=== PATIENT | female | born 1930 | race Caucasian/White ===

== ENCOUNTER → 2016-11-03 | Outpatient (REF) | payer MEDICARE ==
[~2016-11-03] MED LIST: /DULO30CA; /ESOM40CA OR; /WARF25TA OR; ACET65TA; ACET65TA OR; ALLE60TA69 PO; AMIT25TA2; ASPI1TAB PO; ASPIRIN PO; ASTEPRO; ATEN50TA2 OR; ATENPOW PO; Astepro; BACL10TA2; BISA10SU2; BISA5TA; CALC12502; CALCIUM CARBONATE; CALCIUM CARBONATE PO; CALTTAB11 PO; CHOLECALCIFEROL; CHOLECALCIFEROL PO; COLA100C2; COLA100C2 OR; CYMBALTA PO; DOCUSATE PO; DUCOLAX PR; DULCOLAX; DULCOLAX PO; DULO20CA OR; ECOT325T5; ESTRACE VAG CREAM; ESTRACE VAG CREAM PV; FERR325T; FERR325T OR; FERR325T PO; FISH1000 OR; FISHCAP PO; FLUC10TA OR; FLUC10TA PO; FLUT11IN INH; GLUCOSAMINE PLUS MSM; GLUCOSAMINE PLUS MSM PO; HYDR25TA6 OR; HYDR25TA6 PO; ICAPCAP PO; LASI40TA PO; LISI-538 PO; LOVAZA PO; MAGN400C2 PO; MIRALAX PO; MIRALEX PO; MULTIVIT PO; MYCOSTATIN SS; NEUR300C; NEXIUM PO; OXYC10TA56; OXYC10TA97 OR; OXYC10TA97 PO; PEPC20TA2; PERC5TAB8; PERC5TAB8 OR; PERC5TAB8 PO; PERC7.5T8 OR; PERC7.5T8 PO; POTA10CA2; POTA10CA2 OR; PREMARIVAG VAGINALLY; REFR0.1D OP; SALI0.653; SENO8.6T5; TENO25TA; TENO50TA OR; TENO50TA PO; THERGRAN; TRAM50TA2 PO; VITA500T; VITATAB11 PO; ZINC220T2; [UNRECOGNIZED DRUG - OTHER]; [UNRECOGNIZED DRUG - OTHER] PO; [UNRECOGNIZED DRUG - OTHER] VAGINALLY; [UNRECOGNIZED DRUG - REMARK]; [UNRECOGNIZED DRUG - REMARK]; astepro; metamucil; miralax; mylanta; oscal 500 PO
== END | disposition home or self-care (01) ==
LOC: M LAB REF 11-01 13:07
PROVIDERS: ATTEND Physician Assistant Medical
DX: R19.7 Diarrhea, unspecified (principal)

== ENCOUNTER → 2016-11-23 | Outpatient (CLI) | payer MEDICARE ==
--- NOTE | 2016-11-24 07:59 | REP ---
SUPINE ABDOMEN: 11/23/2016. Comparison: 10/11/2005. Clinical history: Diarrhea, sitz marker study. Laminectomy and fusion from L3-L5 with pedicle screws and arch bars noted. Pelvic surgical clips and anastomotic sutures in the midline pelvis. The gas pattern is nonspecific. Degenerative changes in the hips and spine. There are no sitz markers evident on this study. Signed by Hunter Hennessy MD 11/24/2016 06:52 P
== END | disposition home or self-care (01) ==
LOC: M RAD 11-18 08:54
PROVIDERS: ATTEND Physician Assistant Medical
DX: R19.8 Other specified symptoms and signs involving the digestive system and abdomen (principal); R19.7 Diarrhea, unspecified

== ENCOUNTER → 2016-12-19 | Outpatient (CLI) | payer MEDICARE ==
[~2016-12-19] VITALS: Ht 157.5 cm; Wt 90.7 kg
[~2016-12-19] MED LIST changes: +DITR5TAB PO; +LIDOCAINE 2% INJ 100 MG/5 ML SDV (FOR ANES.) As Ordered ONE; +NS 1,000 ML IV SCH; +PROBCAP4 PO; +PROPOFOL 200 MG/20 ML VIAL As Ordered ONE; -REFR0.1D OP; +REFR0.1D OU; +SIMETHICONE 40MG/0.6ML DROPS 30ML As Ordered ONE
--- NOTE | 2016-12-19 08:44 | ROOR ---
Patient Name: Wendy Gonzalez Procedure Date: 12/19/2016 8:22 AM Date of : 1930 Age: 86 Room: OP02 Gender: Female Note Status: Finalized Procedure: Colonoscopy Indications: High risk colon cancer surveillance: Personal history of colon cancer (x2--'93 and '03), History of adenomatous polyps Providers: Nimesh MCKEON MD Referring MD: Brent Zhang NP Requesting Provider: Medicines: Monitored Anesthesia Care Complications: No immediate complications. Procedure: Pre-Anesthesia Assessment: - The heart rate, respiratory rate, oxygen saturations, blood pressure, adequacy of pulmonary ventilation, and response to care were monitored throughout the procedure. The Colonoscope was introduced through the anus and advanced to the cecum, identified by appendiceal orifice and ileocecal valve. The colonoscopy was performed without difficulty. The patient tolerated the procedure well. The quality of the bowel preparation was good. Findings: (Exam: Complete, Prep: Good or Excellent.) Two sessile polyps were found in the sigmoid colon and at 50 cm proximal to the anus. The polyps were diminutive in size. These polyps were removed with a cold snare. Resection and retrieval were complete. There was evidence of a prior end-to-end colo-rectal anastomosis in the recto-sigmoid colon. This was patent and was characterized by healthy appearing mucosa. The exam was otherwise without abnormality on direct and retroflexion views. Impression: - Two diminutive polyps in the sigmoid colon and at 50 cm proximal to the anus, removed with a cold snare. Resected and retrieved. - Patent end-to-end colo-rectal anastomosis, characterized by healthy appearing mucosa. - The examination was otherwise normal on direct and retroflexion views. Recommendation: - Repeat colonoscopy in 2 years for surveillance based on personal history of colon cancer. Nimesh Mckeon MD Nimesh MCKEON MD 12/19/2016 8:43:59 AM This report has been signed electronically. Number of Addenda: 0 Note Initiated On: 12/19/2016 8:22 AM Estimated Blood Loss: Estimated blood loss: none.
[2016-12-19 08:55] VITALS: BP 157/72
== END ==
LOC: M OPP 07:25
PROVIDERS: ATTEND Internal Medicine Gastroenterology
DX: Z12.11 Encounter for screening for malignant neoplasm of colon (principal); Z85.038 Personal history of other malignant neoplasm of large intestine; D12.5 Benign neoplasm of sigmoid colon; Z98.0 Intestinal bypass and anastomosis status; I10 Essential (primary) hypertension; R19.7 Diarrhea, unspecified; M10.9 Gout, unspecified; N39.9 Disorder of urinary system, unspecified; R19.4 Change in bowel habit; Z88.5 Allergy status to narcotic agent; Z88.2 Allergy status to sulfonamides; Z88.8 Allergy status to other drugs, medicaments and biological substances; Z88.6 Allergy status to analgesic agent; Z91.89 Other specified personal risk factors, not elsewhere classified

== ENCOUNTER → 2017-06-30 | Outpatient (CLI) | payer MEDICARE ==
[~2017-06-30] MED LIST changes: -LIDOCAINE 2% INJ 100 MG/5 ML SDV (FOR ANES.) As Ordered ONE; -NS 1,000 ML IV SCH; -PROPOFOL 200 MG/20 ML VIAL As Ordered ONE; +SALI0.6523; -SALI0.653; -SIMETHICONE 40MG/0.6ML DROPS 30ML As Ordered ONE
--- NOTE | 2017-06-30 15:17 | REP ---
PA and lateral chest: Comparison is 04/04/2015. There are no focal infiltrates. No pleural effusions. Lung gutiérrez otherwise clear and unchanged. Cardiac size is upper normal. The gregorio, mediastinum, and bony thorax are unremarkable. On the lateral view there is grade 1 compression deformity of the L1 vertebral body, unchanged. Surgical fusion of the lumbar spine, unchanged. Impression: No acute cardiopulmonary findings. No interval change. Signed by Tomas Martinez MD 06/30/2017 03:09 P
[2017-06-30 17:12] LABS: ALBUMIN 3.9 GM/DL (3.2-5.2); ALBUMIN/GLOBULIN RATIO 1.05 (1.00-1.93); BILIRUBIN,TOTAL 0.4 MG/DL (0.2-1.0); CALCIUM LEVEL 9.9 MG/DL (8.8-10.2); CREATININE FOR GFR 1.03 MG/DL (0.55-1.02); GLOMERULAR FILTRATION RATE 54.2 (>32); MAGNESIUM LEVEL 2.1 MG/DL (1.8-2.4); POTASSIUM SERUM 4.6 MEQ/L (3.5-5.1); TOTAL PROTEIN 7.6 GM/DL (6.4-8.2)
== END ==
LOC: M WUC 14:03
PROVIDERS: ATTEND Nurse Practitioner Family
DX: R06.02 Shortness of breath (principal); I10 Essential (primary) hypertension

== ENCOUNTER → 2017-07-30 | Outpatient (CLI) | payer MEDICARE ==
--- NOTE | 2017-07-30 18:02 | PFTRPT ---
Tech: Amira Long ECONOMIC ADVISER Age: 87 Sex: Female Race: Height: 62.00 Inches Weight: 201.00 Lbs BSA: 1.92 Diagnosis: R06.02 PULMONARY FUNCTION REPORT ORDERING PROVIDER: Brent Zhang RN, TIMBER CUTTER DATE OF SERVICE: 07/30/17 SPIROMETRY: Pre and post bronchodilator study of excellent technical quality. The forced vital capacity is reduced. The FEV1 is in proportion. The obstructive index is, therefore, normal. FLOW VOLUME LOOP: The expiratory limb of the flow volume loop does suggest airflow limitation, however. Favorable bronchodilator response is identified. LUNG VOLUMES: The total lung capacity is normal. The residual volume suggests air trapping. DIFFUSION CAPACITY: The diffusion capacity, although reduced, is appropriate for alveolar volume. HEMOGLOBIN: No hemoglobin is available for correction. AIRWAY MECHANICS: Airways resistance is elevated with a concomitant decrease in airway conductance. IMPRESSION: Obstructive ventilatory impairment with bronchodilator response, underling air trapping and a mild diffusion capacity impairment. Please correlate clinically. MTDD
== END ==
LOC: M CARPUL 16:45
PROVIDERS: ATTEND Nurse Practitioner Family
DX: R06.02 Shortness of breath (principal)

== ENCOUNTER → 2017-08-25 | Outpatient (CLI) | payer MEDICARE ==
--- NOTE | 2017-08-25 15:48 | REPMRS ---
Patient History The patient states she has not had a clinical breast exam in over a year. Patient is postmenopausal and has history of colorectal cancer at age 65. Family history of breast cancer in maternal aunt and prostate cancer in brother. Digital Woman Screen Mammo: August 25, 2017 - Exam #: [id number] Bilateral CC and MLO view(s) were taken. Technologist: Marija Huffman, Technologist Prior study comparison: June 14, 2016, digital woman screen mammo performed at [facility]. May 03, 2015, digital woman screen mammo performed at [facility]. FINDINGS: There are scattered fibroglandular densities. There has been no change in the appearance of the mammogram from the prior studies. There is a mild amount of residual fibroglandular tissue which is fairly symmetric. There is no interval development of dominant mass, architectural distortion, or clustered microcalcification suggestive of malignancy. ASSESSMENT: BI-RADS/ACR category 1 mammogram. Negative. Recommendation Routine screening mammogram in 1 year (for women over age 40). This mammogram was interpreted with the aid of an FDA-approved computer-aided dectection system. Electronically Signed By: Tomas Mejia MD 08/25/17 [id number]
== END ==
LOC: M WHC 14:57
PROVIDERS: ATTEND Nurse Practitioner Family
DX: Z12.31 Encounter for screening mammogram for malignant neoplasm of breast (principal)

== ENCOUNTER → 2017-10-30 | Outpatient (REF) | payer MEDICARE ==
[2017-10-30 13:40] LABS: APPEARANCE, URINE HAZY (CLEAR); BACTERIA, URINE AUTO NEGATIVE (NEGATIVE); BILIRUBIN, URINE AUTO NEGATIVE (NEGATIVE); BLOOD, URINE BLOOD 2+ (NEGATIVE); COLOR, URINE YELLOW (YELLOW); GLUCOSE, URINE (UA) AUTO NEGATIVE (NEGATIVE); KETONE, URINE AUTO NEGATIVE (NEGATIVE); LEUKOCYTE ESTERASE, URINE AUTO 1+ (NEGATIVE); MUCUS, URINE SMALL (NEGATIVE); NITRITE, URINE AUTO NEGATIVE (NEGATIVE); PROTEIN, URINE AUTO NEGATIVE (NEGATIVE); RBC, URINE AUTO 14 /HPF (0-3); SPECIFIC GRAVITY URINE AUTO 1.008 (1.002-1.035); SQUAMOUS EPITHELIAL CELL UR AU 0 /HPF (0-6); UROBILINOGEN, URINE AUTO 0.2 mg/dL (0.0-2.0); WBC, URINE AUTO 25 /HPF (0-3)
== END ==
LOC: M LAB REF 12:57
DX: N39.0 Urinary tract infection, site not specified (principal)
CPT/HCPCS: 81001

== ENCOUNTER → 2018-05-13 | Outpatient (CLI) | payer MEDICARE ==
[2018-05-13 19:36] LABS: ANION GAP 8 MEQ/L (8-16); BLOOD UREA NITROGEN 31 MG/DL (7-18); CALCIUM LEVEL 9.1 MG/DL (8.8-10.2); CARBON DIOXIDE LEVEL 32 MEQ/L (21-32); CHLORIDE LEVEL 103 MEQ/L (98-107); CREATININE FOR GFR 1.14 MG/DL (0.55-1.30); GLOMERULAR FILTRATION RATE 48.1 (>32); GLUCOSE, FASTING 111 MG/DL (70-100); MAGNESIUM LEVEL 2.2 MG/DL (1.8-2.4); POTASSIUM SERUM 4.7 MEQ/L (3.5-5.1); SODIUM LEVEL 143 MEQ/L (136-145)
== END ==
LOC: M WUC 16:39
DX: I10 Essential (primary) hypertension (principal)
CPT/HCPCS: 83735

== ENCOUNTER 2018-09-11 10:31 | Inpatient (IN) | payer MEDICARE ==
[2018-09-11] MEDS: ALBUTEROL SULFATE 2.5 MG/0.5 ML INH NEB SOLN INH (11:41)
[2018-09-11] MEDS: IPRATROPIUM 0.5MG/ALBUTEROL 2.5MG INH SOL UD 3ML (DUONEB)(J7620) NEB (11:41)
[2018-09-11] MEDS: methylPREDNISolone INJ 125 MG/2 ML VIAL (J2930) IV (11:44)
[2018-09-11 12:04] LABS: VENOUS BASE EXCESS 4.1 (-2.0-2.0); VENOUS HCO3 31.8 MEQ/L (23.0-27.0); VENOUS O2 SATURATION 91.3 % (60.0-80.0); VENOUS PARTIAL PRESSURE CO2 62.8 mmHg (38.0-50.0); VENOUS PARTIAL PRESSURE O2 62.4 mmHg (30.0-50.0); VENOUS PH 7.323 UNITS (7.330-7.430); VENOUS TOTAL CO2 33.8 MEQ/L (24.0-28.0)
[2018-09-11 12:08] LABS: BASO % 0.4 % (0.0-1.0); EOS # 0.1 10^3/uL (0.0-0.50); HEMATOCRIT 39.1 % (36.0-47.0); HEMOGLOBIN 12.1 g/dl (12.0-15.5); IMMATURE GRANULOCYTE % 0.8 % (0-3.0); LYMPH # 0.9 10^3/uL (1.5-4.5); LYMPH % 18.4 % (24.0-44.0); MEAN CORPUSCULAR HEMOGLOBIN 32.4 pg (27.0-33.0); MEAN CORPUSCULAR HGB CONC 30.9 g/dl (32.0-36.5); MEAN CORPUSCULAR VOLUME 104.5 fl (80.0-96.0); MONO # 0.3 10^3/uL (0.0-0.8); MONO % 5.7 % (0.0-5.0); NEUTROPHILS # 3.7 10^3/uL (1.8-7.7); NEUTROPHILS % 72.7 % (36.0-66.0); RED BLOOD COUNT 3.74 10^6/uL (4.00-5.40); RED CELL DISTRIBUTION WIDTH 14.6 % (11.5-14.5); WHITE BLOOD COUNT 5.1 10^3/uL (4.0-10.0)
[2018-09-11 12:20] LABS: INR 0.88; PROTHROMBIN TIME 12.1 SECONDS (12.1-14.4)
[2018-09-11 12:22] LABS: POS COUNT POS FLAG
[2018-09-11 12:51] LABS: ALBUMIN 3.2 GM/DL (3.2-5.2); ALBUMIN/GLOBULIN RATIO 0.89 (1.00-1.93); ALKALINE PHOSPHATASE 62 U/L (45-117); ALT/SGPT 39 U/L (12-78); ANION GAP 6 MEQ/L (8-16); AST/SGOT 28 U/L (7-37); BILIRUBIN,DIRECT < 0.1 MG/DL (0.0-0.2); BILIRUBIN,TOTAL 0.2 MG/DL (0.2-1.0); BLOOD UREA NITROGEN 35 MG/DL (7-18); CALCIUM LEVEL 8.9 MG/DL (8.8-10.2); CARBON DIOXIDE LEVEL 32 MEQ/L (21-32); CHLORIDE LEVEL 103 MEQ/L (98-107); CPK CREATINE PHOSPHOKINASE 119 U/L (26-192); CREATININE FOR GFR 1.22 MG/DL (0.55-1.30); GLOMERULAR FILTRATION RATE 44.5 (>32); GLUCOSE, FASTING 120 MG/DL (70-100); MB/CK RELATIVE INDEX 2.27 (< OR =4); NT-PRO BNP 5380 PG/ML (<450); POTASSIUM SERUM 4.6 MEQ/L (3.5-5.1); SODIUM LEVEL 141 MEQ/L (136-145); THYROID STIMULATING HORMONE 0.994 uIU/ML (0.358-3.740); THYROXINE (T4) 7.6 UG/DL (4.5-12.0); TOTAL PROTEIN 6.8 GM/DL (6.4-8.2); TROPONIN I 0.02 NG/ML (< 0.10)
[2018-09-11] MEDS ORDERED: ISOVUE-370 76% 100ML VIAL (Q9967) As Ordered (13:20)
[2018-09-11 13:33] LABS: ABG BASE EXCESS 3.7 (-2.0-2.0); ABG HCO3 30.9 MEQ/L (22.0-26.0); ABG O2 SATURATION 91.9 % (95.0-99.0); ABG PARTIAL PRESSURE CO2 59.1 mmHg (35.0-45.0); ABG PARTIAL PRESSURE O2 62.5 mmHg (75.0-100.0); ABG STANDARD HCO3 27.6 MEQ/L (22.0-26.0); ABG TOTAL CO2 32.7 MEQ/L (23.0-31.0); ABG pH (ARTERIAL) 7.336 UNITS (7.350-7.450)
[2018-09-11] MEDS ORDERED: FUROSEMIDE 40 MG/4 ML VIAL (J1940) IV (14:30)
[2018-09-11] MEDS: FUROSEMIDE 100 MG/10 ML VIAL (J1940) IV (14:54)
[2018-09-11] MEDS ORDERED: DOCUSATE SODIUM 100 MG CAP PO (16:45)
[2018-09-11] MEDS ORDERED: diphenhydrAMINE 25 MG CAP PO (16:45)
[2018-09-11] MEDS: metFORMIN (GLUCOPHAGE) 500 MG TAB PO (18:49)
[2018-09-11] MEDS: LEVALBUTEROL HFA 45MCG/ACT 15 GM INHALER INH (20:00)
[2018-09-11 20:21] LABS: TROPONIN I 0.03 NG/ML (< 0.10)
[2018-09-11] MEDS: MULTIVITAMINS/MINERALS THERAP 1 TAB PO (21:14)
[2018-09-11] MEDS: predniSONE 2.5 MG TAB PO (21:15)
[2018-09-11] MEDS: ALLOPURINOL 100 MG TAB PO (21:15)
[2018-09-11] MEDS: ASPIRIN 81 MG ENTERIC TAB PO (21:16)
[2018-09-11] MEDS: LISINOPRIL 20 MG TAB PO (21:16)
[2018-09-11] MEDS: ATENOLOL 50 MG TAB PO (21:17)
[2018-09-11] MEDS: GABAPENTIN 100 MG CAP PO (21:17)
[2018-09-11] MEDS: SYMBICORT 80/4.5MCG INHALER 6GM INH (22:02)
[2018-09-12 00:29] LABS: BEDSIDE GLUCOSE 157 MG/DL (83-110)
[2018-09-12 05:35] LABS: HEMATOCRIT 35.6 % (36.0-47.0); HEMOGLOBIN 11.2 g/dl (12.0-15.5); MEAN CORPUSCULAR HEMOGLOBIN 32.7 pg (27.0-33.0); MEAN CORPUSCULAR HGB CONC 31.5 g/dl (32.0-36.5); MEAN CORPUSCULAR VOLUME 103.8 fl (80.0-96.0); PLATELET COUNT, AUTOMATED 171 10^3/uL (150-450); RED BLOOD COUNT 3.43 10^6/uL (4.00-5.40); RED CELL DISTRIBUTION WIDTH 14.3 % (11.5-14.5); WHITE BLOOD COUNT 6.3 10^3/uL (4.0-10.0)
[2018-09-12 05:58] LABS: ANION GAP 6 MEQ/L (8-16); BLOOD UREA NITROGEN 34 MG/DL (7-18); CALCIUM LEVEL 8.7 MG/DL (8.8-10.2); CARBON DIOXIDE LEVEL 34 MEQ/L (21-32); CHLORIDE LEVEL 101 MEQ/L (98-107); CREATININE FOR GFR 1.11 MG/DL (0.55-1.30); GLOMERULAR FILTRATION RATE 49.6 (>32); GLUCOSE, FASTING 153 MG/DL (70-100); POTASSIUM SERUM 4.3 MEQ/L (3.5-5.1); SODIUM LEVEL 141 MEQ/L (136-145)
[2018-09-12 07:29] LABS: TROPONIN I < 0.02 NG/ML (< 0.10)
[2018-09-12] MEDS: LEVALBUTEROL HFA 45MCG/ACT 15 GM INHALER INH ×4 (07:33→20:00)
[2018-09-12] MEDS: SYMBICORT 80/4.5MCG INHALER 6GM INH ×2 (07:34→20:04)
[2018-09-12] MEDS ORDERED: DEXTROSE 50% 50 ML SYRINGE IV (07:45)
[2018-09-12] MEDS ORDERED: GLUCAGON FOR INJ 1 MG VIAL (J1610) SC (07:45)
[2018-09-12] MEDS ORDERED: GLUCOSE 4 GM CHEW TABLET PO (07:45)
[2018-09-12] MEDS: GABAPENTIN 100 MG CAP PO ×2 (07:49→20:54)
[2018-09-12] MEDS: HYDROXYCHLOROQUINE 200 MG TAB PO (07:49)
[2018-09-12] MEDS: ENOXAPARIN 40 MG/0.4 ML SYRINGE (J1650) SC (07:49)
[2018-09-12] MEDS: predniSONE 5 MG TAB PO (07:49)
[2018-09-12] MEDS: FUROSEMIDE 40 MG/4 ML VIAL (J1940) IV ×2 (07:49→17:16)
[2018-09-12] MEDS: OCUVITE 1 TAB PO (07:50)
[2018-09-12] MEDS: HumaLOG INSULIN (NovoLOG) PER UNIT SC ×4 (07:54→20:56)
[2018-09-12] MEDS ORDERED: FUROSEMIDE 40 MG/4 ML VIAL (J1940) IV (09:00)
[2018-09-12 11:59] LABS: BEDSIDE GLUCOSE 129 MG/DL (83-110)
[2018-09-12 16:57] LABS: BEDSIDE GLUCOSE 122 MG/DL (83-110)
[2018-09-12] MEDS: predniSONE 2.5 MG TAB PO (17:15)
[2018-09-12 20:52] LABS: BEDSIDE GLUCOSE 198 MG/DL (83-110)
[2018-09-12] MEDS: ASPIRIN 81 MG ENTERIC TAB PO (20:54)
[2018-09-12] MEDS: LISINOPRIL 20 MG TAB PO (20:55)
[2018-09-12] MEDS: ALLOPURINOL 100 MG TAB PO (20:56)
[2018-09-12] MEDS: MULTIVITAMINS/MINERALS THERAP 1 TAB PO (20:56)
[2018-09-12] MEDS: ATENOLOL 50 MG TAB PO (20:56)
[2018-09-12] MEDS: CALCIUM CARBONATE 500 MG CHEW U/D PO (23:01)
[2018-09-13] MEDS ORDERED: SLF 3 ML SYR IV (03:00)
[2018-09-13] MEDS: SLF 3 ML SYR IV ×3 (05:19→20:49)
[2018-09-13 05:30] LABS: HEMATOCRIT 35.9 % (36.0-47.0); HEMOGLOBIN 11.3 g/dl (12.0-15.5); MEAN CORPUSCULAR HEMOGLOBIN 32.5 pg (27.0-33.0); MEAN CORPUSCULAR HGB CONC 31.5 g/dl (32.0-36.5); MEAN CORPUSCULAR VOLUME 103.2 fl (80.0-96.0); PLATELET COUNT, AUTOMATED 183 10^3/uL (150-450); RED BLOOD COUNT 3.48 10^6/uL (4.00-5.40); RED CELL DISTRIBUTION WIDTH 14.5 % (11.5-14.5); WHITE BLOOD COUNT 6.6 10^3/uL (4.0-10.0)
[2018-09-13 05:50] LABS: ANION GAP 6 MEQ/L (8-16); BLOOD UREA NITROGEN 44 MG/DL (7-18); CARBON DIOXIDE LEVEL 35 MEQ/L (21-32); CHLORIDE LEVEL 100 MEQ/L (98-107); CREATININE FOR GFR 1.27 MG/DL (0.55-1.30); GLOMERULAR FILTRATION RATE 42.5 (>32); GLUCOSE, FASTING 118 MG/DL (70-100); SODIUM LEVEL 141 MEQ/L (136-145)
[2018-09-13] MEDS: HumaLOG INSULIN (NovoLOG) PER UNIT SC ×4 (07:39→20:42)
[2018-09-13] MEDS: LEVALBUTEROL HFA 45MCG/ACT 15 GM INHALER INH ×4 (08:00→20:00)
[2018-09-13] MEDS: ENOXAPARIN 40 MG/0.4 ML SYRINGE (J1650) SC (08:07)
[2018-09-13] MEDS: predniSONE 5 MG TAB PO (08:07)
[2018-09-13] MEDS: OCUVITE 1 TAB PO (08:07)
[2018-09-13] MEDS: traMADol 50 MG TAB PO ×2 (08:08→23:54)
[2018-09-13] MEDS: HYDROXYCHLOROQUINE 200 MG TAB PO (08:08)
[2018-09-13] MEDS: GABAPENTIN 100 MG CAP PO ×2 (08:08→20:40)
[2018-09-13] MEDS: FUROSEMIDE 40 MG/4 ML VIAL (J1940) IV ×2 (08:09→17:07)
[2018-09-13] MEDS: SYMBICORT 80/4.5MCG INHALER 6GM INH ×2 (08:20→21:16)
[2018-09-13 12:11] LABS: BEDSIDE GLUCOSE 208 MG/DL (83-110)
[2018-09-13 16:52] LABS: BEDSIDE GLUCOSE 142 MG/DL (83-110)
[2018-09-13] MEDS: predniSONE 2.5 MG TAB PO (17:08)
[2018-09-13 20:25] LABS: BEDSIDE GLUCOSE 155 MG/DL (83-110)
[2018-09-13] MEDS: ATENOLOL 50 MG TAB PO (20:40)
[2018-09-13] MEDS: LISINOPRIL 20 MG TAB PO (20:40)
[2018-09-13] MEDS: ASPIRIN 81 MG ENTERIC TAB PO (20:41)
[2018-09-13] MEDS: MULTIVITAMINS/MINERALS THERAP 1 TAB PO (20:41)
[2018-09-13] MEDS: ALLOPURINOL 100 MG TAB PO (20:49)
[2018-09-14] MEDS: SLF 3 ML SYR IV ×3 (05:02→22:00)
[2018-09-14 05:25] LABS: HEMATOCRIT 35.8 % (36.0-47.0); HEMOGLOBIN 11.2 g/dl (12.0-15.5); MEAN CORPUSCULAR HEMOGLOBIN 32.2 pg (27.0-33.0); MEAN CORPUSCULAR HGB CONC 31.3 g/dl (32.0-36.5); MEAN CORPUSCULAR VOLUME 102.9 fl (80.0-96.0); PLATELET COUNT, AUTOMATED 176 10^3/uL (150-450); RED BLOOD COUNT 3.48 10^6/uL (4.00-5.40); RED CELL DISTRIBUTION WIDTH 14.4 % (11.5-14.5); WHITE BLOOD COUNT 5.6 10^3/uL (4.0-10.0)
[2018-09-14 05:36] LABS: ANION GAP 5 MEQ/L (8-16); BLOOD UREA NITROGEN 50 MG/DL (7-18); CARBON DIOXIDE LEVEL 35 MEQ/L (21-32); CHLORIDE LEVEL 98 MEQ/L (98-107); CREATININE FOR GFR 1.26 MG/DL (0.55-1.30); GLOMERULAR FILTRATION RATE 42.9 (>32); GLUCOSE, FASTING 115 MG/DL (70-100); POTASSIUM SERUM 4.2 MEQ/L (3.5-5.1); SODIUM LEVEL 138 MEQ/L (136-145)
[2018-09-14] MEDS: SYMBICORT 80/4.5MCG INHALER 6GM INH ×2 (08:50→20:34)
[2018-09-14] MEDS: LEVALBUTEROL HFA 45MCG/ACT 15 GM INHALER INH ×3 (08:51→20:00)
[2018-09-14] MEDS: HumaLOG INSULIN (NovoLOG) PER UNIT SC ×4 (09:01→20:39)
[2018-09-14] MEDS: OCUVITE 1 TAB PO (09:02)
[2018-09-14] MEDS: GABAPENTIN 100 MG CAP PO ×2 (09:03→20:42)
[2018-09-14] MEDS: HYDROXYCHLOROQUINE 200 MG TAB PO (09:03)
[2018-09-14] MEDS: FLUBLOK(EGG FREE)(QUAD)INFLUENZA VACC 0.5ML SYRINGE (90682)18YRS&OLDER IM (09:03)
[2018-09-14] MEDS: predniSONE 5 MG TAB PO (09:04)
[2018-09-14] MEDS: ENOXAPARIN 40 MG/0.4 ML SYRINGE (J1650) SC (09:04)
[2018-09-14] MEDS: FUROSEMIDE 40 MG/4 ML VIAL (J1940) IV ×2 (09:21→18:53)
[2018-09-14 12:13] LABS: BEDSIDE GLUCOSE 128 MG/DL (83-110)
[2018-09-14] MEDS: traMADol 50 MG TAB PO (12:26)
[2018-09-14 16:52] LABS: BEDSIDE GLUCOSE 171 MG/DL (83-110)
[2018-09-14] MEDS: predniSONE 2.5 MG TAB PO (18:52)
[2018-09-14] MEDS: MULTIVITAMINS/MINERALS THERAP 1 TAB PO (20:42)
[2018-09-14] MEDS: ASPIRIN 81 MG ENTERIC TAB PO (20:42)
[2018-09-14] MEDS: LISINOPRIL 20 MG TAB PO (20:42)
[2018-09-14] MEDS: ALLOPURINOL 100 MG TAB PO (20:42)
[2018-09-14] MEDS: ATENOLOL 50 MG TAB PO (20:42)
[2018-09-14 20:50] LABS: BEDSIDE GLUCOSE 78 MG/DL (83-110)
[2018-09-15] MEDS: SLF 3 ML SYR IV ×3 (05:58→22:00)
[2018-09-15 06:02] LABS: HEMATOCRIT 35.6 % (36.0-47.0); MEAN CORPUSCULAR HEMOGLOBIN 31.6 pg (27.0-33.0); MEAN CORPUSCULAR HGB CONC 30.9 g/dl (32.0-36.5); MEAN CORPUSCULAR VOLUME 102.3 fl (80.0-96.0); PLATELET COUNT, AUTOMATED 182 10^3/uL (150-450); RED BLOOD COUNT 3.48 10^6/uL (4.00-5.40); RED CELL DISTRIBUTION WIDTH 14.4 % (11.5-14.5); WHITE BLOOD COUNT 5.9 10^3/uL (4.0-10.0)
[2018-09-15 06:19] LABS: ANION GAP 4 MEQ/L (8-16); BLOOD UREA NITROGEN 52 MG/DL (7-18); CALCIUM LEVEL 8.5 MG/DL (8.8-10.2); CARBON DIOXIDE LEVEL 34 MEQ/L (21-32); CHLORIDE LEVEL 98 MEQ/L (98-107); CREATININE FOR GFR 1.49 MG/DL (0.55-1.30); GLOMERULAR FILTRATION RATE 35.3 (>32); GLUCOSE, FASTING 112 MG/DL (70-100); POTASSIUM SERUM 4.5 MEQ/L (3.5-5.1); SODIUM LEVEL 136 MEQ/L (136-145)
[2018-09-15] MEDS: LEVALBUTEROL HFA 45MCG/ACT 15 GM INHALER INH ×4 (08:00→20:00)
[2018-09-15] MEDS: SYMBICORT 80/4.5MCG INHALER 6GM INH ×2 (09:12→22:41)
[2018-09-15] MEDS: ENOXAPARIN 40 MG/0.4 ML SYRINGE (J1650) SC (09:33)
[2018-09-15] MEDS: predniSONE 5 MG TAB PO (09:34)
[2018-09-15] MEDS: GABAPENTIN 100 MG CAP PO ×2 (09:34→21:12)
[2018-09-15] MEDS: FUROSEMIDE 40 MG/4 ML VIAL (J1940) IV ×2 (09:34→18:09)
[2018-09-15] MEDS: HumaLOG INSULIN (NovoLOG) PER UNIT SC ×4 (09:34→21:00)
[2018-09-15] MEDS: OCUVITE 1 TAB PO (09:34)
[2018-09-15] MEDS: HYDROXYCHLOROQUINE 200 MG TAB PO (09:34)
[2018-09-15 12:08] LABS: BEDSIDE GLUCOSE 119 MG/DL (83-110)
[2018-09-15 18:09] LABS: BEDSIDE GLUCOSE 127 MG/DL (83-110)
[2018-09-15] MEDS: predniSONE 2.5 MG TAB PO (18:09)
[2018-09-15] MEDS: LISINOPRIL 20 MG TAB PO (21:12)
[2018-09-15] MEDS: ASPIRIN 81 MG ENTERIC TAB PO (21:12)
[2018-09-15] MEDS: ALLOPURINOL 100 MG TAB PO (21:12)
[2018-09-15] MEDS: ATENOLOL 50 MG TAB PO (21:12)
[2018-09-15] MEDS: MULTIVITAMINS/MINERALS THERAP 1 TAB PO (21:12)
[2018-09-15 21:20] LABS: BEDSIDE GLUCOSE 132 MG/DL (83-110)
[2018-09-16 05:44] LABS: HEMATOCRIT 37.3 % (36.0-47.0); HEMOGLOBIN 11.9 g/dl (12.0-15.5); MEAN CORPUSCULAR HEMOGLOBIN 32.8 pg (27.0-33.0); MEAN CORPUSCULAR HGB CONC 31.9 g/dl (32.0-36.5); MEAN CORPUSCULAR VOLUME 102.8 fl (80.0-96.0); PLATELET COUNT, AUTOMATED 178 10^3/uL (150-450); RED BLOOD COUNT 3.63 10^6/uL (4.00-5.40); RED CELL DISTRIBUTION WIDTH 14.3 % (11.5-14.5); WHITE BLOOD COUNT 6.4 10^3/uL (4.0-10.0)
[2018-09-16] MEDS: SLF 3 ML SYR IV ×3 (05:55→21:11)
[2018-09-16 05:59] LABS: ANION GAP 8 MEQ/L (8-16); BLOOD UREA NITROGEN 53 MG/DL (7-18); CALCIUM LEVEL 8.5 MG/DL (8.8-10.2); CARBON DIOXIDE LEVEL 29 MEQ/L (21-32); CHLORIDE LEVEL 99 MEQ/L (98-107); CHOLESTEROL LEVEL 183 MG/DL (<200); CREATININE FOR GFR 1.47 MG/DL (0.55-1.30); GLOMERULAR FILTRATION RATE 35.9 (>32); GLUCOSE, FASTING 110 MG/DL (70-100); HDL CHOLESTEROL 60 MG/DL (>40); LDL CHOLESTEROL 93 MG/DL (<100); NON-HDL-C 123 MG/DL; POTASSIUM SERUM 4.8 MEQ/L (3.5-5.1); SODIUM LEVEL 136 MEQ/L (136-145); TRIGLYCERIDES LEVEL 149 MG/DL (<150)
[2018-09-16] MEDS: SYMBICORT 80/4.5MCG INHALER 6GM INH ×2 (08:00→20:53)
[2018-09-16] MEDS: LEVALBUTEROL HFA 45MCG/ACT 15 GM INHALER INH ×4 (08:00→20:00)
[2018-09-16] MEDS: HumaLOG INSULIN (NovoLOG) PER UNIT SC ×4 (08:24→20:44)
[2018-09-16] MEDS: GABAPENTIN 100 MG CAP PO ×2 (08:25→20:44)
[2018-09-16] MEDS: predniSONE 5 MG TAB PO (08:25)
[2018-09-16] MEDS: OCUVITE 1 TAB PO (08:25)
[2018-09-16] MEDS: ENOXAPARIN 40 MG/0.4 ML SYRINGE (J1650) SC (08:25)
[2018-09-16] MEDS: HYDROXYCHLOROQUINE 200 MG TAB PO (10:12)
[2018-09-16 11:52] LABS: BEDSIDE GLUCOSE 132 MG/DL (83-110)
[2018-09-16 17:07] LABS: BEDSIDE GLUCOSE 140 MG/DL (83-110)
[2018-09-16] MEDS: predniSONE 2.5 MG TAB PO (17:22)
[2018-09-16 20:20] LABS: BEDSIDE GLUCOSE 154 MG/DL (83-110)
[2018-09-16] MEDS: ALLOPURINOL 100 MG TAB PO (20:42)
[2018-09-16] MEDS: [UNRECOGNIZED DRUG - OTHER] OU (20:42)
[2018-09-16] MEDS: ATENOLOL 50 MG TAB PO (20:43)
[2018-09-16] MEDS: ASPIRIN 81 MG ENTERIC TAB PO (20:43)
[2018-09-16] MEDS: LISINOPRIL 20 MG TAB PO (20:43)
[2018-09-16] MEDS: MULTIVITAMINS/MINERALS THERAP 1 TAB PO (20:44)
[2018-09-17] MEDS: SLF 3 ML SYR IV (05:25)
[2018-09-17 06:39] LABS: HEMATOCRIT 36.3 % (36.0-47.0); HEMOGLOBIN 11.5 g/dl (12.0-15.5); MEAN CORPUSCULAR HEMOGLOBIN 32.2 pg (27.0-33.0); MEAN CORPUSCULAR HGB CONC 31.7 g/dl (32.0-36.5); MEAN CORPUSCULAR VOLUME 101.7 fl (80.0-96.0); PLATELET COUNT, AUTOMATED 179 10^3/uL (150-450); RED BLOOD COUNT 3.57 10^6/uL (4.00-5.40); RED CELL DISTRIBUTION WIDTH 14.3 % (11.5-14.5); WHITE BLOOD COUNT 5.4 10^3/uL (4.0-10.0)
[2018-09-17 06:55] LABS: ANION GAP 6 MEQ/L (8-16); BLOOD UREA NITROGEN 51 MG/DL (7-18); CALCIUM LEVEL 8.9 MG/DL (8.8-10.2); CARBON DIOXIDE LEVEL 32 MEQ/L (21-32); CHLORIDE LEVEL 101 MEQ/L (98-107); CREATININE FOR GFR 1.14 MG/DL (0.55-1.30); GLOMERULAR FILTRATION RATE 48.1 (>32); GLUCOSE, FASTING 120 MG/DL (70-100); POTASSIUM SERUM 4.6 MEQ/L (3.5-5.1); SODIUM LEVEL 139 MEQ/L (136-145)
[2018-09-17] MEDS: OCUVITE 1 TAB PO (08:08)
[2018-09-17] MEDS: GABAPENTIN 100 MG CAP PO (08:08)
[2018-09-17] MEDS: ENOXAPARIN 40 MG/0.4 ML SYRINGE (J1650) SC (08:08)
[2018-09-17] MEDS: HYDROXYCHLOROQUINE 200 MG TAB PO (08:08)
[2018-09-17] MEDS: predniSONE 5 MG TAB PO (08:08)
[2018-09-17] MEDS: HumaLOG INSULIN (NovoLOG) PER UNIT SC ×2 (08:08→11:44)
[2018-09-17] MEDS: [UNRECOGNIZED DRUG - OTHER] OU (08:09)
[2018-09-17] MEDS: SYMBICORT 80/4.5MCG INHALER 6GM INH (09:03)
[2018-09-17 11:39] LABS: BEDSIDE GLUCOSE 126 MG/DL (83-110)
[2018-09-17 12:12] LABS: MAGNESIUM LEVEL 2.9 MG/DL (1.8-2.4)
[2018-09-17] MEDS: LEVALBUTEROL HFA 45MCG/ACT 15 GM INHALER INH (12:15)
[2018-09-17] MEDS ORDERED: ATENOLOL 25 MG TAB PO (21:00)
== END 2018-09-17 13:55 | disposition home health service (06) | DRG 291 ==
LOC: M ED 10:31 → M ED INP 15:45 → M PCU 20:31
DX: I13.0 Hypertensive heart and chronic kidney disease with heart failure and stage 1 through stage 4 chronic kidney disease, or unspecified chronic kidney disease (principal); I50.33 Acute on chronic diastolic (congestive) heart failure; E11.22 Type 2 diabetes mellitus with diabetic chronic kidney disease; E78.5 Hyperlipidemia, unspecified; K21.9 Gastro-esophageal reflux disease without esophagitis; L93.0 Discoid lupus erythematosus; G89.29 Other chronic pain; M10.9 Gout, unspecified; N18.9 Chronic kidney disease, unspecified; E11.40 Type 2 diabetes mellitus with diabetic neuropathy, unspecified; J44.9 Chronic obstructive pulmonary disease, unspecified; Z88.2 Allergy status to sulfonamides; Z88.6 Allergy status to analgesic agent; Z88.4 Allergy status to anesthetic agent; Z87.891 Personal history of nicotine dependence; Z79.82 Long term (current) use of aspirin; Z79.84 Long term (current) use of oral hypoglycemic drugs; Z79.52 Long term (current) use of systemic steroids; Z79.891 Long term (current) use of opiate analgesic; Z79.899 Other long term (current) drug therapy; Z91.11 Patient's noncompliance with dietary regimen

== ENCOUNTER → 2018-11-18 | Outpatient (REF) | payer MEDICARE ==
[~2018-11-18] MED LIST changes: +ACET500T15 PO; +ALLE12TA31 PO; +ALLO100T PO; +ATEN25TA PO; +ATEN50TA2 PO; +B COTAB3 PO; +BENA25CA4 PO; +CALTTAB6 PO; +COLA100C5 PO; +ESOM1CAP5 PO; +FLUC150T PO; +FURO40TA2 PO; +GABA-1171 PO; +HYDR200T3 PO; +ICAPTAB PO; -LASI40TA PO; +LASI40TA9 PO; +LEVAINH INH; +MAGN400T2 PO; +METF500T13 PO; +MIRA3350 PO; +PRED25TA PO; +PRED5TA PO; +PROBCAP14 PO; +REFR0.5D8 OU; -SALI0.6523; +SALI0.6528; +SYMB80INH INH; +VITMTA PO; +[UNRECOGNIZED DRUG - CODE] PO
[2018-11-18 12:10] LABS: CALCIUM LEVEL 9.1 MG/DL (8.8-10.2); CREATININE FOR GFR 1.07 MG/DL (0.55-1.30); GLOMERULAR FILTRATION RATE 51.8 (>32); POTASSIUM SERUM 5.1 MEQ/L (3.5-5.1)
[2018-11-18 12:43] LABS: HEMOGLOBIN A1c 6.5 %
== END ==
LOC: M LAB REF 11:00
PROVIDERS: ATTEND Nurse Practitioner Family
DX: E11.9 Type 2 diabetes mellitus without complications (principal); I11.0 Hypertensive heart disease with heart failure

== ENCOUNTER 2018-12-22 09:40 | Inpatient (IN) | payer MEDICARE ==
[~2018-12-22] VITALS: Ht 157.5 cm; Wt 90.0 kg
[~2018-12-22 09:40] MED LIST changes: -/DULO30CA; -/ESOM40CA OR; -/WARF25TA OR; -ASPI1TAB PO; +ASPI81TA26 PO; +COUM1TAB18 OR; +CYMB1CAP4 OR; +CYMB1CAP5; -DULO20CA OR; +NEXI1CAP3 OR
[2018-12-22 10:41] LABS: VENOUS BASE EXCESS 5.9 (-2.0-2.0); VENOUS HCO3 33.4 MEQ/L (23.0-27.0); VENOUS O2 SATURATION 90.3 % (60.0-80.0); VENOUS PARTIAL PRESSURE CO2 63.4 mmHg (38.0-50.0); VENOUS PARTIAL PRESSURE O2 62.2 mmHg (30.0-50.0); VENOUS PH 7.339 UNITS (7.330-7.430); VENOUS STANDARD HCO3 29.7 MEQ/L; VENOUS TOTAL CO2 35.3 MEQ/L (24.0-28.0)
[2018-12-22 10:42] LABS: BASO % 0.3 % (0.0-1.0); EOS # 0.1 10^3/uL (0.0-0.50); EOS % 1.8 % (0.0-3.0); HEMATOCRIT 33.6 % (36.0-47.0); HEMOGLOBIN 10.6 g/dl (12.0-15.5); LYMPH # 1.2 10^3/uL (1.5-4.5); LYMPH % 16.3 % (24.0-44.0); MEAN CORPUSCULAR HEMOGLOBIN 33.4 pg (27.0-33.0); MEAN CORPUSCULAR HGB CONC 31.5 g/dl (32.0-36.5); MONO # 0.6 10^3/uL (0.0-0.8); MONO % 8.8 % (0.0-5.0); NEUTROPHILS # 5.3 10^3/uL (1.8-7.7); NEUTROPHILS % 72.3 % (36.0-66.0); PLATELET COUNT, AUTOMATED 167 10^3/uL (150-450); RED BLOOD COUNT 3.17 10^6/uL (4.00-5.40); WHITE BLOOD COUNT 7.3 10^3/uL (4.0-10.0)
[2018-12-22] MEDS ORDERED: REFRSOL OU (10:50)
[2018-12-22] MEDS ORDERED: ATEN25TA PO (10:51)
[2018-12-22 10:55] LABS: INR 0.95; PROTHROMBIN TIME 12.8 SECONDS (12.1-14.4)
--- NOTE | 2018-12-22 11:07 | REP ---
Portable chest, single AP view, 10:47 a.m.: Comparison is 09/11/2018. There is diffuse bilateral interstitial coarsening and indistinctness, unchanged. This could represent chronic interstitial lung disease or chronic interstitial infiltrates. There is no focal infiltrate. There is no pleural effusion. Cardiac size is enlarged, unchanged. Azeb, mediastinum, skeletal structures are unremarkable. Impression: Chronic diffuse interstitial coarsening as discussed. Chronic cardiomegaly. Electronically Signed by Tomas Martinez MD 12/22/2018 10:58 A
--- NOTE | 2018-12-22 11:10 | REP ---
AP pelvis: There is no pelvic fracture. The sacroiliac articulations and hip articulations are unremarkable. There are surgical clips in the pelvis. There is surgical fusion of the lower lumbar spine. Impression: No pelvic fracture. Left hip two views: Comparison is 09/12/2008. Mineralization is normal. There is no joint space narrowing. There is no femoral head deformity. There is a small femoral head osteophyte compatible with mild osteoarthritis. No fracture or dislocation. Impression: Mild osteoarthritis. No fracture or dislocation. Electronically Signed by Tomas Martinez MD 12/22/2018 11:01 A
[2018-12-22 11:25] LABS: ALBUMIN 3.1 GM/DL (3.2-5.2); ALT/SGPT 31 U/L (12-78); BILIRUBIN,DIRECT < 0.1 MG/DL (0.0-0.2); BILIRUBIN,TOTAL 0.3 MG/DL (0.2-1.0); BLOOD UREA NITROGEN 31 MG/DL (7-18); CALCIUM LEVEL 8.5 MG/DL (8.8-10.2); CARBON DIOXIDE LEVEL 32 MEQ/L (21-32); CHLORIDE LEVEL 102 MEQ/L (98-107); CPK CREATINE PHOSPHOKINASE 73 U/L (26-192); CREATININE FOR GFR 1.13 MG/DL (0.55-1.30); GLOMERULAR FILTRATION RATE 48.6 (>32); GLUCOSE, FASTING 126 MG/DL (70-100); MB/CK RELATIVE INDEX 2.74 (< OR =4); NT-PRO BNP 4875 PG/ML (<450); POTASSIUM SERUM 4.7 MEQ/L (3.5-5.1); SODIUM LEVEL 141 MEQ/L (136-145); TOTAL PROTEIN 6.1 GM/DL (6.4-8.2); TROPONIN I 0.02 NG/ML (< 0.10)
--- NOTE | 2018-12-22 11:32 | REP ---
RIGHT LOWER EXTREMITY DOPPLER VENOUS ULTRASOUND: 12/22/2018. Comparison: None Technique: The deep venous system of the right lower extremity is evaluated with kay scale imaging, compression ultrasound, color imaging and duplex Doppler interrogation. Examination from the groin through the popliteal fossa into the proximal calf. Findings: There is full compressibility from the common femoral vein in the inguinal region through the popliteal vein. Color imaging confirms patency throughout the course of the deep venous system. There is respiratory variation and augmented flow at all levels. Impression: 1. No Doppler venous ultrasound evidence of DVT in the right lower extremity. Electronically Signed by Hunter Hennessy MD 12/22/2018 08:37 P
[2018-12-22 11:48] LABS: INFLUENZA A AMPLIFICATION NEGATIVE (NEGATIVE); INFLUENZA B AMPLIFICATION NEGATIVE (NEGATIVE)
[2018-12-22] MEDS ORDERED: FUROSEMIDE 100 MG/10 ML VIAL (J1940) IV ONE (12:15)
--- NOTE | 2018-12-22 14:48 | ECGEPIP ---
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
[2018-12-22] MEDS ORDERED: MIRALAX *UNIT DOSE* 17GM PACKET PO PRN (15:30)
--- NOTE | 2018-12-22 15:51 | HPE ---
DATE OF ADMISSION: 12/22/2018 An 88-year-old female with past medical history of hypertension, diabetes, hyperlipidemia, morbid obesity, recently diagnosed lupus, on hydroxychloroquine and prednisone, history of chronic diastolic heart failure presents to the emergency room with increasing shortness of breath at rest as well as bilateral lower extremity leg swelling over the last 3 days. Patient says that she has been maintaining a low-sodium diet and has been taking all her medications as prescribed; however, on presentation in the emergency room (ER) she was found to have fluctuating blood pressures, systolic blood pressure as high as 170. She was found to be in heart failure and was given 80 of intravenous (IV) Lasix by the ER attending, and patient has already diuresed four times and feels much better at this time. She denies any chest pain, palpitations, abdominal pain, nausea, vomiting. She is also complaining of mild right hip pain, which has been making it more difficult for her to mobilize with her Rollator walker. She will be admitted for further management. PAST MEDICAL HISTORY: 1. Hypertension. 2. Diabetes. 3. Hyperlipidemia. 4. Chronic diastolic heart failure. 5. History of morbid obesity. 6. History of lupus. 7. Gastroesophageal reflux disease (GERD). DRUG ALLERGIES: IBUPROFEN, SULFA DRUGS, LIDODERM PATCH. FAMILY HISTORY: Noncontributory. SOCIAL HISTORY: Patient was a heavy smoker; quit approximately 15 years ago. Denies alcohol or illicit drugs. HOME MEDICATIONS: - Tylenol as needed - Sierra as needed - allopurinol 200 mg orally daily - aspirin 81 mg orally at bedtime - atenolol 25 mg orally at bedtime - B complex vitamin one tablet orally daily - budesonide formoterol two puffs inhaled twice daily - Caltrate 600 one tablet orally daily - diphenhydramine 25 mg orally at bedtime - Colace 100 mg orally twice daily - omeprazole 40 mg orally twice daily - cortisol 150 mg by mouth daily as needed - Lasix 40 mg orally daily - gabapentin 100 mg orally twice daily - hydroxychloroquine 200 mg orally daily - I-Caps one tablet orally daily - levalbuterol as needed - magnesium oxide 800 mg orally every two daily - metformin 500 mg orally twice daily - multivitamin one tablet orally at bedtime - prednisone 2.5 mg orally at bedtime and 5 mg orally in the morning - probiotic one capsule orally daily - tramadol 50 mg orally three times a day as needed REVIEW OF SYSTEMS: Negative for [id number] systems except what has been mentioned in the history of present illness (HPI). VITAL SIGNS: Blood pressure 129/60, heart rate 93 and regular, respirations 18, temperature is 98.6, oxygen saturation 93% on 2 liters nasal cannula. HEAD: Atraumatic, normocephalic LUNGS: Crackles. HEART: S1, S2 audible. No murmurs appreciated. ABDOMEN: Soft. Positive bowel sounds. There is +1 pedal edema. SKIN: Intact. NEUROLOGIC: Patient awake, alert, oriented times three. LABORATORY DATA: WBC 7.3, hemoglobin 10.6, hematocrit 33.6, platelets are 167,000. VBG: A pH of 7.339. Chemistry: Sodium 141, potassium 4.7, chloride 102. CO2 of 32, BUN 31, creatinine 1.3, lactic acid 1.6, glucose 126. BTNP is 4875. Troponin first set is 0.02. IMPRESSION: Acute diastolic heart failure. PLAN: Patient is admitted to progressive care unit (PCU). Will get a second troponin to rule out acute coronary syndrome. There is no need to get another echo. There is an echo recently done on an earlier admission. Patient is already doing well with 80 of Lasix. Will continue her Lasix at 40 mg IV daily and continue all her preadmission medications. Will also order physical therapy for evaluation of her right hip pain, which through x-ray revealed osteoarthritis.
[2018-12-22 17:30] VITALS: BP 110/54
[2018-12-22 20:00] VITALS: BP 153/70
[2018-12-22] MEDS: DOCUSATE SODIUM 100 MG CAP PO SCH (21:00)
[2018-12-22] MEDS: SYMBICORT 80/4.5MCG INHALER 6GM INH SCH (21:18)
[2018-12-22] MEDS: LISINOPRIL 20 MG TAB PO SCH (21:50)
[2018-12-22] MEDS: diphenhydrAMINE 25 MG CAP PO SCH (21:50)
[2018-12-22] MEDS: MULTIVITAMINS/MINERALS THERAP 1 TAB PO SCH (21:50)
[2018-12-22] MEDS: GABAPENTIN 100 MG CAP PO SCH (21:50)
[2018-12-22] MEDS: ACETAMINOPHEN 500 MG TAB PO PRN (21:50)
[2018-12-22] MEDS: ASPIRIN 81 MG ENTERIC TAB PO SCH (21:51)
[2018-12-22] MEDS: ATENOLOL 25 MG TAB PO SCH (21:51)
[2018-12-22] MEDS: predniSONE 2.5 MG TAB PO SCH (21:51)
[2018-12-22 23:59] VITALS: BP 118/93
[2018-12-23] MEDS: traMADol 50 MG TAB PO PRN (01:25)
[2018-12-23 04:45] VITALS: BP 128/65
[2018-12-23 06:04] LABS: CALCIUM LEVEL 8.4 MG/DL (8.8-10.2); CREATININE FOR GFR 1.17 MG/DL (0.55-1.30); GLOMERULAR FILTRATION RATE 46.7 (>32); POTASSIUM SERUM 4.4 MEQ/L (3.5-5.1)
[2018-12-23 08:00] VITALS: BP 141/65
[2018-12-23] MEDS: DOCUSATE SODIUM 100 MG CAP PO SCH ×2 (08:38→21:26)
[2018-12-23] MEDS: HYDROXYCHLOROQUINE 200 MG TAB PO SCH (08:38)
[2018-12-23] MEDS: predniSONE 5 MG TAB PO SCH (08:38)
[2018-12-23] MEDS: ALLOPURINOL 100 MG TAB PO SCH (08:38)
[2018-12-23] MEDS: metFORMIN (GLUCOPHAGE) 500 MG TAB PO SCH ×2 (08:38→18:10)
[2018-12-23] MEDS: FUROSEMIDE 40 MG/4 ML VIAL (J1940) IV SCH (08:39)
[2018-12-23] MEDS: GABAPENTIN 100 MG CAP PO SCH ×2 (08:39→21:26)
[2018-12-23] MEDS ORDERED: MULTIVITAMINS/MINERALS THERAP 1 TAB PO SCH (09:00)
[2018-12-23] MEDS: SYMBICORT 80/4.5MCG INHALER 6GM INH SCH ×2 (10:33→20:21)
[2018-12-23 12:00] VITALS: BP 161/74
[2018-12-23] MEDS: ACETAMINOPHEN 500 MG TAB PO PRN (15:20)
[2018-12-23 16:00] VITALS: BP 140/74
[2018-12-23] MEDS ORDERED: GLUCOSE 4 GM CHEW TABLET PO PRN (19:45)
[2018-12-23] MEDS ORDERED: GLUCAGON FOR INJ 1 MG VIAL (J1610) SC PRN (19:45)
[2018-12-23] MEDS ORDERED: DEXTROSE 50% 50 ML SYRINGE IV PRN (19:45)
[2018-12-23 20:00] VITALS: BP 138/76
[2018-12-23] MEDS: HumaLOG INSULIN (NovoLOG) PER UNIT SC SCH (21:00)
[2018-12-23] MEDS: LISINOPRIL 20 MG TAB PO SCH (21:25)
[2018-12-23] MEDS: ASPIRIN 81 MG ENTERIC TAB PO SCH (21:25)
[2018-12-23] MEDS: diphenhydrAMINE 25 MG CAP PO SCH (21:25)
[2018-12-23] MEDS: predniSONE 2.5 MG TAB PO SCH (21:26)
[2018-12-23] MEDS: PANTOPRAZOLE 40MG TAB (PROTONIX) PO SCH (21:26)
[2018-12-23] MEDS: MULTIVITAMINS/MINERALS THERAP 1 TAB PO SCH (21:26)
[2018-12-23] MEDS: ATENOLOL 25 MG TAB PO SCH (21:27)
--- NOTE | 2018-12-23 23:17 | IPN ---
DATE: 12/23/2018 SUBJECTIVE: Patient is seen and examined in the room today. Patient stated her breathing has been improving since admission. Patient also noted swelling is also improving. Denies any fever or chills. OBJECTIVE: VITAL SIGNS: Temperature 96.8, pulse 87, respirations 20, blood pressure 141/65, pulse oximetry 90% on 2 liters oxygen. GENERAL: No acute distress. Alert, awake, oriented. HEENT: Normocephalic, atraumatic. Extraocular movements grossly intact. CARDIOVASCULAR: Positive S1, S2, regular rate. LUNGS: Positive crackles. Mainly in the lung bases. No wheezes appreciated. ABDOMEN: Soft, nontender, bowel sounds present. EXTREMITIES: Peripheral edema noted. LABORATORY DATA: Sodium 140, potassium 4.4, chloride 101, carbon dioxide 36, BUN 31, creatinine 1.17. GFR is 46.7. Fasting glucose 120. Calcium is 8.4. ASSESSMENT AND PLAN: 1. Acute respiratory distress. Suspect secondary to congestive heart failure exacerbation. Patient has congestive heart failure. Patient received IV Lasix since admission. Patient demonstrates clinical improvement. Continue watching input and output and daily weights. 2. Diabetes. Insulin. 3. Recently diagnosed lupus. On Hydroxychloroquine. 4. Deep venous thrombosis (DVT) prophylaxis. On TEDs and compressions.
[2018-12-23 23:59] VITALS: BP 120/74
[2018-12-24 04:00] VITALS: BP 122/56
[2018-12-24 05:40] LABS: HEMATOCRIT 32.7 % (36.0-47.0); HEMOGLOBIN 10.5 g/dl (12.0-15.5); MEAN CORPUSCULAR HEMOGLOBIN 33.1 pg (27.0-33.0); MEAN CORPUSCULAR HGB CONC 32.1 g/dl (32.0-36.5); MEAN CORPUSCULAR VOLUME 103.2 fl (80.0-96.0); PLATELET COUNT, AUTOMATED 160 10^3/uL (150-450); RED BLOOD COUNT 3.17 10^6/uL (4.00-5.40); WHITE BLOOD COUNT 5.8 10^3/uL (4.0-10.0)
[2018-12-24 06:09] LABS: CALCIUM LEVEL 8.9 MG/DL (8.8-10.2); CREATININE FOR GFR 1.16 MG/DL (0.55-1.30); GLOMERULAR FILTRATION RATE 47.2 (>32); MAGNESIUM LEVEL 2.5 MG/DL (1.8-2.4)
[2018-12-24] MEDS ORDERED: HumaLOG INSULIN (NovoLOG) PER UNIT SC ONE (07:00)
[2018-12-24] MEDS: SYMBICORT 80/4.5MCG INHALER 6GM INH SCH ×2 (07:23→20:18)
[2018-12-24] MEDS: HumaLOG INSULIN (NovoLOG) PER UNIT SC SCH ×4 (07:37→20:01)
[2018-12-24 08:00] VITALS: BP 122/65
[2018-12-24] MEDS: GABAPENTIN 100 MG CAP PO SCH ×2 (09:49→20:36)
[2018-12-24] MEDS: MAGNESIUM OXIDE 400 MG TAB (MAG-OX) PO SCH (09:49)
[2018-12-24] MEDS: ALLOPURINOL 100 MG TAB PO SCH (09:49)
[2018-12-24] MEDS: predniSONE 5 MG TAB PO SCH (09:50)
[2018-12-24] MEDS: DOCUSATE SODIUM 100 MG CAP PO SCH ×2 (09:50→20:36)
[2018-12-24] MEDS: HYDROXYCHLOROQUINE 200 MG TAB PO SCH (09:50)
[2018-12-24] MEDS: FUROSEMIDE 40 MG/4 ML VIAL (J1940) IV SCH ×2 (09:50→17:45)
[2018-12-24] MEDS: LEVALBUTEROL 1.25 MG/0.5 ML CONCENTRATE NEB INH PRN (11:23)
[2018-12-24 12:00] VITALS: BP 140/75
[2018-12-24 16:00] VITALS: BP 138/67
--- NOTE | 2018-12-24 19:14 | IPNPDOC ---
Text Note Date of Service The patient was seen on 12/24/18. NOTE SUBJECTIVE: Patient is seen and examined in the room today. Patient stated she still requires oxygen support but her breathing has been improving. Patient also noted swelling is also improving. Denies any fever or chills. OBJECTIVE: VITAL SIGNS: Listed below. GENERAL: No acute distress. Alert, awake, oriented. HEENT: Normocephalic, atraumatic. Extraocular movements grossly intact. CARDIOVASCULAR: Positive S1, S2, regular rate. LUNGS: Positive crackles. Mainly in the lung bases. No wheezes appreciated. ABDOMEN: Soft, nontender, bowel sounds present. EXTREMITIES: Peripheral edema noted. Surgical scar noted around left knee. LABORATORY DATA: Listed below. ASSESSMENT AND PLAN: #. Acute respiratory distress. - Suspect secondary to congestive heart failure exacerbation. On IV Lasix. Patient demonstrates clinical improvement. # Distolic CHF exacerbation - Adjusting diuretic as tolerated. Continue watching input and output and daily weights. # COPD - Nub treatment PRN. No exacerbation. #. Diabetes. On Insulin. On consistent carbohydrate diet. # HTN - On lisinopril, atenolol and diuretic. #. Lupus. - On Hydroxychloroquine. On chronic steroid. # Gout - On allopurinol #. Deep venous thrombosis (DVT) prophylaxis. On TEDs and compressions. VS,Fishbone, I+O VS, Fishbone, I+O Laboratory Tests 12/24/18 05:17 Red Blood Count 3.17 L, Mean Corpuscular Volume 103.2 H, Mean Corpuscular Hemoglobin 33.1 H, Mean Corpuscular Hemoglobin Concent 32.1, Red Cell Distribution Width 14.4, Calcium Level 8.9 Vital Signs Date Time Temp Pulse Resp B/P (MAP) Pulse Ox O2 Delivery O2 Flow Rate FiO2 12/24/18 16:00 98.0 84 20 138/67 (90) 92 2.0 12/22/18 21:22 Nasal Cannula I&O- Last 24 Hours up to 6 AM 12/24/18 06:00 Intake Total 1220 ml Output Total 1275 ml Balance -55 ml LEX LY DO Dec 24, 2018 19:14
[2018-12-24 20:00] VITALS: BP 148/74
[2018-12-24] MEDS: PANTOPRAZOLE 40MG TAB (PROTONIX) PO SCH (20:35)
[2018-12-24] MEDS: LISINOPRIL 20 MG TAB PO SCH (20:36)
[2018-12-24] MEDS: ATENOLOL 25 MG TAB PO SCH (20:36)
[2018-12-24] MEDS: MULTIVITAMINS/MINERALS THERAP 1 TAB PO SCH (20:36)
[2018-12-24] MEDS: ASPIRIN 81 MG ENTERIC TAB PO SCH (20:36)
[2018-12-24] MEDS: diphenhydrAMINE 25 MG CAP PO SCH (20:36)
[2018-12-24] MEDS: predniSONE 2.5 MG TAB PO SCH (20:36)
[2018-12-24 23:00] VITALS: BP 134/62
[2018-12-25 04:00] VITALS: BP 120/6
[2018-12-25 05:30] LABS: HEMOGLOBIN 10.3 g/dl (12.0-15.5); MEAN CORPUSCULAR HEMOGLOBIN 32.5 pg (27.0-33.0); MEAN CORPUSCULAR HGB CONC 31.2 g/dl (32.0-36.5); MEAN CORPUSCULAR VOLUME 104.1 fl (80.0-96.0); PLATELET COUNT, AUTOMATED 178 10^3/uL (150-450); RED BLOOD COUNT 3.17 10^6/uL (4.00-5.40); WHITE BLOOD COUNT 6.2 10^3/uL (4.0-10.0)
[2018-12-25 05:47] LABS: CALCIUM LEVEL 8.9 MG/DL (8.8-10.2); CREATININE FOR GFR 1.29 MG/DL (0.55-1.30); GLOMERULAR FILTRATION RATE 41.7 (>32); MAGNESIUM LEVEL 2.5 MG/DL (1.8-2.4); POTASSIUM SERUM 4.2 MEQ/L (3.5-5.1)
[2018-12-25 08:00] VITALS: BP 142/73
[2018-12-25] MEDS: SYMBICORT 80/4.5MCG INHALER 6GM INH SCH ×2 (08:02→20:39)
[2018-12-25] MEDS: ALLOPURINOL 100 MG TAB PO SCH (08:16)
[2018-12-25] MEDS: GABAPENTIN 100 MG CAP PO SCH ×2 (08:16→21:10)
[2018-12-25] MEDS: DOCUSATE SODIUM 100 MG CAP PO SCH ×2 (08:16→21:11)
[2018-12-25] MEDS: predniSONE 5 MG TAB PO SCH (08:16)
[2018-12-25] MEDS: HYDROXYCHLOROQUINE 200 MG TAB PO SCH (08:16)
[2018-12-25] MEDS: HumaLOG INSULIN (NovoLOG) PER UNIT SC SCH ×4 (08:17→21:00)
[2018-12-25] MEDS: FUROSEMIDE 40 MG/4 ML VIAL (J1940) IV SCH (08:19)
[2018-12-25 12:00] VITALS: BP 166/76
[2018-12-25 16:00] VITALS: BP 155/73
--- NOTE | 2018-12-25 16:40 | IPNPDOC ---
Text Note Date of Service The patient was seen on 12/25/18. NOTE SUBJECTIVE: Patient is seen and examined in the room today. Patient stated she had wheeze this brim stitcher. Breathing improved after breathing treatment. She had similar morning wheeze at home. She notices lower extremity swelling continues to improve. Denies any fever or chills. OBJECTIVE: VITAL SIGNS: Listed below. GENERAL: No acute distress. Alert, awake, oriented. HEENT: Normocephalic, atraumatic. Extraocular movements grossly intact. CARDIOVASCULAR: Positive S1, S2, regular rate. LUNGS: Positive crackles. Mainly in the lung bases. Very mild expiratory wheeze at lung base. ABDOMEN: Soft, nontender, bowel sounds present. EXTREMITIES: Peripheral edema noted. Surgical scar noted around left knee. LABORATORY DATA: Listed below. ASSESSMENT AND PLAN: #. Acute respiratory distress. - Suspect secondary to congestive heart failure exacerbation. Continue to titrate diuretic accordingly. # Distolic CHF exacerbation - Adjusting diuretic as tolerated. Continue watching input and output and daily weights. # COPD - Nub treatment PRN. No exacerbation. #. Diabetes. On Insulin. On consistent carbohydrate diet. # HTN - On lisinopril, atenolol and diuretic. #. Lupus. - On Hydroxychloroquine. On chronic steroid. # Gout - On allopurinol #. Deep venous thrombosis (DVT) prophylaxis. On TEDs and compressions. VS,Fishbone, I+O VS, Fishbone, I+O Laboratory Tests 12/25/18 04:46 Red Blood Count 3.17 L, Mean Corpuscular Volume 104.1 H, Mean Corpuscular Hemoglobin 32.5, Mean Corpuscular Hemoglobin Concent 31.2 L, Red Cell Distribution Width 14.2, Calcium Level 8.9 Vital Signs Date Time Temp Pulse Resp B/P (MAP) Pulse Ox O2 Delivery O2 Flow Rate FiO2 12/25/18 12:00 97.6 95 20 166/76 (106) 89 2.0 12/25/18 04:03 Nasal Cannula I&O- Last 24 Hours up to 6 AM0 12/25/18 06:00 Intake Total 840 ml Output Total 1600 ml Balance -760 ml LEX LY DO Dec 25, 2018 16:40
[2018-12-25 20:00] VITALS: BP 135/66
[2018-12-25] MEDS: LEVALBUTEROL 1.25 MG/0.5 ML CONCENTRATE NEB INH PRN (20:39)
[2018-12-25] MEDS: predniSONE 2.5 MG TAB PO SCH (21:11)
[2018-12-25] MEDS: PANTOPRAZOLE 40MG TAB (PROTONIX) PO SCH (21:11)
[2018-12-25] MEDS: MULTIVITAMINS/MINERALS THERAP 1 TAB PO SCH (21:11)
[2018-12-25] MEDS: ASPIRIN 81 MG ENTERIC TAB PO SCH (21:11)
[2018-12-25] MEDS: diphenhydrAMINE 25 MG CAP PO SCH (21:11)
[2018-12-25] MEDS: LISINOPRIL 20 MG TAB PO SCH (21:12)
[2018-12-25] MEDS: ATENOLOL 25 MG TAB PO SCH (21:12)
[2018-12-26] VITALS: BP 134/63
[2018-12-26 04:00] VITALS: BP 138/67
[2018-12-26 05:45] LABS: HEMATOCRIT 34.3 % (36.0-47.0); HEMOGLOBIN 10.7 g/dl (12.0-15.5); MEAN CORPUSCULAR HGB CONC 31.2 g/dl (32.0-36.5); MEAN CORPUSCULAR VOLUME 105.9 fl (80.0-96.0); PLATELET COUNT, AUTOMATED 165 10^3/uL (150-450); RED BLOOD COUNT 3.24 10^6/uL (4.00-5.40); WHITE BLOOD COUNT 5.8 10^3/uL (4.0-10.0)
[2018-12-26 06:10] LABS: CALCIUM LEVEL 8.8 MG/DL (8.8-10.2); CREATININE FOR GFR 1.24 MG/DL (0.55-1.30); GLOMERULAR FILTRATION RATE 43.7 (>32); MAGNESIUM LEVEL 2.8 MG/DL (1.8-2.4); POTASSIUM SERUM 4.5 MEQ/L (3.5-5.1)
[2018-12-26 07:53] VITALS: BP 124/59
[2018-12-26] MEDS: SYMBICORT 80/4.5MCG INHALER 6GM INH SCH ×2 (08:47→20:43)
[2018-12-26] MEDS: LEVALBUTEROL 1.25 MG/0.5 ML CONCENTRATE NEB INH PRN ×2 (08:47→20:43)
[2018-12-26] MEDS: HumaLOG INSULIN (NovoLOG) PER UNIT SC SCH ×4 (08:57→21:00)
[2018-12-26] MEDS: predniSONE 5 MG TAB PO SCH (08:59)
[2018-12-26] MEDS: ALLOPURINOL 100 MG TAB PO SCH (08:59)
[2018-12-26] MEDS: MAGNESIUM OXIDE 400 MG TAB (MAG-OX) PO SCH (08:59)
[2018-12-26] MEDS: GABAPENTIN 100 MG CAP PO SCH ×2 (08:59→20:49)
[2018-12-26] MEDS: HYDROXYCHLOROQUINE 200 MG TAB PO SCH (09:00)
[2018-12-26] MEDS: DOCUSATE SODIUM 100 MG CAP PO SCH ×2 (09:00→20:49)
[2018-12-26] MEDS ORDERED: FUROSEMIDE 40 MG/4 ML VIAL (J1940) IV SCH (09:00)
[2018-12-26 12:00] VITALS: BP 124/58
[2018-12-26 15:47] VITALS: BP 125/59
--- NOTE | 2018-12-26 18:47 | IPNPDOC ---
Text Note Date of Service The patient was seen on 12/26/18. NOTE SUBJECTIVE: Patient is seen and examined in the room today. Patient stated her breathing is improving. Lower extremity swellings have been improving. No fever or chill. OBJECTIVE: VITAL SIGNS: Listed below. GENERAL: No acute distress. Alert, awake, oriented. HEENT: Normocephalic, atraumatic. Extraocular movements grossly intact. CARDIOVASCULAR: Positive S1, S2, regular rate. LUNGS: No significant crackles. No wheeze. ABDOMEN: Soft, nontender, bowel sounds present. EXTREMITIES: Peripheral edema noted. Surgical scar noted around left knee. LABORATORY DATA: Listed below. ASSESSMENT AND PLAN: #. Acute respiratory distress. - Secondary to congestive heart failure exacerbation. Continue to titrate diuretic accordingly. - Titrate oxygen as tolerated. At baseline, patient does not require oxygen. # Diastolic CHF exacerbation - Adjusting diuretic as tolerated. Continue watching input and output and daily weights. # COPD - Nub treatment PRN. No exacerbation. #. Diabetes. On Insulin. On consistent carbohydrate diet. # HTN - On lisinopril, atenolol and diuretic. #. Lupus. - On Hydroxychloroquine. On chronic steroid. # Gout - On allopurinol #. Deep venous thrombosis (DVT) prophylaxis. On TEDs and compressions. VS,Fishbone, I+O VS, Fishbone, I+O Laboratory Tests 12/26/18 05:18 Red Blood Count 3.24 L, Mean Corpuscular Volume 105.9 H, Mean Corpuscular Hemoglobin 33.0, Mean Corpuscular Hemoglobin Concent 31.2 L, Red Cell Distribution Width 14.2, Calcium Level 8.8 Vital Signs Date Time Temp Pulse Resp B/P (MAP) Pulse Ox O2 Delivery O2 Flow Rate FiO2 12/26/18 17:37 92 1.0 12/26/18 15:47 97.8 96 18 125/59 (81) 12/25/18 04:03 Nasal Cannula I&O- Last 24 Hours up to 6 AM 12/26/18 06:00 Intake Total 680 ml Output Total 1000 ml Balance -320 ml LEX LY DO Dec 26, 2018 18:47
[2018-12-26] MEDS: diphenhydrAMINE 25 MG CAP PO SCH (20:49)
[2018-12-26] MEDS: MULTIVITAMINS/MINERALS THERAP 1 TAB PO SCH (20:49)
[2018-12-26] MEDS: predniSONE 2.5 MG TAB PO SCH (20:49)
[2018-12-26] MEDS: ASPIRIN 81 MG ENTERIC TAB PO SCH (20:50)
[2018-12-26] MEDS: LISINOPRIL 20 MG TAB PO SCH (20:51)
[2018-12-26] MEDS: ATENOLOL 25 MG TAB PO SCH (20:52)
[2018-12-27] VITALS: BP 140/64
[2018-12-27 04:00] VITALS: BP 144/66
[2018-12-27] MEDS: traMADol 50 MG TAB PO PRN (04:20)
[2018-12-27] MEDS: LEVALBUTEROL 1.25 MG/0.5 ML CONCENTRATE NEB INH PRN ×2 (04:22→07:55)
[2018-12-27 05:31] LABS: HEMATOCRIT 33.1 % (36.0-47.0); HEMOGLOBIN 10.4 g/dl (12.0-15.5); MEAN CORPUSCULAR HEMOGLOBIN 33.1 pg (27.0-33.0); MEAN CORPUSCULAR HGB CONC 31.4 g/dl (32.0-36.5); MEAN CORPUSCULAR VOLUME 105.4 fl (80.0-96.0); PLATELET COUNT, AUTOMATED 154 10^3/uL (150-450); RED BLOOD COUNT 3.14 10^6/uL (4.00-5.40); WHITE BLOOD COUNT 5.6 10^3/uL (4.0-10.0)
[2018-12-27 06:00] LABS: CALCIUM LEVEL 8.9 MG/DL (8.8-10.2); CREATININE FOR GFR 1.24 MG/DL (0.55-1.30); GLOMERULAR FILTRATION RATE 43.7 (>32); MAGNESIUM LEVEL 2.7 MG/DL (1.8-2.4); POTASSIUM SERUM 4.4 MEQ/L (3.5-5.1)
[2018-12-27] MEDS: HumaLOG INSULIN (NovoLOG) PER UNIT SC SCH ×4 (07:30→21:00)
[2018-12-27 07:41] VITALS: BP 100/49
[2018-12-27] MEDS: ALLOPURINOL 100 MG TAB PO SCH ×2 (07:51→08:03)
[2018-12-27] MEDS: SYMBICORT 80/4.5MCG INHALER 6GM INH SCH ×2 (07:55→20:08)
[2018-12-27] MEDS: DOCUSATE SODIUM 100 MG CAP PO SCH ×2 (08:03→21:22)
[2018-12-27] MEDS: GABAPENTIN 100 MG CAP PO SCH ×2 (08:04→21:22)
[2018-12-27] MEDS: HYDROXYCHLOROQUINE 200 MG TAB PO SCH (08:04)
[2018-12-27] MEDS: predniSONE 5 MG TAB PO SCH (08:04)
[2018-12-27] MEDS ORDERED: FUROSEMIDE 20 MG TAB PO SCH (09:00)
[2018-12-27] MEDS ORDERED: PANTOPRAZOLE 40MG TAB (PROTONIX) PO SCH ×2 (09:00→21:00)
[2018-12-27 11:55] VITALS: BP 143/67
--- NOTE | 2018-12-27 15:33 | IPNPDOC ---
Text Note Date of Service The patient was seen on 12/27/18. NOTE SUBJECTIVE: Patient is seen and examined in the room today. Lower extremity swellings have been improving. No fever or chill. OBJECTIVE: VITAL SIGNS: Listed below. GENERAL: No acute distress. Alert, awake, oriented. HEENT: Normocephalic, atraumatic. Extraocular movements grossly intact. CARDIOVASCULAR: Positive S1, S2, regular rate. LUNGS: No significant crackles. No wheeze. ABDOMEN: Soft, nontender, bowel sounds present. EXTREMITIES: Peripheral edema noted. Surgical scar noted around left knee. LABORATORY DATA: Listed below. ASSESSMENT AND PLAN: #. Acute respiratory distress. - Secondary to congestive heart failure exacerbation. Continue to titrate diuretic accordingly. - Titrate oxygen as tolerated. At baseline, patient does not require oxygen. # Diastolic CHF exacerbation - Adjusting diuretic as tolerated. Continue watching input and output and daily weights. # COPD - Neb treatment PRN. No exacerbation. #. Diabetes. On Insulin. On consistent carbohydrate diet. # HTN - On lisinopril, atenolol and diuretic. #. Lupus. - On Hydroxychloroquine. On chronic steroid. # Gout - On allopurinol #. Deep venous thrombosis (DVT) prophylaxis. On TEDs and compressions. VS,Fishbone, I+O VS, Fishbone, I+O Laboratory Tests 12/27/18 05:16 Red Blood Count 3.14 L, Mean Corpuscular Volume 105.4 H, Mean Corpuscular Hemoglobin 33.1 H, Mean Corpuscular Hemoglobin Concent 31.4 L, Red Cell Distribution Width 14.4, Calcium Level 8.9 Vital Signs Date Time Temp Pulse Resp B/P (MAP) Pulse Ox O2 Delivery O2 Flow Rate FiO2 12/27/18 12:00 1.0 12/27/18 11:55 97.2 80 18 143/67 (92) 94 12/25/18 04:03 Nasal Cannula I&O- Last 24 Hours up to 6 AM 12/27/18 06:00 Intake Total 1380 ml Output Total 1250 ml Balance 130 ml LEX LY DO Dec 27, 2018 15:33
[2018-12-27] MEDS: TORSEMIDE 10 MG TABLET PO SCH (16:55)
[2018-12-27 20:00] VITALS: BP 137/72
[2018-12-27] MEDS: diphenhydrAMINE 25 MG CAP PO SCH (21:22)
[2018-12-27] MEDS: predniSONE 2.5 MG TAB PO SCH (21:22)
[2018-12-27] MEDS: MULTIVITAMINS/MINERALS THERAP 1 TAB PO SCH (21:22)
[2018-12-27] MEDS: ASPIRIN 81 MG ENTERIC TAB PO SCH (21:22)
[2018-12-27 21:27] VITALS: BP 141/63
[2018-12-27] MEDS: LISINOPRIL 20 MG TAB PO SCH (21:27)
[2018-12-27] MEDS: ATENOLOL 25 MG TAB PO SCH (21:27)
[2018-12-28 04:00] VITALS: BP 131/60
[2018-12-28 05:41] LABS: HEMATOCRIT 33.2 % (36.0-47.0); HEMOGLOBIN 10.5 g/dl (12.0-15.5); MEAN CORPUSCULAR HEMOGLOBIN 32.7 pg (27.0-33.0); MEAN CORPUSCULAR HGB CONC 31.6 g/dl (32.0-36.5); MEAN CORPUSCULAR VOLUME 103.4 fl (80.0-96.0); PLATELET COUNT, AUTOMATED 160 10^3/uL (150-450); RED BLOOD COUNT 3.21 10^6/uL (4.00-5.40); WHITE BLOOD COUNT 5.6 10^3/uL (4.0-10.0)
[2018-12-28 06:05] LABS: CALCIUM LEVEL 8.7 MG/DL (8.8-10.2); CREATININE FOR GFR 1.18 MG/DL (0.55-1.30); GLOMERULAR FILTRATION RATE 46.2 (>32); MAGNESIUM LEVEL 2.5 MG/DL (1.8-2.4); POTASSIUM SERUM 4.2 MEQ/L (3.5-5.1)
[2018-12-28] MEDS: LEVALBUTEROL 1.25 MG/0.5 ML CONCENTRATE NEB INH PRN (07:28)
[2018-12-28] MEDS: SYMBICORT 80/4.5MCG INHALER 6GM INH SCH (07:29)
[2018-12-28 08:00] VITALS: BP 117/61
[2018-12-28] MEDS: HumaLOG INSULIN (NovoLOG) PER UNIT SC SCH ×2 (09:09→12:00)
[2018-12-28] MEDS: GABAPENTIN 100 MG CAP PO SCH (09:10)
[2018-12-28] MEDS: HYDROXYCHLOROQUINE 200 MG TAB PO SCH (09:10)
[2018-12-28] MEDS: predniSONE 5 MG TAB PO SCH (09:10)
[2018-12-28] MEDS: ALLOPURINOL 100 MG TAB PO SCH (09:10)
[2018-12-28] MEDS: TORSEMIDE 10 MG TABLET PO SCH (09:11)
[2018-12-28] MEDS: DOCUSATE SODIUM 100 MG CAP PO SCH (09:11)
[2018-12-28] MEDS: MAGNESIUM OXIDE 400 MG TAB (MAG-OX) PO SCH (09:45)
[2018-12-28] MEDS ORDERED: TORS10TA3 PO (10:46)
[2018-12-28 12:00] VITALS: BP 136/71
--- NOTE | 2018-12-29 17:32 | DSES ---
DATE OF ADMISSION: 12/24/2018 DATE OF DISCHARGE: 12/28/2018 CONSULTANTS: None PRIMARY CARE PROVIDER: Brent Zhang NP DISCHARGE DIAGNOSES: 1. Acute respiratory distress secondary to congestive heart failure exacerbation. 2. Hypertensive heart disease. 3. Chronic kidney disease. 4. Diastolic congestive heart failure exacerbation. 5. Chronic obstructive pulmonary disease (COPD). 6. Diabetes. 7. Hypertension. 8. Lupus. 9. Gout. HOSPITALIZATION COURSE: Patient is an 88-year-old female who presented to [facility] on 12/22/2018 with complaints of increased lower extremity swelling and acute increased shortness of breath. Patient is admitted under hospitalist service for acute diastolic congestive heart failure exacerbation. Patient was started on IV diuretic. Patient responded well with IV diuretic and dose and frequency was adjusted according to patient's clinical picture. Patient's oxygen was also titrated as tolerated. Patient continued to work with physical therapy. Patient's oxygen requirements have also been monitored closely. Later, patient was able to wean off the oxygen. Patient passed the physical therapy session and patient is determined stable for discharge on 12/29/2018, with recommendation to followup with primary care provider, Brent Zhang, in 1 week. Patient should also followup with registration manager in 2 weeks. Patient should follow 1.8 liters fluid restriction. Patient is instructed to check weight on a daily basis and patient should contact medical provider if there is significant weight changes. OBJECTIVE: VITAL SIGNS: Temperature 98.3, pulse 89, respiratory rate 20, blood pressure 136/71, pulse oximetry 91% in room air. LABORATORY DATA: On date of discharge: WBC 5.6, hemoglobin 10.5, hematocrit 33.2, platelet count 160, sodium 139, potassium 4.2, chloride 100, carbon dioxide 37, BUN 49, creatinine 1.18, GFR 46.2, fasting glucose 122, calcium 8.7, magnesium 2.5. IMAGING STUDIES: Right lower extremity Doppler shows no ultrasound evidence of deep venous thrombosis (DVT) of the right lower extremity. Right hip x-ray demonstrates mild osteoarthritis. No fracture or dislocation. Chest x-ray showed chronic diffuse interstitial coarsening. Chronic cardiomegaly. DISCHARGE MEDICATIONS: - torsemide 30 mg by mouth twice a day - Tylenol 1000 mg by mouth four times a day as needed - Sierra one tablet by mouth twice a day as needed for congestion - allopurinol 200 mg by mouth daily - aspirin 81 mg by mouth nightly - atenolol 25 mg by mouth nightly - vitamin B complex one tablet by mouth daily - Symbicort two puff inhalation twice a day - Caltrate-vitamin D 600-800 mg one tablet by mouth daily - Benadryl 25 mg by mouth nightly - Colace 100 mg by mouth twice a day - esomeprazole 40 mg by mouth twice a day - fluconazole 150 mg by mouth daily as needed for yeast infection - gabapentin 100 mg by mouth twice a day - hydroxychloroquine 200 mg by mouth daily - Xopenex two puff inhalation four times a day as needed for shortness of breath - lisinopril 20 mg by mouth nightly - magnesium oxide 800 mg by mouth every 2 days - metformin 500 mg by mouth twice a day with meals - multivitamin one tablet by mouth nightly - MiraLAX 70 grams by mouth daily as needed for constipation - prednisone 2.5 mg by mouth every evening - prednisone 5 mg by mouth every morning - probiotic one tablet by mouth daily - tramadol 50 mg by mouth three times a day as needed for pain DISCHARGE INSTRUCTIONS: Discontinue lines. Discharge home. Ambulate with a walker. Consistent carbohydrate diet as tolerated. Patient is recommended to followup with primary care provider in 1 week. Patient should followup with registration manager, Dr. Kerr, in 2 weeks. Patient should measure daily weights. Patient should follow 1.8 liters fluid restriction. Patient does have home oxygen available mainly for nighttime use as needed. Patient also has pulse oximeter at home, recommend monitoring if patient has increased complaints of shortness of breath. DISCHARGE CONDITION: Fair. DISCHARGE TIME: Greater than 30 minutes. [facility]
== END 2018-12-28 15:50 | disposition home health service (06) | DRG 291 ==
LOC: EDBD 09:40 → M ED 09:40 → M ED INP 15:20 → M PCU 17:31 → OBSVTOIN 12-24 10:46
PROVIDERS: ADMIT Internal Medicine; ATTEND Internal Medicine
DX: I13.0 Hypertensive heart and chronic kidney disease with heart failure and stage 1 through stage 4 chronic kidney disease, or unspecified chronic kidney disease (principal); I50.33 Acute on chronic diastolic (congestive) heart failure; E11.9 Type 2 diabetes mellitus without complications; E78.5 Hyperlipidemia, unspecified; E66.01 Morbid (severe) obesity due to excess calories; K21.9 Gastro-esophageal reflux disease without esophagitis; M10.9 Gout, unspecified; L93.0 Discoid lupus erythematosus; N18.9 Chronic kidney disease, unspecified; J44.9 Chronic obstructive pulmonary disease, unspecified; R06.03 Acute respiratory distress; Z88.2 Allergy status to sulfonamides; Z88.6 Allergy status to analgesic agent; Z88.5 Allergy status to narcotic agent; Z87.891 Personal history of nicotine dependence; Z79.82 Long term (current) use of aspirin; Z79.52 Long term (current) use of systemic steroids; Z79.84 Long term (current) use of oral hypoglycemic drugs

== ENCOUNTER → 2019-01-07 | Outpatient (REF) | payer MEDICARE ==
[~2019-01-07] MED LIST changes: +/DULO30CA; +/ESOM40CA OR; +/WARF25TA OR; +ASPI1TAB PO; -ASPI81TA26 PO; -COUM1TAB18 OR; -CYMB1CAP4 OR; -CYMB1CAP5; +DULO20CA OR; -NEXI1CAP3 OR; +REFRSOL OU; +TORS10TA3 PO
[2019-01-07 12:47] LABS: CREATININE FOR GFR 1.32 MG/DL (0.55-1.30); GLOMERULAR FILTRATION RATE 40.6 (>32); POTASSIUM SERUM 4.5 MEQ/L (3.5-5.1)
[2019-01-07 13:08] LABS: HEMOGLOBIN A1c 6.7 %
== END ==
LOC: M SHH 11:03
PROVIDERS: ATTEND Nurse Practitioner Family
DX: I11.0 Hypertensive heart disease with heart failure (principal); E11.9 Type 2 diabetes mellitus without complications

== ENCOUNTER 2019-01-25 17:12 | Emergency (ER) | payer MEDICARE ==
[~2019-01-25] VITALS: Ht 157.5 cm; Wt 84.5 kg
[~2019-01-25 17:12] MED LIST changes: -/DULO30CA; -/ESOM40CA OR; -/WARF25TA OR; -ASPI1TAB PO; +ASPI81TA26 PO; +COUM1TAB18 OR; +CYMB1CAP4 OR; +CYMB1CAP5; -DULO20CA OR; +NEXI1CAP3 OR
[2019-01-25] MEDS ORDERED: NS 1,000 ML IV SCH (18:15)
[2019-01-25] MEDS ORDERED: CVS1CAP2 PO (18:34)
[2019-01-25] MEDS ORDERED: PX S0.65 (18:34)
[2019-01-25] MEDS ORDERED: TORS10TA3 PO (18:34)
[2019-01-25] MEDS ORDERED: PROT20TA11 PO (18:34)
--- NOTE | 2019-01-25 19:15 | REP ---
REASON: Chest pain. COMPARISON: Multiple. The latest 12/22/2008. The technique utilized in obtaining the radiograph has magnified the cardiac silhouette and accentuated the interstitial markings. Once again, there is a diffuse increase in the interstitial markings accentuated by technique. No definite acute patchy parenchymal opacities or pleural effusions have developed. There is cardiomegaly accentuated by technique. There is no change in the osseous structures. IMPRESSION:Chronic changes as described above. Correlate clinically to rule out the possibility of acute disease superimposed on chronic change. Electronically Signed by Zain An DO 01/25/2019 07:47 P
[2019-01-25 19:21] LABS: BASO % 0.5 % (0.0-1.0); EOS # 0.5 10^3/uL (0.0-0.50); EOS % 7.4 % (0.0-3.0); HEMATOCRIT 35.9 % (36.0-47.0); HEMOGLOBIN 11.4 g/dl (12.0-15.5); LYMPH # 1.2 10^3/uL (1.5-4.5); LYMPH % 15.9 % (24.0-44.0); MEAN CORPUSCULAR HEMOGLOBIN 32.5 pg (27.0-33.0); MEAN CORPUSCULAR HGB CONC 31.8 g/dl (32.0-36.5); MEAN CORPUSCULAR VOLUME 102.3 fl (80.0-96.0); MONO # 0.7 10^3/uL (0.0-0.8); MONO % 9.9 % (0.0-5.0); NEUTROPHILS # 4.8 10^3/uL (1.8-7.7); NEUTROPHILS % 65.6 % (36.0-66.0); PLATELET COUNT, AUTOMATED 220 10^3/uL (150-450); RED BLOOD COUNT 3.51 10^6/uL (4.00-5.40); WHITE BLOOD COUNT 7.3 10^3/uL (4.0-10.0)
[2019-01-25 19:25] LABS: VENOUS BASE EXCESS 2.2 (-2.0-2.0); VENOUS HCO3 29.8 MEQ/L (23.0-27.0); VENOUS O2 SATURATION 82.8 % (60.0-80.0); VENOUS PARTIAL PRESSURE CO2 61.1 mmHg (38.0-50.0); VENOUS PARTIAL PRESSURE O2 52.9 mmHg (30.0-50.0); VENOUS PH 7.306 UNITS (7.330-7.430); VENOUS STANDARD HCO3 26.1 MEQ/L; VENOUS TOTAL CO2 31.7 MEQ/L (24.0-28.0)
[2019-01-25 19:35] LABS: INR 0.89; PROTHROMBIN TIME 12.1 SECONDS (12.1-14.4)
[2019-01-25 19:45] VITALS: BP 131/63
[2019-01-25 19:58] LABS: ALBUMIN 3.2 GM/DL (3.2-5.2); ALT/SGPT 23 U/L (12-78); BILIRUBIN,DIRECT < 0.1 MG/DL (0.0-0.2); BILIRUBIN,TOTAL 0.3 MG/DL (0.2-1.0); BLOOD UREA NITROGEN 57 MG/DL (7-18); CALCIUM LEVEL 9.2 MG/DL (8.8-10.2); CARBON DIOXIDE LEVEL 33 MEQ/L (21-32); CHLORIDE LEVEL 99 MEQ/L (98-107); CPK CREATINE PHOSPHOKINASE 49 U/L (26-192); CREATININE FOR GFR 1.56 MG/DL (0.55-1.30); FREE T4 1.25 NG/DL (0.76-1.46); GLOMERULAR FILTRATION RATE 33.5 (>32); GLUCOSE, FASTING 106 MG/DL (70-100); MB/CK RELATIVE INDEX 3.88 (< OR =4); POTASSIUM SERUM 4.3 MEQ/L (3.5-5.1); SODIUM LEVEL 138 MEQ/L (136-145); THYROID STIMULATING HORMONE 0.849 uIU/ML (0.358-3.740); TOTAL PROTEIN 6.4 GM/DL (6.4-8.2); TROPONIN I 0.02 NG/ML (< 0.10)
--- NOTE | 2019-01-26 21:24 | ECGEPIP ---
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
== END 2019-01-25 20:31 | disposition home or self-care (01) ==
LOC: M ED 17:12
DX: R00.0 Tachycardia, unspecified (principal); I10 Essential (primary) hypertension; E11.9 Type 2 diabetes mellitus without complications; I25.10 Atherosclerotic heart disease of native coronary artery without angina pectoris; E07.9 Disorder of thyroid, unspecified; K21.9 Gastro-esophageal reflux disease without esophagitis; K44.9 Diaphragmatic hernia without obstruction or gangrene; Z79.899 Other long term (current) drug therapy; Z79.84 Long term (current) use of oral hypoglycemic drugs; Z79.82 Long term (current) use of aspirin; Z88.1 Allergy status to other antibiotic agents; Z88.2 Allergy status to sulfonamides; Z88.6 Allergy status to analgesic agent; Z88.8 Allergy status to other drugs, medicaments and biological substances; Z91.048 Other nonmedicinal substance allergy status

== ENCOUNTER 2019-12-11 12:32 | Emergency (ER) | payer MEDICARE ==
[~2019-12-11] VITALS: Ht 157.5 cm; Wt 84.5 kg
[~2019-12-11 12:32] MED LIST changes: +CVS1CAP2 PO; +FAMO1TAB11 PO; +PANT40TA3 PO; +PROT20TA11 PO; +PX S0.65
[2019-12-11] MEDS ORDERED: NORCO, ANEXSIA 5/325MG TABLET (HYDROcodone/ACETAMINOPHEN) PO ONE (13:30)
[2019-12-11 14:00] LABS: BASO % 0.4 % (0.0-1.0); EOS # 0.3 10^3/uL (0.0-0.5); EOS % 2.7 % (0.0-3.0); HEMATOCRIT 38.6 % (36.0-47.0); HEMOGLOBIN 12.5 g/dl (12.0-15.5); LYMPH # 1.1 10^3/uL (1.5-5.0); LYMPH % 10.5 % (24.0-44.0); MEAN CORPUSCULAR HEMOGLOBIN 32.9 pg (27.0-33.0); MEAN CORPUSCULAR HGB CONC 32.4 g/dl (32.0-36.5); MEAN CORPUSCULAR VOLUME 101.6 fl (80.0-96.0); MONO # 0.7 10^3/uL (0.0-0.8); MONO % 7.1 % (0.0-5.0); NEUTROPHILS # 7.9 10^3/uL (1.5-8.5); NEUTROPHILS % 78.8 % (36.0-66.0); PLATELET COUNT, AUTOMATED 177 10^3/uL (150-450)
[2019-12-11 14:48] LABS: ALBUMIN 3.6 GM/DL (3.2-5.2); ALT/SGPT 36 U/L (12-78); BILIRUBIN,DIRECT < 0.1 MG/DL (0.0-0.2); BILIRUBIN,TOTAL 0.5 MG/DL (0.2-1.0); BLOOD UREA NITROGEN 50 MG/DL (7-18); CALCIUM LEVEL 9.3 MG/DL (8.8-10.2); CARBON DIOXIDE LEVEL 31 MEQ/L (21-32); CHLORIDE LEVEL 101 MEQ/L (98-107); CK-MB VALUE MASS 1.8 NG/ML (<3.6); CPK CREATINE PHOSPHOKINASE 197 U/L (26-192); CREATININE FOR GFR 1.82 MG/DL (0.55-1.30); GLUCOSE, FASTING 154 MG/DL (70-100); MAGNESIUM LEVEL 2.8 MG/DL (1.8-2.4); MB/CK RELATIVE INDEX 0.91 (< OR =4); NT-PRO BNP 3806 PG/ML (<450); POTASSIUM SERUM 5.3 MEQ/L (3.5-5.1); SODIUM LEVEL 138 MEQ/L (136-145); TOTAL PROTEIN 7.1 GM/DL (6.4-8.2); TROPONIN I 0.02 NG/ML (< 0.10)
--- NOTE | 2019-12-11 14:51 | REP ---
ABDOMINAL SERIES: Supine and erect views of the abdomen demonstrate no free air and no evidence for bowel obstruction. No dilated small bowel loops are seen. There is mild fecal material in the colon. Metallic clips are seen in the pelvis. There is evidence of prior laminectomy and fusion at L3 through L5 with posterior rods and screws. There are diffuse degenerative changes of the spine. An accompanying view of the chest demonstrates cardiomegaly with chronic accentuation of interstitial markings, but no acute infiltrate. Mediastinal silhouette is unchanged. IMPRESSION: No free air or obstruction. No acute infiltrate in the lungs. Electronically Signed by Tomas Mejia MD 12/11/2019 06:54 P
[2019-12-11] MEDS ORDERED: METHYLNALTREXONE BROMIDE 12 MG/0.6 ML VIAL (RELISTOR) SC ONE (15:30)
[2019-12-11] MEDS ORDERED: cefTRIAXone SOD 1 GM in D5W MINI-BAG PLUS 50 ML IV ONE (15:30)
[2019-12-11] MEDS ORDERED: KEFL500C17 PO (16:15)
[2019-12-11] MEDS ORDERED: COLA100C5 PO (16:15)
[2019-12-11 16:46] VITALS: BP 134/72
--- NOTE | 2019-12-11 17:55 | ECGEPIP ---
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
== END 2019-12-11 16:54 | disposition home or self-care (01) ==
LOC: M ED 12:32
DX: N39.0 Urinary tract infection, site not specified (principal); K59.03 Drug induced constipation; S22.9XXA Fracture of bony thorax, part unspecified, initial encounter for closed fracture; X58.XXXA Exposure to other specified factors, initial encounter; Y92.89 Other specified places as the place of occurrence of the external cause; E11.9 Type 2 diabetes mellitus without complications; I50.9 Heart failure, unspecified; I11.0 Hypertensive heart disease with heart failure; J44.9 Chronic obstructive pulmonary disease, unspecified; F33.9 Major depressive disorder, recurrent, unspecified; M32.9 Systemic lupus erythematosus, unspecified; K21.9 Gastro-esophageal reflux disease without esophagitis; Z98.1 Arthrodesis status; Z79.899 Other long term (current) drug therapy; Z79.82 Long term (current) use of aspirin; Z79.2 Long term (current) use of antibiotics; Z88.1 Allergy status to other antibiotic agents; Z88.2 Allergy status to sulfonamides; Z88.8 Allergy status to other drugs, medicaments and biological substances; Z91.048 Other nonmedicinal substance allergy status; F17.210 Nicotine dependence, cigarettes, uncomplicated
CPT/HCPCS: 74021; 80048; 80076; 81001; 82550; 82553; 83735; 83880; 84484; 85025; 87086; 93005; 96365; 99285; J0696

== ENCOUNTER 2020-03-16 11:57 | Inpatient (IN) | payer MEDICARE ==
[~2020-03-16] VITALS: Ht 157.5 cm; Wt 83.6 kg
[~2020-03-16 11:57] MED LIST changes: +KEFL500C17 PO
[2020-03-16] MEDS ORDERED: FAMO20TA4 PO (12:31)
[2020-03-16] MEDS ORDERED: AMOX875T2 PO (12:31)
[2020-03-16] MEDS ORDERED: REME15TA PO (12:31)
[2020-03-16] MEDS ORDERED: FURO40TA2 PO ×2 (12:31→12:37)
[2020-03-16] MEDS ORDERED: TORS10TA3 PO (12:31)
[2020-03-16] MEDS ORDERED: PRED1TABL PO (12:37)
[2020-03-16] MEDS ORDERED: LEVAINH INH (12:39)
[2020-03-16 12:57] LABS: BASO % 0.4 % (0.0-1.0); EOS # 0.3 10^3/uL (0.0-0.5); EOS % 2.5 % (0.0-3.0); HEMATOCRIT 33.4 % (36.0-47.0); HEMOGLOBIN 10.3 g/dl (12.0-15.5); LYMPH % 9.8 % (24.0-44.0); MEAN CORPUSCULAR HEMOGLOBIN 32.8 pg (27.0-33.0); MEAN CORPUSCULAR HGB CONC 30.8 g/dl (32.0-36.5); MEAN CORPUSCULAR VOLUME 106.4 fl (80.0-96.0); MONO # 0.8 10^3/uL (0.0-0.8); MONO % 8.1 % (0.0-5.0); NEUTROPHILS % 78.4 % (36.0-66.0); PLATELET COUNT, AUTOMATED 200 10^3/uL (150-450); RED BLOOD COUNT 3.14 10^6/uL (4.00-5.40); WHITE BLOOD COUNT 10.3 10^3/uL (4.0-10.0)
[2020-03-16] MEDS ORDERED: FUROSEMIDE 100MG/10ML VIAL (J1940) IV ONE (13:00)
--- NOTE | 2020-03-16 13:00 | REP ---
CHEST, PORTABLE: AP portable view of the chest is performed. COMPARISON: 12/11/2019 There is cardiomegaly. There is vascular congestion diffusely with diffuse interstitial edema. Alveolar infiltrate cannot be excluded in the left base. There are degenerative changes of the spine. Electronically Signed by Tomas Mejia MD 03/16/2020 07:45 P
[2020-03-16 13:10] LABS: INR 1.13; PROTHROMBIN TIME 14.2 SECONDS (11.8-14.0)
[2020-03-16 13:32] LABS: ALBUMIN 2.8 GM/DL (3.2-5.2); ALT/SGPT 25 U/L (12-78); BILIRUBIN,DIRECT < 0.1 MG/DL (0.0-0.2); BILIRUBIN,TOTAL 0.3 MG/DL (0.2-1.0); CK-MB VALUE MASS < 1.0 NG/ML (<3.6); CPK CREATINE PHOSPHOKINASE 65 U/L (26-192); MB/CK RELATIVE INDEX 1.54 (< OR =4); NT-PRO BNP 9007 PG/ML (<450); TOTAL PROTEIN 6.4 GM/DL (6.4-8.2); TROPONIN I 0.04 NG/ML (< 0.10)
[2020-03-16 13:59] LABS: VENOUS BASE EXCESS 6.4 (-2.0-2.0); VENOUS HCO3 33.8 MEQ/L (23.0-27.0); VENOUS PARTIAL PRESSURE CO2 63.7 mmHg (38.0-50.0); VENOUS PARTIAL PRESSURE O2 150.4 mmHg (30.0-50.0); VENOUS PH 7.343 UNITS (7.330-7.430); VENOUS STANDARD HCO3 30.3 MEQ/L; VENOUS TOTAL CO2 35.8 MEQ/L (24.0-28.0)
[2020-03-16] MEDS ORDERED: LEVALBUTEROL HFA 45MCG/ACT 15 GM INHALER INH PRN (14:30)
[2020-03-16] MEDS ORDERED: MIRALAX *UNIT DOSE* 17GM PACKET PO PRN (14:30)
[2020-03-16] MEDS ORDERED: FAMOTIDINE 20 MG TAB PO PRN (14:30)
--- NOTE | 2020-03-16 14:34 | HPEPDOC ---
General Date of Admission 03/16/2020 Date of Service: Mar 16, 2020 Chief Complaint The patient is a 89-year-old female admitted with a reason for visit of Swelling/Redness Leg. Source: Patient Timing/Duration: Week(s) (1) Severity: Moderate Associated Symptoms: Cough History of Present Illness Patient is a 89 yo female with hx of chronic diastolic heart failure, COPD, and lupus on chronic hydroxychloroquine presented to [facility] d/t inability to stand/walk with 1 wk of worsening dyspnea, orthopnea, b/l LE swelling, and cough. She reported no change in diet, reported that she has been on 2L fluid restriction with limited Na diet. She usually sleeps with 3 pillows but now needs to sleep in chair. Reported her sputum has turned greenX1 day compared to the usual white sputum. Usual weight is 187lb. Pt reported there's an addition of new med a wk ago which she is unable to recall the name of the med, but she does not think it is ass. with her symptoms. Denies any chest pain, palpi, extremity pain, fever, chills, sick contact, covid19 exposure, or new pets Home Medications Scheduled Allopurinol (Allopurinol) 100 Mg Tab, 200 MG PO DAILY, (Reported) Amoxicillin/Potassium Clav (Amox-Clav 875-125 mg Tablet) 1 Each Tablet, 1 TAB PO BID, (Reported) FILLED 03/09/20 FOR 7 DAYS - TOOK LAST DOSE OF COURSE 03/16/20 Aspirin (Aspirin EC) 81 Mg Tab, 81 MG PO QHS, (Reported) Atenolol (Atenolol) 25 Mg Tab, 25 MG PO QHS, (Reported) Budesonide/Formoterol (Symbicort 80-4.5 Mcg Inhaler) 60 Puff/Inhaler Aers, 2 PUFF INH BID, (Reported) Carboxymethyl/Glycerin/Poly80 (Refresh Optive Advanced Drops) 1 Kassy Kassy, 1 DROP OU BID, (Reported) Docusate Sodium (Colace) 100 Mg Cap, 200 MG PO BID, (Reported) Furosemide (Furosemide) 40 Mg Tablet, 40 MG PO DAILY, (Reported) Hydroxychloroquine Sulfate (Hydroxychloroquine Sulfate) 200 Mg Tab, 200 MG PO DAILY, (Reported) Lactobacillus Combo No.10 (Probiotic) 1 Each Capsule, 1 CAP PO DAILY, (Reported) Lisinopril (Lisinopril) 20 Mg Tab, 20 MG PO QHS, (Reported) Magnesium Oxide (Magnesium Oxide) 400 Mg Tab, 800 MG PO Q2D, (Reported) QHS Mirtazapine (Remeron) 15 Mg Tablet, 15 MG PO QHS, (Reported) Multivitamins (Thera M Plus Tablet) 1 Tab Tab, 1 TAB PO QHS, (Reported) Prednisone (Prednisone) 1 Mg Tablet, 2 MG PO DAILY, (Reported) Vit A/Vit C/Vit E/Zinc/Copper (Icaps Areds Formula Dr Tablet) 1 Tab Tab, 1 TAB PO DAILY, (Reported) Scheduled PRN Famotidine (Famotidine) 20 Mg Tablet, 20 MG PO QPM PRN for HEARTBURN, (Reported) Fexofenadine/Pseudoephedrine (Sierra-D 12 Hour Tablet) 1 Tab Tab, 1 TAB PO BID PRN for CONGESTION, (Reported) Levalbuterol Hydrochloride (Xopenex Hfa) 45 Mcg/Act Aer, 2 PUFF INH QID PRN for SHORTNESS OF BREATH, (Reported) Polyethylene Glycol 3350 (Miralax) 1 Pow Pow, 17 GM PO DAILY PRN for CONSTIPATION, (Reported) Allergies Coded Allergies: NSAIDS (Non-Steroidal Anti-Inflamma (Verified Allergy, Intermediate, CHEST PAIN, 03/16/20) TAKES ASPIRIN AT HOME Tczhthw-Osd-Aed Reductase Inhibitor (Verified Allergy, Intermediate, SWOLLEN JOINTS, 03/16/20) etodolac (Verified Allergy, Intermediate, HIVES, 03/16/20) Sulfa (Sulfonamide Antibiotics) (Verified Allergy, Mild, RASH, 03/16/20) lidocaine (Verified Allergy, Mild, RASH, 03/16/20) nickel (Verified Allergy, Mild, RASH, 03/16/20) ibuprofen (Verified Adverse Reaction, Intermediate, CHEST PAIN, 03/16/20) TAKES ASPIRIN AT HOME lactose (Verified Adverse Reaction, Unknown, lactose intolerant, 03/16/20) Past Medical History Medical History 1. Diastolic congestive heart failure with a LVEF 50-55% 2. Hypertension 3. Diabetes mellitus 4. Lupus on chronic low dose steroids 5. Chronic obstructive pulmonary disease 6. Chronic pain / arthritis 7. Gout 8. Mild pulmonary hypertension Surgical History 1. C/S 2. Abdominoplasty 3. Left knee replacement 4. ? partial colectomy for colon CAX2 reported by pt Family History Significant Family History: Other (father has parkinson's dz) Social History * Smoker: current smoker Alcohol: Denies Drugs: denies Recent Travel/Sick Contacts: Reports: Recent sick contacts Pets in the home: Dog(s) (2) A-FIB/CHADSVASC A-FIB History Current/History of A-Fib/PAF?: No Review of Systems Constitutional: Reports: Weakness; Denies: Chills, Fever Pulmonary: Reports: Dyspnea, Cough; Denies: Pleuritic Chest Pain Cardiovascular: Reports: Orthopnea, Edema; Denies: Chest Pain, Palpitations Gastrointestinal: Reports: Constipation; Denies: Nausea, Vomiting Genitourinary: Denies: Retention Musculoskeletal: Denies: Leg Pain Physical Examination General Exam: Positive: Alert, Mild Distress Eye Exam: Positive: Conjunctiva & lids normal; Negative: Sclera icteric ENT Exam: Positive: Atraumatic, Mucous membr. moist/pink Neck Exam: Positive: JVD (mild) Chest Exam: Positive: Normal air movement, Other (mild crackles when aus pos) Heart Exam: Positive: Tachycardic, Regular Rhythm, Normal S1, Normal S2 Abdomen Exam: Positive: Normal bowel sounds, Soft; Negative: Tenderness Extremity Exam: Positive: Edema (+3 edema b/l with stasis dermatitis skin changes), Tenderness (upon pal in b/l LE) Neuro Exam: Positive: Normal Speech, Normal Tone, Sensation Intact Psych Exam: Positive: Mental status NL, Memory Intact, Oriented x 3 Vital Signs Vital Signs Date Time Temp Pulse Resp B/P (MAP) Pulse Ox O2 Delivery O2 Flow Rate FiO2 03/16/20 14:12 103 22 112/55 (74) 94 Nasal Cannula 2.0 03/16/20 12:25 99.0 Laboratory Data Labs 24H Laboratory Tests 2 03/16/20 12:33: POC Troponin I (Misc) 0.09H 03/16/20 12:35: Immature Granulocyte % (Auto) 0.8, Neutrophils (%) (Auto) 78.4H, Lymphocytes (%) (Auto) 9.8L, Monocytes (%) (Auto) 8.1H, Eosinophils (%) (Auto) 2.5, Basophils (%) (Auto) 0.4, Neutrophils # (Auto) 8.0, Lymphocytes # (Auto) 1.0L, Monocytes # (Auto) 0.8, Eosinophils # (Auto) 0.3, Basophils # (Auto) 0.0, Nucleated Red Blood Cells % (auto) 0.0, Prothrombin Time 14.2H, Prothromb Time International Ratio 1.13, Blood Gas Bicarbonate Standard 30.3, Venous Blood pH 7.343, Venous Blood Partial Pressure CO2 63.7H, Venous Blood Partial Pressure O2 150.4H, Venous Blood Total Carbon Dioxide 35.8H, Venous Blood HCO3 33.8H, Venous Blood Oxygen Saturation 99.0H, Venous Blood Base Excess 6.4H, Lactic Acid Level 0.8, Total Bilirubin 0.3, Direct Bilirubin < 0.1, Aspartate Amino Transf (AST/SGOT) 20, Alanine Aminotransferase (ALT/SGPT) 25, Alkaline Phosphatase 61, Total Creatine Kinase 65, Creatine Kinase MB < 1.0, Creatine Kinase MB Relative Index 1.54, Troponin I 0.04, ZL-Fwz-M-Type Natriuretic Peptide 9007H, Total Protein 6.4, Albumin 2.8L, Albumin/Globulin Ratio 0.8L, Thyroid Stimulating Hormone (T SH) 1.320 03/16/20 12:45: POC Glucose (Misc Panel) 129H, POC Sodium (Misc Panel) 138, POC Potassium (Misc Panel) 5.0, POC Chloride (Misc Panel) 98, POC Total CO2 (Misc Panel) 34.0H, POC Blood Urea Nitrogen (Misc Panel 44H, POC Ionized Calcium (Misc Panel) 4.7, POC Creatinine (Misc Panel) 1.2, POC Hematocrit (Misc Panel) 35.0L CBC/BMP Laboratory Tests 03/16/20 12:35 Microbiology Microbiology 03/16/20 Blood Culture, Received Pending 03/16/20 Blood Culture, Received Pending Assessment/Plan 1. Acute diastolic heart failure exacerbation. PMH of diastolic heart failure. 2018 echo reported to be most recent echo showed grade 2 diastolic heart failure.Elevated BNP with b/l leg edema. S/p 1 dose 80IV lasix. Start 20mg lasix TID. I&O, weigh daily. Tele monitor. Hold home PO lasix 2. Chronic hypercarbic resp failure 2/2 COPD. PMH of COPD Elevated CO2 on VBG at 63.7 which appeared to be chronic compared to past blood gas. Cont home resp tx. Pt on 1.5L oxygen NC at night at home. Appears to be overoxygenated at this time. Oxy order to maintain ox sat 88-92% 3. Lupus. PMH of lupus on chronic hydroxychloroquine and PO prednisone outpt. Cont home med 4. Hyponatremia, likely 2/2 fluid overload. Start lasix 20mg Q8H. Cont to trend BMP. Hold home med lisinopril 5. DM. Not on med at home. Glucose appear to be stable. Cont monitor glucose with BMP 6. Macrocytic anemia likely 2/2 B12 or folate deficiency. B12 and folate level ordered. Plan / VTE VTE Prophylaxis Ordered?: Yes GME ATTESTATION GME ATTESTATION My faculty preceptor for this patient encounter was physically present during the encounter and was fully available. All aspects of the patient interview, examination, medical decision making process, and medical care plan development were reviewed and approved by the faculty preceptor. The faculty preceptor is aware and concurs with the plan as stated in the body of this note and will attest to such by his/her cosignature. AJ AGUIRRE DO Mar 16, 2020 14:34
--- NOTE | 2020-03-16 15:10 | ECGEPIP ---
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
[2020-03-16 15:55] VITALS: BP 140/76
[2020-03-16 15:55] LABS: ABG BASE EXCESS 8.4 (-2.0-2.0); ABG HCO3 35.1 MEQ/L (22.0-26.0); ABG O2 SATURATION 90.8 % (95.0-99.0); ABG PARTIAL PRESSURE O2 56.8 mmHg (75.0-100.0); ABG STANDARD HCO3 32.1 MEQ/L (22.0-26.0); ABG TOTAL CO2 36.9 MEQ/L (23.0-31.0); ABG pH (ARTERIAL) 7.392 UNITS (7.350-7.450)
[2020-03-16 16:19] LABS: VITAMIN B12 LEVEL 768 PG/ML (247-911)
[2020-03-16 16:48] LABS: HEMATOCRIT 33.4 % (36.0-47.0)
[2020-03-16] MEDS ORDERED: FUROSEMIDE 20MG/2ML VIAL (J1940) IV SCH (17:00)
[2020-03-16 18:00] VITALS: BP 142/74
[2020-03-16 19:29] LABS: TROPONIN I 0.04 NG/ML (< 0.10)
[2020-03-16] MEDS: SYMBICORT 80/4.5MCG INHALER 6GM INH SCH (20:04)
[2020-03-16] MEDS: DOCUSATE SODIUM 100 MG CAP PO SCH (20:53)
[2020-03-16] MEDS: ASPIRIN 81 MG ENTERIC TAB PO SCH (20:54)
[2020-03-16] MEDS: MIRTAZAPINE 15 MG TAB PO SCH (20:54)
[2020-03-16] MEDS: SENNA 8.6 MG TAB (SENOKOT) PO SCH (20:54)
[2020-03-16] MEDS: atenoloL 25 MG TAB PO SCH (20:55)
[2020-03-16] MEDS: MAGNESIUM OXIDE 400 MG TAB (MAG-OX) PO SCH (20:55)
[2020-03-16] MEDS: FUROSEMIDE 20MG/2ML VIAL (J1940) IV SCH (20:56)
[2020-03-16] MEDS: ENOXAPARIN 30MG/0.3ML SYRINGE (J1650 PER 10MG) SC SCH (20:56)
[2020-03-16 21:00] VITALS: O2SAT 94
[2020-03-16] MEDS ORDERED: atenoloL 25 MG TAB PO SCH (21:00)
[2020-03-16 21:35] LABS: CREATININE FOR GFR 1.27 MG/DL (0.55-1.30); GLOMERULAR FILTRATION RATE 42.4 (>32); POTASSIUM SERUM 4.5 MEQ/L (3.5-5.1)
[2020-03-16 22:00] VITALS: BP 128/67
[2020-03-16] MEDS: ACETAMINOPHEN TAB 650MG DOSE (2X325MG) PO PRN (23:53)
[2020-03-17] MEDS: POLYVINYL ALCOHOL OPHTH SOLN 15 ML(LIQUITEARS) OU SCH ×3 (00:17→20:52)
[2020-03-17] MEDS ORDERED: diphenhydrAMINE 25MG CAP PO ONE (01:45)
[2020-03-17 02:00] VITALS: BP 144/72
[2020-03-17] MEDS: FUROSEMIDE 20MG/2ML VIAL (J1940) IV SCH (05:03)
[2020-03-17 05:43] LABS: HEMATOCRIT 34.1 % (36.0-47.0); HEMOGLOBIN 10.7 g/dl (12.0-15.5); MEAN CORPUSCULAR HEMOGLOBIN 32.5 pg (27.0-33.0); MEAN CORPUSCULAR HGB CONC 31.4 g/dl (32.0-36.5); MEAN CORPUSCULAR VOLUME 103.6 fl (80.0-96.0); PLATELET COUNT, AUTOMATED 204 10^3/uL (150-450); RED BLOOD COUNT 3.29 10^6/uL (4.00-5.40); WHITE BLOOD COUNT 7.6 10^3/uL (4.0-10.0)
[2020-03-17 06:00] VITALS: BP 106/71
[2020-03-17 06:05] LABS: CALCIUM LEVEL 8.9 MG/DL (8.8-10.2); CREATININE FOR GFR 1.19 MG/DL (0.55-1.30); GLOMERULAR FILTRATION RATE 45.7 (>32); POTASSIUM SERUM 4.2 MEQ/L (3.5-5.1)
[2020-03-17] MEDS: SYMBICORT 80/4.5MCG INHALER 6GM INH SCH ×2 (07:25→21:38)
[2020-03-17 08:00] VITALS: O2SAT 93
[2020-03-17] MEDS: DOCUSATE SODIUM 100 MG CAP PO SCH ×2 (08:11→20:50)
[2020-03-17] MEDS: HYDROXYCHLOROQUINE 200 MG TAB PO SCH (08:11)
[2020-03-17] MEDS: predniSONE 1 MG TAB PO SCH (08:12)
[2020-03-17] MEDS: LACTOBACILLUS ACIDOPHILUS CAP (BACID) PO SCH (08:12)
[2020-03-17] MEDS: allopurinoL 100 MG TAB PO SCH (08:12)
--- NOTE | 2020-03-17 11:58 | IPNPDOC ---
Text Note Date of Service The patient was seen on 03/17/20. NOTE Subjective: Patient seen and examined at bedside. She still complains of orthopnea - which has been ongoing for several weeks. Denies chest pain, or any other medical complaints. No acute overnight events reported. Objective: General: NAD, sitting comfortably in chair HEENT: NC/AT, EOMI Lungs: b/l basilar crackles Abd: obese,, soft, NT, +BS Ext: 2+ peripheral edema A/P: 89 yo female with hx of chronic diastolic heart failure, COPD, and lupus on chronic hydroxychloroquine presented to [facility] d/t inability to stand/walk with 1 wk of worsening dyspnea, orthopnea, b/l LE swelling, and cough. She reported no change in diet, reported that she has been on 2L fluid restriction with limited Na diet. She usually sleeps with 3 pillows but now needs to sleep in chair. Reported her sputum has turned greenX1 day compared to the usual white sputum. Usual weight is 187lb. Pt reported there's an addition of new med a wk ago which she is unable to recall the name of the med. Denied any chest pain, palpi, extremity pain, fever, chills, sick contact, covid19 exposure, or new pets #acute/chronic HFpEF - echo pending - I/O's, dailyh weights - telemetry monitoring - IV lasix - follows with Dr. Kerr #chronic hypoxic respiratory failure/COPD - baseline 1.5 L O2 at night #Lupus - hydroxychloroquine and PO prednisone as per home meds #DM - Not on med at home. Glucose here WNL #Macrocytic anemia - B12 WNL, folate elevated #DVT prophylaxis - lovenox VS,Fishbone, I+O VS, Fishbone, I+O Laboratory Tests 03/16/20 12:35 03/16/20 18:39 03/17/20 05:05 Vital Signs Date Time Temp Pulse Resp B/P (MAP) Pulse Ox O2 Delivery O2 Flow Rate FiO2 03/17/20 08:00 2.0 03/17/20 08:00 93 Nasal Cannula 03/17/20 06:00 96.2 77 18 106/71 (83) I&O- Last 24 Hours up to 6 AM 03/17/20 06:00 Intake Total 200 ml Output Total 850 ml Balance -650 ml NAEL GOODWIN MD Mar 17, 2020 11:58
[2020-03-17 14:00] VITALS: BP 116/62
[2020-03-17] MEDS: FUROSEMIDE 40MG/4ML VIAL (J1940) IV SCH ×2 (14:52→22:57)
[2020-03-17] MEDS: ENOXAPARIN 30MG/0.3ML SYRINGE (J1650 PER 10MG) SC SCH (20:50)
[2020-03-17] MEDS: MIRTAZAPINE 15 MG TAB PO SCH (20:50)
[2020-03-17] MEDS: ASPIRIN 81 MG ENTERIC TAB PO SCH (20:50)
[2020-03-17] MEDS: SENNA 8.6 MG TAB (SENOKOT) PO SCH (20:51)
[2020-03-17] MEDS: atenoloL 25 MG TAB PO SCH (20:52)
[2020-03-17 22:00] VITALS: BP 129/61
[2020-03-18] VITALS (8 sets, daily range): BP systolic 103–142; BP diastolic 51–64; O2SAT 88–90
[2020-03-18] MEDS: FUROSEMIDE 40MG/4ML VIAL (J1940) IV SCH ×3 (06:37→22:43)
[2020-03-18 06:40] LABS: HEMATOCRIT 35.7 % (36.0-47.0); HEMOGLOBIN 11.2 g/dl (12.0-15.5); MEAN CORPUSCULAR HEMOGLOBIN 32.6 pg (27.0-33.0); MEAN CORPUSCULAR HGB CONC 31.4 g/dl (32.0-36.5); MEAN CORPUSCULAR VOLUME 103.8 fl (80.0-96.0); PLATELET COUNT, AUTOMATED 212 10^3/uL (150-450); RED BLOOD COUNT 3.44 10^6/uL (4.00-5.40); WHITE BLOOD COUNT 7.5 10^3/uL (4.0-10.0)
[2020-03-18 07:01] LABS: CALCIUM LEVEL 8.9 MG/DL (8.8-10.2); CREATININE FOR GFR 1.19 MG/DL (0.55-1.30); GLOMERULAR FILTRATION RATE 45.7 (>32)
[2020-03-18] MEDS: allopurinoL 100 MG TAB PO SCH (08:07)
[2020-03-18] MEDS: POLYVINYL ALCOHOL OPHTH SOLN 15 ML(LIQUITEARS) OU SCH ×2 (08:08→20:21)
[2020-03-18] MEDS: predniSONE 1 MG TAB PO SCH (08:08)
[2020-03-18] MEDS: DOCUSATE SODIUM 100 MG CAP PO SCH ×2 (08:08→20:21)
[2020-03-18] MEDS: HYDROXYCHLOROQUINE 200 MG TAB PO SCH (08:08)
[2020-03-18] MEDS: LACTOBACILLUS ACIDOPHILUS CAP (BACID) PO SCH (08:08)
[2020-03-18] MEDS: SYMBICORT 80/4.5MCG INHALER 6GM INH SCH ×2 (08:45→20:07)
--- NOTE | 2020-03-18 18:03 | IPNPDOC ---
Text Note Date of Service The patient was seen on 03/18/20. NOTE TIME OF SERVICE: 820am Subjective: The patient denies having any acute shortness of breath or leg swelling Objective: GEN: NAD CVS: RRR/NMRG LUNGS: CTAB on RA NEURO: CN II to 12 grossly intact. Speech not dysarthric PSYCH: A&O / able to understand and follow commands Vitals and labs: see below Assessment: Ms. Gonzalez is an 89-year-old with a history of chronic diastolic heart failure, COPD, CKD2, HTN, DM, Gout and SLE was admitted for management of acute on chronic diastolic CHF. Plan: 1. Acute on chronic diastolic CHF. Improving -f/u Is and Os, daily weights and echo / continue with Lasix 2. COPD with chronic oxygen-dependent respiratory failure - continue suppl emental oxygen 1.5 L at night /Symbicort and levalbuterol 3. Chronic HTN atenolol 4. DM - f/u FSBS & A1c 5. Gout - allopurinol 6. SLE - hydroxychloroquine and prednisone 7. Macrocytic anemia - trend Hg 8. CKD 2 9. Obesity with BMI of 33.6 complicates care DVT prophylaxis with Lovenox VS,Fishbone, I+O VS, Fishbone, I+O Laboratory Tests 03/18/20 06:16 Vital Signs Date Time Temp Pulse Resp B/P (MAP) Pulse Ox O2 Delivery O2 Flow Rate FiO2 03/18/20 14:00 98.2 79 18 142/64 (90) 95 Nasal Cannula 2.0 I&O- Last 24 Hours up to 6 AM 03/18/20 06:00 Intake Total 990 ml Output Total 3000 ml Balance -2009 ml ELIZABETH PEPPER MD Mar 18, 2020 18:03
[2020-03-18 19:25] LABS: HEMOGLOBIN A1c 6.5 %
[2020-03-18] MEDS: ENOXAPARIN 30MG/0.3ML SYRINGE (J1650 PER 10MG) SC SCH (20:20)
[2020-03-18] MEDS: MAGNESIUM OXIDE 400 MG TAB (MAG-OX) PO SCH (20:20)
[2020-03-18] MEDS: MIRTAZAPINE 15 MG TAB PO SCH (20:20)
[2020-03-18] MEDS: SENNA 8.6 MG TAB (SENOKOT) PO SCH (20:21)
[2020-03-18] MEDS: ASPIRIN 81 MG ENTERIC TAB PO SCH (20:21)
[2020-03-18] MEDS: atenoloL 25 MG TAB PO SCH (20:23)
[2020-03-19] VITALS (7 sets, daily range): BP systolic 111–123; BP diastolic 46–58; O2SAT 90
[2020-03-19] MEDS: FUROSEMIDE 40MG/4ML VIAL (J1940) IV SCH (05:52)
[2020-03-19 06:43] LABS: BASO % 0.6 % (0.0-1.0); EOS # 0.3 10^3/uL (0.0-0.5); EOS % 3.8 % (0.0-3.0); HEMATOCRIT 34.9 % (36.0-47.0); HEMOGLOBIN 10.9 g/dl (12.0-15.5); LYMPH # 1.3 10^3/uL (1.5-5.0); LYMPH % 19.8 % (24.0-44.0); MEAN CORPUSCULAR HEMOGLOBIN 32.6 pg (27.0-33.0); MEAN CORPUSCULAR HGB CONC 31.2 g/dl (32.0-36.5); MEAN CORPUSCULAR VOLUME 104.5 fl (80.0-96.0); MONO # 0.6 10^3/uL (0.0-0.8); MONO % 9.5 % (0.0-5.0); NEUTROPHILS # 4.3 10^3/uL (1.5-8.5); NEUTROPHILS % 65.5 % (36.0-66.0); PLATELET COUNT, AUTOMATED 207 10^3/uL (150-450); RED BLOOD COUNT 3.34 10^6/uL (4.00-5.40); WHITE BLOOD COUNT 6.6 10^3/uL (4.0-10.0)
--- NOTE | 2020-03-19 06:53 | ECHO ---
DATE OF PROCEDURE: 03/17/2020 DATE OF : 1930 AGE: 89 REFERRING PROVIDER: Dr. Ashanti Monsivais PRIMARY GLASS FURNACE TENDER: Dr. Kerr REASON FOR THE STUDY: Congestive heart failure. 2-D MEASUREMENTS: IVS: 1.3 cm LV: 5.0 cm LVPW: 1.3 cm LA: 3.9 cm Aorta: 3.9 cm IVC: 1.7 cm DOPPLER MEASUREMENTS: Peak velocity across the aortic valve: 1.2 m/sec Peak velocity across the LVOT: 0.6 m/sec Mitral E: 0.8, Mitral A: 0.6 with a ratio of 1.4 Maximum tricuspid valve velocity: 2.9 m/sec 2-D COMMENTS: 1. Normal left ventricular size with mildly increased left ventricular wall thickness. Left ventricular systolic function appeared to be mildly depressed, estimated at 45-50%. 2. Normal left atrium. The right atrium and the right ventricle appeared to be mildly enlarged. The right ventricular free wall seems to be hypokinetic. 3. The atrial septum appeared to be normal without evidence of defect or shunt. 4. Mildly dilated aortic root at 3.9 cm. 5. Trace pericardial effusion noted around the heart, no evidence of cardiac tamponade. 6. Mildly calcified aortic valve with normal leaflet excursion. Mildly calcified mitral annulus with normal-appearing mitral valve leaflet motion. Normal tricuspid valve and pulmonic valve. The proximal pulmonary artery branches were not well visualized. 7. The inferior vena cava was normal in size, central venous pressure is most likely normal. DOPPLER: It detects mild regurgitation, mild to moderate tricuspid (dictation breaking up/inaudible) regurgitation. Systolic pressure varies between 40-50 mmHg. Assessment of the left ventricular diastolic function appeared to be normal. IMPRESSION: 1. Probably mildly depressed global left ventricular systolic function with global hypokinesis but preserved left ventricular wall thickness. Assessment of the left ventricular diastolic function appeared to be normal. 2. Mild to moderate mitral regurgitation. Subjectively, the left atrium appeared to be mildly enlarged. 3. Mild tricuspid regurgitation with moderate pulmonary hypertension. The right atrium and the right ventricle appeared to be mildly enlarged with probably features of right ventricular systolic dysfunction. 4. (dictation breaking up) with mild aortic regurgitation but no aortic stenosis. 5. Trace pulmonic regurgitation. 6. Trace pericardial effusion, no evidence of cardiac tamponade.
[2020-03-19 07:12] LABS: CALCIUM LEVEL 8.4 MG/DL (8.8-10.2); CREATININE FOR GFR 1.74 MG/DL (0.55-1.30); GLOMERULAR FILTRATION RATE 29.5 (>32)
[2020-03-19] MEDS: allopurinoL 100 MG TAB PO SCH (08:06)
[2020-03-19] MEDS: HYDROXYCHLOROQUINE 200 MG TAB PO SCH (08:06)
[2020-03-19] MEDS: predniSONE 1 MG TAB PO SCH (08:06)
[2020-03-19] MEDS: DOCUSATE SODIUM 100 MG CAP PO SCH ×2 (08:06→20:46)
[2020-03-19] MEDS: LACTOBACILLUS ACIDOPHILUS CAP (BACID) PO SCH (08:07)
[2020-03-19] MEDS: POLYVINYL ALCOHOL OPHTH SOLN 15 ML(LIQUITEARS) OU SCH ×2 (08:07→20:51)
[2020-03-19] MEDS: SYMBICORT 80/4.5MCG INHALER 6GM INH SCH ×2 (08:39→20:20)
--- NOTE | 2020-03-19 16:17 | IPNPDOC ---
Text Note Date of Service The patient was seen on 03/19/20. NOTE TIME OF SERVICE: 1:35 PM Subjective: The patient reports that her shortness of breath has almost improved back to her baseline; she is currently wearing O2 during the day. She also reported feeling weak. Objective: GEN: NAD HEENT: NC in place CVS: RRR/NMRG LUNGS: CTAB on RA NEURO: CN II to 12 grossly intact. Speech not dysarthric PSYCH: A&O / able to understand and follow commands Vitals and labs: see below Assessment: Ms. Gonzalez is an 89-year-old with a history of chronic diastolic heart failure, COPD, CKD2, HTN, DM, Gout and SLE was admitted for management of acute on chronic systolic/diastolic CHF. Plan: 1. Acute on chronic systolic/diastolic CHF. Resolving. Echo showed EF of 45% - f/u Is and Os, daily weights / DC IV Lasix because of increase in Cr / start low dose coreg / will hold off starting ACEI pending improvement in Cr 2. COPD with chronic oxygen-dependent respiratory failure - wean down O2 from 2L to her baseline of 1.5 L at night /Symbicort and levalbuterol 3. ALANIS on CKD 2. Increse in Cr may be due to overdiuresis - lasix has been discontinued, encouraged patient to increase her fluid intake / will f/u on BMP in the morning 4. NIDDM (A1C 6.55) - f/u FSBS 5. Gout - allopurinol 6. SLE - hydroxychloroquine and prednisone 7. Macrocytic anemia. Hg trending down - f/u Hg 8. Chronic HTN - d/c atenolol and start coreg 9. Deconditioning - PT consult for home PT / PFS consult for home health aide and home RN to monitor her weight and BP 10. Obesity with BMI of 33.6 complicates care DVT prophylaxis with Lovenox DISPO: possibly home tomorrow if her ALANIS has improved and we are able to wean her off of O2 VS,Fishbone, I+O VS, Fishbone, I+O Laboratory Tests 03/19/20 06:21 Vital Signs Date Time Temp Pulse Resp B/P (MAP) Pulse Ox O2 Delivery O2 Flow Rate FiO2 03/19/20 14:00 100.4 92 18 111/49 (69) 90 Nasal Cannula 2.0 I&O- Last 24 Hours up to 6 AM 03/19/20 06:00 Intake Total 1010 ml Output Total 200 ml Balance 810 ml ELIZABETH PEPPER MD Mar 19, 2020 16:17
[2020-03-19] MEDS: ENOXAPARIN 30MG/0.3ML SYRINGE (J1650 PER 10MG) SC SCH (20:50)
[2020-03-19] MEDS: MIRTAZAPINE 15 MG TAB PO SCH (20:50)
[2020-03-19] MEDS: ASPIRIN 81 MG ENTERIC TAB PO SCH (20:50)
[2020-03-19] MEDS: SENNA 8.6 MG TAB (SENOKOT) PO SCH (20:52)
[2020-03-19] MEDS: CARVedilol 3.125 MG TAB PO SCH (22:30)
[2020-03-20] VITALS (7 sets, daily range): BP systolic 101–117; BP diastolic 44–60; O2SAT 93
[2020-03-20 06:04] LABS: BASO # 0.1 10^3/uL (0.0-0.2); BASO % 0.8 % (0.0-1.0); EOS # 0.3 10^3/uL (0.0-0.5); EOS % 4.3 % (0.0-3.0); HEMATOCRIT 35.7 % (36.0-47.0); HEMOGLOBIN 11.2 g/dl (12.0-15.5); LYMPH # 1.1 10^3/uL (1.5-5.0); LYMPH % 17.4 % (24.0-44.0); MEAN CORPUSCULAR HEMOGLOBIN 32.7 pg (27.0-33.0); MEAN CORPUSCULAR HGB CONC 31.4 g/dl (32.0-36.5); MEAN CORPUSCULAR VOLUME 104.4 fl (80.0-96.0); MONO # 0.6 10^3/uL (0.0-0.8); MONO % 9.7 % (0.0-5.0); NEUTROPHILS # 4.3 10^3/uL (1.5-8.5); NEUTROPHILS % 67.2 % (36.0-66.0); PLATELET COUNT, AUTOMATED 204 10^3/uL (150-450); RED BLOOD COUNT 3.42 10^6/uL (4.00-5.40); WHITE BLOOD COUNT 6.3 10^3/uL (4.0-10.0)
[2020-03-20 06:31] LABS: CALCIUM LEVEL 8.6 MG/DL (8.8-10.2); CREATININE FOR GFR 1.51 MG/DL (0.55-1.30); GLOMERULAR FILTRATION RATE 34.7 (>32); POTASSIUM SERUM 4.2 MEQ/L (3.5-5.1)
[2020-03-20] MEDS: ACETAMINOPHEN TAB 650MG DOSE (2X325MG) PO PRN (06:33)
[2020-03-20] MEDS: SYMBICORT 80/4.5MCG INHALER 6GM INH SCH ×2 (07:59→19:43)
[2020-03-20] MEDS: LACTOBACILLUS ACIDOPHILUS CAP (BACID) PO SCH (08:39)
[2020-03-20] MEDS: DOCUSATE SODIUM 100 MG CAP PO SCH ×2 (08:39→20:30)
[2020-03-20] MEDS: allopurinoL 100 MG TAB PO SCH (08:40)
[2020-03-20] MEDS: POLYVINYL ALCOHOL OPHTH SOLN 15 ML(LIQUITEARS) OU SCH ×2 (08:41→20:39)
[2020-03-20] MEDS: CARVedilol 3.125 MG TAB PO SCH ×2 (08:42→20:31)
[2020-03-20] MEDS: predniSONE 1 MG TAB PO SCH (08:44)
[2020-03-20] MEDS: HYDROXYCHLOROQUINE 200 MG TAB PO SCH (08:44)
[2020-03-20] MEDS ORDERED: CARV3.12 PO (15:55)
--- NOTE | 2020-03-20 15:57 | IPNPDOC ---
Text Note Date of Service The patient was seen on 03/20/20. NOTE TIME OF SERVICE: 6:55 AM Subjective: The patient reports that her shortness of breath has completely resolved but she continues to feel weak. Per discussion with the night, RN, the patient's O2 sats dropped 84% on room air while walking. Objective: GEN: NAD HEENT: NC in place CVS: RRR/NMRG LUNGS: CTAB on RA NEURO: CN II to 12 grossly intact. Speech not dysarthric PSYCH: A&O / able to understand and follow commands Vitals and labs: see below Assessment: Ms. Gonzalez is an 89-year-old with a history of chronic diastolic heart failure, COPD, CKD2, Chronic HTN, DM, Gout and SLE was admitted for management of acute on chronic systolic/diastolic CHF; her course was complicated by transient ALANIS, and debility/deconditioning. Plan: 1. Chronic systolic/diastolic CHF. She is now clinically compensated.The Echo showed EF of 45%. Lasix was discontinued yesterday bc of ALANIS. The cause of the systolic dysfunction is not clear at this time as her Trops, TSH - f/u Is and Os, daily weights / c/w low dose coreg / will hold off resuming ACEI pending improvement in Cr / she can be referred to a Him Clerk to determine if she needs PCI to r/o CAD & for a sleep study on an out patient basis complete the work up for new systolic dysfunction 2. ALANIS on CKD 2. ALANIS is resolving- encouraged patient to increase her fluid intake / will f/u on BMP in the morning / will not order IVF to avoid causing fluid overload 3. COPD with chronic oxygen-dependent respiratory failure - attempt to wean down O2 from 2L to her baseline of 1.5 L at night /Symbicort and levalbuterol 4. NIDDM (A1C 6.5%) - f/u FSBS 5. Gout - allopurinol 6. SLE - hydroxychloroquine and prednisone 7. Macrocytic anemia. Stable - f/u Hg 8. Chronic HTN - coreg (discontinued home med atenolol) 9. Deconditioning - PT consult for home PT / PFS consult for home health aide and home RN to monitor her weight and BP 10. Obesity with BMI of 33.6 complicates care 11. Debility/Deconditioning- PT DVT prophylaxis with Lovenox DISPO: transfer to SNF temporarily for rehab possibly on Fri or Fri VS,Fishbone, I+O VS, Fishbone, I+O Laboratory Tests 03/20/20 05:12 Vital Signs Date Time Temp Pulse Resp B/P (MAP) Pulse Ox O2 Delivery O2 Flow Rate FiO2 03/20/20 14:00 99.0 99 18 111/53 (72) 94 Nasal Cannula 2.0 I&O- Last 24 Hours up to 6 AM 03/20/20 06:00 Intake Total 1200 ml Output Total 600 ml Balance 600 ml ELIZABETH PEPPER MD Mar 20, 2020 15:57
[2020-03-20] MEDS: ASPIRIN 81 MG ENTERIC TAB PO SCH (20:30)
[2020-03-20] MEDS: ENOXAPARIN 30MG/0.3ML SYRINGE (J1650 PER 10MG) SC SCH (20:30)
[2020-03-20] MEDS: SENNA 8.6 MG TAB (SENOKOT) PO SCH (20:31)
[2020-03-20] MEDS: MIRTAZAPINE 15 MG TAB PO SCH (20:31)
[2020-03-20] MEDS: MAGNESIUM OXIDE 400 MG TAB (MAG-OX) PO SCH (20:31)
[2020-03-21 02:00] VITALS: BP 127/55
[2020-03-21 06:00] VITALS: BP 123/53
[2020-03-21 06:23] LABS: HEMATOCRIT 33.8 % (36.0-47.0); HEMOGLOBIN 10.4 g/dl (12.0-15.5); MEAN CORPUSCULAR HEMOGLOBIN 32.4 pg (27.0-33.0); MEAN CORPUSCULAR HGB CONC 30.8 g/dl (32.0-36.5); MEAN CORPUSCULAR VOLUME 105.3 fl (80.0-96.0); PLATELET COUNT, AUTOMATED 182 10^3/uL (150-450); RED BLOOD COUNT 3.21 10^6/uL (4.00-5.40); WHITE BLOOD COUNT 5.7 10^3/uL (4.0-10.0)
[2020-03-21 06:47] LABS: CALCIUM LEVEL 8.6 MG/DL (8.8-10.2); CREATININE FOR GFR 1.27 MG/DL (0.55-1.30); GLOMERULAR FILTRATION RATE 42.4 (>32); POTASSIUM SERUM 4.5 MEQ/L (3.5-5.1)
[2020-03-21] MEDS: SYMBICORT 80/4.5MCG INHALER 6GM INH SCH (07:23)
[2020-03-21] MEDS: predniSONE 1 MG TAB PO SCH (08:33)
[2020-03-21] MEDS: allopurinoL 100 MG TAB PO SCH (08:33)
[2020-03-21] MEDS: LACTOBACILLUS ACIDOPHILUS CAP (BACID) PO SCH (08:33)
[2020-03-21] MEDS: HYDROXYCHLOROQUINE 200 MG TAB PO SCH (08:33)
[2020-03-21] MEDS: DOCUSATE SODIUM 100 MG CAP PO SCH (08:33)
[2020-03-21] MEDS: CARVedilol 3.125 MG TAB PO SCH (08:38)
[2020-03-21] MEDS: POLYVINYL ALCOHOL OPHTH SOLN 15 ML(LIQUITEARS) OU SCH (08:39)
[2020-03-21 09:00] VITALS: O2SAT 96
[2020-03-21] MEDS ORDERED: FUROSEMIDE 20 MG TAB PO SCH (09:00)
[2020-03-21 10:00] VITALS: BP 133/60
[2020-03-21] MEDS ORDERED: LISI2.5T2 PO (10:51)
[2020-03-21] MEDS ORDERED: FURO20TA2 PO (10:51)
[2020-03-21] MEDS ORDERED: LISINOPRIL *2.5 MG* TAB PO SCH (11:00)
[2020-03-21 11:03] VITALS: BP 112/62
[2020-03-21] MEDS ORDERED: PRAVASTATIN 10 MG TAB PO SCH (21:00)
== END 2020-03-21 14:42 | disposition home health service (06) | DRG 291 ==
LOC: EDBD 11:57 → M ED 11:57 → M ED INP 14:57 → ENRESERV 15:10 → M MSPAV 15:50
PROVIDERS: ADMIT Internal Medicine Nephrology; ATTEND Internal Medicine
DX: I13.0 Hypertensive heart and chronic kidney disease with heart failure and stage 1 through stage 4 chronic kidney disease, or unspecified chronic kidney disease (principal); I50.33 Acute on chronic diastolic (congestive) heart failure; J96.12 Chronic respiratory failure with hypercapnia; E87.1 Hypo-osmolality and hyponatremia; N17.9 Acute kidney failure, unspecified; J44.9 Chronic obstructive pulmonary disease, unspecified; M32.9 Systemic lupus erythematosus, unspecified; E11.22 Type 2 diabetes mellitus with diabetic chronic kidney disease; M10.9 Gout, unspecified; Z66 Do not resuscitate; I27.20 Pulmonary hypertension, unspecified; E73.9 Lactose intolerance, unspecified; D52.9 Folate deficiency anemia, unspecified; G89.29 Other chronic pain; E66.9 Obesity, unspecified; R53.81 Other malaise; F17.200 Nicotine dependence, unspecified, uncomplicated; M19.90 Unspecified osteoarthritis, unspecified site; N18.2 Chronic kidney disease, stage 2 (mild); Z79.82 Long term (current) use of aspirin; Z79.52 Long term (current) use of systemic steroids; Z79.899 Other long term (current) drug therapy; Z88.2 Allergy status to sulfonamides; Z88.6 Allergy status to analgesic agent; Z88.8 Allergy status to other drugs, medicaments and biological substances; Z91.048 Other nonmedicinal substance allergy status; Z96.642 Presence of left artificial hip joint; Z90.49 Acquired absence of other specified parts of digestive tract; Z85.038 Personal history of other malignant neoplasm of large intestine; Z99.81 Dependence on supplemental oxygen; Z68.33 Body mass index [BMI] 33.0-33.9, adult

== ENCOUNTER 2020-03-28 10:38 | Inpatient (IN) | payer MEDICARE ==
[~2020-03-28] VITALS: Ht 157.5 cm; Wt 82.5 kg
[~2020-03-28 10:38] MED LIST changes: +AMOX875T2 PO; +CARV3.12 PO; +FAMO20TA4 PO; +FURO20TA2 PO; +LISI2.5T2 PO; +PRED1TABL PO; +REME15TA PO
[2020-03-28] MEDS ORDERED: LEVALBUTEROL HFA 45MCG/ACT 15 GM INHALER INH ONE (11:15)
[2020-03-28] MEDS ORDERED: IPRATROPIUM HFA INHALER 12.9 GRAMS (ATROVENT HFA) INH ONE (11:15)
[2020-03-28 11:23] LABS: VENOUS BASE EXCESS 8.5 (-2.0-2.0); VENOUS HCO3 35.8 MEQ/L (23.0-27.0); VENOUS O2 SATURATION 89.2 % (60.0-80.0); VENOUS PARTIAL PRESSURE CO2 63.1 mmHg (38.0-50.0); VENOUS PARTIAL PRESSURE O2 51.7 mmHg (30.0-50.0); VENOUS PH 7.372 UNITS (7.330-7.430); VENOUS STANDARD HCO3 32.1 MEQ/L; VENOUS TOTAL CO2 37.8 MEQ/L (24.0-28.0)
[2020-03-28 11:35] LABS: BASO # 0.1 10^3/uL (0.0-0.2); BASO % 0.6 % (0.0-1.0); EOS # 0.4 10^3/uL (0.0-0.5); EOS % 4.9 % (0.0-3.0); HEMATOCRIT 36.7 % (36.0-47.0); HEMOGLOBIN 11.4 g/dl (12.0-15.5); LYMPH # 0.7 10^3/uL (1.5-5.0); MEAN CORPUSCULAR HEMOGLOBIN 32.6 pg (27.0-33.0); MEAN CORPUSCULAR HGB CONC 31.1 g/dl (32.0-36.5); MEAN CORPUSCULAR VOLUME 104.9 fl (80.0-96.0); MONO # 0.8 10^3/uL (0.0-0.8); MONO % 8.8 % (0.0-5.0); NEUTROPHILS # 6.9 10^3/uL (1.5-8.5); PLATELET COUNT, AUTOMATED 203 10^3/uL (150-450); WHITE BLOOD COUNT 8.9 10^3/uL (4.0-10.0)
[2020-03-28 12:03] LABS: INFLUENZA A AMPLIFICATION NEGATIVE (NEGATIVE); INFLUENZA B AMPLIFICATION NEGATIVE (NEGATIVE)
--- NOTE | 2020-03-28 12:08 | REP ---
PORTABLE CHEST X-RAY: Single view. HISTORY: Dyspnea and cough. COMPARISON CHEST X-RAY: March 16, 2020. FINDINGS: Moderate cardiac enlargement is observed. There is blunting of the left lateral pleural angle and some pleuroparenchymal changes are noted on the left unchanged from the prior study. I cannot exclude left pleural fluid. There is pulmonary vascular congestion and cephalization. No pulmonary edema is appreciated. IMPRESSION: Vascular congestion and cephalization. Cardiomegaly. Question blunting left lateral pleural angle. CHF pattern. Electronically Signed by Roberto Howard MD 03/28/2020 12:31 P
[2020-03-28] MEDS ORDERED: FUROSEMIDE 40MG/4ML VIAL (J1940) IV ONE ×2 (12:15→20:00)
[2020-03-28] MEDS ORDERED: ASPIRIN 81 MG CHEW TABLET PO ONE (12:15)
[2020-03-28 12:30] LABS: INR 1.06; PROTHROMBIN TIME 13.5 SECONDS (11.8-14.0)
[2020-03-28 12:49] LABS: BILIRUBIN,DIRECT 0.1 MG/DL (0.0-0.2); BILIRUBIN,TOTAL 0.4 MG/DL (0.2-1.0); THYROID STIMULATING HORMONE 1.31 uIU/ML (0.358-3.740); TOTAL PROTEIN 6.6 GM/DL (6.4-8.2)
[2020-03-28] MEDS ORDERED: LISI2.5T2 PO (13:10)
[2020-03-28] MEDS ORDERED: FURO20TA2 PO (13:10)
[2020-03-28] MEDS ORDERED: CARV3.12 PO (13:10)
[2020-03-28] MEDS ORDERED: GLUCAGON INJ 1MG VIAL SC PRN (15:00)
[2020-03-28] MEDS ORDERED: DEXTROSE 50% 50 ML SYRINGE IV PRN (15:00)
[2020-03-28] MEDS ORDERED: GLUCOSE 4GM CHEW TABLET PO PRN (15:00)
[2020-03-28] MEDS ORDERED: FAMOTIDINE 20 MG TAB PO PRN (15:15)
[2020-03-28] MEDS ORDERED: MIRALAX *UNIT DOSE* 17GM PACKET PO PRN (15:15)
[2020-03-28 15:18] LABS: ABG BASE EXCESS 8.2 (-2.0-2.0); ABG HCO3 35.5 MEQ/L (22.0-26.0); ABG O2 SATURATION 93.3 % (95.0-99.0); ABG PARTIAL PRESSURE O2 64.9 mmHg (75.0-100.0); ABG STANDARD HCO3 31.9 MEQ/L (22.0-26.0); ABG TOTAL CO2 37.5 MEQ/L (23.0-31.0); ABG pH (ARTERIAL) 7.359 UNITS (7.350-7.450)
[2020-03-28 15:19] LABS: ABG PARTIAL PRESSURE CO2 64.5 mmHg (35.0-45.0)
--- NOTE | 2020-03-28 15:56 | HPEPDOC ---
General Date of Admission Mar 28, 2020 at 14:48 Date of Service: Mar 28, 2020 Chief Complaint The patient is a 89-year-old female Who presented to the hospital with shortness of breath History of Present Illness Patient is an 89-year-old female with a PMHx of Diastolic CHF, HTN, Borderline DM2, COPD, Lupus (on Hydroxychloroquine and Prednisone), Chornic pain / Arthritis, Gout and Mild pulmonary HTN, who presented to the hospital with complaint of short of breath. She was recently admitted to the hospital on 03/16 and discharged on 03/24. During that admission, patient had presented with shortness of breath and was found to be in congestive heart failure. She had received IV diuretics and subsequently developed acute kidney injury on discharge, her diuretic dose was adjusted. Patient reports that shes been experiencing shortness of breath for last couple of days. Currently, she reports that she does extensive cough without any expectoration. Denies any chest pain or palpitations. Denies any fevers or chills. Patient does report worsening lower extremity edema. Patient has experiencing nausea this morning with a small amount of vomiting. Denies any abdominal pain. Consultation, diarrhea, or urinary discomfort. Patient reports her appetite is normal without any significant changes in her weight. Home Medications Scheduled Allopurinol (Allopurinol) 100 Mg Tab, 200 MG PO DAILY, (Reported) Aspirin (Aspirin EC) 81 Mg Tab, 81 MG PO QHS, (Reported) Budesonide/Formoterol (Symbicort 80-4.5 Mcg Inhaler) 60 Puff/Inhaler Aers, 2 PUFF INH BID, (Reported) Carboxymethyl/Glycerin/Poly80 (Refresh Optive Advanced Drops) 1 Kassy Kassy, 1 DROP OU BID, (Reported) Carvedilol (Carvedilol) 3.125 Mg Tablet, 3.125 MG PO BID, (Reported) Docusate Sodium (Colace) 100 Mg Cap, 200 MG PO BID, (Reported) Furosemide (Furosemide) 20 Mg Tablet, 20 MG PO Q2D, (Reported) Hydroxychloroquine Sulfate (Hydroxychloroquine Sulfate) 200 Mg Tab, 200 MG PO DAILY, (Reported) Lactobacillus Combo No.10 (Probiotic) 1 Each Capsule, 1 CAP PO DAILY, (Reported) Lisinopril (Lisinopril) 2.5 Mg Tablet, 2.5 MG PO DAILY, (Reported) Magnesium Oxide (Magnesium Oxide) 400 Mg Tab, 800 MG PO Q2D, (Reported) QHS Mirtazapine (Remeron) 15 Mg Tablet, 15 MG PO QHS, (Reported) Multivitamins (Thera M Plus Tablet) 1 Tab Tab, 1 TAB PO QHS, (Reported) Prednisone (Prednisone) 1 Mg Tablet, 2 MG PO DAILY, (Reported) Vit A/Vit C/Vit E/Zinc/Copper (Icaps Areds Formula Dr Tablet) 1 Tab Tab, 1 TAB PO DAILY, (Reported) Scheduled PRN Famotidine (Famotidine) 20 Mg Tablet, 20 MG PO QPM PRN for HEARTBURN, (Reported) Fexofenadine/Pseudoephedrine (Sierra-D 12 Hour Tablet) 1 Tab Tab, 1 TAB PO BID PRN for CONGESTION, (Reported) Levalbuterol Hydrochloride (Xopenex Hfa) 45 Mcg/Act Aer, 2 PUFF INH QID PRN for SHORTNESS OF BREATH, (Reported) Polyethylene Glycol 3350 (Miralax) 1 Pow Pow, 17 GM PO DAILY PRN for CONSTIPATION, (Reported) Allergies Coded Allergies: NSAIDS (Non-Steroidal Anti-Inflamma (Verified Allergy, Intermediate, CHEST PAIN, 03/16/20) TAKES ASPIRIN AT HOME Dpesjrz-Hze-Fin Reductase Inhibitor (Verified Allergy, Intermediate, SWOLLEN JOINTS, 03/16/20) etodolac (Verified Allergy, Intermediate, HIVES, 03/16/20) Sulfa (Sulfonamide Antibiotics) (Verified Allergy, Mild, RASH, 03/16/20) lidocaine (Verified Allergy, Mild, RASH, 03/16/20) nickel (Verified Allergy, Mild, RASH, 03/16/20) ibuprofen (Verified Adverse Reaction, Intermediate, CHEST PAIN, 03/16/20) TAKES ASPIRIN AT HOME lactose (Verified Adverse Reaction, Unknown, lactose intolerant, 03/16/20) Past Medical History Medical History Diastolic CHF, HTN, Borderline DM2, COPD, Lupus (on Hydroxychloroquine and Prednisone), Chornic pain / Arthritis, Gout and Mild pulmonary HTN Surgical History Abdominoplasty Total left knee arthroplasty Partial colectomy for colon cancer 2 Family History - Father with a history of Parkinsons disease Social History - Denies the use of alcohol or illicit drugs; patient reports that she used to smoke Review of Systems Other systems 10 point review of systems complete, all negative otherwise stated in HPI Vital Signs - Vitals: BP 124/59, HR 93, RR 20, Sat 91%NC3L, Temp 98.6F - General: Lying in bed, No acute distress, Speaking in full sentences, AAOx3 - HEENT: NC, AT, PERRLA - CVS: RRR, +S1S2, - Lungs: Fair air entry bilaterally, mild crackles at bilateral lung bases. No rhonchi or wheezing - Abdomen: Soft, Non-distended, Non-tender - Extremities: 1+ pitting edema bilaterally, No calf tenderness - Neuro: No focal motor or sensory deficit - Skin: No visible rashes Laboratory Data Labs 24H Laboratory Tests 2 03/28/20 11:05: Influenza Type A (RT-PCR) NEGATIVE, Influenza Type B (RT-PCR) NEGATIVE 03/28/20 11:14: Immature Granulocyte % (Auto) 0.7, Neutrophils (%) (Auto) 77.0H, Lymphocytes (%) (Auto) 8.0L, Monocytes (%) (Auto) 8.8H, Eosinophils (%) (Auto) 4.9H, Basophils (%) (Auto) 0.6, Neutrophils # (Auto) 6.9, Lymphocytes # (Auto) 0.7L, Monocytes # (Auto) 0.8, Eosinophils # (Auto) 0.4, Basophils # (Auto) 0.1, Nucleated Red Blood Cells % (auto) 0.0, Blood Gas Bicarbonate Standard 32.1, Venous Blood pH 7.372, Venous Blood Partial Pressure CO2 63.1H, Venous Blood Partial Pressure O2 51.7H, Venous Blood Total Carbon Dioxide 37.8H, Venous Blood HCO3 35.8H, Venous Blood Oxygen Saturation 89.2H, Venous Blood Base Excess 8.5H, Total Bilirubin 0.4, Direct Bilirubin 0.1, Aspartate Amino Transf (AST/SGOT) 19, Alanine Aminotransferase (ALT/SGPT) 25, Alkaline Phosphatase 60, CV-Xew-S-Type Natriuretic Peptide 8112H, Total Protein 6.6, Albumin 3.0L, Albumin/Globulin Ratio 0.8L, Thyroid Stimulating Hormone (TSH) 1.310 03/28/20 11:15: Lactic Acid Level 1.0 03/28/20 11:19: POC Troponin I (Misc) 0.09H 03/28/20 11:48: Prothrombin Time 13.5, Prothromb Time International Ratio 1.06 03/28/20 11:59: Urine Color YELLOW, Urine Appearance CLEAR, Urine pH 5.0, Urine Specific [place] 1.012, Urine Protein NEGATIVE, Urine Glucose (UA) NEGATIVE, Urine Ketones NEGATIVE, Urine Blood NEGATIVE, Urine Nitrite NEGATIVE, Urine Bilirubin NEGATIVE, Urine Urobilinogen 0.2, Urine Leukocyte Esterase NEGATIVE, Urine WBC (Auto) 0, Urine RBC (Auto) 1, Urine Hyaline Casts (Auto) 0, Urine Bacteria (Auto) NEGATIVE, Urine Squamous Epithelial Cells 0, Urine Sperm (Auto) 03/28/20 12:05: POC Glucose (Misc Panel) 147H, POC Sodium (Misc Panel) 140, POC Potassium (Misc Panel) 4.9, POC Chloride (Misc Panel) 99, POC Total CO2 (Misc Panel) 35.0H, POC Blood Urea Nitrogen (Misc Panel 38H, POC Ionized Calcium (Misc Panel) 4.8, POC Creatinine (Misc Panel) 1.0, POC Hematocrit (Misc Panel) 37.0L 03/28/20 15:04: Blood Gas Bicarbonate Standard 31.9H, Arterial Blood pH 7.359, Arterial Blood Partial Pressure CO2 64.5*H, Arterial Blood Partial Pressure O2 64.9L, Arterial Blood Total CO2 37.5H, Arterial Blood HCO3 35.5H, Arterial Blood Base Excess 8.2H, Arterial Blood Oxygen Saturation 93.3L 03/28/20 15:39: CBC/BMP Laboratory Tests 03/28/20 11:14 Microbiology Microbiology 03/28/20 Blood Culture, Received Pending Plan / VTE VTE Prophylaxis Ordered?: Yes Plan Plan Shortness of breath - likely 2/2 Acute decompensated diastolic CHF - Patient presented to the emergency room with complaints of short of breath, progressive over the last couple days - Physical with evidence of fluid overload - BNP noted to be significantly elevated - CXR 03/28: Vascular congestion and cephalization. Cardiomegaly. Question blunting left lateral pleural angle. CHF pattern. - Patient has received a dose of furosemide 40 mg IV in the ER - Will continue with furosemide 40 IV twice a day with holding parameters - c/w Telemetry monitoring and troponin trend - Check daily weights, strict ins and outs fluid restriction CKD3 - Creatinine baseline of 1.1-1.2 - Will continue with diuretics at this time Normocytic anemia - Hemoglobin appears to be at baseline HTN - Blood pressure remains well-controlled - c/w Lisinopril and Carvedilol with holding parameters Borderline DM2 - Will start ISS - Will start consistent carbohydrate diet COPD - Currently does not appear to have any signs of exacerbation - Review of prior ABGs have revealed similar findings - c/w inhaled therapy as ordered Lupus - c/w Hydroxychloroquine and Prednisone based on outpatient dosing Chronic pain / Arthritis / Gout - c/w Tylenol PRN Insomnia - Will hold mirtazapine DVT prophylaxis - Will start Heparin NIMISHA GARCIA MD Mar 28, 2020 15:56
[2020-03-28] MEDS ORDERED: LEVALBUTEROL 1.25 MG/0.5 ML CONCENTRATE NEB INH PRN (16:00)
[2020-03-28] MEDS: LEVALBUTEROL 1.25 MG/0.5 ML CONCENTRATE NEB INH SCH ×2 (16:00→17:44)
[2020-03-28 16:27] LABS: CK-MB VALUE MASS < 1.0 NG/ML (<3.6); CPK CREATINE PHOSPHOKINASE 34 U/L (26-192); MB/CK RELATIVE INDEX 2.94 (< OR =4); TROPONIN I 0.06 NG/ML (< 0.10)
[2020-03-28 16:41] VITALS: BP 135/63
[2020-03-28] MEDS: SYMBICORT 80/4.5MCG INHALER 6GM INH SCH (17:44)
[2020-03-28 18:13] LABS: ABG HCO3 39.7 MEQ/L (22.0-26.0); ABG O2 SATURATION 95.5 % (95.0-99.0); ABG PARTIAL PRESSURE O2 74.9 mmHg (75.0-100.0); ABG STANDARD HCO3 35.7 MEQ/L (22.0-26.0); ABG TOTAL CO2 41.8 MEQ/L (23.0-31.0); ABG pH (ARTERIAL) 7.374 UNITS (7.350-7.450)
[2020-03-28 18:17] LABS: ABG PARTIAL PRESSURE CO2 69.6 mmHg (35.0-45.0)
[2020-03-28] MEDS: HumaLOG INSULIN (NovoLOG) PER UNIT SC SCH ×2 (19:58→20:09)
[2020-03-28 20:00] VITALS: BP 133/62
[2020-03-28] MEDS: HEPARIN SOD (PORCINE) 5000UNITS/ML VIAL (J1644 PER 1000UNITS) SC SCH (20:44)
[2020-03-28] MEDS: DOCUSATE SODIUM 100 MG CAP PO SCH (20:44)
[2020-03-28] MEDS: CARVedilol 3.125 MG TAB PO SCH (20:44)
[2020-03-28] MEDS: MULTIVITAMINS/MINERALS THERAP 1 TAB PO SCH (20:45)
[2020-03-28] MEDS: ASPIRIN 81 MG ENTERIC TAB PO SCH (20:45)
[2020-03-28] MEDS ORDERED: MIRTAZAPINE 15 MG TAB PO SCH (21:00)
--- NOTE | 2020-03-28 21:43 | ECGEPIP ---
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
[2020-03-28 21:44] LABS: CK-MB VALUE MASS < 1.0 NG/ML (<3.6); CPK CREATINE PHOSPHOKINASE 29 U/L (26-192); MB/CK RELATIVE INDEX 3.45 (< OR =4); TROPONIN I 0.06 NG/ML (< 0.10)
[2020-03-29] VITALS: BP 119/58
[2020-03-29 03:19] LABS: BASO % 0.4 % (0.0-1.0); EOS # 0.4 10^3/uL (0.0-0.5); EOS % 5.8 % (0.0-3.0); HEMATOCRIT 33.5 % (36.0-47.0); HEMOGLOBIN 10.2 g/dl (12.0-15.5); LYMPH # 0.8 10^3/uL (1.5-5.0); LYMPH % 11.4 % (24.0-44.0); MEAN CORPUSCULAR HEMOGLOBIN 32.3 pg (27.0-33.0); MEAN CORPUSCULAR HGB CONC 30.4 g/dl (32.0-36.5); MONO # 0.7 10^3/uL (0.0-0.8); MONO % 9.5 % (0.0-5.0); NEUTROPHILS # 5.4 10^3/uL (1.5-8.5); NEUTROPHILS % 72.5 % (36.0-66.0); PLATELET COUNT, AUTOMATED 166 10^3/uL (150-450); RED BLOOD COUNT 3.16 10^6/uL (4.00-5.40); WHITE BLOOD COUNT 7.4 10^3/uL (4.0-10.0)
[2020-03-29 03:39] LABS: CK-MB VALUE MASS < 1.0 NG/ML (<3.6); CPK CREATINE PHOSPHOKINASE 28 U/L (26-192); MB/CK RELATIVE INDEX 3.57 (< OR =4); TROPONIN I 0.05 NG/ML (< 0.10)
[2020-03-29 03:55] LABS: CREATININE FOR GFR 1.07 MG/DL (0.55-1.30); GLOMERULAR FILTRATION RATE 51.5 (>32); MAGNESIUM LEVEL 2.1 MG/DL (1.8-2.4); POTASSIUM SERUM 4.3 MEQ/L (3.5-5.1)
[2020-03-29] MEDS: HEPARIN SOD (PORCINE) 5000UNITS/ML VIAL (J1644 PER 1000UNITS) SC SCH ×3 (05:29→21:07)
[2020-03-29] MEDS: SYMBICORT 80/4.5MCG INHALER 6GM INH SCH ×2 (05:52→18:40)
[2020-03-29] MEDS: LEVALBUTEROL 1.25 MG/0.5 ML CONCENTRATE NEB INH SCH ×4 (05:52→20:00)
[2020-03-29 06:26] VITALS: BP 138/64
[2020-03-29 07:59] VITALS: BP 110/70
[2020-03-29] MEDS: CARVedilol 3.125 MG TAB PO SCH ×2 (09:03→21:07)
[2020-03-29] MEDS: DOCUSATE SODIUM 100 MG CAP PO SCH ×2 (09:03→21:07)
[2020-03-29] MEDS: HYDROXYCHLOROQUINE 200 MG TAB PO SCH (09:03)
[2020-03-29] MEDS: LISINOPRIL *2.5 MG* TAB PO SCH (09:03)
[2020-03-29] MEDS: LACTOBACILLUS ACIDOPHILUS CAP (BACID) PO SCH (09:03)
[2020-03-29] MEDS: predniSONE 1 MG TAB PO SCH (09:04)
[2020-03-29] MEDS: FUROSEMIDE 40MG/4ML VIAL (J1940) IV SCH ×2 (09:04→17:35)
[2020-03-29] MEDS: HumaLOG INSULIN (NovoLOG) PER UNIT SC SCH ×4 (09:05→21:00)
[2020-03-29 12:20] VITALS: BP 149/65
--- NOTE | 2020-03-29 13:20 | IPNPDOC ---
Text Note Date of Service The patient was seen on 03/29/20. NOTE Subjective: Patient stated that her breathing improved, she had good urine ou tput. Patient denied fever, chills, nausea, vomiting, diarrhea Objective: VITAL SIGNS: Please see below. GENERAL: awake, alert, NAD HEENT: NCAT, anicteric sclera, MARIAA NECK: supple, no JVD CARDIOVASCULAR EXAMINATION: NS1S2, regular rate/rhythm RESPIRATORY EXAMINATION: CTA b/l, no wheezes/rales/rhonchi ABDOMINAL EXAMINATION: positive bowel sounds x 4, NT EXTREMITIES: +1 pitting edema SKIN: warm, no rashes. NEUROLOGICAL EXAMINATION: AAO x 3, no motor/sensory deficits PSYCHIATRIC EXAMINATION: calm, normal affect Patient is an 89-year-old female with a PMHx of Diastolic CHF, HTN, Herberth rderline DM2, COPD, Lupus (on Hydroxychloroquine and Prednisone), Chornic pain / Arthritis, Gout and Mild pulmonary HTN, who presented to the hospital with complaint of short of breath. Patient was found to have acute on chronic diastolic CHF exacerbation. Shortness of breath Most likely secondary to acute diastolic CHF Significantly improved today Acute diastolic CHF Most likely due to noncompliance to medications Patient developed good urine output I's and O's Continue IV Lasix CKD Creatinine level at baseline Continue to monitor Diabetes type 2 Insulin sliding scale Diabetes diet Hypertension Blood pressures under control Continue home cardioprotective medication COPD Continue home inhalers Not in acute exacerbation Lupus c/w Hydroxychloroquine and Prednisone Chronic pain / Arthritis / Gout c/w Tylenol PRN Insomnia Will hold mirtazapine VS,Fishbone, I+O VS, Fishbone, I+O Laboratory Tests 03/29/20 03:03 Vital Signs Date Time Temp Pulse Resp B/P (MAP) Pulse Ox O2 Delivery O2 Flow Rate FiO2 03/29/20 12:20 98.7 90 20 149/65 (93) 92 Nasal Cannula 3.0 I&O- Last 24 Hours up to 6 AM 03/29/20 06:00 Intake Total 360 ml Output Total 2925 ml Balance -2565 ml ARNOL RICKETTS DO Mar 29, 2020 13:20
[2020-03-29 16:00] VITALS: BP 114/55
[2020-03-29 20:00] VITALS: BP 115/58
[2020-03-29] MEDS: NYSTATIN 100,000 UNITS/GM TOPICAL PWD 15 GM TOP SCH (21:06)
[2020-03-29] MEDS: ASPIRIN 81 MG ENTERIC TAB PO SCH (21:06)
[2020-03-29] MEDS: MULTIVITAMINS/MINERALS THERAP 1 TAB PO SCH (21:07)
[2020-03-29] MEDS: ACETAMINOPHEN TAB 650MG DOSE (2X325MG) PO PRN (22:14)
[2020-03-30] VITALS: BP 108/53
[2020-03-30 04:00] VITALS: BP 128/53
[2020-03-30] MEDS: HEPARIN SOD (PORCINE) 5000UNITS/ML VIAL (J1644 PER 1000UNITS) SC SCH ×3 (05:19→21:23)
[2020-03-30 05:50] LABS: BASO % 0.7 % (0.0-1.0); EOS # 0.4 10^3/uL (0.0-0.5); EOS % 5.7 % (0.0-3.0); HEMATOCRIT 31.8 % (36.0-47.0); LYMPH # 1.2 10^3/uL (1.5-5.0); LYMPH % 19.9 % (24.0-44.0); MEAN CORPUSCULAR HEMOGLOBIN 33.1 pg (27.0-33.0); MEAN CORPUSCULAR HGB CONC 31.4 g/dl (32.0-36.5); MEAN CORPUSCULAR VOLUME 105.3 fl (80.0-96.0); MONO # 0.5 10^3/uL (0.0-0.8); MONO % 8.7 % (0.0-5.0); NEUTROPHILS # 3.9 10^3/uL (1.5-8.5); NEUTROPHILS % 64.3 % (36.0-66.0); PLATELET COUNT, AUTOMATED 173 10^3/uL (150-450); RED BLOOD COUNT 3.02 10^6/uL (4.00-5.40); WHITE BLOOD COUNT 6.1 10^3/uL (4.0-10.0)
[2020-03-30 06:10] LABS: CALCIUM LEVEL 8.6 MG/DL (8.8-10.2); CREATININE FOR GFR 1.36 MG/DL (0.55-1.30); GLOMERULAR FILTRATION RATE 39.1 (>32); MAGNESIUM LEVEL 2.2 MG/DL (1.8-2.4); POTASSIUM SERUM 3.9 MEQ/L (3.5-5.1)
[2020-03-30] MEDS: SYMBICORT 80/4.5MCG INHALER 6GM INH SCH ×2 (07:09→20:25)
[2020-03-30] MEDS: LEVALBUTEROL 1.25 MG/0.5 ML CONCENTRATE NEB INH SCH ×4 (07:09→20:00)
[2020-03-30] MEDS: predniSONE 1 MG TAB PO SCH (08:02)
[2020-03-30] MEDS: HumaLOG INSULIN (NovoLOG) PER UNIT SC SCH ×4 (08:02→21:00)
[2020-03-30] MEDS: FUROSEMIDE 40MG/4ML VIAL (J1940) IV SCH ×2 (08:02→17:10)
[2020-03-30] MEDS: HYDROXYCHLOROQUINE 200 MG TAB PO SCH (08:03)
[2020-03-30] MEDS: CARVedilol 3.125 MG TAB PO SCH ×2 (08:03→21:24)
[2020-03-30] MEDS: LACTOBACILLUS ACIDOPHILUS CAP (BACID) PO SCH (08:03)
[2020-03-30] MEDS: DOCUSATE SODIUM 100 MG CAP PO SCH ×2 (08:03→21:21)
[2020-03-30] MEDS: LISINOPRIL *2.5 MG* TAB PO SCH (08:03)
[2020-03-30] MEDS: NYSTATIN 100,000 UNITS/GM TOPICAL PWD 15 GM TOP SCH ×2 (08:04→21:23)
[2020-03-30 08:30] VITALS: BP 129/60
[2020-03-30 12:00] VITALS: BP 124/68
--- NOTE | 2020-03-30 15:59 | IPNPDOC ---
Text Note Date of Service The patient was seen on 03/30/20. NOTE Subjective: Patient stated that her breathing continues to improve, she had good urine output. Patient denied fever, chills, nausea, vomiting, diarrhea Objective: VITAL SIGNS: Please see below. GENERAL: awake, alert, NAD HEENT: NCAT, anicteric sclera, MARIAA NECK: supple, no JVD CARDIOVASCULAR EXAMINATION: NS1S2, regular rate/rhythm RESPIRATORY EXAMINATION: CTA b/l, no wheezes/rales/rhonchi ABDOMINAL EXAMINATION: positive bowel sounds x 4, NT EXTREMITIES: +1 pitting edema SKIN: warm, no rashes. NEUROLOGICAL EXAMINATION: AAO x 3, no motor/sensory deficits PSYCHIATRIC EXAMINATION: calm, normal affect Patient is an 89-year-old female with a PMHx of Diastolic CHF, HTN, Borderline DM2, COPD, Lupus (on Hydroxychloroquine and Prednisone), Chornic pain / Arthritis, Gout and Mild pulmonary HTN, who presented to the hospital with complaint of short of breath. Patient was found to have acute on chronic diastolic CHF exacerbation. Shortness of breath Most likely secondary to acute diastolic CHF Significantly improved today Acute diastolic CHF Most likely due to noncompliance to medications Patient developed good urine output I's and O's Continue IV Lasix CKD Creatinine level at baseline Continue to monitor Diabetes type 2 Insulin sliding scale Diabetes diet Hypertension Blood pressures under control Continue home cardioprotective medication COPD Continue home inhalers Not in acute exacerbation Lupus c/w Hydroxychloroquine and Prednisone Chronic pain / Arthritis / Gout c/w Tylenol PRN Insomnia Will hold mirtazapine VS,Fishbone, I+O VS, Fishbone, I+O Laboratory Tests 03/30/20 05:38 Vital Signs Date Time Temp Pulse Resp B/P (MAP) Pulse Ox O2 Delivery O2 Flow Rate FiO2 03/30/20 12:00 97.8 85 20 124/68 (86) 93 Nasal Cannula 2.0 I&O- Last 24 Hours up to 6 AM 03/30/20 06:00 Intake Total 1580 ml Output Total 2250 ml Balance -670 ml ARNOL RICKETTS DO Mar 30, 2020 15:58
[2020-03-30 20:00] VITALS: BP 177/81
[2020-03-30] MEDS: ASPIRIN 81 MG ENTERIC TAB PO SCH (21:20)
[2020-03-30] MEDS: MULTIVITAMINS/MINERALS THERAP 1 TAB PO SCH (21:22)
[2020-03-30] MEDS: ACETAMINOPHEN TAB 650MG DOSE (2X325MG) PO PRN (21:32)
[2020-03-30] MEDS ORDERED: SLF 3 ML SYR IV PRN (21:45)
[2020-03-30] MEDS: SLF 3 ML SYR IV SCH (22:14)
[2020-03-31] VITALS: BP 138/63
[2020-03-31 04:00] VITALS: BP 129/59
[2020-03-31] MEDS: SLF 3 ML SYR IV SCH ×3 (05:35→20:39)
[2020-03-31] MEDS: HEPARIN SOD (PORCINE) 5000UNITS/ML VIAL (J1644 PER 1000UNITS) SC SCH ×3 (05:35→20:39)
[2020-03-31 06:43] LABS: BASO % 0.8 % (0.0-1.0); EOS # 0.4 10^3/uL (0.0-0.5); EOS % 7.3 % (0.0-3.0); HEMATOCRIT 35.4 % (36.0-47.0); LYMPH % 19.8 % (24.0-44.0); MEAN CORPUSCULAR HEMOGLOBIN 32.6 pg (27.0-33.0); MEAN CORPUSCULAR HGB CONC 31.1 g/dl (32.0-36.5); MONO # 0.5 10^3/uL (0.0-0.8); NEUTROPHILS % 61.5 % (36.0-66.0); PLATELET COUNT, AUTOMATED 169 10^3/uL (150-450); RED BLOOD COUNT 3.37 10^6/uL (4.00-5.40); WHITE BLOOD COUNT 4.8 10^3/uL (4.0-10.0)
[2020-03-31 07:10] LABS: CALCIUM LEVEL 8.4 MG/DL (8.8-10.2); CREATININE FOR GFR 1.35 MG/DL (0.55-1.30); GLOMERULAR FILTRATION RATE 39.4 (>32); MAGNESIUM LEVEL 2.2 MG/DL (1.8-2.4)
[2020-03-31] MEDS: LEVALBUTEROL 1.25 MG/0.5 ML CONCENTRATE NEB INH SCH ×4 (08:00→20:00)
[2020-03-31 08:03] VITALS: BP 172/75
[2020-03-31] MEDS: SYMBICORT 80/4.5MCG INHALER 6GM INH SCH ×2 (08:12→20:07)
[2020-03-31] MEDS: FUROSEMIDE 40MG/4ML VIAL (J1940) IV SCH (09:06)
[2020-03-31] MEDS: LACTOBACILLUS ACIDOPHILUS CAP (BACID) PO SCH (09:06)
[2020-03-31] MEDS: DOCUSATE SODIUM 100 MG CAP PO SCH ×2 (09:06→20:29)
[2020-03-31] MEDS: HYDROXYCHLOROQUINE 200 MG TAB PO SCH (09:06)
[2020-03-31] MEDS: LISINOPRIL *2.5 MG* TAB PO SCH (09:07)
[2020-03-31] MEDS: CARVedilol 3.125 MG TAB PO SCH ×2 (09:07→20:40)
[2020-03-31] MEDS: predniSONE 1 MG TAB PO SCH (09:07)
[2020-03-31] MEDS: HumaLOG INSULIN (NovoLOG) PER UNIT SC SCH ×4 (09:08→20:27)
[2020-03-31] MEDS: NYSTATIN 100,000 UNITS/GM TOPICAL PWD 15 GM TOP SCH ×2 (09:09→20:41)
[2020-03-31] MEDS ORDERED: TORS20TA2 PO (09:58)
--- NOTE | 2020-03-31 10:11 | DS.PDOC ---
Discharge Summary General Date of Admission Mar 28, 2020 at 14:48 Date of Discharge 03/31/20 Discharge Summary PROCEDURES PERFORMED DURING STAY: [None]. ADMITTING DIAGNOSES: Shortness of breath Acute diastolic CHF CKD Hypertension COPD Insomnia Chronic pain / Arthritis / Gout Lupus DISCHARGE DIAGNOSES: Shortness of breath Acute diastolic CHF CKD Hypertension COPD Insomnia Chronic pain / Arthritis / Gout Lupus COMPLICATIONS/CHIEF COMPLAINT: Acute Chf. HISTORY OF PRESENT ILLNESS: Patient is an 89-year-old female with a PMHx of Diastolic CHF, HTN, Borderline DM2, COPD, Lupus (on Hydroxychloroquine and Prednisone), Chornic pain / Arthritis, Gout and Mild pulmonary HTN, who presented to the hospital with complaint of short of breath. Patient was found to have acute on chronic diastolic CHF exacerbation. HOSPITAL COURSE: The following issue addressed Shortness of breath Most likely secondary to acute diastolic CHF Significantly improved after diuresis Acute diastolic CHF Most likely due to noncompliance to medications Patient developed good urine output I's and O's Patient received treatment with IV Lasix CKD Creatinine level at baseline Continue to monitor Diabetes type 2 Insulin sliding scale Diabetes diet Hypertension Blood pressures under control Continue home cardioprotective medication COPD Continue home inhalers Not in acute exacerbation Lupus c/w Hydroxychloroquine and Prednisone Chronic pain / Arthritis / Gout c/w Tylenol PRN Insomnia Will hold mirtazapine DISCHARGE MEDICATIONS: Please see below. ALLERGIES: Please see below. PHYSICAL EXAMINATION ON DISCHARGE: VITAL SIGNS: Please see below. GENERAL: awake, alert, NAD HEENT: NCAT, anicteric sclera, MARIAA NECK: supple, no JVD CARDIOVASCULAR EXAMINATION: NS1S2, regular rate/rhythm RESPIRATORY EXAMINATION: CTA b/l, no wheezes/rales/rhonchi ABDOMINAL EXAMINATION: positive bowel sounds x 4, NT EXTREMITIES: +1 pitting edema SKIN: warm, no rashes. NEUROLOGICAL EXAMINATION: AAO x 3, no motor/sensory deficits PSYCHIATRIC EXAMINATION: calm, normal affect LABORATORY DATA: Please see below. IMAGING: HISTORY: Dyspnea and cough. COMPARISON CHEST X-RAY: March 16, 2020. FINDINGS: Moderate cardiac enlargement is observed. There is blunting of the left lateral pleural angle and some pleuroparenchymal changes are noted on the left unchanged from the prior study. I cannot exclude left pleural fluid. There is pulmonary vascular congestion and cephalization. No pulmonary edema is appreciated. IMPRESSION: Vascular congestion and cephalization. Cardiomegaly. Question blunting left lateral pleural angle. CHF pattern. PROGNOSIS: Fair ACTIVITY: [As tolerated]. DIET: Cardiac DISCHARGE PLAN: Home ITEMS TO FOLLOWUP ON ON OUTPATIENT: Follow-up with field mechanic and PCP DISCHARGE CONDITION: [Stable]. TIME SPENT ON DISCHARGE: Greater than 20 minutes. Vital Signs/I&Os Vital Signs Date Time Temp Pulse Resp B/P (MAP) Pulse Ox O2 Delivery O2 Flow Rate FiO2 03/31/20 09:07 172/75 03/31/20 09:07 95 03/31/20 08:03 98.2 20 93 Nasal Cannula 2.0 I&O- Last 24 Hours up to 6 AM 03/31/20 06:00 Intake Total 900 ml Output Total 775 ml Balance 125 ml Laboratory Data Labs 24H Laboratory Tests 2 03/30/20 11:32: Bedside Glucose (Misc Panel) 121H 03/30/20 16:33: Bedside Glucose (Misc Panel) 138H 03/30/20 20:04: Bedside Glucose (Misc Panel) 133H 03/31/20 06:32: Immature Granulocyte % (Auto) 0.6, Neutrophils (%) (Auto) 61.5, Lymphocytes (%) (Auto) 19.8L, Monocytes (%) (Auto) 10.0H, Eosinophils (%) (Auto) 7.3H, Basophils (%) (Auto) 0.8, Neutrophils # (Auto) 3.0, Lymphocytes # (Auto) 1.0L, Monocytes # (Auto) 0.5, Eosinophils # (Auto) 0.4, Basophils # (Auto) 0.0, Nucleated Red Blood Cells % (auto) 0.0, Anion Gap 5L, Glomerular Filtration Rate 39.4, Calcium Level 8.4L, Magnesium Level 2.2 CBC/BMP Laboratory Tests 03/31/20 06:32 FSBS Laboratory Tests Test 03/30/20 11:32 03/30/20 16:33 03/30/20 20:04 Range/Units Bedside Glucose (Misc Panel) 121 138 133 83-110 MG/DL Microbiology Microbiology 03/28/20 Blood Culture - Preliminary, Resulted No Growth after 48 hours. All Specime... Discharge Medications Scheduled Allopurinol (Allopurinol) 100 Mg Tab, 200 MG PO DAILY, (Reported) Aspirin (Aspirin EC) 81 Mg Tab, 81 MG PO QHS, (Reported) Budesonide/Formoterol (Symbicort 80-4.5 Mcg Inhaler) 60 Puff/Inhaler Aers, 2 PUFF INH BID, (Reported) Carboxymethyl/Glycerin/Poly80 (Refresh Optive Advanced Drops) 1 Kassy Kassy, 1 DROP OU BID, (Reported) Carvedilol (Carvedilol) 3.125 Mg Tablet, 3.125 MG PO BID, (Reported) Docusate Sodium (Colace) 100 Mg Cap, 200 MG PO BID, (Reported) Hydroxychloroquine Sulfate (Hydroxychloroquine Sulfate) 200 Mg Tab, 200 MG PO DAILY, (Reported) Lactobacillus Combo No.10 (Probiotic) 1 Each Capsule, 1 CAP PO DAILY, (Reported) Lisinopril (Lisinopril) 2.5 Mg Tablet, 2.5 MG PO DAILY, (Reported) Magnesium Oxide (Magnesium Oxide) 400 Mg Tab, 800 MG PO Q2D, (Reported) QHS Mirtazapine (Remeron) 15 Mg Tablet, 15 MG PO QHS, (Reported) Multivitamins (Thera M Plus Tablet) 1 Tab Tab, 1 TAB PO QHS, (Reported) Prednisone (Prednisone) 1 Mg Tablet, 2 MG PO DAILY, (Reported) Torsemide (Torsemide) 20 Mg Tablet, 20 MG PO DAILY Vit A/Vit C/Vit E/Zinc/Copper (Icaps Areds Formula Dr Tablet) 1 Tab Tab, 1 TAB PO DAILY, (Reported) Scheduled PRN Famotidine (Famotidine) 20 Mg Tablet, 20 MG PO QPM PRN for HEARTBURN, (Reported) Fexofenadine/Pseudoephedrine (Sierra-D 12 Hour Tablet) 1 Tab Tab, 1 TAB PO BID PRN for CONGESTION, (Reported) Levalbuterol Hydrochloride (Xopenex Hfa) 45 Mcg/Act Aer, 2 PUFF INH QID PRN for SHORTNESS OF BREATH, (Reported) Polyethylene Glycol 3350 (Miralax) 1 Pow Pow, 17 GM PO DAILY PRN for CONSTIPATION, (Reported) Allergies Coded Allergies: NSAIDS (Non-Steroidal Anti-Inflamma (Verified Allergy, Intermediate, CHEST PAIN, 03/16/20) TAKES ASPIRIN AT HOME Waejtxq-Gji-Ork Reductase Inhibitor (Verified Allergy, Intermediate, SWOLLEN JOINTS, 03/16/20) etodolac (Verified Allergy, Intermediate, HIVES, 03/16/20) Sulfa (Sulfonamide Antibiotics) (Verified Allergy, Mild, RASH, 03/16/20) lidocaine (Verified Allergy, Mild, RASH, 03/16/20) nickel (Verified Allergy, Mild, RASH, 03/16/20) ibuprofen (Verified Adverse Reaction, Intermediate, CHEST PAIN, 03/16/20) TAKES ASPIRIN AT HOME lactose (Verified Adverse Reaction, Unknown, lactose intolerant, 03/16/20) ARNOL RICKETTS DO Mar 31, 2020 10:11
--- NOTE | 2020-03-31 10:54 | IPNPDOC ---
Text Note Date of Service The patient was seen on 03/31/20. NOTE Subjective: Patient stated that her breathing continues to improve, she had good urine output. Patient was unstable during physical therapy, physical therapist recommended to discharge patient to [facility] Patient denied fever, chills, nausea, vomiting, diarrhea Objective: VITAL SIGNS: Please see below. GENERAL: awake, alert, NAD HEENT: NCAT, anicteric sclera, MARIAA NECK: supple, no JVD CARDIOVASCULAR EXAMINATION: NS1S2, regular rate/rhythm RESPIRATORY EXAMINATION: CTA b/l, no wheezes/rales/rhonchi ABDOMINAL EXAMINATION: positive bowel sounds x 4, NT EXTREMITIES: +1 pitting edema SKIN: warm, no rashes. NEUROLOGICAL EXAMINATION: AAO x 3, no motor/sensory deficits PSYCHIATRIC EXAMINATION: calm, normal affect Patient is an 89-year-old female with a PMHx of Diastolic CHF, HTN, Borderline DM2, COPD, Lupus (on Hydroxychloroquine and Prednisone), Chornic pain / Arthritis, Gout and Mild pulmonary HTN, who presented to the hospital with complaint of short of breath. Patient was found to have acute on chronic diastolic CHF exacerbation. Shortness of breath Most likely secondary to acute diastolic CHF Significantly improved today Acute diastolic CHF Most likely due to noncompliance to medications Patient developed good urine output I's and O's Continue IV Lasix Acute on chronic CKD I will decrease dose of Lasix due to elevation of creatinine Continue to monitor Diabetes type 2 Insulin sliding scale Diabetes diet Hypertension Blood pressures under control Continue home cardioprotective medication COPD Continue home inhalers Not in acute exacerbation Lupus c/w Hydroxychloroquine and Prednisone Chronic pain / Arthritis / Gout c/w Tylenol PRN Insomnia Will hold mirtazapine VS,Fishbone, I+O VS, Fishbone, I+O Laboratory Tests 03/31/20 06:32 Vital Signs Date Time Temp Pulse Resp B/P (MAP) Pulse Ox O2 Delivery O2 Flow Rate FiO2 03/31/20 09:07 172/75 03/31/20 09:07 95 03/31/20 08:03 98.2 20 93 Nasal Cannula 2.0 I&O- Last 24 Hours up to 6 AM 03/31/20 06:00 Intake Total 900 ml Output Total 775 ml Balance 125 ml ARNOL RICKETTS DO Mar 31, 2020 10:54
[2020-03-31 16:00] VITALS: BP 147/68
[2020-03-31 20:00] VITALS: BP 128/61
[2020-03-31] MEDS: MULTIVITAMINS/MINERALS THERAP 1 TAB PO SCH (20:39)
[2020-03-31] MEDS: ASPIRIN 81 MG ENTERIC TAB PO SCH (20:39)
[2020-03-31] MEDS: ACETAMINOPHEN TAB 650MG DOSE (2X325MG) PO PRN (20:45)
[2020-04-01 04:00] VITALS: BP 130/60
[2020-04-01 05:08] LABS: BASO % 0.8 % (0.0-1.0); EOS # 0.4 10^3/uL (0.0-0.5); EOS % 7.6 % (0.0-3.0); HEMATOCRIT 35.2 % (36.0-47.0); HEMOGLOBIN 10.7 g/dl (12.0-15.5); LYMPH % 20.9 % (24.0-44.0); MEAN CORPUSCULAR HEMOGLOBIN 31.9 pg (27.0-33.0); MEAN CORPUSCULAR HGB CONC 30.4 g/dl (32.0-36.5); MEAN CORPUSCULAR VOLUME 105.1 fl (80.0-96.0); MONO # 0.6 10^3/uL (0.0-0.8); MONO % 11.5 % (0.0-5.0); NEUTROPHILS # 2.9 10^3/uL (1.5-8.5); NEUTROPHILS % 58.6 % (36.0-66.0); PLATELET COUNT, AUTOMATED 178 10^3/uL (150-450); RED BLOOD COUNT 3.35 10^6/uL (4.00-5.40); WHITE BLOOD COUNT 4.9 10^3/uL (4.0-10.0)
[2020-04-01 05:24] LABS: CALCIUM LEVEL 8.9 MG/DL (8.8-10.2); CREATININE FOR GFR 1.34 MG/DL (0.55-1.30); GLOMERULAR FILTRATION RATE 39.7 (>32); MAGNESIUM LEVEL 2.5 MG/DL (1.8-2.4); POTASSIUM SERUM 3.8 MEQ/L (3.5-5.1)
[2020-04-01] MEDS: SLF 3 ML SYR IV SCH ×3 (05:25→21:40)
[2020-04-01] MEDS: HEPARIN SOD (PORCINE) 5000UNITS/ML VIAL (J1644 PER 1000UNITS) SC SCH ×3 (05:25→21:40)
[2020-04-01 08:00] VITALS: BP 146/72
[2020-04-01] MEDS: LEVALBUTEROL 1.25 MG/0.5 ML CONCENTRATE NEB INH SCH ×4 (08:00→19:51)
[2020-04-01] MEDS: SYMBICORT 80/4.5MCG INHALER 6GM INH SCH ×2 (08:00→19:51)
[2020-04-01] MEDS: LISINOPRIL *2.5 MG* TAB PO SCH (08:46)
[2020-04-01] MEDS: DOCUSATE SODIUM 100 MG CAP PO SCH ×2 (08:46→21:39)
[2020-04-01] MEDS: HumaLOG INSULIN (NovoLOG) PER UNIT SC SCH ×4 (08:47→21:00)
[2020-04-01] MEDS: CARVedilol 3.125 MG TAB PO SCH ×2 (08:47→21:39)
[2020-04-01] MEDS: LACTOBACILLUS ACIDOPHILUS CAP (BACID) PO SCH (08:47)
[2020-04-01] MEDS: predniSONE 1 MG TAB PO SCH (08:47)
[2020-04-01] MEDS: HYDROXYCHLOROQUINE 200 MG TAB PO SCH (08:47)
[2020-04-01] MEDS: NYSTATIN 100,000 UNITS/GM TOPICAL PWD 15 GM TOP SCH ×2 (08:48→21:40)
[2020-04-01] MEDS ORDERED: FUROSEMIDE 40MG/4ML VIAL (J1940) IV SCH (09:00)
[2020-04-01 12:24] LABS: PHOSPHORUS LEVEL 4.3 MG/DL (2.5-4.9)
--- NOTE | 2020-04-01 12:29 | IPNPDOC ---
Text Note Date of Service The patient was seen on 04/01/20. NOTE Subjective: Patient stated that her breathing continues to improve, she had good urine output. Patient denied fever, chills, nausea, vomiting, diarrhea Objective: VITAL SIGNS: Please see below. GENERAL: awake, alert, NAD HEENT: NCAT, anicteric sclera, MARIAA NECK: supple, no JVD CARDIOVASCULAR EXAMINATION: NS1S2, regular rate/rhythm RESPIRATORY EXAMINATION: CTA b/l, no wheezes/rales/rhonchi ABDOMINAL EXAMINATION: positive bowel sounds x 4, NT EXTREMITIES: +1 pitting edema SKIN: warm, no rashes. NEUROLOGICAL EXAMINATION: AAO x 3, no motor/sensory deficits PSYCHIATRIC EXAMINATION: calm, normal affect Patient is an 89-year-old female with a PMHx of Diastolic CHF, HTN, Borderline DM2, COPD, Lupus (on Hydroxychloroquine and Prednisone), Chronic pain / Arthritis, Gout and Mild pulmonary HTN, who presented to the hospital with complaint of short of breath. Patient was found to have acute on chronic diastolic CHF exacerbation. Shortness of breath Most likely secondary to acute diastolic CHF Continues to improve Acute diastolic CHF Resolved Most likely due to noncompliance to medications Patient developed good urine output I's and O's Continue IV Lasix Acute on chronic CKD Improved Continue to monitor Diabetes type 2 Insulin sliding scale Diabetes diet Hypertension Blood pressures under control Continue home cardioprotective medication COPD Continue home inhalers Not in acute exacerbation Lupus c/w Hydroxychloroquine and Prednisone Chronic pain / Arthritis / Gout c/w Tylenol PRN Insomnia Will hold mirtazapine VS,Fishbone, I+O VS, Fishbone, I+O Laboratory Tests 04/01/20 04:33 Vital Signs Date Time Temp Pulse Resp B/P (MAP) Pulse Ox O2 Delivery O2 Flow Rate FiO2 04/01/20 08:47 99 146/72 04/01/20 08:00 97.2 19 94 Nasal Cannula 2.0 I&O- Last 24 Hours up to 6 AM 04/01/20 06:00 Intake Total 720 ml Output Total 1195 ml Balance -475 ml ARNOL RICKETTS DO Apr 01, 2020 12:29
[2020-04-01 14:52] VITALS: BP 136/67
[2020-04-01] MEDS: MULTIVITAMINS/MINERALS THERAP 1 TAB PO SCH (21:39)
[2020-04-01] MEDS: ASPIRIN 81 MG ENTERIC TAB PO SCH (21:39)
[2020-04-01 22:00] VITALS: BP 138/65
[2020-04-01] MEDS: ACETAMINOPHEN TAB 650MG DOSE (2X325MG) PO PRN (22:10)
[2020-04-02] MEDS: HEPARIN SOD (PORCINE) 5000UNITS/ML VIAL (J1644 PER 1000UNITS) SC SCH ×3 (05:31→22:00)
[2020-04-02] MEDS: SLF 3 ML SYR IV SCH ×3 (05:31→22:00)
[2020-04-02 06:00] VITALS: BP 130/67
[2020-04-02 06:42] LABS: BASO % 0.6 % (0.0-1.0); EOS # 0.3 10^3/uL (0.0-0.5); EOS % 7.2 % (0.0-3.0); HEMATOCRIT 34.6 % (36.0-47.0); HEMOGLOBIN 10.5 g/dl (12.0-15.5); LYMPH # 1.1 10^3/uL (1.5-5.0); LYMPH % 22.6 % (24.0-44.0); MEAN CORPUSCULAR HGB CONC 30.3 g/dl (32.0-36.5); MEAN CORPUSCULAR VOLUME 105.5 fl (80.0-96.0); MONO # 0.5 10^3/uL (0.0-0.8); MONO % 10.3 % (0.0-5.0); NEUTROPHILS # 2.8 10^3/uL (1.5-8.5); NEUTROPHILS % 58.7 % (36.0-66.0); PLATELET COUNT, AUTOMATED 176 10^3/uL (150-450); RED BLOOD COUNT 3.28 10^6/uL (4.00-5.40); WHITE BLOOD COUNT 4.7 10^3/uL (4.0-10.0)
[2020-04-02 07:04] LABS: CALCIUM LEVEL 8.7 MG/DL (8.8-10.2); CREATININE FOR GFR 1.35 MG/DL (0.55-1.30); GLOMERULAR FILTRATION RATE 39.4 (>32); MAGNESIUM LEVEL 2.5 MG/DL (1.8-2.4); POTASSIUM SERUM 4.1 MEQ/L (3.5-5.1)
[2020-04-02] MEDS: SYMBICORT 80/4.5MCG INHALER 6GM INH SCH ×2 (07:29→17:47)
[2020-04-02] MEDS: HumaLOG INSULIN (NovoLOG) PER UNIT SC SCH ×4 (07:30→21:00)
[2020-04-02] MEDS: LEVALBUTEROL 1.25 MG/0.5 ML CONCENTRATE NEB INH SCH ×4 (08:00→17:48)
[2020-04-02] MEDS ORDERED: PILL CUTTER 1 EACH XX PRN (08:30)
[2020-04-02] MEDS: LACTOBACILLUS ACIDOPHILUS CAP (BACID) PO SCH (09:57)
[2020-04-02] MEDS: DOCUSATE SODIUM 100 MG CAP PO SCH ×2 (09:57→20:40)
[2020-04-02] MEDS: HYDROXYCHLOROQUINE 200 MG TAB PO SCH (09:57)
[2020-04-02] MEDS: predniSONE 1 MG TAB PO SCH (09:57)
[2020-04-02] MEDS: FEXOFENADINE 60 MG TAB PO SCH (09:57)
[2020-04-02] MEDS: FUROSEMIDE 20MG/2ML VIAL (J1940) IV SCH (09:58)
[2020-04-02] MEDS: CARVedilol 3.125 MG TAB PO SCH ×2 (10:00→20:41)
[2020-04-02] MEDS: LISINOPRIL *2.5 MG* TAB PO SCH (10:00)
[2020-04-02] MEDS: NYSTATIN 100,000 UNITS/GM TOPICAL PWD 15 GM TOP SCH ×2 (10:01→20:40)
[2020-04-02 14:00] VITALS: BP 156/73
--- NOTE | 2020-04-02 16:36 | IPNPDOC ---
Text Note Date of Service The patient was seen on 04/02/20. NOTE Subjective: Patient stated that she has a seasonal allergy and she developed allergic rhinitis Patient denied fever, chills, nausea, vomiting, diarrhea Objective: VITAL SIGNS: Please see below. GENERAL: awake, alert, NAD HEENT: NCAT, anicteric sclera, MARIAA NECK: supple, no JVD CARDIOVASCULAR EXAMINATION: NS1S2, regular rate/rhythm RESPIRATORY EXAMINATION: CTA b/l, no wheezes/rales/rhonchi ABDOMINAL EXAMINATION: positive bowel sounds x 4, NT EXTREMITIES: +1 pitting edema SKIN: warm, no rashes. NEUROLOGICAL EXAMINATION: AAO x 3, no motor/sensory deficits PSYCHIATRIC EXAMINATION: calm, normal affect Patient is an 89-year-old female with a PMHx of Diastolic CHF, HTN, Borderline DM2, COPD, Lupus (on Hydroxychloroquine and Prednisone), Chronic pain / Arthritis, Gout and Mild pulmonary HTN, who presented to the hospital with complaint of short of breath. Patient was found to have acute on chronic diastolic CHF exacerbation. Shortness of breath Most likely secondary to acute diastolic CHF Continues to improve Acute diastolic CHF Resolved Most likely due to noncompliance to medications Patient developed good urine output I's and O's Continue IV Lasix Acute on chronic CKD Improved Continue to monitor Diabetes type 2 Insulin sliding scale Diabetes diet Hypertension Blood pressures under control Continue home cardioprotective medication COPD Continue home inhalers Not in acute exacerbation Lupus c/w Hydroxychloroquine and Prednisone Chronic pain / Arthritis / Gout c/w Tylenol PRN Allergic rhinitis Due to seasonal allergy Sierra Insomnia Resolved VS,Fishbone, I+O VS, Fishbone, I+O Laboratory Tests 04/02/20 05:49 Vital Signs Date Time Temp Pulse Resp B/P (MAP) Pulse Ox O2 Delivery O2 Flow Rate FiO2 04/02/20 14:00 98.7 96 17 156/73 (100) 93 Nasal Cannula 2.0 I&O- Last 24 Hours up to 6 AM 04/02/20 06:00 Intake Total 450 ml Output Total 175 ml Balance 275 ml ARNOL RICKETTS DO Apr 02, 2020 16:36
[2020-04-02] MEDS: ACETAMINOPHEN TAB 650MG DOSE (2X325MG) PO PRN ×2 (16:40→20:41)
[2020-04-02] MEDS: MULTIVITAMINS/MINERALS THERAP 1 TAB PO SCH (20:40)
[2020-04-02] MEDS: ASPIRIN 81 MG ENTERIC TAB PO SCH (20:42)
[2020-04-02 22:00] VITALS: BP 127/57
[2020-04-03] MEDS: HEPARIN SOD (PORCINE) 5000UNITS/ML VIAL (J1644 PER 1000UNITS) SC SCH ×3 (05:49→21:47)
[2020-04-03] MEDS: SLF 3 ML SYR IV SCH ×4 (05:50→21:50)
[2020-04-03 06:00] VITALS: BP 137/61
[2020-04-03 06:30] LABS: BASO % 0.8 % (0.0-1.0); EOS # 0.3 10^3/uL (0.0-0.5); HEMOGLOBIN 10.3 g/dl (12.0-15.5); LYMPH # 1.3 10^3/uL (1.5-5.0); LYMPH % 25.2 % (24.0-44.0); MEAN CORPUSCULAR HEMOGLOBIN 32.1 pg (27.0-33.0); MEAN CORPUSCULAR HGB CONC 30.3 g/dl (32.0-36.5); MEAN CORPUSCULAR VOLUME 105.9 fl (80.0-96.0); MONO # 0.6 10^3/uL (0.0-0.8); MONO % 12.7 % (0.0-5.0); NEUTROPHILS # 2.7 10^3/uL (1.5-8.5); NEUTROPHILS % 54.5 % (36.0-66.0); PLATELET COUNT, AUTOMATED 157 10^3/uL (150-450); RED BLOOD COUNT 3.21 10^6/uL (4.00-5.40)
[2020-04-03] MEDS: SYMBICORT 80/4.5MCG INHALER 6GM INH SCH ×2 (07:16→20:21)
[2020-04-03] MEDS: LEVALBUTEROL 1.25 MG/0.5 ML CONCENTRATE NEB INH SCH ×4 (07:16→20:00)
[2020-04-03 07:24] LABS: CALCIUM LEVEL 8.7 MG/DL (8.8-10.2); CREATININE FOR GFR 1.11 MG/DL (0.55-1.30); GLOMERULAR FILTRATION RATE 49.4 (>32); MAGNESIUM LEVEL 2.6 MG/DL (1.8-2.4); POTASSIUM SERUM 4.6 MEQ/L (3.5-5.1)
[2020-04-03] MEDS: HumaLOG INSULIN (NovoLOG) PER UNIT SC SCH ×4 (07:30→21:00)
[2020-04-03] MEDS: NYSTATIN 100,000 UNITS/GM TOPICAL PWD 15 GM TOP SCH ×2 (09:23→21:46)
[2020-04-03] MEDS: FUROSEMIDE 20MG/2ML VIAL (J1940) IV SCH (09:23)
[2020-04-03] MEDS: FEXOFENADINE 60 MG TAB PO SCH (09:23)
[2020-04-03] MEDS: predniSONE 1 MG TAB PO SCH (09:23)
[2020-04-03] MEDS: HYDROXYCHLOROQUINE 200 MG TAB PO SCH (09:24)
[2020-04-03] MEDS: DOCUSATE SODIUM 100 MG CAP PO SCH ×2 (09:24→21:45)
[2020-04-03] MEDS: LISINOPRIL *2.5 MG* TAB PO SCH (09:25)
[2020-04-03] MEDS: LACTOBACILLUS ACIDOPHILUS CAP (BACID) PO SCH (09:25)
[2020-04-03] MEDS: CARVedilol 3.125 MG TAB PO SCH ×2 (09:25→21:45)
[2020-04-03 14:00] VITALS: BP 155/69
--- NOTE | 2020-04-03 15:14 | DS.PDOC ---
Discharge Summary General Date of Admission Mar 28, 2020 at 14:48 Date of Discharge 04/03/20 Discharge Summary PROCEDURES PERFORMED DURING STAY: [None]. ADMITTING DIAGNOSES: Shortness of breath Acute diastolic CHF Diabetes type 2 Hypertension Acute on chronic CKD DISCHARGE DIAGNOSES: Shortness of breath Acute diastolic CHF Diabetes type 2 Hypertension Acute on chronic CKD COMPLICATIONS/CHIEF COMPLAINT: Acute Chf. HISTORY OF PRESENT ILLNESS: Patient is an 89-year-old female with a PMHx of Diastolic CHF, HTN, Borderline DM2, COPD, Lupus (on Hydroxychloroquine and Prednisone), Chronic pain / Arthritis, Gout and Mild pulmonary HTN, who presented to the hospital with complaint of short of breath. Patient was found to have acute on chronic diastolic CHF exacerbation. HOSPITAL COURSE: During hospital stay following issues addressed Patient is an 89-year-old female with a PMHx of Diastolic CHF, HTN, Borderline DM2, COPD, Lupus (on Hydroxychloroquine and Prednisone), Chronic pain / Arthritis, Gout and Mild pulmonary HTN, who presented to the hospital with complaint of short of breath. Patient was found to have acute on chronic diastolic CHF exacerbation. Shortness of breath Most likely secondary to acute diastolic CHF Continues to improve Acute diastolic CHF Resolved Most likely due to noncompliance to medications Patient developed good urine output I's and O's pt received IV Lasix Acute on chronic CKD Improved Diabetes type 2 Insulin sliding scale Diabetes diet Hypertension Blood pressures under control Continue home cardioprotective medication COPD Continue home inhalers Not in acute exacerbation Lupus c/w Hydroxychloroquine and Prednisone Chronic pain / Arthritis / Gout c/w Tylenol PRN Allergic rhinitis Due to seasonal allergy Sierra Insomnia Resolved DISCHARGE MEDICATIONS: Please see below. ALLERGIES: Please see below. PHYSICAL EXAMINATION ON DISCHARGE: VITAL SIGNS: Please see below. GENERAL: awake, alert, NAD HEENT: NCAT, anicteric sclera, MARIAA NECK: supple, no JVD CARDIOVASCULAR EXAMINATION: NS1S2, regular rate/rhythm RESPIRATORY EXAMINATION: CTA b/l, no wheezes/rales/rhonchi ABDOMINAL EXAMINATION: positive bowel sounds x 4, NT EXTREMITIES: +1 pitting edema SKIN: warm, no rashes. NEUROLOGICAL EXAMINATION: AAO x 3, no motor/sensory deficits PSYCHIATRIC EXAMINATION: calm, normal affect LABORATORY DATA: Please see below. IMAGING: FINDINGS: Moderate cardiac enlargement is observed. There is blunting of the left lateral pleural angle and some pleuroparenchymal changes are noted on the left unchanged from the prior study. I cannot exclude left pleural fluid. There is pulmonary vascular congestion and cephalization. No pulmonary edema is appreciated. IMPRESSION: Vascular congestion and cephalization. Cardiomegaly. Question blunting left lateral pleural angle. CHF pattern. PROGNOSIS: fair ACTIVITY: [As tolerated]. DIET: cardiac DISPOSITION: SNF ITEMS TO FOLLOWUP ON ON OUTPATIENT: PCP and carpet installer DISCHARGE CONDITION: [Stable]. TIME SPENT ON DISCHARGE: Greater than 20 minutes. Vital Signs/I&Os Vital Signs Date Time Temp Pulse Resp B/P (MAP) Pulse Ox O2 Delivery O2 Flow Rate FiO2 04/03/20 14:00 98.4 88 20 155/69 (97) 93 Nasal Cannula 2.0 I&O- Last 24 Hours up to 6 AM 04/03/20 06:00 Intake Total 930 ml Output Total 1050 ml Balance -120 ml Laboratory Data Labs 24H Laboratory Tests 2 04/02/20 16:40: Bedside Glucose (Misc Panel) 103 04/02/20 21:02: Bedside Glucose (Misc Panel) 148H 04/03/20 06:15: Immature Granulocyte % (Auto) 0.8, Neutrophils (%) (Auto) 54.5, Lymphocytes (%) (Auto) 25.2, Monocytes (%) (Auto) 12.7H, Eosinophils (%) (Auto) 6.0H, Basophils (%) (Auto) 0.8, Neutrophils # (Auto) 2.7, Lymphocytes # (Auto) 1.3L, Monocytes # (Auto) 0.6, Eosinophils # (Auto) 0.3, Basophils # (Auto) 0.0, Nucleated Red Blood Cells % (auto) 0.0, Anion Gap 3L, Glomerular Filtration Rate 49.4, Calcium Level 8.7L, Magnesium Level 2.6H 04/03/20 11:30: Bedside Glucose (Misc Panel) 85 CBC/BMP Laboratory Tests 04/03/20 06:15 FSBS Laboratory Tests Test 04/02/20 16:40 04/02/20 21:02 04/03/20 11:30 Range/Units Bedside Glucose (Misc Panel) 103 148 85 83-110 MG/DL Microbiology Microbiology 04/03/20 Respiratory Virus Panel (PCR) (BALJINDER) - Final, Complete 03/28/20 Blood Culture - Final, Complete NO GROWTH AFTER 5 DAYS Discharge Medications Scheduled Allopurinol (Allopurinol) 100 Mg Tab, 200 MG PO DAILY, (Reported) Aspirin (Aspirin EC) 81 Mg Tab, 81 MG PO QHS, (Reported) Budesonide/Formoterol (Symbicort 80-4.5 Mcg Inhaler) 60 Puff/Inhaler Aers, 2 PUFF INH BID, (Reported) Carboxymethyl/Glycerin/Poly80 (Refresh Optive Advanced Drops) 1 Kassy Kassy, 1 DROP OU BID, (Reported) Carvedilol (Carvedilol) 3.125 Mg Tablet, 3.125 MG PO BID, (Reported) Docusate Sodium (Colace) 100 Mg Cap, 200 MG PO BID, (Reported) Hydroxychloroquine Sulfate (Hydroxychloroquine Sulfate) 200 Mg Tab, 200 MG PO DAILY, (Reported) Lactobacillus Combo No.10 (Probiotic) 1 Each Capsule, 1 CAP PO DAILY, (Reported) Lisinopril (Lisinopril) 2.5 Mg Tablet, 2.5 MG PO DAILY, (Reported) Magnesium Oxide (Magnesium Oxide) 400 Mg Tab, 800 MG PO Q2D, (Reported) QHS Mirtazapine (Remeron) 15 Mg Tablet, 15 MG PO QHS, (Reported) Multivitamins (Thera M Plus Tablet) 1 Tab Tab, 1 TAB PO QHS, (Reported) Prednisone (Prednisone) 1 Mg Tablet, 2 MG PO DAILY, (Reported) Torsemide (Torsemide) 20 Mg Tablet, 20 MG PO DAILY Vit A/Vit C/Vit E/Zinc/Copper (Icaps Areds Formula Dr Tablet) 1 Tab Tab, 1 TAB PO DAILY, (Reported) Scheduled PRN Famotidine (Famotidine) 20 Mg Tablet, 20 MG PO QPM PRN for HEARTBURN, (Reported) Fexofenadine/Pseudoephedrine (Sierra-D 12 Hour Tablet) 1 Tab Tab, 1 TAB PO BID PRN for CONGESTION, (Reported) Levalbuterol Hydrochloride (Xopenex Hfa) 45 Mcg/Act Aer, 2 PUFF INH QID PRN for SHORTNESS OF BREATH, (Reported) Polyethylene Glycol 3350 (Miralax) 1 Pow Pow, 17 GM PO DAILY PRN for CONSTIPA TION, (Reported) Allergies Coded Allergies: NSAIDS (Non-Steroidal Anti-Inflamma (Verified Allergy, Intermediate, CHEST PAIN, 03/16/20) TAKES ASPIRIN AT HOME Kvglyca-Znm-Qrw Reductase Inhibitor (Verified Allergy, Intermediate, SWOLLEN JOINTS, 03/16/20) etodolac (Verified Allergy, Intermediate, HIVES, 03/16/20) Sulfa (Sulfonamide Antibiotics) (Verified Allergy, Mild, RASH, 03/16/20) lidocaine (Verified Allergy, Mild, RASH, 03/16/20) nickel (Verified Allergy, Mild, RASH, 03/16/20) ibuprofen (Verified Adverse Reaction, Intermediate, CHEST PAIN, 03/16/20) TAKES ASPIRIN AT HOME lactose (Verified Adverse Reaction, Unknown, lactose intolerant, 03/16/20) ARNOL RICKETTS DO Apr 03, 2020 15:14
[2020-04-03] MEDS: MULTIVITAMINS/MINERALS THERAP 1 TAB PO SCH (21:45)
[2020-04-03] MEDS: ASPIRIN 81 MG ENTERIC TAB PO SCH (21:45)
[2020-04-03] MEDS: ACETAMINOPHEN TAB 650MG DOSE (2X325MG) PO PRN (21:48)
[2020-04-03 22:00] VITALS: BP 147/69
[2020-04-04] MEDS: SLF 3 ML SYR IV SCH (05:41)
[2020-04-04] MEDS: HEPARIN SOD (PORCINE) 5000UNITS/ML VIAL (J1644 PER 1000UNITS) SC SCH (05:59)
[2020-04-04 06:00] VITALS: BP 148/73
[2020-04-04 06:12] LABS: BASO # 0.1 10^3/uL (0.0-0.2); EOS # 0.3 10^3/uL (0.0-0.5); EOS % 6.4 % (0.0-3.0); LYMPH # 1.2 10^3/uL (1.5-5.0); LYMPH % 23.3 % (24.0-44.0); MEAN CORPUSCULAR HEMOGLOBIN 32.4 pg (27.0-33.0); MEAN CORPUSCULAR HGB CONC 30.3 g/dl (32.0-36.5); MEAN CORPUSCULAR VOLUME 106.8 fl (80.0-96.0); MONO # 0.6 10^3/uL (0.0-0.8); MONO % 11.7 % (0.0-5.0); NEUTROPHILS # 2.8 10^3/uL (1.5-8.5); NEUTROPHILS % 56.8 % (36.0-66.0); PLATELET COUNT, AUTOMATED 161 10^3/uL (150-450); RED BLOOD COUNT 3.09 10^6/uL (4.00-5.40)
[2020-04-04 06:28] LABS: CALCIUM LEVEL 8.6 MG/DL (8.8-10.2); CREATININE FOR GFR 1.08 MG/DL (0.55-1.30); MAGNESIUM LEVEL 2.7 MG/DL (1.8-2.4); POTASSIUM SERUM 4.6 MEQ/L (3.5-5.1)
[2020-04-04] MEDS: SYMBICORT 80/4.5MCG INHALER 6GM INH SCH (07:44)
[2020-04-04] MEDS: LEVALBUTEROL 1.25 MG/0.5 ML CONCENTRATE NEB INH SCH ×2 (07:44→12:00)
[2020-04-04] MEDS: FEXOFENADINE 60 MG TAB PO SCH (08:48)
[2020-04-04] MEDS: LACTOBACILLUS ACIDOPHILUS CAP (BACID) PO SCH (08:48)
[2020-04-04] MEDS: DOCUSATE SODIUM 100 MG CAP PO SCH (08:48)
[2020-04-04] MEDS: LISINOPRIL *2.5 MG* TAB PO SCH (08:49)
[2020-04-04 08:50] VITALS: BP 145/75
[2020-04-04] MEDS: HYDROXYCHLOROQUINE 200 MG TAB PO SCH (08:50)
[2020-04-04] MEDS: NYSTATIN 100,000 UNITS/GM TOPICAL PWD 15 GM TOP SCH (08:50)
[2020-04-04] MEDS: CARVedilol 3.125 MG TAB PO SCH (08:50)
[2020-04-04] MEDS: HumaLOG INSULIN (NovoLOG) PER UNIT SC SCH ×2 (08:51→12:00)
[2020-04-04] MEDS ORDERED: TORSEMIDE 20 MG TAB PO SCH (09:00)
--- NOTE | 2020-04-04 18:47 | DSES ---
DATE: 04/04/2020 ADDENDUM TO DISCHARGE SUMMARY: Discharge was postponed yesterday, waiting for the COVID-19 testing. No other issues overnight. COVID-19 is negative. PHYSICAL EXAM ON DISCHARGE: Temperature 97.9, pulse 79, respiratory rate 20, blood pressure 148/73, 95% on two liters nasal cannula. General: Awake, alert. Lungs are clear to auscultation. No wheezing, rales or rhonchi. Heart: S1, S2, sinus rhythm. Abdomen is soft, nontender, nondistended. Extremities: No cyanosis, clubbing or pitting edema. Please refer to previous discharge summary dated 04/03/2020. [facility]
== END 2020-04-04 13:30 | DRG 291 ==
LOC: M ED 10:38 → M ED INP 14:48 → ENRESERV 15:08 → M PCU 16:00 → M MSPAV 04-01 14:55
PROVIDERS: ADMIT Internal Medicine; ATTEND General Practice
DX: I13.0 Hypertensive heart and chronic kidney disease with heart failure and stage 1 through stage 4 chronic kidney disease, or unspecified chronic kidney disease (principal); I50.33 Acute on chronic diastolic (congestive) heart failure; E11.22 Type 2 diabetes mellitus with diabetic chronic kidney disease; J44.9 Chronic obstructive pulmonary disease, unspecified; L93.0 Discoid lupus erythematosus; G89.29 Other chronic pain; M19.90 Unspecified osteoarthritis, unspecified site; M10.9 Gout, unspecified; E73.9 Lactose intolerance, unspecified; D64.9 Anemia, unspecified; Z66 Do not resuscitate; G47.00 Insomnia, unspecified; I27.20 Pulmonary hypertension, unspecified; J30.2 Other seasonal allergic rhinitis; Z79.82 Long term (current) use of aspirin; Z79.899 Other long term (current) drug therapy; Z88.2 Allergy status to sulfonamides; Z88.6 Allergy status to analgesic agent; Z88.4 Allergy status to anesthetic agent; Z88.8 Allergy status to other drugs, medicaments and biological substances; Z91.048 Other nonmedicinal substance allergy status; Z79.52 Long term (current) use of systemic steroids; Z96.652 Presence of left artificial knee joint; Z90.49 Acquired absence of other specified parts of digestive tract; Z85.038 Personal history of other malignant neoplasm of large intestine; Z87.891 Personal history of nicotine dependence; Z91.14 Patient's other noncompliance with medication regimen; Z11.59 Encounter for screening for other viral diseases

== ENCOUNTER → 2020-04-07 | Outpatient (REF) ==
[~2020-04-07] MED LIST changes: +ACET-683 PO; +CARV6.25 PO; +DIPH25CA32 PO; +ELIQ2.5T PO; -LISI-538 PO; +LISI20TA33 PO; +LOPE2TAB12 PO; +METO1TAB33 PO; +METO5TA PO; +MIRT-62 PO; +PANT40TA29 PO; -PANT40TA3 PO; -REME15TA PO; +TORS20TA2 PO
[2020-04-07 08:28] LABS: HEMATOCRIT 35.3 % (36.0-47.0); MEAN CORPUSCULAR HEMOGLOBIN 32.6 pg (27.0-33.0); MEAN CORPUSCULAR HGB CONC 31.2 g/dl (32.0-36.5); MEAN CORPUSCULAR VOLUME 104.7 fl (80.0-96.0); PLATELET COUNT, AUTOMATED 160 10^3/uL (150-450); RED BLOOD COUNT 3.37 10^6/uL (4.00-5.40); WHITE BLOOD COUNT 5.5 10^3/uL (4.0-10.0)
[2020-04-07 09:02] LABS: CALCIUM LEVEL 9.2 MG/DL (8.8-10.2); CREATININE FOR GFR 1.14 MG/DL (0.55-1.30); GLOMERULAR FILTRATION RATE 47.9 (>32); POTASSIUM SERUM 4.6 MEQ/L (3.5-5.1)
== END ==
PROVIDERS: ATTEND Internal Medicine
DX: I50.9 Heart failure, unspecified (principal)

== ENCOUNTER → 2020-04-10 | Outpatient (REF) ==
[~2020-04-10] MED LIST changes: -ACET-683 PO; -CARV6.25 PO; -DIPH25CA32 PO; -ELIQ2.5T PO; +LISI-538 PO; -LISI20TA33 PO; -LOPE2TAB12 PO; -METO1TAB33 PO; -METO5TA PO; -MIRT-62 PO; -PANT40TA29 PO; +PANT40TA3 PO; +REME15TA PO
[2020-04-10 11:28] LABS: CALCIUM LEVEL 9.4 MG/DL (8.8-10.2); CREATININE FOR GFR 1.37 MG/DL (0.55-1.30); GLOMERULAR FILTRATION RATE 38.7 (>32); POTASSIUM SERUM 4.5 MEQ/L (3.5-5.1)
--- NOTE | 2020-04-10 16:35 | REPPI ---
Single view chest x-ray: AP view. History: CHF. Comparison chest x-ray March 28 and March 16, 2020. Findings: The lungs are symmetrically aerated and free of infiltrate. There is some pleuroparenchymal reaction at the left lateral lung base. This is improved. Pulmonary vasculature is cephalized but improved from the comparison study of March 28, 2020. No pulmonary edema or new pleural effusion seen. Impression: Improved CHF pattern. No infiltrate seen. Electronically Signed by Roberto Howard MD 04/10/2020 04:26 P
== END ==
PROVIDERS: ATTEND Internal Medicine
DX: I50.9 Heart failure, unspecified (principal)

== ENCOUNTER → 2020-04-13 | Outpatient (REF) ==
[2020-04-13 09:58] LABS: HEMATOCRIT 36.3 % (36.0-47.0); HEMOGLOBIN 11.2 g/dl (12.0-15.5); MEAN CORPUSCULAR HEMOGLOBIN 32.7 pg (27.0-33.0); MEAN CORPUSCULAR HGB CONC 30.9 g/dl (32.0-36.5); MEAN CORPUSCULAR VOLUME 105.8 fl (80.0-96.0); PLATELET COUNT, AUTOMATED 172 10^3/uL (150-450); RED BLOOD COUNT 3.43 10^6/uL (4.00-5.40); WHITE BLOOD COUNT 5.8 10^3/uL (4.0-10.0)
[2020-04-13 10:26] LABS: CALCIUM LEVEL 9.4 MG/DL (8.8-10.2); CREATININE FOR GFR 1.53 MG/DL (0.55-1.30); GLOMERULAR FILTRATION RATE 34.1 (>32); POTASSIUM SERUM 4.2 MEQ/L (3.5-5.1)
== END ==
PROVIDERS: ATTEND Internal Medicine
DX: I50.9 Heart failure, unspecified (principal)

== ENCOUNTER → 2020-04-18 | Outpatient (REF) ==
[2020-04-18 15:45] LABS: CALCIUM LEVEL 9.2 MG/DL (8.8-10.2); CREATININE FOR GFR 1.3 MG/DL (0.55-1.30); GLOMERULAR FILTRATION RATE 41.2 (>32); POTASSIUM SERUM 4.1 MEQ/L (3.5-5.1)
== END ==
PROVIDERS: ATTEND Internal Medicine
DX: I50.9 Heart failure, unspecified (principal)

== ENCOUNTER → 2020-04-21 | Outpatient (CLI) | payer MEDICARE ==
[~2020-04-21] MED LIST changes: +ACET-683 PO; +CARV6.25 PO; +DIPH25CA32 PO; +ELIQ2.5T PO; +LOPE2TAB12 PO; +METO1TAB33 PO; +METO5TA PO; +PANT40TA29 PO; -PANT40TA3 PO
== END ==
LOC: M RAD 13:46
PROVIDERS: ATTEND Internal Medicine
DX: Z53.9 Procedure and treatment not carried out, unspecified reason (principal); Z98.1 Arthrodesis status

== ENCOUNTER → 2020-04-21 | Outpatient (REF) | payer MEDICARE, OTHER ==
--- NOTE | 2020-04-22 08:47 | REP ---
REASON: Low back pain. COMPARISON: 09/01/2008, which is the latest prior for comparison, and a limited AP and lateral view exam. Transpedicular screws seen L3 through L5 bilaterally, status quo. The L3-4, L4-5, and L5-S1 disc spaces have fused since the last exam. There is no significant change in appearance of the vertebral body height or alignment. There is persistent disc space narrowing, status quo. There is a grade 3 compression deformity involving T11, which cannot be compared to the prior exam, since it was not included on the radiograph. When compared to the next latest prior obtained a day earlier, also a limed exam obtained portably, this compression fracture appears to have developed since that exam. There is heavy marginal osteophytosis/partial syndesmophyte formation seen bilaterally at all levels. There is evidence of previous laminectomy at the aforementioned transpedicular screw levels. IMPRESSION: Findings as described above. Age undetermined compression fracture and other postoperative and chronic changes. Electronically Signed by Zain An DO 04/23/2020 08:28 A
== END ==
LOC: M RAD 12:44
PROVIDERS: ATTEND Internal Medicine
DX: M25.78 Osteophyte, vertebrae (principal); G95.29 Other cord compression; M54.5 Low back pain; Z98.1 Arthrodesis status

== ENCOUNTER → 2020-05-10 | Outpatient (REF) | payer MEDICARE | PROVIDERS: ATTEND Physician Assistant | DX: M25.511 Pain in right shoulder (principal); Z20.828 Contact with and (suspected) exposure to other viral communicable diseases ==

== ENCOUNTER → 2020-05-11 | Outpatient (CLI) | payer MEDICARE | LOC: M RAD 11:55 | PROVIDERS: ATTEND Internal Medicine | DX: M19.011 Primary osteoarthritis, right shoulder (principal) ==

== ENCOUNTER → 2020-07-18 | Outpatient (REF) | payer MEDICARE ==
[2020-07-18 11:22] LABS: HEMATOCRIT 36.2 % (36.0-47.0); HEMOGLOBIN 11.2 g/dl (12.0-15.5); MEAN CORPUSCULAR HEMOGLOBIN 33.2 pg (27.0-33.0); MEAN CORPUSCULAR HGB CONC 30.9 g/dl (32.0-36.5); MEAN CORPUSCULAR VOLUME 107.4 fl (80.0-96.0); PLATELET COUNT, AUTOMATED 164 10^3/uL (150-450); RED BLOOD COUNT 3.37 10^6/uL (4.00-5.40); WHITE BLOOD COUNT 7.5 10^3/uL (4.0-10.0)
[2020-07-18 12:02] LABS: ALBUMIN 3.4 GM/DL (3.2-5.2); BILIRUBIN,TOTAL 0.3 MG/DL (0.2-1.0); CALCIUM LEVEL 9.2 MG/DL (8.8-10.2); CREATININE FOR GFR 1.17 MG/DL (0.55-1.30); GLOMERULAR FILTRATION RATE 46.5 (>32); POTASSIUM SERUM 4.5 MEQ/L (3.5-5.1); TOTAL PROTEIN 6.4 GM/DL (6.4-8.2)
[2020-07-18 13:22] LABS: HEMOGLOBIN A1c 5.5 %
== END ==
PROVIDERS: ATTEND Family Medicine
DX: E11.9 Type 2 diabetes mellitus without complications (principal)

== ENCOUNTER 2020-08-13 08:22 | Inpatient (IN) | payer MEDICARE, MEDICAID ==
[~2020-08-13] VITALS: Ht 157.5 cm; Wt 80.9 kg
[~2020-08-13 08:22] MED LIST changes: -ACET-683 PO; -CARV6.25 PO; -DIPH25CA32 PO; -ELIQ2.5T PO; -LOPE2TAB12 PO; -METO1TAB33 PO; -METO5TA PO
[2020-08-13] MEDS: COMBIVENT RESPIMAT 100-20MCG INHALER 4GM INH SCH ×3 (08:42→09:28)
[2020-08-13] MEDS ORDERED: CARVedilol 6.25 MG TAB PO SCH (09:00)
[2020-08-13 09:07] LABS: BASO % 0.5 % (0.0-1.0); EOS # 0.3 10^3/uL (0.0-0.5); EOS % 3.3 % (0.0-3.0); HEMATOCRIT 33.1 % (36.0-47.0); HEMOGLOBIN 9.7 g/dl (12.0-15.5); LYMPH # 1.2 10^3/uL (1.5-5.0); LYMPH % 16.2 % (24.0-44.0); MEAN CORPUSCULAR HEMOGLOBIN 32.2 pg (27.0-33.0); MEAN CORPUSCULAR HGB CONC 29.3 g/dl (32.0-36.5); MONO # 0.7 10^3/uL (0.0-0.8); MONO % 9.5 % (0.0-5.0); NEUTROPHILS # 5.2 10^3/uL (1.5-8.5); PLATELET COUNT, AUTOMATED 181 10^3/uL (150-450); RED BLOOD COUNT 3.01 10^6/uL (4.00-5.40); WHITE BLOOD COUNT 7.5 10^3/uL (4.0-10.0)
--- NOTE | 2020-08-13 09:17 | REP ---
INDICATION: DYSPNEA/COUGH. COMPARISON: Comparison chest x-ray March 28, 2020.. TECHNIQUE: Sitting AP portable radiograph. FINDINGS: Monitoring electrodes overlie the chest along with oxygen delivery tubing. The heart is enlarged unchanged. Vascular congestion and interstitial edema pattern is observed slightly more prominent than on the prior study. There is chronic pleuroparenchymal opacity along the left heart border at the left base. Is unchanged from March 16, 2020. The aorta is calcific and somewhat tortuous. IMPRESSION: CHF pattern with cardiomegaly pulmonary vascular congestion and mild interstitial edema pattern. Pleuroparenchymal opacity along the left heart border is again seen, question fluid versus atelectasis. <Electronically signed by Rolando Howard > 08/13/20 [id number]
[2020-08-13 09:22] LABS: INR 0.91; PROTHROMBIN TIME 12.4 SECONDS (12.5-14.3)
[2020-08-13 09:43] LABS: ALBUMIN 3.1 GM/DL (3.2-5.2); ALT/SGPT 22 U/L (12-78); BILIRUBIN,DIRECT < 0.1 MG/DL (0.0-0.2); BILIRUBIN,TOTAL 0.3 MG/DL (0.2-1.0); BLOOD UREA NITROGEN 36 MG/DL (7-18); CALCIUM LEVEL 8.9 MG/DL (8.8-10.2); CARBON DIOXIDE LEVEL 33 MEQ/L (21-32); CHLORIDE LEVEL 108 MEQ/L (98-107); CK-MB VALUE MASS 1.8 NG/ML (<3.6); CPK CREATINE PHOSPHOKINASE 42 U/L (26-192); CREATININE FOR GFR 1.04 MG/DL (0.55-1.30); GLOMERULAR FILTRATION RATE 53.2 (>32); GLUCOSE, FASTING 121 MG/DL (70-100); MB/CK RELATIVE INDEX 4.29 (< OR =4); NT-PRO BNP 6221 PG/ML (<450); POTASSIUM SERUM 4.6 MEQ/L (3.5-5.1); SODIUM LEVEL 143 MEQ/L (136-145); TOTAL PROTEIN 6.5 GM/DL (6.4-8.2); TROPONIN I 0.02 NG/ML (< 0.10)
[2020-08-13] MEDS ORDERED: LOPE2TAB12 PO (09:49)
[2020-08-13] MEDS ORDERED: ACET-683 PO (09:49)
[2020-08-13] MEDS ORDERED: CARV6.25 PO (09:49)
[2020-08-13] MEDS ORDERED: DIPH25CA32 PO (09:49)
[2020-08-13] MEDS ORDERED: TORS20TA2 PO (09:49)
[2020-08-13] MEDS ORDERED: TRAM50TA2 PO (09:49)
[2020-08-13] MEDS ORDERED: FUROSEMIDE 40MG/4ML VIAL (J1940) IV ONE (10:15)
[2020-08-13] MEDS ORDERED: ACETAMINOPHEN TAB 650MG DOSE (2X325MG) PO PRN (10:45)
[2020-08-13] MEDS ORDERED: LOPERAMIDE 2 MG CAPLET PO PRN (10:45)
[2020-08-13] MEDS ORDERED: LEVALBUTEROL HFA 45MCG/ACT 15 GM INHALER INH PRN (10:45)
[2020-08-13] MEDS ORDERED: traMADol 50 MG TAB PO PRN (10:45)
[2020-08-13] MEDS ORDERED: MIRALAX *UNIT DOSE* 17GM PACKET PO PRN (10:45)
[2020-08-13] MEDS ORDERED: diphenhydrAMINE 25MG CAP PO PRN (10:45)
--- NOTE | 2020-08-13 11:08 | HPEPDOC ---
General Date of Admission 08/13/20 Date of Service: Aug 13, 2020 Chief Complaint The patient is a 89-year-old female admitted with a reason for visit of SOB. Source: Patient Exam Limitations: No limitations Severity: Moderate History of Present Illness Patient is an 89-year-old female with a PMHx of Diastolic CHF, HTN, Borderline DM2, COPD, Lupus (on Hydroxychloroquine and Prednisone), Chornic pain / Arthritis, Gout and Mild pulmonary HTN, who presented to the hospital with complaint of short of breath. Patient stated that she has been having shortness of breath for past few days associated with increased cough and yellowish sputum production. In ER patient was found to have negative respiratory panel, BNP 6221, chest x-ray showed CHF pattern with cardiomegaly pulmonary vascular congestion and mild interstitial edema pattern Home Medications Scheduled Allopurinol (Allopurinol) 100 Mg Tab, 200 MG PO DAILY, (Reported) Aspirin (Aspirin EC) 81 Mg Tab, 81 MG PO QHS, (Reported) Budesonide/Formoterol (Symbicort 80-4.5 Mcg Inhaler) 60 Puff/Inhaler Aers, 2 PUFF INH BID, (Reported) Carboxymethyl/Glycerin/Poly80 (Refresh Optive Advanced Drops) 1 Kassy Kassy, 1 DROP OU BID, (Reported) Carvedilol (Carvedilol) 6.25 Mg Tablet, 6.25 MG PO BID, (Reported) Docusate Sodium (Colace) 100 Mg Cap, 200 MG PO BID, (Reported) Hydroxychloroquine Sulfate (Hydroxychloroquine Sulfate) 200 Mg Tab, 200 MG PO DAILY, (Reported) Lactobacillus Combo No.10 (Probiotic) 1 Each Capsule, 1 CAP PO DAILY, (Reported) Lisinopril (Lisinopril) 2.5 Mg Tablet, 2.5 MG PO DAILY, (Reported) Mirtazapine (Remeron) 15 Mg Tablet, 15 MG PO QHS, (Reported) Prednisone (Prednisone) 1 Mg Tablet, 2 MG PO DAILY, (Reported) Torsemide (Torsemide) 20 Mg Tablet, 20 MG PO DAILY, (Reported) Vit A/Vit C/Vit E/Zinc/Copper (Icaps Areds Formula Dr Tablet) 1 Tab Tab, 1 TAB PO DAILY, (Reported) Scheduled PRN Acetaminophen (Acetaminophen) 500 Mg Tablet, 1,000 MG PO TID PRN for PAIN, (Reported) 0800, 1600, 2200 Diphenhydramine HCl (Diphenhydramine HCl) 25 Mg Capsule, 25 MG PO QHS PRN for SLEEP, (Reported) Famotidine (Famotidine) 20 Mg Tablet, 20 MG PO DAILY PRN for HEARTBURN, (Reported) Fexofenadine/Pseudoephedrine (Sierra-D 12 Hour Tablet) 1 Tab Tab, 1 TAB PO BID PRN for CONGESTION, (Reported) Levalbuterol Hydrochloride (Xopenex Hfa) 45 Mcg/Act Aer, 2 PUFF INH QID PRN for SHORTNESS OF BREATH, (Reported) Loperamide HCl (Imodium A-D) 2 Mg Tablet, 2 MG PO QID PRN for DIARRHEA, (Reported) Polyethylene Glycol 3350 (Miralax) 1 Pow Pow, 17 GM PO DAILY PRN for CONSTIPATION, (Reported) Tramadol HCl (Tramadol HCl) 50 Mg Tablet, 50 MG PO TID PRN for PAIN, (Reported) Allergies Coded Allergies: NSAIDS (Non-Steroidal Anti-Inflamma (Verified Allergy, Intermediate, CHEST PAIN, 03/16/20) TAKES ASPIRIN AT HOME Dihjxmm-Dkn-Imi Reductase Inhibitor (Verified Allergy, Intermediate, SWOLLEN JOINTS, 03/16/20) etodolac (Verified Allergy, Intermediate, HIVES, 03/16/20) Sulfa (Sulfonamide Antibiotics) (Verified Allergy, Mild, RASH, 03/16/20) lidocaine (Verified Allergy, Mild, RASH, 03/16/20) nickel (Verified Allergy, Mild, RASH, 03/16/20) ibuprofen (Verified Adverse Reaction, Intermediate, CHEST PAIN, 03/16/20) TAKES ASPIRIN AT HOME lactose (Verified Adverse Reaction, Unknown, lactose intolerant, 03/16/20) Past Medical History Medical History Diastolic CHF, HTN, Borderline DM2, COPD, Lupus (on Hydroxychloroquine and Prednisone), Chornic pain / Arthritis, Gout and Mild pulmonary HTN Surgical History Abdominoplasty Total left knee arthroplasty Partial colectomy for colon cancer 2 Family History Father with a history of Parkinsons disease Social History * Smoker: Denies Alcohol: Denies Drugs: denies A-FIB/CHADSVASC A-FIB History Current/History of A-Fib/PAF?: No Current PO Anticoag Therapy: No Review of Systems Constitutional: Denies: Chills, Fever Eyes: Denies: Vision change ENT: Denies: Head Aches Skin: Denies: Rash, Lesions Pulmonary: Reports: Dyspnea, Cough Cardiovascular: Denies: Chest Pain, Palpitations Gastrointestinal: Denies: Nausea, Vomiting Genitourinary: Denies: Dysuria Hematologic: Denies: Bruising Endocrine: Denies: Polydipsia Musculoskeletal: Denies: Neck Pain Neurological: Denies: Weakness Psych: Reports: Mood Normal Physical Examination General Exam: Positive: Alert, Cooperative Eye Exam: Positive: PERRLA ENT Exam: Positive: Atraumatic Neck Exam: Positive: Supple; Negative: JVD Chest Exam: Positive: Rales, Diminished; Negative: Clear to auscultation Heart Exam: Positive: Tachycardic Telemetry: Positive: Sinus Abdomen Exam: Positive: Normal bowel sounds Extremity Exam: Negative: Clubbing Skin Exam: Positive: Nl turgor and temperature Neuro Exam: Positive: Normal Gait, Strength at 5/5 X4 ext, Cranial Nerves 3-12 NL Psych Exam: Positive: Mental status NL Vital Signs Vital Signs Date Time Temp Pulse Resp B/P (MAP) Pulse Ox O2 Delivery O2 Flow Rate FiO2 08/13/20 10:07 124 97 08/13/20 10:04 20 142/65 (90) Nasal Cannula 3.0 08/13/20 08:44 97.5 Laboratory Data Labs 24H Laboratory Tests 2 08/13/20 08:49: Immature Granulocyte % (Auto) 0.5, Neutrophils (%) (Auto) 70.0H, Lymphocytes (%) (Auto) 16.2L, Monocytes (%) (Auto) 9.5H, Eosinophils (%) (Auto) 3.3H, Basophils (%) (Auto) 0.5, Neutrophils # (Auto) 5.2, Lymphocytes # (Auto) 1.2L, Monocytes # (Auto) 0.7, Eosinophils # (Auto) 0.3, Basophils # (Auto) 0.0, Nucleated Red Blood Cells % (auto) 0.0, Prothrombin Time 12.4, Prothromb Time International Ratio 0.91, Anion Gap 2L, Glomerular Filtration Rate 53.2, Calcium Level 8.9, Total Bilirubin 0.3, Direct Bilirubin < 0.1, Aspartate Amino Transf (AST/SGOT) 13, Alanine Aminotransferase (ALT/SGPT) 22, Alkaline Phosphatase 88, Total Creatine Kinase 42, Creatine Kinase MB 1.8, Creatine Kinase MB Relative Index 4.29H, Troponin I 0.02, PE-Dap-C-Type Natriuretic Peptide 6221H, Total Protein 6.5, Albumin 3.1L, Albumin/Globulin Ratio 0.9L, Thyroid Stimulating Hormone (TSH) 1.230, Thyroxine (T4) 7.0 08/13/20 09:00: Lactic Acid Level 0.8 CBC/BMP Laboratory Tests 08/13/20 08:49 Microbiology Microbiology 08/13/20 Gram Stain, Received Pending 08/13/20 Sputum Culture, Received Pending 08/13/20 Blood Culture, Received Pending 08/13/20 Respiratory Virus Panel (PCR) (BALJINDER) - Final, Complete 08/13/20 Blood Culture, Received Pending Assessment/Plan Patient is an 89-year-old female with a PMHx of Diastolic CHF, HTN, Borderline DM2, COPD, Lupus (on Hydroxychloroquine and Prednisone), Chornic pain / Arthritis, Gout and Mild pulmonary HTN, who presented to the hospital with complaint of short of breath. Patient stated that she has been having shortness of breath for past few days associated with increased cough and yellowish sputum production. In ER patient was found to have negative respiratory panel, BNP 6221, chest x-ray showed CHF pattern with cardiomegaly pulmonary vascular conge stion and mild interstitial edema patter Problems (1) Acute CHF Status: Acute Problem Text: Diastolic CHF I's and O's Lasix IV Cardiac diet Echo (2) COPD (chronic obstructive pulmonary disease) Status: Acute Problem Text: Patient complains of increased cough and yellowish sputum production Levofloxacin by mouth Continue inhalers (3) Tachycardia Status: Acute Problem Text: Continue carvedilol twice a day Lopressor when necessary (4) Hypertension Status: Chronic Problem Text: Blood pressures under control Continue home cardioprotective medication (5) Lupus Status: Chronic Problem Text: Continue home meds (6) Macrocytic anemia Status: Chronic Problem Text: We'll check B12 and folate level (7) Atrial fibrillation Status: Acute Problem Text: New onset of atrial fibrillation Oral targeted anticoagulation Heart rate under control Plan / VTE VTE Prophylaxis Ordered?: Yes ARNOL RICKETTS DO Aug 13, 2020 11:08
[2020-08-13] MEDS ORDERED: METOPROLOL 5 MG/5 ML VIAL IV PRN (11:15)
[2020-08-13 11:28] LABS: IRON (FE) 42 UG/DL (50-170); PERCENT SATURATION 18.3 % (13.2-45.0); TOTAL IRON BINDING CAPACITY 229 UG/DL (250-450)
[2020-08-13 11:40] VITALS: BP 148/84
[2020-08-13] MEDS: allopurinoL 100 MG TAB PO SCH (12:14)
[2020-08-13] MEDS: LISINOPRIL *2.5 MG* TAB PO SCH (12:14)
[2020-08-13] MEDS ORDERED: SLF 3 ML SYR IV PRN (12:15)
[2020-08-13] MEDS: LevoFLOXacin 500 MG TABLET PO SCH (12:15)
[2020-08-13] MEDS: DOCUSATE SODIUM 100 MG CAP PO SCH ×2 (12:15→19:59)
[2020-08-13] MEDS: predniSONE 1 MG TAB PO SCH (12:52)
[2020-08-13] MEDS: HYDROXYCHLOROQUINE 200 MG TAB PO SCH (12:53)
[2020-08-13] MEDS: METOPROLOL TART 50 MG TAB PO SCH ×2 (12:53→20:01)
[2020-08-13] MEDS: SLF 3 ML SYR IV SCH ×2 (12:53→21:31)
[2020-08-13] MEDS: SYMBICORT 80/4.5MCG INHALER 6GM INH SCH ×2 (13:43→20:09)
--- NOTE | 2020-08-13 13:53 | ECGEPIP ---
[facility] Test Date: 2020-08-13 Pat Name: KENDRICK MALIK Department: Room: [place] [address] Gender: Female Compressor Battery Pellets: : 1930 Requested By: ARNOL RICKETTS Order Number: [id number] Reading MD: Colin Cerda Measurements Intervals [place] Rate: 120 P: [place]: 0 QRS: -42 QRSD: 92 T: -1 QT: 294 QTc: 416 Interpretive Statements Baseline artifact Atrial fibrillation with somewhat rapid ventricular response Isolated PVCs Left axis deviation. Low voltages with slow precordial R wave progression and persistent S wave V5 and V V6 with QS pattern 3 and aVF; body habitus versus pulmonary disease. Could not rule out prior septal/inferior infarctions. No significant change from earlier the same day Electronically Signed on 08-13-2020 13:52:53 EST by Colin Cerda
[2020-08-13] MEDS: IPRATROPIUM 0.5MG/ALBUTEROL 2.5MG INH SOL UD 3ML (DUONEB) NEB SCH ×2 (14:00→20:00)
[2020-08-13] MEDS: FUROSEMIDE 40MG/4ML VIAL (J1940) IV SCH (15:53)
[2020-08-13 16:00] VITALS: BP 109/58
[2020-08-13 20:00] VITALS: BP 132/64
[2020-08-13] MEDS: APIXABAN 5 MG TAB (ELIQUIS) PO SCH (20:00)
[2020-08-13] MEDS: ASPIRIN 81 MG ENTERIC TAB PO SCH (20:00)
[2020-08-13] MEDS: MIRTAZAPINE 15 MG TAB PO SCH (21:16)
[2020-08-14] VITALS: BP 118/66
[2020-08-14] MEDS: FUROSEMIDE 40MG/4ML VIAL (J1940) IV SCH ×4 (00:19→23:33)
[2020-08-14] MEDS: IPRATROPIUM 0.5MG/ALBUTEROL 2.5MG INH SOL UD 3ML (DUONEB) NEB SCH ×4 (00:32→20:00)
[2020-08-14 04:00] VITALS: BP 136/71
[2020-08-14 04:55] LABS: HEMATOCRIT 31.1 % (36.0-47.0); HEMOGLOBIN 9.2 g/dl (12.0-15.5); MEAN CORPUSCULAR HEMOGLOBIN 32.5 pg (27.0-33.0); MEAN CORPUSCULAR HGB CONC 29.6 g/dl (32.0-36.5); MEAN CORPUSCULAR VOLUME 109.9 fl (80.0-96.0); PLATELET COUNT, AUTOMATED 155 10^3/uL (150-450); RED BLOOD COUNT 2.83 10^6/uL (4.00-5.40); WHITE BLOOD COUNT 6.3 10^3/uL (4.0-10.0)
[2020-08-14] MEDS: LevoFLOXacin 500 MG TABLET PO SCH (05:21)
[2020-08-14] MEDS: SLF 3 ML SYR IV SCH ×3 (05:21→21:14)
[2020-08-14 05:24] LABS: CALCIUM LEVEL 9.1 MG/DL (8.8-10.2); CREATININE FOR GFR 1.06 MG/DL (0.55-1.30); GLOMERULAR FILTRATION RATE 52.1 (>32); MAGNESIUM LEVEL 2.1 MG/DL (1.8-2.4); POTASSIUM SERUM 4.1 MEQ/L (3.5-5.1)
[2020-08-14] MEDS: SYMBICORT 80/4.5MCG INHALER 6GM INH SCH ×2 (07:17→20:03)
--- NOTE | 2020-08-14 07:40 | ECGEPIP ---
[facility] - ED Test Date: 2020-08-13 Pat Name: KENDRICK MALIK Department: Room: - Gender: Female Forklift Wheel Loader: : 1930 Requested By: DOV Dwyer Order Number: [id number] Reading MD: Alana León Measurements Intervals [place] Rate: 119 P: [place]: 0 QRS: -41 QRSD: 86 T: 13 QT: 307 QTc: 432 Interpretive Statements ATRIAL FIBRILLATION WITH RAPID VENTRICULAR RESPONSE MARKED LEFT AXIS DEVIATION LOW QRS VOLTAGE IN PRECORDIAL LEADS POSSIBLE ANTERIOR MYOCARDIAL INFARCTION, PROBABLY OLD PRIOR 03/28/20 AFIB Electronically Signed on 08-14-2020 7:39:57 EST by Alana León
[2020-08-14 08:00] VITALS: BP 153/79
[2020-08-14] MEDS: METOPROLOL TART 50 MG TAB PO SCH ×2 (08:15→21:14)
[2020-08-14] MEDS: allopurinoL 100 MG TAB PO SCH (08:15)
[2020-08-14] MEDS: APIXABAN 5 MG TAB (ELIQUIS) PO SCH ×2 (08:16→21:15)
[2020-08-14] MEDS: DOCUSATE SODIUM 100 MG CAP PO SCH ×2 (08:16→21:14)
[2020-08-14] MEDS: LISINOPRIL *2.5 MG* TAB PO SCH (08:16)
[2020-08-14] MEDS: predniSONE 1 MG TAB PO SCH (08:16)
[2020-08-14] MEDS: HYDROXYCHLOROQUINE 200 MG TAB PO SCH (08:16)
[2020-08-14] MEDS ORDERED: ENOXAPARIN 40MG/0.4ML SYRINGE (J1650 PER 10MG) SC SCH (09:00)
--- NOTE | 2020-08-14 10:01 | IPNPDOC ---
Text Note Date of Service The patient was seen on 08/14/20. NOTE Subjective: No any acute events overnight. Patient stated that her breathing improved, she developed good urine output Objective: GENERAL APPEARANCE: NAD HEENT: no scleral icterus, no JVD, EOMI CARDIOVASCULAR: Irregularly irregular LUNGS: Diminished lung sounds bilaterally ABDOMEN: soft & not tender w palpitation MUSCULOSKELETAL: +1 nonpitting edema INTEGUMENT: no generalized palor NEUROLOGICAL: cranial nerve function from 2-12 intact intact, follows commands, speech not dysarthric Assessment/Plan Patient is an 89-year-old female with a PMHx of Diastolic CHF, HTN, Borderline DM2, COPD, Lupus (on Hydroxychloroquine and Prednisone), Chornic pain / Arthritis, Gout and Mild pulmonary HTN, who presented to the hospital with complaint of short of breath. Patient stated that she has been having shortness of breath for past few days associated with increased cough and yellowish sputum production. In ER patient was found to have negative respiratory panel, BNP 6221, chest x-ray showed CHF pattern with cardiomegaly pulmonary vascular congestion and mild interstitial edema patter Problems (1) Acute CHF Diastolic CHF I's and O's Lasix IV Cardiac diet Await Echo (2) COPD (chronic obstructive pulmonary disease) Patient complains of increased cough and yellowish sputum production Levofloxacin by mouth Continue inhalers (3) Tachycardia Continue metoprolol twice a day Lopressor when necessary (4) Hypertension Blood pressures under control Continue home cardioprotective medication (5) Lupus Continue home meds (6) Macrocytic anemia We'll check B12 and folate level (7) Atrial fibrillation Oral targeted anticoagulation Heart rate under control VS,Nataliia, I+O VSNataliia, I+O Laboratory Tests 08/14/20 04:46 Vital Signs Date Time Temp Pulse Resp B/P (MAP) Pulse Ox O2 Delivery O2 Flow Rate FiO2 08/14/20 08:16 159/70 08/14/20 08:15 116 08/14/20 08:00 98.0 20 92 Nasal Cannula 3.0 I&O- Last 24 Hours up to 6 AM 08/14/20 06:00 Intake Total 750 ml Output Total 1300 ml Balance -550 ml ARNOL RICKETTS DO Aug 14, 2020 10:01
[2020-08-14 10:54] LABS: VITAMIN B12 LEVEL 466 PG/ML
[2020-08-14 10:55] LABS: FOLATE 16.1 NG/ML
[2020-08-14 12:00] VITALS: BP 123/55
[2020-08-14 16:00] VITALS: BP 120/66
[2020-08-14 20:00] VITALS: BP 130/82
[2020-08-14] MEDS: MIRTAZAPINE 15 MG TAB PO SCH (21:14)
[2020-08-14] MEDS: ASPIRIN 81 MG ENTERIC TAB PO SCH (21:14)
[2020-08-15] VITALS (7 sets, daily range): BP systolic 103–136; BP diastolic 58–78
[2020-08-15] MEDS: IPRATROPIUM 0.5MG/ALBUTEROL 2.5MG INH SOL UD 3ML (DUONEB) NEB SCH ×4 (02:00→19:58)
[2020-08-15] MEDS: SLF 3 ML SYR IV SCH ×3 (05:00→23:34)
[2020-08-15] MEDS: predniSONE 1 MG TAB PO SCH (08:44)
[2020-08-15] MEDS: LISINOPRIL *2.5 MG* TAB PO SCH (08:44)
[2020-08-15] MEDS: HYDROXYCHLOROQUINE 200 MG TAB PO SCH (08:45)
[2020-08-15] MEDS: APIXABAN 5 MG TAB (ELIQUIS) PO SCH ×2 (08:45→20:22)
[2020-08-15] MEDS: METOPROLOL TART 50 MG TAB PO SCH ×3 (08:45→20:24)
[2020-08-15] MEDS: DOCUSATE SODIUM 100 MG CAP PO SCH ×2 (08:45→20:22)
[2020-08-15] MEDS: allopurinoL 100 MG TAB PO SCH (08:45)
[2020-08-15] MEDS: FUROSEMIDE 40MG/4ML VIAL (J1940) IV SCH ×2 (08:46→14:21)
[2020-08-15] MEDS ORDERED: FLUBLOK(EGG FREE)(QUAD)INFLUENZA VACC 0.5ML SYRINGE 18YRS & OLDER IM ONE (09:00)
[2020-08-15] MEDS: SYMBICORT 80/4.5MCG INHALER 6GM INH SCH ×2 (09:19→19:58)
[2020-08-15 09:21] LABS: BASO % 0.5 % (0.0-1.0); EOS # 0.2 10^3/uL (0.0-0.5); EOS % 3.1 % (0.0-3.0); HEMATOCRIT 33.7 % (36.0-47.0); HEMOGLOBIN 10.1 g/dl (12.0-15.5); LYMPH # 1.3 10^3/uL (1.5-5.0); LYMPH % 19.2 % (24.0-44.0); MEAN CORPUSCULAR HEMOGLOBIN 32.8 pg (27.0-33.0); MEAN CORPUSCULAR VOLUME 109.4 fl (80.0-96.0); MONO # 0.7 10^3/uL (0.0-0.8); MONO % 11.2 % (0.0-5.0); NEUTROPHILS # 4.3 10^3/uL (1.5-8.5); NEUTROPHILS % 65.7 % (36.0-66.0); PLATELET COUNT, AUTOMATED 165 10^3/uL (150-450); RED BLOOD COUNT 3.08 10^6/uL (4.00-5.40); WHITE BLOOD COUNT 6.5 10^3/uL (4.0-10.0)
[2020-08-15 09:40] LABS: CALCIUM LEVEL 9.2 MG/DL (8.8-10.2); CREATININE FOR GFR 1.41 MG/DL (0.55-1.30); GLOMERULAR FILTRATION RATE 37.5 (>32); MAGNESIUM LEVEL 2.2 MG/DL (1.8-2.4); PHOSPHORUS LEVEL 4.7 MG/DL (2.5-4.9)
--- NOTE | 2020-08-15 10:49 | IPNPDOC ---
Text Note Date of Service The patient was seen on 08/15/20. NOTE Subjective: No any acute events overnight. Patient complains of generalized w eakness. Objective: GENERAL APPEARANCE: NAD HEENT: no scleral icterus, no JVD, EOMI CARDIOVASCULAR: Irregularly irregular LUNGS: Diminished lung sounds bilaterally ABDOMEN: soft & not tender w palpitation MUSCULOSKELETAL: +1 nonpitting edema INTEGUMENT: no generalized palor NEUROLOGICAL: cranial nerve function from 2-12 intact intact, follows commands, speech not dysarthric Assessment/Plan Patient is an 89-year-old female with a PMHx of Diastolic CHF, HTN, Borderline DM2, COPD, Lupus (on Hydroxychloroquine and Prednisone), Chornic pain / Arthritis, Gout and Mild pulmonary HTN, who presented to the hospital with complaint of short of breath. Patient stated that she has been having shortness of breath for past few days associated with increased cough and yellowish sputum production. In ER patient was found to have negative respiratory panel, BNP 6221, chest x-ray showed CHF pattern with cardiomegaly pulmonary vascular congestion and mild interstitial edema patter Problems (1) Acute CHF Diastolic CHF I's and O's Continue with Lasix IV Cardiac diet Echo report pending (2) COPD (chronic obstructive pulmonary disease) Patient complains of increased cough and yellowish sputum production Levofloxacin by mouth Continue inhalers (3) Tachycardia Patient heart rate ranged from 100-110. I increased her dose of metoprolol to 3 times a day Lopressor when necessary (4) Hypertension Blood pressures under control Continue home cardioprotective medication (5) Lupus Continue home meds (6) Macrocytic anemia B12 and folate level within normal limit There is concern for MDS, follow-up with PCP and counter maker in the outpatient settings (7) Atrial fibrillation Oral targeted anticoagulation VS,Fishbone, I+O VS, Fishbone, I+O Laboratory Tests 08/15/20 09:10 Vital Signs Date Time Temp Pulse Resp B/P (MAP) Pulse Ox O2 Delivery O2 Flow Rate FiO2 08/15/20 08:45 110 128/62 08/15/20 08:00 2.0 08/15/20 08:00 97.8 18 94 Nasal Cannula I&O- Last 24 Hours up to 6 AM 08/15/20 06:00 Intake Total 980 ml Output Total 1350 ml Balance -370 ml DROZHZHIN,ARNOL DO Aug 15, 2020 10:49
[2020-08-15] MEDS: FAMOTIDINE 20 MG TAB PO PRN (11:39)
[2020-08-15] MEDS: MIRTAZAPINE 15 MG TAB PO SCH (20:22)
[2020-08-15] MEDS: ASPIRIN 81 MG ENTERIC TAB PO SCH (20:22)
[2020-08-16] MEDS: FUROSEMIDE 40MG/4ML VIAL (J1940) IV SCH ×2 (00:40→11:22)
[2020-08-16] MEDS: IPRATROPIUM 0.5MG/ALBUTEROL 2.5MG INH SOL UD 3ML (DUONEB) NEB SCH ×6 (01:19→23:11)
[2020-08-16 04:12] VITALS: BP 122/67
[2020-08-16 05:29] LABS: HEMATOCRIT 30.2 % (36.0-47.0); HEMOGLOBIN 9.1 g/dl (12.0-15.5); MEAN CORPUSCULAR HEMOGLOBIN 32.9 pg (27.0-33.0); MEAN CORPUSCULAR HGB CONC 30.1 g/dl (32.0-36.5); PLATELET COUNT, AUTOMATED 164 10^3/uL (150-450); RED BLOOD COUNT 2.77 10^6/uL (4.00-5.40); WHITE BLOOD COUNT 6.2 10^3/uL (4.0-10.0)
[2020-08-16 05:52] LABS: CALCIUM LEVEL 9.2 MG/DL (8.8-10.2); CREATININE FOR GFR 1.55 MG/DL (0.55-1.30); GLOMERULAR FILTRATION RATE 33.6 (>32); MAGNESIUM LEVEL 2.2 MG/DL (1.8-2.4); POTASSIUM SERUM 3.8 MEQ/L (3.5-5.1)
[2020-08-16] MEDS ORDERED: LevoFLOXacin 750 MG TABLET PO SCH (06:00)
[2020-08-16] MEDS: SLF 3 ML SYR IV SCH ×3 (06:12→20:57)
--- NOTE | 2020-08-16 07:28 | ECHO ---
DATE OF PROCEDURE: 08/14/2020 Age: 89 Gender: Female Height: 157 cm Weight: 81 kg REFERRING PHYSICIAN: Dr. Wright INDICATION: Congestive heart failure. MEASUREMENTS: IVS 1.1 LV 5.6 LVPW 1.0 Aorta 3.5 LA 4.3 IVC 2.4 Left atrial volume index 39 FINDINGS: The study is of fair technical quality. The patient is in atrial fibrillation with variable ventricular rate, averaging over 100 beats per minute. Left ventricle is borderline dilated and globally hypokinetic. Estimated LV ejection fraction around 30 to 35%. The right ventricle also dilated and hypokinetic. There is severe biatrial enlargement. Aortic valve is mildly sclerotic, mobility of cusps is preserved. Mitral, tricuspid and pulmonic valve appears structurally intact. Inferior vena cava is dilated with collapse with inspiration indicative of mildly elevated central venous pressure. Aortic root is normal. Aortic arch and abdominal aorta were not well seen. Doppler interrogation of aortic valve showed no significant stenosis and mild insufficiency. There is approximately moderate mitral insufficiency and mild tricuspid insufficiency. Calculated pulmonary artery pressure is in low 40s corresponding to moderate pulmonary hypertension. Trace pulmonic insufficiency is seen. Evaluation of diastolic function is inconclusive due to underlying atrial fibrillation. CONCLUSIONS: 1. Study is of fair technical quality. The patient is in atrial fibrillation with mildly tachycardic rate. 2. Borderline dilated left ventricle with global LV systolic dysfunction and estimated left ventricular ejection fraction (LVEF) 30-35%. 3. Dilated right ventricle. 4. Severe biatrial enlargement. 5. Aortic sclerosis with no stenosis and mild insufficiency. 6. Moderate mitral insufficiency. 7. Elevated central venous pressure and at least pulmonary hypertension. 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
[2020-08-16] MEDS: SYMBICORT 80/4.5MCG INHALER 6GM INH SCH ×2 (07:33→19:26)
[2020-08-16 08:00] VITALS: BP 107/58
[2020-08-16] MEDS: LISINOPRIL *2.5 MG* TAB PO SCH (08:38)
[2020-08-16] MEDS: predniSONE 1 MG TAB PO SCH (08:38)
[2020-08-16] MEDS: APIXABAN 5 MG TAB (ELIQUIS) PO SCH ×2 (08:39→20:55)
[2020-08-16] MEDS: DOCUSATE SODIUM 100 MG CAP PO SCH ×2 (08:39→20:55)
[2020-08-16] MEDS: HYDROXYCHLOROQUINE 200 MG TAB PO SCH (08:39)
[2020-08-16] MEDS: allopurinoL 100 MG TAB PO SCH (08:39)
[2020-08-16] MEDS: METOPROLOL TART 50 MG TAB PO SCH ×2 (08:43→20:56)
[2020-08-16] MEDS: OXYMETAZOLINE 0.05% NASAL SPRAY (AFRIN) SCH ×2 (10:16→20:56)
--- NOTE | 2020-08-16 11:09 | IPNPDOC ---
Text Note Date of Service The patient was seen on 08/16/20. NOTE Subjective: No any acute events overnight. Patient continues to complains of generalized weakness. She c/o nasal congestion. Objective: GENERAL APPEARANCE: NAD HEENT: no scleral icterus, no JVD, EOMI CARDIOVASCULAR: Irregularly irregular LUNGS: Diminished lung sounds bilaterally ABDOMEN: soft & not tender w palpitation MUSCULOSKELETAL: +1 nonpitting edema INTEGUMENT: no generalized palor NEUROLOGICAL: cranial nerve function from 2-12 intact intact, follows commands, speech not dysarthric Echo 1. Study is of fair technical quality. The patient is in atrial fibrillation with mildly tachycardiac rate. 2. Borderline dilated left ventricle with global LV systolic dysfunction and estimated left ventricular ejection fraction (LVEF) 30 to 35%. 3. Dilated right ventricle. 4. Severe biatrial enlargement. 5. Aortic sclerosis with no stenosis and mild insufficiency. 6. Moderate mitral insufficiency. 7. Elevated central venous pressure and at least pulmonary hypertension. Assessment/Plan Patient is an 89-year-old female with a PMHx of Diastolic CHF, HTN, Borderline DM2, COPD, Lupus (on Hydroxychloroquine and Prednisone), Chornic pain / Arthritis, Gout and Mild pulmonary HTN, who presented to the hospital with complaint of short of breath. Patient stated that she has been having shortness of breath for past few days associated with increased cough and yellowish sputum production. In ER patient was found to have negative respiratory panel, BNP 6221, chest x-ray showed CHF pattern with cardiomegaly pulmonary vascular congestion and mild interstitial edema patter Problems (1) Acute systolic CHF Diastolic CHF I's and O's Continue with Lasix IV Cardiac diet Despite of intensive diuresis BNP continues to rise, most likely secondary to elevated central venous pressure and pulmonary hypertension Appreciate/agree with edge trimmer consult (2) COPD (chronic obstructive pulmonary disease) Patient complains of increased cough and yellowish sputum production Levofloxacin by mouth Continue inhalers (3) Tachycardia Patient heart rate ranged from 100-110. I increased her dose of metoprolol to 100 mg twice a day Lopressor when necessary (4) Hypertension Blood pressures under control Continue home cardioprotective medication (5) Lupus Continue home meds (6) Macrocytic anemia B12 and folate level within normal limit There is concern for MDS, follow-up with PCP and communications station manager in the outpatient settings (7) Atrial fibrillation Oral targeted anticoagulation VS,Fishbone, I+O VS, Fishbone, I+O Laboratory Tests 08/16/20 05:08 Vital Signs Date Time Temp Pulse Resp B/P (MAP) Pulse Ox O2 Delivery O2 Flow Rate FiO2 08/16/20 08:43 113 112/58 08/16/20 08:00 2.0 08/16/20 08:00 98.3 20 93 Nasal Cannula I&O- Last 24 Hours up to 6 AM 08/16/20 06:00 Intake Total 770 ml Output Total 800 ml Balance -30 ml ARNOL RICKETTS DO Aug 16, 2020 11:08
[2020-08-16 12:00] VITALS: BP 113/80
[2020-08-16 16:00] VITALS: BP 113/89
[2020-08-16 20:00] VITALS: BP 130/70
[2020-08-16] MEDS: MIRTAZAPINE 15 MG TAB PO SCH (20:55)
[2020-08-16] MEDS: ASPIRIN 81 MG ENTERIC TAB PO SCH (20:55)
[2020-08-17] VITALS: BP 140/74
[2020-08-17] MEDS: FUROSEMIDE 40MG/4ML VIAL (J1940) IV SCH (00:32)
[2020-08-17] MEDS: IPRATROPIUM 0.5MG/ALBUTEROL 2.5MG INH SOL UD 3ML (DUONEB) NEB SCH ×6 (02:11→23:43)
[2020-08-17 04:00] VITALS: BP 122/72
[2020-08-17] MEDS: SLF 3 ML SYR IV SCH ×2 (04:11→12:15)
[2020-08-17 06:01] LABS: HEMATOCRIT 29.4 % (36.0-47.0); HEMOGLOBIN 8.7 g/dl (12.0-15.5); MEAN CORPUSCULAR HEMOGLOBIN 31.9 pg (27.0-33.0); MEAN CORPUSCULAR HGB CONC 29.6 g/dl (32.0-36.5); MEAN CORPUSCULAR VOLUME 107.7 fl (80.0-96.0); PLATELET COUNT, AUTOMATED 163 10^3/uL (150-450); RED BLOOD COUNT 2.73 10^6/uL (4.00-5.40)
[2020-08-17 06:32] LABS: CALCIUM LEVEL 8.5 MG/DL (8.8-10.2); CREATININE FOR GFR 1.84 MG/DL (0.55-1.30); GLOMERULAR FILTRATION RATE 27.6 (>32); MAGNESIUM LEVEL 2.1 MG/DL (1.8-2.4); POTASSIUM SERUM 3.8 MEQ/L (3.5-5.1)
[2020-08-17] MEDS: SYMBICORT 80/4.5MCG INHALER 6GM INH SCH ×2 (07:30→20:27)
[2020-08-17 08:00] VITALS: BP 123/56
[2020-08-17] MEDS: predniSONE 1 MG TAB PO SCH (09:18)
[2020-08-17] MEDS: METOPROLOL TART 50 MG TAB PO SCH ×2 (09:18→20:45)
[2020-08-17] MEDS: LISINOPRIL *2.5 MG* TAB PO SCH (09:18)
[2020-08-17] MEDS: allopurinoL 100 MG TAB PO SCH (09:19)
[2020-08-17] MEDS: OXYMETAZOLINE 0.05% NASAL SPRAY (AFRIN) SCH ×2 (09:19→20:45)
[2020-08-17] MEDS: HYDROXYCHLOROQUINE 200 MG TAB PO SCH (09:19)
[2020-08-17] MEDS: APIXABAN 2.5 MG TAB (ELIQUIS) PO SCH ×2 (09:19→20:44)
[2020-08-17] MEDS: DOCUSATE SODIUM 100 MG CAP PO SCH ×2 (09:19→20:45)
[2020-08-17] MEDS: FAMOTIDINE 20 MG TAB PO PRN (09:28)
[2020-08-17 12:00] VITALS: BP 101/55
--- NOTE | 2020-08-17 12:46 | IPNPDOC ---
Text Note Date of Service The patient was seen on 08/17/20. NOTE Subjective: No any acute events overnight. Patient stated that she feels better today. Patient complains of insomnia Objective: GENERAL APPEARANCE: NAD HEENT: no scleral icterus, no JVD, EOMI CARDIOVASCULAR: Irregularly irregular LUNGS: Diminished lung sounds bilaterally ABDOMEN: soft & not tender w palpitation MUSCULOSKELETAL: +1 nonpitting edema INTEGUMENT: no generalized palor NEUROLOGICAL: cranial nerve function from 2-12 intact intact, follows commands, speech not dysarthric Assessment/Plan Patient is an 89-year-old female with a PMHx of Diastolic CHF, HTN, Borderline DM2, COPD, Lupus (on Hydroxychloroquine and Prednisone), Chornic pain / Arthritis, Gout and Mild pulmonary HTN, who presented to the hospital with complaint of short of breath. Patient stated that she has been having shortness of breath for past few days associated with increased cough and yellowish sputum production. In ER patient was found to have negative respiratory panel, BNP 6221, chest x-ray showed CHF pattern with cardiomegaly pulmonary vascular congestion and mild interstitial edema patter Problems (1) Acute CHF Diastolic CHF I's and O's I reduced dose of Lasix IV due to worsening kidney function Cardiac diet Echo report showed ejection fraction of 30-35% Lisinopril added to medical regimen (2) exacerbation of COPD (chronic obstructive pulmonary disease) Continue inhalers DC levofloxacin (3) Tachycardia Heart rate improved and under control Continue metoprolol 100 mg twice a day (4) Hypertension Blood pressures under control Continue home cardioprotective medication (5) Lupus Continue home meds (6) Macrocytic anemia B12 and folate level within normal limit There is concern for MDS, follow-up with PCP and janitor in the outpatient settings (7) Atrial fibrillation Oral targeted anticoagulation Heart rate under control Insomnia Rozerem Acute on chronic kidney diseases stage III Worsening kidney function due to diuresis with Lasix Dose of Lasix decreased Continue to monitor VS,Fishbone, I+O VS, Fishbone, I+O Laboratory Tests 08/17/20 05:40 Vital Signs Date Time Temp Pulse Resp B/P (MAP) Pulse Ox O2 Delivery O2 Flow Rate FiO2 08/17/20 09:18 100 123/56 08/17/20 08:00 2.0 08/17/20 08:00 97.1 18 90 Nasal Cannula I&O- Last 24 Hours up to 6 AM 08/17/20 06:00 Intake Total 1080 ml Output Total 750 ml Balance 330 ml ARNOL RICKETTS DO Aug 17, 2020 12:46
[2020-08-17 16:00] VITALS: BP 137/72
[2020-08-17 19:10] VITALS: BP 117/58
[2020-08-17] MEDS: RAMELTEON 8 MG TAB (ROZEREM) PO SCH (20:49)
[2020-08-17] MEDS: MIRTAZAPINE 15 MG TAB PO SCH (20:49)
[2020-08-18] VITALS (7 sets, daily range): BP systolic 101–157; BP diastolic 56–92
[2020-08-18] MEDS ORDERED: FUROSEMIDE 40MG/4ML VIAL (J1940) IV SCH
[2020-08-18] MEDS: SLF 3 ML SYR IV SCH ×4 (01:00→21:16)
--- NOTE | 2020-08-18 01:49 | ECGEPIP ---
[facility] Test Date: 2020-08-15 Pat Name: KENDRICK MALIK Department: Room: [place] [address] Gender: Female Sales Agent: MARISOL : 1930 Requested By: ARNOL RICKETTS Order Number: [id number] Reading MD: Nimesh Simmons Measurements Intervals [place] Rate: 103 P: NM: 0 QRS: -45 QRSD: 87 T: 18 QT: 342 QTc: 449 Interpretive Statements ATRIAL FIBRILLATION WITH RAPID VENTRICULAR RESPONSE LEFT AXIS DEVIATION Low QRS complex voltage in the limb leads Delayed anterior R wave progression Similar to tracing done 08-13-20 Electronically Signed on 08-18-2020 1:48:45 EST by Nimesh Simmons
[2020-08-18] MEDS: IPRATROPIUM 0.5MG/ALBUTEROL 2.5MG INH SOL UD 3ML (DUONEB) NEB SCH ×6 (04:00→23:07)
[2020-08-18 04:23] LABS: HEMATOCRIT 31.1 % (36.0-47.0); HEMOGLOBIN 9.4 g/dl (12.0-15.5); MEAN CORPUSCULAR HGB CONC 30.2 g/dl (32.0-36.5); MEAN CORPUSCULAR VOLUME 109.1 fl (80.0-96.0); PLATELET COUNT, AUTOMATED 170 10^3/uL (150-450); RED BLOOD COUNT 2.85 10^6/uL (4.00-5.40); WHITE BLOOD COUNT 6.6 10^3/uL (4.0-10.0)
[2020-08-18 04:45] LABS: CALCIUM LEVEL 8.7 MG/DL (8.8-10.2); CREATININE FOR GFR 1.88 MG/DL (0.55-1.30); GLOMERULAR FILTRATION RATE 26.9 (>32); MAGNESIUM LEVEL 2.2 MG/DL (1.8-2.4); POTASSIUM SERUM 4.1 MEQ/L (3.5-5.1)
[2020-08-18] MEDS: SYMBICORT 80/4.5MCG INHALER 6GM INH SCH ×2 (07:12→18:18)
[2020-08-18] MEDS: predniSONE 1 MG TAB PO SCH (09:13)
[2020-08-18] MEDS: HYDROXYCHLOROQUINE 200 MG TAB PO SCH (09:13)
[2020-08-18] MEDS: DOCUSATE SODIUM 100 MG CAP PO SCH ×2 (09:13→20:30)
[2020-08-18] MEDS: LISINOPRIL *2.5 MG* TAB PO SCH (09:13)
[2020-08-18] MEDS: FUROSEMIDE 40 MG TAB PO SCH (09:14)
[2020-08-18] MEDS: APIXABAN 2.5 MG TAB (ELIQUIS) PO SCH ×2 (09:14→20:30)
[2020-08-18] MEDS: METOPROLOL TART 50 MG TAB PO SCH ×2 (09:14→20:31)
[2020-08-18] MEDS: OXYMETAZOLINE 0.05% NASAL SPRAY (AFRIN) SCH ×2 (09:15→20:30)
[2020-08-18] MEDS: FAMOTIDINE 20 MG TAB PO PRN (09:17)
[2020-08-18] MEDS: RAMELTEON 8 MG TAB (ROZEREM) PO SCH (21:16)
[2020-08-18] MEDS: MIRTAZAPINE 15 MG TAB PO SCH (21:16)
[2020-08-19] VITALS: BP 123/69
[2020-08-19 04:00] VITALS: BP 109/62
[2020-08-19] MEDS: SLF 3 ML SYR IV SCH ×3 (05:17→21:21)
[2020-08-19 05:34] LABS: HEMATOCRIT 31.2 % (36.0-47.0); HEMOGLOBIN 9.1 g/dl (12.0-15.5); MEAN CORPUSCULAR HEMOGLOBIN 31.8 pg (27.0-33.0); MEAN CORPUSCULAR HGB CONC 29.2 g/dl (32.0-36.5); MEAN CORPUSCULAR VOLUME 109.1 fl (80.0-96.0); PLATELET COUNT, AUTOMATED 150 10^3/uL (150-450); RED BLOOD COUNT 2.86 10^6/uL (4.00-5.40); WHITE BLOOD COUNT 6.1 10^3/uL (4.0-10.0)
[2020-08-19 05:59] LABS: CALCIUM LEVEL 8.8 MG/DL (8.8-10.2); CREATININE FOR GFR 1.49 MG/DL (0.55-1.30); GLOMERULAR FILTRATION RATE 35.2 (>32); MAGNESIUM LEVEL 2.3 MG/DL (1.8-2.4); POTASSIUM SERUM 3.9 MEQ/L (3.5-5.1)
[2020-08-19] MEDS: IPRATROPIUM 0.5MG/ALBUTEROL 2.5MG INH SOL UD 3ML (DUONEB) NEB SCH ×5 (07:45→23:24)
[2020-08-19] MEDS: SYMBICORT 80/4.5MCG INHALER 6GM INH SCH ×2 (07:47→20:59)
[2020-08-19 08:00] VITALS: BP 132/72
[2020-08-19] MEDS: predniSONE 1 MG TAB PO SCH (09:02)
[2020-08-19] MEDS: DOCUSATE SODIUM 100 MG CAP PO SCH ×2 (09:02→21:21)
[2020-08-19] MEDS: FUROSEMIDE 40 MG TAB PO SCH (09:02)
[2020-08-19] MEDS: APIXABAN 2.5 MG TAB (ELIQUIS) PO SCH ×2 (09:03→21:21)
[2020-08-19] MEDS: METOPROLOL TART 50 MG TAB PO SCH (09:03)
[2020-08-19] MEDS: LISINOPRIL *2.5 MG* TAB PO SCH (09:03)
[2020-08-19] MEDS: HYDROXYCHLOROQUINE 200 MG TAB PO SCH (09:03)
[2020-08-19 12:00] VITALS: BP 142/67
--- NOTE | 2020-08-19 12:12 | IPNPDOC ---
Text Note Date of Service The patient was seen on 08/19/20. NOTE Subjective: No any acute events overnight. Patient denied fever, chills, nausea, diarrhea or dysuria Objective: GENERAL APPEARANCE: NAD HEENT: no scleral icterus, no JVD, EOMI CARDIOVASCULAR: Irregularly irregular LUNGS: Diminished lung sounds bilaterally ABDOMEN: soft & not tender w palpitation MUSCULOSKELETAL: +1 nonpitting edema INTEGUMENT: no generalized palor NEUROLOGICAL: cranial nerve function from 2-12 intact intact, follows commands, speech not dysarthric Assessment/Plan Patient is an 89-year-old female with a PMHx of Diastolic CHF, HTN, Borderline DM2, COPD, Lupus (on Hydroxychloroquine and Prednisone), Chornic pain / Arthritis, Gout and Mild pulmonary HTN, who presented to the hospital with complaint of short of breath. Patient stated that she has been having shortness of breath for past few days associated with increased cough and yellowish sputum production. In ER patient was found to have negative respiratory panel, BNP 6221, chest x-ray showed CHF pattern with cardiomegaly pulmonary vascular congestion and mild interstitial edema patter Problems (1) Acute CHF Diastolic CHF I's and O's Continue Lasix PO Cardiac diet Echo report showed ejection fraction of 30-35% Lisinopril added to medical regimen (2) exacerbation of COPD (chronic obstructive pulmonary disease) At baseline for now Continue inhalers DC levofloxacin (3) Tachycardia Heart rate improved and under control Continue metoprolol 100 mg twice a day (4) Hypertension Blood pressures under control Continue home cardioprotective medication (5) Lupus Continue home meds (6) Macrocytic anemia B12 and folate level within normal limit There is concern for MDS, follow-up with PCP and magician/illusionist in the outpatient settings (7) Atrial fibrillation Oral targeted anticoagulation Heart rate under control Insomnia Rozerem Acute on chronic kidney diseases stage III Improved Continue to monitor VS,Fishbone, I+O VS, Fishbone, I+O Laboratory Tests 08/19/20 05:21 Vital Signs Date Time Temp Pulse Resp B/P (MAP) Pulse Ox O2 Delivery O2 Flow Rate FiO2 08/19/20 09:03 101 132/72 08/19/20 08:00 97.4 18 91 Nasal Cannula 2.0 I&O- Last 24 Hours up to 6 AM 08/19/20 06:00 Intake Total 690 ml Output Total 550 ml Balance 140 ml DROZHZHIN,ARNOL DO Aug 19, 2020 12:12
[2020-08-19] MEDS ORDERED: METOPROLOL TART 25 MG TABLET PO ONE (13:00)
[2020-08-19 16:00] VITALS: BP 123/60
[2020-08-19 20:00] VITALS: BP 104/58
[2020-08-19] MEDS: METOPROLOL TARTRATE 100 MG TAB PO SCH (21:00)
[2020-08-19] MEDS: RAMELTEON 8 MG TAB (ROZEREM) PO SCH (21:20)
[2020-08-19] MEDS: MIRTAZAPINE 15 MG TAB PO SCH (21:21)
[2020-08-20] VITALS: BP 124/62
[2020-08-20 04:00] VITALS: BP 120/67
[2020-08-20] MEDS: IPRATROPIUM 0.5MG/ALBUTEROL 2.5MG INH SOL UD 3ML (DUONEB) NEB SCH ×5 (04:00→19:55)
[2020-08-20] MEDS: SLF 3 ML SYR IV SCH ×3 (05:29→21:19)
[2020-08-20 05:42] LABS: HEMATOCRIT 30.1 % (36.0-47.0); HEMOGLOBIN 9.1 g/dl (12.0-15.5); MEAN CORPUSCULAR HEMOGLOBIN 32.7 pg (27.0-33.0); MEAN CORPUSCULAR HGB CONC 30.2 g/dl (32.0-36.5); MEAN CORPUSCULAR VOLUME 108.3 fl (80.0-96.0); PLATELET COUNT, AUTOMATED 157 10^3/uL (150-450); RED BLOOD COUNT 2.78 10^6/uL (4.00-5.40); WHITE BLOOD COUNT 6.7 10^3/uL (4.0-10.0)
[2020-08-20 06:06] LABS: CALCIUM LEVEL 9.1 MG/DL (8.8-10.2); CREATININE FOR GFR 1.35 MG/DL (0.55-1.30); GLOMERULAR FILTRATION RATE 39.4 (>32); MAGNESIUM LEVEL 2.3 MG/DL (1.8-2.4); POTASSIUM SERUM 4.1 MEQ/L (3.5-5.1)
[2020-08-20 08:00] VITALS: BP 142/62
[2020-08-20] MEDS: SYMBICORT 80/4.5MCG INHALER 6GM INH SCH ×2 (08:13→19:55)
[2020-08-20] MEDS: predniSONE 1 MG TAB PO SCH (09:08)
[2020-08-20] MEDS: LISINOPRIL *2.5 MG* TAB PO SCH (09:08)
[2020-08-20] MEDS: APIXABAN 2.5 MG TAB (ELIQUIS) PO SCH ×2 (09:09→21:18)
[2020-08-20] MEDS: HYDROXYCHLOROQUINE 200 MG TAB PO SCH (09:09)
[2020-08-20] MEDS: FUROSEMIDE 40 MG TAB PO SCH (09:09)
[2020-08-20] MEDS: DOCUSATE SODIUM 100 MG CAP PO SCH ×2 (09:09→21:18)
[2020-08-20] MEDS: METOPROLOL TARTRATE 100 MG TAB PO SCH ×2 (09:10→21:18)
[2020-08-20 12:00] VITALS: BP 126/62
[2020-08-20] MEDS: METOPROLOL TART 25 MG TABLET PO SCH (12:52)
[2020-08-20 16:00] VITALS: BP 127/74
[2020-08-20 20:00] VITALS: BP 120/55
[2020-08-20] MEDS: MIRTAZAPINE 15 MG TAB PO SCH ×3 (21:00→21:24)
[2020-08-20] MEDS: RAMELTEON 8 MG TAB (ROZEREM) PO SCH (21:18)
[2020-08-21] VITALS: BP 113/58
[2020-08-21 04:00] VITALS: BP 124/64
[2020-08-21] MEDS: SLF 3 ML SYR IV SCH (05:11)
[2020-08-21 05:44] LABS: HEMATOCRIT 32.6 % (36.0-47.0); MEAN CORPUSCULAR HEMOGLOBIN 33.7 pg (27.0-33.0); MEAN CORPUSCULAR HGB CONC 30.7 g/dl (32.0-36.5); MEAN CORPUSCULAR VOLUME 109.8 fl (80.0-96.0); PLATELET COUNT, AUTOMATED 155 10^3/uL (150-450); RED BLOOD COUNT 2.97 10^6/uL (4.00-5.40)
[2020-08-21 06:00] LABS: CALCIUM LEVEL 8.9 MG/DL (8.8-10.2); CREATININE FOR GFR 1.28 MG/DL (0.55-1.30); GLOMERULAR FILTRATION RATE 41.9 (>32); MAGNESIUM LEVEL 2.5 MG/DL (1.8-2.4); POTASSIUM SERUM 4.5 MEQ/L (3.5-5.1)
[2020-08-21 07:36] VITALS: BP 114/55
[2020-08-21] MEDS: SYMBICORT 80/4.5MCG INHALER 6GM INH SCH (07:47)
[2020-08-21] MEDS: IPRATROPIUM 0.5MG/ALBUTEROL 2.5MG INH SOL UD 3ML (DUONEB) NEB SCH ×3 (07:47→11:27)
--- NOTE | 2020-08-21 07:55 | CR ---
DATE OF CONSULTATION: 08/16/2020 REFERRING PROVIDER: Dr. Arcenio Wright REASON FOR CONSULTATION: Congestive heart failure. HISTORY OF PRESENT ILLNESS: An 89-year-old woman, well known by the office, with a history of diastolic heart failure, hypertension, diabetes mellitus, chronic obstructive pulmonary disease (COPD), arthritis/gout, has been doing well at her facility where she lives but was brought to the emergency room (ER) on 08/13/2020 because of increased shortness of breath, pedal edema, and orthopnea. She was admitted for further management and monitoring, and echocardiogram done revealed a moderately depressed global left ventricular systolic function. Cardiology consult was called. Upon arrival at the hospital, she was in atrial fibrillation with a rapid ventricular rate and was started on a beta catalino as well as Eliquis. When I saw Mrs. Wendy Lawson, she was sitting in a chair in no acute distress at rest and just had dinner. She said that she feels better today when compared to the previous days she has been in the hospital. Her shortness of breath and pedal edema have improved. She feels her heart is not going that fast. She denies any orthopnea or paroxysmal nocturnal dyspnea (PND). She denies any bleeding. She has no focal manifestation. She has not been coughing. HOME MEDICATIONS: - aspirin 81 mg by mouth daily - allopurinol 100 mg tablet, two tablets by mouth daily - Symbicort 80/4.5 mcg, two puffs twice a day via inhalation - Refresh eyedrops - carvedilol 6.25 mg by mouth twice a day - docusate sodium 100 mg capsule, two capsules twice a day - hydroxychloroquine 200 mg by mouth daily - Lactobacillus combo one tablet -month-old daily - lisinopril 2.5 mg by mouth daily - mirtazapine - Remeron 15 mg by mouth every night - prednisone 1 mg tablet, two tablets by mouth daily - torsemide 20 mg by mouth daily - multivitamin one daily CURRENT MEDICATIONS: - furosemide 40 mg intravenous (IV) twice a day - Rozerem 8 mg by mouth every night - apixaban 5 mg by mouth twice a day - DuoNeb as directed - metoprolol tartrate 100 mg by mouth twice a day - mirtazapine 15 mg by mouth daily - Tylenol 650 mg every 4 hours as needed for pain or fever - famotidine 20 mg by mouth daily as needed for heartburn PAST SURGICAL HISTORY: 1. Total left knee arthroplasty. 2. Partial colectomy for colon cancer. 3. Abdominal wall plasty. FAMILY HISTORY: Noncontributory. SOCIAL HISTORY: Patient lives in an adult home center in [facility]. She denies any smoking, EtOH abuse, or illicit drugs. ALLERGIES: She has multiple allergies to NONSTEROIDAL ANTI-INFLAMMATORY DRUGS (NSAIDS), SOME STATINS, LIDOCAINE, , and IBUPROFEN, as well as lactose. PHYSICAL EXAMINATION: Patient is alert and oriented in no acute distress at rest and very pleasant. VITAL SIGNS: When I saw her revealed a blood pressure of 130/70 with a pulse of 84, respirations 18, and her maximum temperature is 98.2 degrees Fahrenheit with an oxygen saturation of 92% on 2 liters nasal cannula. HEAD, EYES, EARS, NOSE, AND THROAT: Atraumatic. NECK: Supple and no jugular venous distention (JVD) appreciated while sitting up in the chair. LUNGS: Did not reveal any wheezing or crackles. HEART: Revealed irregular heart sounds without gallops. The point of maximal impulse (PMI) is slightly displaced inferiorly and laterally. There is no rub. ABDOMEN: Soft and nontender. EXTREMITIES: Show bilateral lower legs/ankle edema. NEUROLOGIC: Negative for focal deficit. LABORATORY DATA: CBC on 08/16/2020 revealed a WBC of 6.2, hemoglobin 9.1, hematocrit 30.2, and platelets 164,000. BMP on 08/16/2020 revealed a sodium of 140, potassium 3.8, chloride 100, CO2 of 38, BUN 53, creatinine 1.55, GFR 33.6, fasting glucose 122, calcium 9.2, and magnesium 2.2. Serum pro-BNP on 08/15/2020 was 10,423. Chest x-ray on 08/13/2020 revealed findings consistent with cardiomegaly and congestive heart failure. EKG revealed atrial fibrillation with a rapid ventricular rate at 120 beats per minute with left axis deviation, low voltage QRS complexes in the precordial leads. Poor R-wave progression also noted. Echocardiogram on 08/13/2020 revealed an left ventricular ejection fraction (LVEF) estimated at 25%, severe biatrial enlargement, aortic valve sclerosis, dilated inferior vena cava. IMPRESSION: An 89-year-old woman came to the hospital for further evaluation because of shortness of breath and pedal edema. She was found on arrival to be in atrial fibrillation with a rapid ventricular rate. Further workup, an echocardiogram, revealed a moderately depressed global left ventricular systolic function. She now appears to be stable and has improved. Her beta catalino was increased earlier today, and she stated that she feels better since it was increased. I have noticed that her serum creatinine is about 1.5, and if it remains the same or higher, we shall consider cutting back on the Eliquis from 5 mg by mouth twice a day to 2.5 mg by mouth twice a day. Her left ventricular systolic function is most likely tachycardia induced. I am expecting her to do well after controlling her heart rate. If her heart rate when I see her again remains the same, I will increase her beta catalino by initially 50 mg by mouth daily. I also have noticed that her serum creatinine is going up, and I will recommend if it is the same to decrease her IV Lasix from twice a day to once a day. She is also on angiotensin-converting enzyme (RYLAN) inhibitor besides a beta catalino. I will continue the same. There is no need for spironolactone at this present time. There is also no need at this present time for Entresto. It was a pleasure to participate in the care of Mrs. Wendy Gonzalez for her underlying cardiac condition. I will continue to monitor her along with you. Please do not hesitate to call if any questions. Case was discussed earlier today with her hospitalist. MESSI
[2020-08-21] MEDS ORDERED: METOPROLOL SUCC (TopROL XL) 100MG *XL* TAB PO SCH (09:00)
[2020-08-21] MEDS ORDERED: metOLazone 5 MG TAB PO SCH (09:00)
[2020-08-21] MEDS: APIXABAN 2.5 MG TAB (ELIQUIS) PO SCH (09:32)
[2020-08-21] MEDS: LISINOPRIL *2.5 MG* TAB PO SCH (09:34)
[2020-08-21] MEDS: predniSONE 1 MG TAB PO SCH (09:34)
[2020-08-21] MEDS: HYDROXYCHLOROQUINE 200 MG TAB PO SCH (09:35)
[2020-08-21] MEDS: DOCUSATE SODIUM 100 MG CAP PO SCH (09:36)
[2020-08-21] MEDS ORDERED: FURO40TA2 PO (11:14)
[2020-08-21] MEDS ORDERED: METO5TA PO (11:14)
[2020-08-21] MEDS ORDERED: ELIQ2.5T PO (11:14)
[2020-08-21] MEDS ORDERED: METO1TAB33 PO (11:14)
[2020-08-21] MEDS ORDERED: FUROSEMIDE 40 MG TAB PO SCH (12:00)
[2020-08-21 12:05] VITALS: BP 109/56
[2020-08-21] MEDS: METOPROLOL TART 25 MG TABLET PO SCH (12:05)
--- NOTE | 2020-08-21 13:47 | IPN ---
DATE: 08/19/2020 SUBJECTIVE: Mrs. Wendy Gonzalez was seen yesterday in the evening and also this morning. She was sitting in the chair this morning in no acute distress, and she stated she is feeling better. She has been having physical therapy. She denies any chest pain, shortness of breath, or palpitations. Her peripheral edema has improved significantly. She does complain of fatigue. There is no report of bleeding. She was initially admitted on 08/13/2020, with decompensated congestive heart failure and she was found to have left ventricular systolic dysfunction by echocardiogram. Her heart rate has been under better control with the metoprolol tartrate, but still running around 100 beats per minute. Her kidney function had deteriorated with the IV Lasix and this was decreased and now, her kidney function is improving. There is no report of bleeding. OBJECTIVE: GENERAL: The patient is alert and oriented, in no acute distress at rest. VITAL SIGNS: Earlier today when I saw her revealed a blood pressure of 142/67 with a pulse of 84, respirations 18, and maximum temperature 97.1 degrees Fahrenheit, and oxygen saturation of 94% on 2 L nasal cannula. HEAD: Atraumatic. NECK: Supple and no jugular venous distention (JVD) appreciated while sitting. LUNGS: Did not reveal any wheezing or crackles. HEART: Revealed an irregular heart sounds without gallops. The point of maximal impulse (PMI) is not displaced. There is no rub. ABDOMEN: Soft and nontender. EXTREMITIES: Revealed no pedal edema. NEUROLOGIC: Negative for focal deficits. LABORATORY DATA: BMP done today revealed a sodium of 142, potassium 3.9, chloride 103, CO2 of 36, BUN 67, creatinine 1.49, GFR 35.2, fasting glucose 123, and calcium 8.8. Magnesium 2.2. CBC revealed a WBC of 6.1, hemoglobin 9.1, hematocrit 31.2, and platelets 150,000. IMPRESSION: 1. Atrial fibrillation, new diagnosed and her heart rate has improved significantly. She will continue with the same dose of the metoprolol tartrate, but I am going to give her today an extra dose of 25 mg p.o. around 1 o'clock in the afternoon, and she will be monitored. She will continue the Eliquis at a small dose for prevention of thromboembolic events, she denies any bleeding. If her kidney function continues to improve, we will increase her Eliquis. 2. Status post decompensated congestive heart failure with a depressed global left ventricular systolic function. This may be related to maybe tachycardia induced. She will be monitored for now, on beta-catalino, as well as angiotensin converting enzyme (RYLAN) inhibitor. Sometime down the road, we will reassess her left ventricular ejection fraction (LVEF). 3. Status post ventricular tachycardia, noted on telemetry. Currently on a beta-catalino. 4. History of hypertension in good control. 5. Chronic kidney disease. She will be monitored. This is now improving. 6. History of chronic obstructive pulmonary disease (COPD). No wheezing noted on examination. 7. Glucose intolerance. She will be monitored, on diet. It was a pleasure to participate in the care of Mrs. Lawson for her underlying cardiac condition. I will continue to monitor along with you. The case was discussed with the hospitalist. MESSI
--- NOTE | 2020-08-21 13:51 | IPN ---
DATE: 08/21/2020 SUBJECTIVE: Mrs. Gonzalez tells me she is feeling relatively well. She was able to sleep throughout the night for the most part. Did not have any PND. She still admits that she gets very short of breath with fairly minimal exertion. She is walking from her bed to the bathroom which is only a few feet and makes her quite dyspneic. Denies any chest discomfort. PHYSICAL EXAMINATION: VITAL SIGNS: This morning blood pressure is 124/64, heart rate has been in the 80s and 90s, atrial fibrillation. She is afebrile. Saturation is 91% on 2 liters of oxygen via nasal cannula. Her recorded fluid balance yesterday was positive 450ml, weight is 80.9 kg. The urine output is likely not to have been documented accurately though. GENERAL APPEARANCE: She is alert, oriented and appropriate. NECK: Her JVP is elevated. LUNGS: Relatively clear on the right but on the left she has crackles and there are mildly diminished breath sounds over both bases. HEART: Irregular rate, irregular rhythm. I do not appreciate any ko gallop. There is a murmur best heard at the axilla, probably about 2/6 intensity consistent with MR. ABDOMEN: Soft, nontender. EXTREMITIES: Free of edema. LABORATORY DATA: Laboratories reveals basic metabolic panel: Sodium: 141, potassium 4.5, BUN 62, creatinine 1.3 and glucose 118. CBC: WBC 7, hemoglobin 10.0, hematocrit 32.6 and platelet count 155,000. ASSESSMENT: Mrs. Gonzalez is an 89-year-old female who presented with congestive heart failure that is most likely a consequence of tachycardia induced cardiomyopathy due to incompletely well-controlled atrial fibrillation. She feels much improved but still not at baseline. Even in assisted living where she resides she is using supplemental oxygen all the time. I am going to make small changes in her medications. I am going to change metoprolol to long release preparation, that is evidenced base choice for systolic dysfunction and I will change her to Toprol XL 200 mg daily. She can get additional 25 mg b.i.d. as needed for tachycardic rate. I am also going to increase her dose of diuretics, she still seems to be a little wet even though with the renal dysfunction we have to be somewhat cautious, the trend in the last several days has been in the right direction. I encouraged her ambulation and hopefully she will be able to return back to assisted living within the next few days. As far as the atrial fibrillation is concerned, the rate control is improved but still not perfect. Based on telemetry monitoring her average heart rate is around 90 beats per minute. She is anticoagulated with Eliquis at a 2.5 mg b.i.d. dose. This was an appropriate dose when she presented but currently renal function improved. I am going to wait another day or two to see the renal function does not deteriorate again but provided she remains stable the dose should be increased to 5 mg twice a day because even though she is elderly her GFR has improved and her weight is well over 60 kg. MTDD
--- NOTE | 2020-08-21 17:25 | DS.PDOC ---
Discharge Summary General Date of Admission Aug 13, 2020 at 10:44 Date of Discharge 08/21/20 Discharge Summary PROCEDURES PERFORMED DURING STAY: [None]. ADMITTING DIAGNOSES: Acute CHF exacerbation of COPD Tachycardia Hypertension Lupus Macrocytic anemia Atrial fibrillation Acute on chronic kidney diseases stage III DISCHARGE DIAGNOSES: Acute CHF exacerbation of COPD Tachycardia Hypertension Lupus Macrocytic anemia Atrial fibrillation Acute on chronic kidney diseases stage III COMPLICATIONS/CHIEF COMPLAINT: Acute Chf. HISTORY OF PRESENT ILLNESS: Patient is an 89-year-old female with a PMHx of Di astolic CHF, HTN, Borderline DM2, COPD, Lupus (on Hydroxychloroquine and Prednisone), Chornic pain / Arthritis, Gout and Mild pulmonary HTN, who presented to the hospital with complaint of short of breath. Patient stated that she has been having shortness of breath for past few days associated with increased cough and yellowish sputum production. In ER patient was found to have negative respiratory panel, BNP 6221, chest x-ray showed CHF pattern with cardiomegaly pulmonary vascular congestion and mild interstitial edema patter HOSPITAL COURSE: During hospital stay following issue addressed Acute CHF Diastolic CHF I's and O's Continue Lasix PO Cardiac diet Echo report showed ejection fraction of 30-35% Lisinopril added to medical regimen (2) exacerbation of COPD (chronic obstructive pulmonary disease) At baseline for now Continue inhalers DC levofloxacin (3) Tachycardia Heart rate improved and under control Continue metoprolol 100 mg twice a day (4) Hypertension Blood pressures under control Continue home cardioprotective medication (5) Lupus Continue home meds (6) Macrocytic anemia B12 and folate level within normal limit There is concern for MDS, follow-up with PCP and mononitrotoluene operator in the outpatient settings (7) Atrial fibrillation Oral targeted anticoagulation Heart rate under control Insomnia Rozerem Acute on chronic kidney diseases stage III Improved Continue to monitor DISCHARGE MEDICATIONS: Please see below. ALLERGIES: Please see below. PHYSICAL EXAMINATION ON DISCHARGE: VITAL SIGNS: Please see below. GENERAL APPEARANCE: NAD HEENT: no scleral icterus, no JVD, EOMI CARDIOVASCULAR: Irregularly irregular LUNGS: Diminished lung sounds bilaterally ABDOMEN: soft & not tender w palpitation MUSCULOSKELETAL: +1 nonpitting edema INTEGUMENT: no generalized palor NEUROLOGICAL: cranial nerve function from 2-12 intact intact, follows commands, speech not dysarthric LABORATORY DATA: Please see below. IMAGING: IVS 1.1 LV 5.6 LVPW 1.0 Aorta 3.5 LA 4.3 IVC 2.4 Left atrial volume index 39 FINDINGS: The study is of fair technical quality. The patient is in atrial fibrillation with variable ventricular rate, averaging over 100 beats per minute. Left ventricle is borderline dilated and globally hypokinetic. Estimated LV ejection fraction around 30 to 35%. The right ventricle also dilated and hypokinetic. There is severe biatrial enlargement. Aortic valve is mildly sclerotic, mobility of cusps is preserved. Mitral, tricuspid and pulmonic valveappears structurally intact. Inferior vena cava is dilated with collapse with inspiration indicative of mildly elevated central venous pressure. Aortic root is normal. Aortic arch and abdominal aorta were not well seen. Doppler interrogation of aortic valve showed no significant stenosis and mild insufficiency. There is approximately moderate mitral insufficiency and mild tricuspid insufficiency. Calculated pulmonary artery pressure is in low 40s corresponding to moderate pulmonary hypertension. Trace pulmonic insufficiency is seen. Evaluation of diastolic function is inconclusive due to underlying atrial fibrillation. CONCLUSIONS: 1. Study is of fair technical quality. The patient is in atrial fibrillation with mildly tachycardic rate. 2. Borderline dilated left ventricle with global LV systolic dysfunction and estimated left ventricular ejection fraction (LVEF) 30-35%. 3. Dilated right ventricle. 4. Severe biatrial enlargement. 5. Aortic sclerosis with no stenosis and mild insufficiency. 6. Moderate mitral insufficiency. 7. Elevated central venous pressure and at least pulmonary hypertension. PROGNOSIS: Fair ACTIVITY: [As tolerated]. DIET: Cardiac DISPOSITION: O4 Xfer Alp Ssv. ITEMS TO FOLLOWUP ON ON OUTPATIENT: Follow-up with magnetic resonance imaging coordinator in 7 days, follow up with PCP in 3-5 days DISCHARGE CONDITION: [Stable]. TIME SPENT ON DISCHARGE: Greater than 40 minutes. Vital Signs/I&Os Vital Signs Date Time Temp Pulse Resp B/P (MAP) Pulse Ox O2 Delivery O2 Flow Rate FiO2 08/21/20 12:05 87 109/56 08/21/20 12:00 2.0 08/21/20 07:36 98.0 20 93 Nasal Cannula I&O- Last 24 Hours up to 6 AM 08/21/20 06:00 Intake Total 1400 ml Output Total 650 ml Balance 750 ml Laboratory Data Labs 24H Laboratory Tests 2 08/21/20 05:30: Nucleated Red Blood Cells % (auto) 0.0, Anion Gap 4L, Glomerular Filtration Rate 41.9, Calcium Level 8.9, Magnesium Level 2.5H CBC/BMP Laboratory Tests 08/21/20 05:30 Microbiology Microbiology 08/13/20 Gram Stain - Final, Complete 08/13/20 Sputum Culture - Final, Complete Yeast Like Organism 08/13/20 Blood Culture - Final, Complete NO GROWTH AFTER 5 DAYS 08/13/20 Respiratory Virus Panel (PCR) (BALJINDER) - Final, Complete 08/13/20 Blood Culture - Final, Complete NO GROWTH AFTER 5 DAYS Discharge Medications Scheduled Allopurinol (Allopurinol) 100 Mg Tab, 200 MG PO DAILY, (Reported) Apixaban (Eliquis) 2.5 Mg Tablet, 2.5 MG PO BID Aspirin (Aspirin EC) 81 Mg Tab, 81 MG PO QHS, (Reported) Budesonide/Formoterol (Symbicort 80-4.5 Mcg Inhaler) 60 Puff/Inhaler Aers, 2 PUFF INH BID, (Reported) Carboxymethyl/Glycerin/Poly80 (Refresh Optive Advanced Drops) 1 Kassy Kassy, 1 DROP OU BID, (Reported) Docusate Sodium (Colace) 100 Mg Cap, 200 MG PO BID, (Reported) Hydroxychloroquine Sulfate (Hydroxychloroquine Sulfate) 200 Mg Tab, 200 MG PO DAILY, (Reported) Lactobacillus Combo No.10 (Probiotic) 1 Each Capsule, 1 CAP PO DAILY, (Reported) Lisinopril (Lisinopril) 2.5 Mg Tablet, 2.5 MG PO DAILY, (Reported) Metolazone (Metolazone) 5 Mg Tablet, 10 MG PO DAILY Metoprolol Succinate (Metoprolol Succinate) 100 Mg Tab.er.24h, 200 MG PO DAILY Mirtazapine (Remeron) 15 Mg Tablet, 15 MG PO QHS, (Reported) Prednisone (Prednisone) 1 Mg Tablet, 2 MG PO DAILY, (Reported) Torsemide (Torsemide) 20 Mg Tablet, 20 MG PO DAILY, (Reported) Vit A/Vit C/Vit E/Zinc/Copper (Icaps Areds Formula Dr Tablet) 1 Tab Tab, 1 TAB PO DAILY, (Reported) Scheduled PRN Diphenhydramine HCl (Diphenhydramine HCl) 25 Mg Capsule, 25 MG PO QHS PRN for SLEEP, (Reported) Famotidine (Famotidine) 20 Mg Tablet, 20 MG PO DAILY PRN for HEARTBURN, (Reported) Fexofenadine/Pseudoephedrine (Sierra-D 12 Hour Tablet) 1 Tab Tab, 1 TAB PO BID PRN for CONGESTION, (Reported) Levalbuterol Hydrochloride (Xopenex Hfa) 45 Mcg/Act Aer, 2 PUFF INH QID PRN for SHORTNESS OF BREATH, (Reported) Loperamide HCl (Imodium A-D) 2 Mg Tablet, 2 MG PO QID PRN for DIARRHEA, (Reported) Polyethylene Glycol 3350 (Miralax) 1 Pow Pow, 17 GM PO DAILY PRN for CONSTIPATION, (Reported) Tramadol HCl (Tramadol HCl) 50 Mg Tablet, 50 MG PO TID PRN for PAIN, (Reported) Allergies Coded Allergies: NSAIDS (Non-Steroidal Anti-Inflamma (Verified Allergy, Intermediate, CHEST PAIN, 03/16/20) TAKES ASPIRIN AT HOME Poewyxv-Umf-Ytz Reductase Inhibitor (Verified Allergy, Intermediate, SWOLLEN JOINTS, 03/16/20) etodolac (Verified Allergy, Intermediate, HIVES, 03/16/20) Sulfa (Sulfonamide Antibiotics) (Verified Allergy, Mild, RASH, 03/16/20) lidocaine (Verified Allergy, Mild, RASH, 03/16/20) nickel (Verified Allergy, Mild, RASH, 03/16/20) ibuprofen (Verified Adverse Reaction, Intermediate, CHEST PAIN, 03/16/20) TAKES ASPIRIN AT HOME lactose (Verified Adverse Reaction, Unknown, lactose intolerant, 03/16/20) ARNOL RICKETTS DO Aug 21, 2020 17:25
--- NOTE | 2020-08-22 08:15 | IPN ---
DATE: 08/20/2020 SUBJECTIVE: Mrs. Wendy Gonzalez was seen earlier today. She was sitting in a chair in her room, in no acute distress at rest. She complains of tiredness, but she denies any chest pain, shortness of breath, palpitations, or pedal edema. She has no orthopnea or PND. There is no report of bleeding. There is no focal manifestation. She was seen yesterday and I did a small dose of metoprolol tartrate and since that, she has responded and her heart rate/atrial fibrillation has improved. PHYSICAL EXAMINATION: GENERAL: The patient is alert and oriented, in no acute distress at rest. VITAL SIGNS: When I saw her earlier today revealed a blood pressure of 126/62 with a pulse of 73, respirations 18, and her maximum temperature is 97.8 degrees Fahrenheit with an oxygen saturation of 94% on 2 L nasal cannula. HEAD: Atraumatic. NECK: Supple. No jugular venous distention (JVD). LUNGS: Did not reveal any wheezing or crackles. HEART: Revealed irregular heart sounds without gallops. The point of maximal impulse (PMI) is not displaced. There is no rub. ABDOMEN: Soft. EXTREMITIES: Reveal no pitting edema. NEUROLOGIC: Grossly negative for focal deficits. LABORATORY DATA: CBC done 08/20/2020 revealed a WBC of 6.7, hemoglobin 9.1, hematocrit 30.1, and platelets 157,000. BMP revealed a sodium of 139, potassium 4.1, chloride 103, CO2 of 34, BUN 63, creatinine 1.35, GFR 39.4, and fasting glucose 118 with a calcium of 9.1. Magnesium is 2.3. IMPRESSION: 1. Atrial fibrillation. Ventricular rate seems to be under control for now and she is on a total of 225 mg of short-acting metoprolol tartrate with 100 mg twice a day and 25 mg in the middle of the day around noon time and I will continue with the same. She is on a small dose of Eliquis for prevention of thromboembolic event and if tomorrow her BMP revealed a serum creatinine of less than 1.5, she would be started back on a higher dose of the Eliquis at 5 mg p.o. twice a day. I will continue to monitor along with you. 2. Congestive heart failure secondary to left ventricular systolic dysfunction, and she appears to be well compensated on current medications. Beta-catalino and angiotensin converting enzyme inhibitor (RYLAN) and I will continue the same. She is on a small dose of furosemide. 3. Chronic kidney disease. This has improved. She will be monitored. She has blood work scheduled for 08/21/2020. 4. History of hypertension under good control and she will continue current medications. 5. Anemia, stable. No active bleeding. She needs to be monitored. Currently on anticoagulation therapy. 6. History of chronic obstructive pulmonary disease (COPD), stable. No wheezing noted today on physical examination. 7. History of lupus. It was a pleasure to participate in the care of Ms. Wendy Gonzalez for her underlying cardiac condition. I will continue to monitor her along with you. At this present time, she appears to be stable. MTDD
== END 2020-08-21 12:50 | DRG 291 ==
LOC: EDBD 08:22 → M ED 08:22 → M ED INP 10:44 → M PCU 11:40
PROVIDERS: ADMIT Internal Medicine; ATTEND Internal Medicine
DX: I13.0 Hypertensive heart and chronic kidney disease with heart failure and stage 1 through stage 4 chronic kidney disease, or unspecified chronic kidney disease (principal); I50.33 Acute on chronic diastolic (congestive) heart failure; J44.1 Chronic obstructive pulmonary disease with (acute) exacerbation; R73.03 Prediabetes; L93.0 Discoid lupus erythematosus; G89.29 Other chronic pain; I27.20 Pulmonary hypertension, unspecified; G47.00 Insomnia, unspecified; D53.9 Nutritional anemia, unspecified; N18.30 Chronic kidney disease, stage 3 unspecified; E73.9 Lactose intolerance, unspecified; Z66 Do not resuscitate; I48.91 Unspecified atrial fibrillation; Z79.52 Long term (current) use of systemic steroids; Z79.899 Other long term (current) drug therapy; Z88.2 Allergy status to sulfonamides; Z88.6 Allergy status to analgesic agent; Z88.4 Allergy status to anesthetic agent; Z88.8 Allergy status to other drugs, medicaments and biological substances; Z91.048 Other nonmedicinal substance allergy status; Z96.652 Presence of left artificial knee joint; Z90.49 Acquired absence of other specified parts of digestive tract; Z85.038 Personal history of other malignant neoplasm of large intestine; Z79.82 Long term (current) use of aspirin; Z20.828 Contact with and (suspected) exposure to other viral communicable diseases

== ENCOUNTER → 2020-08-23 | Outpatient (REF) | payer MEDICARE, MEDICAID, OTHER ==
[~2020-08-23] MED LIST changes: +ACET-683 PO; +CARV6.25 PO; +DIPH25CA32 PO; +ELIQ2.5T PO; +LOPE2TAB12 PO; +METO1TAB33 PO; +METO5TA PO
[2020-08-23 09:26] LABS: HEMATOCRIT 34.2 % (36.0-47.0); HEMOGLOBIN 10.9 g/dl (12.0-15.5); MEAN CORPUSCULAR HEMOGLOBIN 34.3 pg (27.0-33.0); MEAN CORPUSCULAR HGB CONC 31.9 g/dl (32.0-36.5); MEAN CORPUSCULAR VOLUME 107.5 fl (80.0-96.0); PLATELET COUNT, AUTOMATED 188 10^3/uL (150-450); RED BLOOD COUNT 3.18 10^6/uL (4.00-5.40); WHITE BLOOD COUNT 6.8 10^3/uL (4.0-10.0)
[2020-08-23 09:48] LABS: CALCIUM LEVEL 9.3 MG/DL (8.8-10.2); CREATININE FOR GFR 1.29 MG/DL (0.55-1.30); GLOMERULAR FILTRATION RATE 41.5 (>32); POTASSIUM SERUM 4.2 MEQ/L (3.5-5.1)
== END ==
PROVIDERS: ATTEND Internal Medicine
DX: I48.91 Unspecified atrial fibrillation (principal)

== ENCOUNTER → 2020-08-24 | Outpatient (REF) | PROVIDERS: ATTEND Internal Medicine | DX: Z20.828 Contact with and (suspected) exposure to other viral communicable diseases (principal) ==

== ENCOUNTER → 2020-08-25 | Outpatient (REF) | payer MEDICARE, MEDICAID, OTHER ==
[2020-08-25 12:40] LABS: CALCIUM LEVEL 9.7 MG/DL (8.8-10.2); CREATININE FOR GFR 1.54 MG/DL (0.55-1.30); GLOMERULAR FILTRATION RATE 33.8 (>32); POTASSIUM SERUM 4.4 MEQ/L (3.5-5.1)
== END ==
PROVIDERS: ATTEND Internal Medicine
DX: I50.9 Heart failure, unspecified (principal)

== ENCOUNTER → 2020-08-28 | Outpatient (REF) | payer MEDICARE, MEDICAID, OTHER ==
[2020-08-28 10:19] LABS: HEMATOCRIT 34.6 % (36.0-47.0); HEMOGLOBIN 10.7 g/dl (12.0-15.5); MEAN CORPUSCULAR HEMOGLOBIN 33.2 pg (27.0-33.0); MEAN CORPUSCULAR HGB CONC 30.9 g/dl (32.0-36.5); MEAN CORPUSCULAR VOLUME 107.5 fl (80.0-96.0); PLATELET COUNT, AUTOMATED 197 10^3/uL (150-450); RED BLOOD COUNT 3.22 10^6/uL (4.00-5.40); WHITE BLOOD COUNT 6.9 10^3/uL (4.0-10.0)
[2020-08-28 10:53] LABS: CALCIUM LEVEL 8.9 MG/DL (8.8-10.2); CREATININE FOR GFR 1.48 MG/DL (0.55-1.30); GLOMERULAR FILTRATION RATE 35.4 (>32); URIC ACID 6.8 MG/DL (2.6-6.0)
== END ==
PROVIDERS: ATTEND Internal Medicine
DX: I50.9 Heart failure, unspecified (principal)

== ENCOUNTER → 2020-08-30 | Outpatient (REF) | payer MEDICARE, MEDICAID, OTHER ==
[2020-08-30 11:26] LABS: HEMOGLOBIN 10.5 g/dl (12.0-15.5); MEAN CORPUSCULAR HEMOGLOBIN 32.5 pg (27.0-33.0); MEAN CORPUSCULAR VOLUME 108.4 fl (80.0-96.0); PLATELET COUNT, AUTOMATED 170 10^3/uL (150-450); RED BLOOD COUNT 3.23 10^6/uL (4.00-5.40); WHITE BLOOD COUNT 6.3 10^3/uL (4.0-10.0)
[2020-08-30 12:05] LABS: CALCIUM LEVEL 9.2 MG/DL (8.8-10.2); CREATININE FOR GFR 1.51 MG/DL (0.55-1.30); GLOMERULAR FILTRATION RATE 34.6 (>32); POTASSIUM SERUM 3.7 MEQ/L (3.5-5.1)
== END ==
PROVIDERS: ATTEND Internal Medicine
DX: I50.9 Heart failure, unspecified (principal)

== ENCOUNTER → 2020-08-31 | Outpatient (REF) ==
[~2020-08-31] MED LIST changes: -LISI-538 PO; +LISI20TA33 PO; +MIRT-62 PO; -REME15TA PO
== END ==
LOC: EDSTATUS 09-26 10:17
PROVIDERS: ATTEND Internal Medicine
DX: Z20.828 Contact with and (suspected) exposure to other viral communicable diseases (principal)

== ENCOUNTER → 2020-09-06 | Outpatient (REF) | PROVIDERS: ATTEND Internal Medicine | DX: Z20.828 Contact with and (suspected) exposure to other viral communicable diseases (principal) ==

== ENCOUNTER → 2020-09-14 | Outpatient (REF) ==
[~2020-09-14] MED LIST changes: +LISI-538 PO; -LISI20TA33 PO
[2020-09-14 09:06] LABS: HEMATOCRIT 34.6 % (36.0-47.0); HEMOGLOBIN 10.7 g/dl (12.0-15.5); MEAN CORPUSCULAR HEMOGLOBIN 32.7 pg (27.0-33.0); MEAN CORPUSCULAR HGB CONC 30.9 g/dl (32.0-36.5); MEAN CORPUSCULAR VOLUME 105.8 fl (80.0-96.0); PLATELET COUNT, AUTOMATED 162 10^3/uL (150-450); RED BLOOD COUNT 3.27 10^6/uL (4.00-5.40); WHITE BLOOD COUNT 7.2 10^3/uL (4.0-10.0)
[2020-09-14 09:42] LABS: CALCIUM LEVEL 9.4 MG/DL (8.8-10.2); CREATININE FOR GFR 1.43 MG/DL (0.55-1.30); GLOMERULAR FILTRATION RATE 36.9 (>32); POTASSIUM SERUM 3.5 MEQ/L (3.5-5.1)
== END ==
PROVIDERS: ATTEND Internal Medicine
DX: I48.91 Unspecified atrial fibrillation (principal); Z79.899 Other long term (current) drug therapy

== ENCOUNTER → 2020-09-15 | Outpatient (REF) | PROVIDERS: ATTEND Internal Medicine | DX: Z20.828 Contact with and (suspected) exposure to other viral communicable diseases (principal) ==

== ENCOUNTER → 2020-09-22 | Outpatient (REF) | payer MEDICARE, MEDICAID, OTHER | PROVIDERS: ATTEND Internal Medicine | DX: Z20.828 Contact with and (suspected) exposure to other viral communicable diseases (principal) ==

== ENCOUNTER → 2020-09-27 | Outpatient (REF) | payer MEDICARE, MEDICAID, OTHER ==
[2020-09-28 10:27] LABS: INFLUENZA A AMPLIFICATION NEGATIVE (NEGATIVE); INFLUENZA B AMPLIFICATION NEGATIVE (NEGATIVE)
== END ==
PROVIDERS: ATTEND Internal Medicine
DX: Z20.828 Contact with and (suspected) exposure to other viral communicable diseases (principal)
CPT/HCPCS: 87502; U0003

== ENCOUNTER → 2020-10-02 | Outpatient (REF) | payer MEDICARE, MEDICAID, OTHER | PROVIDERS: ATTEND Internal Medicine | DX: Z20.828 Contact with and (suspected) exposure to other viral communicable diseases (principal) ==

== ENCOUNTER → 2020-10-09 | Outpatient (REF) | payer MEDICARE, MEDICAID, OTHER | PROVIDERS: ATTEND Internal Medicine | DX: Z20.828 Contact with and (suspected) exposure to other viral communicable diseases (principal) ==

== ENCOUNTER → 2020-10-16 | Outpatient (REF) | payer MEDICARE, MEDICAID, OTHER | PROVIDERS: ATTEND Internal Medicine | DX: Z11.52 Encounter for screening for COVID-19 (principal) ==

== ENCOUNTER → 2020-10-23 | Outpatient (REF) | payer MEDICARE, MEDICAID ==
[~2020-10-23] MED LIST changes: -LISI-538 PO; +LISI20TA33 PO
== END ==
PROVIDERS: ATTEND Internal Medicine
DX: Z20.822 Contact with and (suspected) exposure to COVID-19 (principal)

== ENCOUNTER → 2020-10-30 | Outpatient (REF) | payer MEDICARE, MEDICAID | PROVIDERS: ATTEND Internal Medicine | DX: Z20.822 Contact with and (suspected) exposure to COVID-19 (principal) ==

== ENCOUNTER → 2020-11-06 | Outpatient (REF) | payer MEDICARE, MEDICAID | PROVIDERS: ATTEND Internal Medicine | DX: Z20.822 Contact with and (suspected) exposure to COVID-19 (principal) ==

== ENCOUNTER → 2020-11-13 | Outpatient (REF) | payer MEDICARE, MEDICAID ==
[~2020-11-13] MED LIST changes: +LISI-538 PO; -LISI20TA33 PO
== END ==
PROVIDERS: ATTEND Internal Medicine
DX: Z20.822 Contact with and (suspected) exposure to COVID-19 (principal)

== ENCOUNTER → 2020-11-16 | Outpatient (REF) | payer MEDICARE, MEDICAID ==
[~2020-11-16] MED LIST changes: -LISI-538 PO; +LISI20TA33 PO
[2020-11-16 10:08] LABS: HEMATOCRIT 36.2 % (36.0-47.0); HEMOGLOBIN 11.4 g/dl (12.0-15.5); MEAN CORPUSCULAR HEMOGLOBIN 31.6 pg (27.0-33.0); MEAN CORPUSCULAR HGB CONC 31.5 g/dl (32.0-36.5); MEAN CORPUSCULAR VOLUME 100.3 fl (80.0-96.0); PLATELET COUNT, AUTOMATED 187 10^3/uL (150-450); RED BLOOD COUNT 3.61 10^6/uL (4.00-5.40); WHITE BLOOD COUNT 7.4 10^3/uL (4.0-10.0)
[2020-11-16 10:38] LABS: ALBUMIN 3.3 GM/DL (3.2-5.2); BILIRUBIN,TOTAL 0.4 MG/DL (0.2-1.0); CALCIUM LEVEL 9.8 MG/DL (8.8-10.2); CREATININE FOR GFR 1.43 MG/DL (0.55-1.30); GLOMERULAR FILTRATION RATE 36.9 (>32); POTASSIUM SERUM 3.2 MEQ/L (3.5-5.1); TOTAL PROTEIN 6.5 GM/DL (6.4-8.2)
[2020-11-16 11:52] LABS: HEMOGLOBIN A1c 6.2 %
== END ==
PROVIDERS: ATTEND Family Medicine
DX: E11.9 Type 2 diabetes mellitus without complications (principal)

== ENCOUNTER → 2020-11-20 | Outpatient (REF) | payer MEDICARE, MEDICAID | PROVIDERS: ATTEND Internal Medicine | DX: Z20.822 Contact with and (suspected) exposure to COVID-19 (principal) ==

== ENCOUNTER → 2020-11-27 | Outpatient (REF) | payer MEDICARE, MEDICAID | PROVIDERS: ATTEND Internal Medicine | DX: Z20.822 Contact with and (suspected) exposure to COVID-19 (principal) ==

== ENCOUNTER → 2020-12-04 | Outpatient (REF) | payer MEDICARE, MEDICAID | PROVIDERS: ATTEND Internal Medicine | DX: Z20.822 Contact with and (suspected) exposure to COVID-19 (principal) ==

== ENCOUNTER → 2021-03-08 | Outpatient (REF) | payer MEDICARE, MEDICAID ==
[2021-03-08 10:10] LABS: HEMATOCRIT 34.7 % (36.0-47.0); HEMOGLOBIN 11.2 g/dl (12.0-15.5); MEAN CORPUSCULAR HEMOGLOBIN 31.3 pg (27.0-33.0); MEAN CORPUSCULAR HGB CONC 32.3 g/dl (32.0-36.5); MEAN CORPUSCULAR VOLUME 96.9 fl (80.0-96.0); PLATELET COUNT, AUTOMATED 153 10^3/uL (150-450); RED BLOOD COUNT 3.58 10^6/uL (4.00-5.40); WHITE BLOOD COUNT 6.5 10^3/uL (4.0-10.0)
[2021-03-08 10:31] LABS: HEMOGLOBIN A1c 6.5 %
[2021-03-08 10:39] LABS: ALBUMIN 3.2 GM/DL (3.2-5.2); BILIRUBIN,TOTAL 0.5 MG/DL (0.2-1.0); CALCIUM LEVEL 9.2 MG/DL (8.8-10.2); CREATININE FOR GFR 1.67 MG/DL (0.55-1.30); GLOMERULAR FILTRATION RATE 30.8 (>32); POTASSIUM SERUM 3.3 MEQ/L (3.5-5.1); TOTAL PROTEIN 6.4 GM/DL (6.4-8.2)
== END ==
PROVIDERS: ATTEND Family Medicine
DX: E11.9 Type 2 diabetes mellitus without complications (principal)

== ENCOUNTER 2021-04-17 22:05 | Inpatient (IN) | payer MEDICARE, MEDICAID ==
[~2021-04-17] VITALS: Ht 157.5 cm; Wt 80.4 kg
[2021-04-17 22:57] LABS: BASO % 0.3 % (0.0-1.0); EOS # 0.2 10^3/uL (0.0-0.5); EOS % 1.3 % (0.0-3.0); HEMATOCRIT 34.8 % (36.0-47.0); HEMOGLOBIN 11.1 g/dl (12.0-15.5); LYMPH # 0.8 10^3/uL (1.5-5.0); LYMPH % 6.7 % (24.0-44.0); MEAN CORPUSCULAR HEMOGLOBIN 31.2 pg (27.0-33.0); MEAN CORPUSCULAR HGB CONC 31.9 g/dl (32.0-36.5); MEAN CORPUSCULAR VOLUME 97.8 fl (80.0-96.0); MONO # 0.8 10^3/uL (0.0-0.8); MONO % 6.9 % (2.0-8.0); NEUTROPHILS # 10.1 10^3/uL (1.5-8.5); NEUTROPHILS % 84.2 % (36.0-66.0); PLATELET COUNT, AUTOMATED 197 10^3/uL (150-450); RED BLOOD COUNT 3.56 10^6/uL (4.00-5.40); WHITE BLOOD COUNT 11.9 10^3/uL (4.0-10.0)
[2021-04-17] MEDS ORDERED: ONDANSETRON 4MG/2ML VIAL IV ONE (23:10)
[2021-04-17] MEDS ORDERED: NS 1,000 ML IV ONE (23:10)
[2021-04-17] MEDS ORDERED: MORPHINE 2 MG/ML 1ML VIAL (J2270) IV PRN (23:10)
[2021-04-17 23:25] LABS: ALBUMIN 3.1 GM/DL (3.2-5.2); ALT/SGPT 23 U/L (12-78); BILIRUBIN,DIRECT 0.2 MG/DL (0.0-0.2); BILIRUBIN,TOTAL 0.4 MG/DL (0.2-1.0); BLOOD UREA NITROGEN 62 MG/DL (7-18); CALCIUM LEVEL 9.1 MG/DL (8.8-10.2); CARBON DIOXIDE LEVEL 42 MEQ/L (21-32); CHLORIDE LEVEL 90 MEQ/L (98-107); CK-MB VALUE MASS < 1.0 NG/ML (<3.6); CPK CREATINE PHOSPHOKINASE 56 U/L (26-192); CREATININE FOR GFR 1.56 MG/DL (0.55-1.30); GLOMERULAR FILTRATION RATE 33.3 (>32); GLUCOSE, FASTING 148 MG/DL (70-100); LIPASE 114 U/L (73-393); MB/CK RELATIVE INDEX 1.79 (< OR =4); POTASSIUM SERUM 3.1 MEQ/L (3.5-5.1); SODIUM LEVEL 135 MEQ/L (136-145); TOTAL PROTEIN 7.1 GM/DL (6.4-8.2)
[2021-04-17] MEDS ORDERED: ISOVUE-370 76% 100ML VIAL As Ordered ONE (23:37)
[2021-04-18] MEDS ORDERED: NYST1POW9 TOP (00:10)
[2021-04-18] MEDS ORDERED: METO200T28 PO (00:10)
[2021-04-18] MEDS ORDERED: ELIQ2.5T PO (00:10)
[2021-04-18] MEDS ORDERED: MONT10TA10 PO (00:10)
[2021-04-18] MEDS ORDERED: ACET-907 PO (00:10)
[2021-04-18] MEDS ORDERED: FLORCHW2 PO (00:10)
[2021-04-18] MEDS ORDERED: SIME125T PO (00:22)
[2021-04-18] MEDS ORDERED: REFRESH LIQUIGEL OU (00:22)
[2021-04-18] MEDS ORDERED: BELS1TAB4 PO (00:22)
[2021-04-18] MEDS ORDERED: MILKSUS3 PO (00:31)
[2021-04-18] MEDS ORDERED: METO5TA PO (00:31)
[2021-04-18] MEDS ORDERED: MIRA1POW3 PO (00:31)
--- NOTE | 2021-04-18 02:50 | REPVR ---
PROCEDURE INFORMATION: Exam: CT Abdomen And Pelvis With Contrast Exam date and time: 04/18/2021 12:57 AM Age: 89 years old Clinical indication: Abdominal pain; Localized; Left lower quadrant (llq); Additional info: Llq abd pain, weakness TECHNIQUE: Imaging protocol: Computed tomography of the abdomen and pelvis with contrast. Radiation optimization: All CT scans at this facility use at least one of these dose optimization techniques: automated exposure control; mA and/or kV adjustment per patient size (includes targeted exams where dose is matched to clinical indication); or iterative reconstruction. Contrast material: ISOVUE 370; Contrast volume: 100 ml; Contrast route: INTRAVENOUS (IV); COMPARISON: CR Abdomen,Flat Upright,PA CHEST 12/11/2019 1:59 PM FINDINGS: Lungs: Mild bibasilar interstitial coarsening with minimal fibro-atelectatic change and question of minimal infiltrates in the lower lobes. There is question of a subpleural nodule in the posterior right lower lobe measuring 7 mm. Liver: Normal. No mass. Gallbladder and bile ducts: Normal. No calcified stones. No ductal dilation. Pancreas: Normal. No ductal dilation. Spleen: Normal. No splenomegaly. Adrenal glands: Normal. No mass. Kidneys and ureters: There are bilateral renal cysts measuring up to 8.6 cm on the right with a Hounsfield measurement of 18 and are consistent with simple cysts. No follow-up imaging is recommended. Stomach and bowel: Rectosigmoid anastomosis. Appendix: There are no changes of appendicitis. A normal appendix is not seen. Intraperitoneal space: Unremarkable. No free air. No significant fluid collection. Vasculature: There is mild calcification of the abdominal aorta. Lymph nodes: Unremarkable. No enlarged lymph nodes. Urinary bladder: Unremarkable as visualized. Reproductive: Status post hysterectomy. Bones/joints: Status post pedicular fusion from L3-L5 with ankylosis through the disc at L5-S1. Status post laminectomies at L4 and L5. Soft tissues: Numerous ventral wall hernias which are epigastric, periumbilical and hypogastric and may be incisional. Some contain bowel segments with no strangulation or obstruction. IMPRESSION: 1. Mild bibasilar interstitial coarsening with minimal fibro-atelectatic change and question of minimal infiltrates in the lower lobes. 2. 7 mm subpleural nodule in the posterior right lower lobe. For patients at low risk (minimal or absent history of smoking and of other known risk factors), recommend CT Chest at 6-12 months, then consider CT Chest at 18-24 months. For patients at high risk (history of smoking or of other known risk factors), recommend CT Chest at 6-12 months, then CT Chest at 18-24 months. (Reference: Khadra) 3. 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 4. Status post partial sigmoid resection with rectosigmoid anastomosis. 5. Status post hysterectomy. 6. Otherwise negative CT abdomen/pelvis. COMMENTS: Consistent with the [employer]'s Incidental Findings Committee white paper (J Am Parviz Radiol 2018): Any incidental renal lesion less than 1 cm or classified as too small to characterize, or any incidental cystic renal lesion characterized as simple-appearing, is likely benign. No follow-up imaging is recommended for these lesions per consensus recommendations based on imaging criteria. REFERENCES: Khadra Mckeon, et al. Guidelines for Management of Incidental Pulmonary Nodules Detected on CT Images: From the Fleischner Society 2017. Radiology. 2017;284(1):228-243. Electronically signed by: Iam Pires On 04/18/2021 02:49:43 AM
--- NOTE | 2021-04-18 03:40 | HPEPDOC ---
[facility] Medical History & Physical Date of Admission Apr 18, 2021 Date of Service: Apr 18, 2021 Primary Care Physician: MONICA PEREZ MD [facility] Attending Physician: ELIZABETH PEPPER MD History and Physical TIME OF SERVICE: 5:20 AM CHIEF COMPLAINT: Sent by [facility] staff HISTORY OF PRESENT ILLNESS: This 89-year-old female came to the hospital because correction staff sent her to the ER for evaluation of 4 out of 10 in severity mid cramping abdominal pain for about 3 or 4 days. She denies having fevers, chills, nausea vomiting or diarrhea but admits to eating less because of the pain. She denies feeling constipated and thinks her last BM was likely 1 day ago. She denies having dysuria. 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 FAMILY HISTORY:Parkinsons disease ALLERGIES: Please see below. HOME MEDICATIONS: Please see below. PHYSICAL EXAMINATION: Vital Signs Date Time Temp Pulse Resp B/P (MAP) Pulse Ox O2 Delivery O2 Flow Rate FiO2 04/17/21 22:17 99.5 99 20 148/87 (107) 94 GENERAL APPEARANCE: Well-nourished and well-developed. Appears to be in pain. INTEGUMENT: She is not pale flushed or diaphoretic HEENT: Nasal cannula in place. CARDIOVASCULAR: Heart rate irregularly irregular. No murmurs rubs or gallops. No lower extremity edema LUNGS: Clear to auscultation bilaterally on room air. ABDOMEN: Contour is obese. She has post surgical abdominal scars. The abdomen is soft and she does not grimace with palpation. MUSCULOSKELETAL: Normocephalic atraumatic. NEUROLOGICAL: Extraocular movements intact, her intact speech is not dysarthric PSYCHIATRIC: Alert and oriented to person place and time LABORATORY DATA: Immature Granulocyte % (Auto) 0.6, Neutrophils (%) (Auto) 84.2H, Lymphocytes (%) (Auto) 6.7L, Monocytes (%) (Auto) 6.9, Eosinophils (%) (Auto) 1.3, Basophils (%) (Auto) 0.3, Neutrophils # (Auto) 10.1H, Lymphocytes # (Auto) 0.8L, Monocytes # (Auto) 0.8, Eosinophils # (Auto) 0.2, Basophils # (Auto) 0.0, Nucleated Red Blood Cells % (auto) 0.0, Anion Gap 3L, Glomerular Filtration Rate 33.3, Calcium Level 9.1, Total Bilirubin 0.4, Direct Bilirubin 0.2, Aspartate Amino Transf (AST/SGOT) 20, Alanine Aminotransferase (ALT/SGPT) 23, Alkaline Phosphatase 63, Total Creatine Kinase 56, Creatine Kinase MB < 1.0, Creatine Kinase MB Relative Index 1.79, Troponin I 0.10, Total Protein 7.1, Albumin 3.1L, Albumin/Globulin Ratio 0.8L, Lipase 114 IMAGING: CT abd/pelvis "IMPRESSION: 1. Mild bibasilar interstitial coarsening with minimal fibro-atelectatic change and question of minimal infiltrates in the lower lobes. 2. 7 mm subpleural nodule in the posterior right lower lobe. For patients at low risk (minimal or absent history of smoking and of other known risk factors), recommend CT Chest at 6-12 months, then consider CT Chest at 18- 24 months. For patients at high risk (history of smoking or of other known risk factors), recommend CT Chest at 6-12 months, then CT Chest at 18-24 months. (Reference: Khadra) 3. 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 4. Status post partial sigmoid resection with rectosigmoid anastomosis. 5. Status post hysterectomy. 6. Otherwise negative CT abdomen/pelvis. COMMENTS: Consistent with the [employer]'s Incidental Findings Committee white paper (J Am Parviz Radiol 2018): Any incidental renal lesion less than 1 cm or classified as too small to characterize, or any incidental cystic renal lesion characterized as simple-appearing, is likely benign. No follow-up imaging is recommended for these lesions per consensus recommendations based on imaging criteria. REFERENCES: Khadra Mckeon, et al. Guidelines for Management of Incidental Pulmonary Nodules Detected on CT Images: From the Fleischner Society 2017. Radiology. 201 7;284(1):228-243. MICROBIOLOGY: Respiratory panel is negative ASSESSMENT: Ms. Gonzalez is an 89-year-old with Atrial Fibrillation, HFrEF(35%) with HFpEF, HTN, COPD with chronic O2 dependent respiratory failure, SLE and multiple abdominal surgeries who be admitted for management of weakness possibly due to hypokalemia. PLAN: 1. Weakness possibly due to hypokalemia According to Dr. Jaramillo the patient was unable to ambulate Plan: Admit to medical floor/replete potassium/the daytime team may consider consulting physical therapy 2. Hypokalemia likely due to poor oral intake Per Dr. Jaramillo correction staff reported the patient had vomiting and diarrhea, but the patient denied having any of the symptoms Plan: Telemetry/replete potassium and follow-up magnesium 3. Abdominal pain Cause is unclear at this time Plan: f/u UA 4. Longstanding persistent Atrial Fibrillation Plan: Resume apixaban 5. Chronic HFrEF(35%) with HFpEF Clinically compensated Plan: resume metolazone metoprolol and torsemide 6 .Essential HTN Plan: resume metolazone metoprolol and torsemide 7. 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 SLE Plan: resume prednisone and Plaquenil 9. Chronic pain / Arthritis / Gout Plan: Resume tramadol and acetaminophen DVT Px: n/a she is on a DOAC Dispo: Back to [facility] after less than 2 midnight's stay Home Medications Scheduled Apixaban (Eliquis) 2.5 Mg Tablet, 2.5 MG PO BID Aspirin (Aspirin EC) 81 Mg Tab, 81 MG PO QHS Budesonide/Formoterol (Symbicort 80-4.5 Mcg Inhaler) 60 Puff/Inhaler Aers, 2 PUFF INH BID Carboxymethyl/Glycerin/Poly80 (Refresh Optive Advanced Drops) 1 Kassy Kassy, 1 DROP OU QID Docusate Sodium (Colace) 100 Mg Cap, 200 MG PO BID Famotidine (Famotidine) 20 Mg Tablet, 20 MG PO BID 0900, 1700 Hydroxychloroquine Sulfate (Hydroxychloroquine Sulfate) 200 Mg Tab, 200 MG PO DAILY L. Acidophilus/L.bulgaricus (Floranex Tablet) 1 Each Tablet, 1 TAB PO DAILY Metolazone (Metolazone) 5 Mg Tablet, 5 MG PO 3XW FRIDAY, FRIDAY AND FRIDAY Metoprolol Succinate (Metoprolol Succinate) 200 Mg Tab.er.24h, 200 MG PO DAILY Montelukast Sodium (Montelukast Sodium) 10 Mg Tablet, 10 MG PO QHS Nystatin (Nystatin Powder) 15 Gm Powder, 1 DOSE TOP BID APPLY TO ABDOMINAL FOLDS Prednisone (Prednisone) 1 Mg Tablet, 2 MG PO DAILY Torsemide (Torsemide) 20 Mg Tablet, 20 MG PO DAILY [Refresh Liquigel] , 1 DROP OU QHS Scheduled PRN Acetaminophen (Tylenol) 325 Mg Tablet, 650 MG PO Q4H PRN for PAIN LEVEL 1-5 Fexofenadine/Pseudoephedrine (Sierra-D 12 Hour Tablet) 1 Tab Tab, 1 TAB PO BID PRN for CONGESTION Levalbuterol Hydrochloride (Xopenex Hfa) 45 Mcg/Act Aer, 1 PUFF INH Q4H PRN for SHORTNESS OF BREATH Loperamide HCl (Imodium A-D) 2 Mg Tablet, 2 MG PO QID PRN for LOOSE STOOLS Magnesium Hydroxide (Milk of Magnesia) 400 Mg/5 Ml Oral.susp, 30 ML PO DAILY PRN for CONSTIPATION Polyethylene Glycol 3350 (Miralax) 17 Gm Powd.pack, 17 GM PO DAILY PRN for CONSTIPATION Simethicone (Gas-X) 125 Mg Tab.chew, 125 MG PO QID PRN for GERD WITHOUT ESOPHAGITIS Suvorexant (Belsomra) 20 Mg Tablet, 20 MG PO QHS PRN for INSOMNIA Tramadol HCl (Tramadol HCl) 50 Mg Tablet, 50 MG PO TID PRN for PAIN LEVEL 6-10 Allergies Coded Allergies: NSAIDS (Non-Steroidal Anti-Inflamma (Verified Allergy, Intermediate, CHEST PAIN, 03/16/20) TAKES ASPIRIN AT HOME Airmycr-Hme-Qiv Reductase Inhibitor (Verified Allergy, Intermediate, SWOLLEN JOINTS, 03/16/20) etodolac (Verified Allergy, Intermediate, HIVES, 03/16/20) Sulfa (Sulfonamide Antibiotics) (Verified Allergy, Mild, RASH, 03/16/20) lidocaine (Verified Allergy, Mild, RASH, 03/16/20) nickel (Verified Allergy, Mild, RASH, 03/16/20) ibuprofen (Verified Adverse Reaction, Intermediate, CHEST PAIN, 03/16/20) TAKES ASPIRIN AT HOME lactose (Verified Adverse Reaction, Unknown, lactose intolerant, 03/16/20) A-FIB/CHADSVASC A-FIB History Current/History of A-Fib/PAF?: Yes Current PO Anticoag Therapy: Yes ELIZABETH PEPPER MD Apr 18, 2021 03:39
[2021-04-18] MEDS ORDERED: POTASSIUM CHLORIDE 10 MEQ SR TABLET PO ONE ×3 (03:45→20:15)
[2021-04-18 04:38] LABS: HEMATOCRIT 33.4 % (36.0-47.0); HEMOGLOBIN 10.7 g/dl (12.0-15.5); MEAN CORPUSCULAR HEMOGLOBIN 31.6 pg (27.0-33.0); MEAN CORPUSCULAR VOLUME 98.5 fl (80.0-96.0); PLATELET COUNT, AUTOMATED 180 10^3/uL (150-450); RED BLOOD COUNT 3.39 10^6/uL (4.00-5.40); WHITE BLOOD COUNT 10.6 10^3/uL (4.0-10.0)
[2021-04-18 04:52] LABS: CALCIUM LEVEL 8.8 MG/DL (8.8-10.2); CREATININE FOR GFR 1.36 MG/DL (0.55-1.30)
[2021-04-18 05:39] LABS: RSV AMPLIFICATION NEGATIVE (NEGATIVE)
[2021-04-18] MEDS ORDERED: MOM 30ML SUSPENSION UDC PO PRN (05:40)
[2021-04-18] MEDS ORDERED: LOPERAMIDE 2 MG CAPLET PO PRN (05:40)
[2021-04-18] MEDS ORDERED: MIRALAX *UNIT DOSE* 17GM PACKET PO PRN (05:40)
[2021-04-18] MEDS ORDERED: LEVALBUTEROL HFA 45MCG/ACT 15 GM INHALER INH PRN (05:40)
[2021-04-18] MEDS ORDERED: NYSTATIN 100,000 UNITS/GM TOPICAL PWD 15 GM TOP PRN (05:40)
[2021-04-18] MEDS: ACETAMINOPHEN TAB 650MG DOSE (2X325MG) PO PRN (05:47)
[2021-04-18] MEDS: SYMBICORT 80/4.5MCG INHALER 6GM INH SCH ×2 (08:04→19:27)
[2021-04-18] MEDS: DOCUSATE SODIUM 100MG CAPSULE PO SCH ×2 (09:53→20:34)
[2021-04-18] MEDS: APIXABAN 2.5 MG TAB (ELIQUIS) PO SCH ×2 (09:54→20:34)
[2021-04-18] MEDS: PANTOPRAZOLE 40MG TAB (PROTONIX) PO SCH (09:54)
[2021-04-18] MEDS: METOPROLOL SUCC (TopROL XL) 100MG *XL* TAB PO SCH (09:55)
[2021-04-18] MEDS: predniSONE 1 MG TAB PO SCH (11:05)
[2021-04-18] MEDS: HYDROXYCHLOROQUINE 200 MG TAB PO SCH (11:05)
[2021-04-18] MEDS: metOLazone 5 MG TAB PO SCH (11:05)
[2021-04-18] MEDS: TORSEMIDE 20 MG TAB PO SCH (11:06)
[2021-04-18] MEDS: NYSTATIN 100,000 UNITS/GM TOPICAL PWD 15 GM TOP SCH ×2 (11:07→20:35)
[2021-04-18 14:03] LABS: AMORPHOUS SEDIMENT SMALL (NEGATIVE); APPEARANCE, URINE CLOUDY (CLEAR); BACTERIA, URINE AUTO NEGATIVE (NEGATIVE); BILIRUBIN, URINE AUTO NEGATIVE (NEGATIVE); BLOOD, URINE BLOOD NEGATIVE (NEGATIVE); COLOR, URINE STRAW (YELLOW); GLUCOSE, URINE (UA) AUTO NEGATIVE (NEGATIVE); KETONE, URINE AUTO NEGATIVE (NEGATIVE); LEUKOCYTE ESTERASE, URINE AUTO 1+ (NEGATIVE); NITRITE, URINE AUTO NEGATIVE (NEGATIVE); PROTEIN, URINE AUTO NEGATIVE (NEGATIVE); RBC, URINE AUTO 6 /HPF (0-3); SPECIFIC GRAVITY URINE AUTO 1.019 (1.002-1.035); SQUAMOUS EPITHELIAL CELL UR AU 3 /HPF (0-6); UROBILINOGEN, URINE AUTO 0.2 mg/dL (0.0-2.0); WBC, URINE AUTO 17 /HPF (0-3)
--- NOTE | 2021-04-18 20:07 | ECGEPIP ---
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
[2021-04-18] MEDS: ASPIRIN 81MG ENTERIC TABLET PO SCH (20:34)
[2021-04-18] MEDS: RAMELTEON 8 MG TAB (ROZEREM) PO PRN (20:34)
[2021-04-18] MEDS: MONTELUKAST 10 MG TAB PO SCH (20:34)
[2021-04-18] MEDS: traMADol 50 MG TAB PO PRN (20:36)
[2021-04-18 22:00] VITALS: BP 130/61
[2021-04-19] MEDS: ACETAMINOPHEN TAB 650MG DOSE (2X325MG) PO PRN ×2 (04:03→20:48)
[2021-04-19 06:00] VITALS: BP 110/59
[2021-04-19 07:02] LABS: HEMATOCRIT 31.8 % (36.0-47.0); MEAN CORPUSCULAR HGB CONC 31.4 g/dl (32.0-36.5); MEAN CORPUSCULAR VOLUME 98.5 fl (80.0-96.0); PLATELET COUNT, AUTOMATED 179 10^3/uL (150-450); RED BLOOD COUNT 3.23 10^6/uL (4.00-5.40); WHITE BLOOD COUNT 11.5 10^3/uL (4.0-10.0)
[2021-04-19] MEDS: SYMBICORT 80/4.5MCG INHALER 6GM INH SCH ×2 (07:22→19:47)
[2021-04-19 07:27] LABS: CALCIUM LEVEL 8.8 MG/DL (8.8-10.2); CREATININE FOR GFR 1.36 MG/DL (0.55-1.30); POTASSIUM SERUM 3.6 MEQ/L (3.5-5.1)
--- NOTE | 2021-04-19 09:37 | IPNPDOC ---
Text Note Date of Service The patient was seen on 04/19/21. NOTE Subjective: Patient seen and examined at bedside. No acute overnight events reported. Patient states her abdominal pain has resolved. Objective: General: NAD, lying comfortably in bed HEENT: NC/AT, EOMI Lungs: CTA B/L Heart: +S1S2, RRR Abd: Soft, NT, +BS Ext: no edema Neuro: no gross focal deficits Psych: AAOx3 A/P: 89-year-old female from assisted living with PMHx of afib on anticoagulation, HFrEF(35%) and HFpEF, HTN, COPD/chronic O2 dependent respiratory failure, SLE a nd multiple abdominal surgeries who is admitted for management of weakness possibly due to hypokalemia. 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
[2021-04-19] MEDS: DOCUSATE SODIUM 100MG CAPSULE PO SCH ×2 (10:00→20:48)
[2021-04-19] MEDS: TORSEMIDE 20 MG TAB PO SCH (10:00)
[2021-04-19] MEDS: APIXABAN 2.5 MG TAB (ELIQUIS) PO SCH ×2 (10:01→20:48)
[2021-04-19] MEDS: PANTOPRAZOLE 40MG TAB (PROTONIX) PO SCH (10:01)
[2021-04-19] MEDS: NYSTATIN 100,000 UNITS/GM TOPICAL PWD 15 GM TOP SCH ×2 (10:03→20:48)
[2021-04-19] MEDS: METOPROLOL SUCC (TopROL XL) 100MG *XL* TAB PO SCH (10:06)
[2021-04-19] MEDS: HYDROXYCHLOROQUINE 200 MG TAB PO SCH (13:29)
[2021-04-19] MEDS: predniSONE 1 MG TAB PO SCH (13:29)
[2021-04-19 14:00] VITALS: BP 128/62
[2021-04-19] MEDS: ASPIRIN 81MG ENTERIC TABLET PO SCH (20:47)
[2021-04-19] MEDS: MONTELUKAST 10 MG TAB PO SCH (20:48)
[2021-04-19] MEDS ORDERED: CALCIUM CARBONATE 500 MG CHEW U/D PO ONE (21:35)
[2021-04-19] MEDS: RAMELTEON 8 MG TAB (ROZEREM) PO PRN (21:39)
[2021-04-19 22:00] VITALS: BP 108/56
[2021-04-20 06:00] VITALS: BP 130/77
[2021-04-20] MEDS: SYMBICORT 80/4.5MCG INHALER 6GM INH SCH ×2 (07:33→19:54)
[2021-04-20] MEDS: PANTOPRAZOLE 40MG TAB (PROTONIX) PO SCH (09:20)
[2021-04-20] MEDS: predniSONE 1 MG TAB PO SCH (09:20)
[2021-04-20] MEDS: DOCUSATE SODIUM 100MG CAPSULE PO SCH ×2 (09:20→20:09)
[2021-04-20] MEDS: metOLazone 5 MG TAB PO SCH (09:21)
[2021-04-20] MEDS: NYSTATIN 100,000 UNITS/GM TOPICAL PWD 15 GM TOP SCH ×2 (09:21→20:10)
[2021-04-20] MEDS: TORSEMIDE 20 MG TAB PO SCH (09:21)
[2021-04-20] MEDS: HYDROXYCHLOROQUINE 200 MG TAB PO SCH (09:21)
[2021-04-20] MEDS: APIXABAN 2.5 MG TAB (ELIQUIS) PO SCH ×2 (09:21→20:09)
[2021-04-20] MEDS: METOPROLOL SUCC (TopROL XL) 100MG *XL* TAB PO SCH (09:22)
[2021-04-20] MEDS: ACETAMINOPHEN TAB 650MG DOSE (2X325MG) PO PRN ×2 (09:28→21:05)
[2021-04-20 11:28] LABS: HEMATOCRIT 30.8 % (36.0-47.0); MEAN CORPUSCULAR HEMOGLOBIN 31.4 pg (27.0-33.0); MEAN CORPUSCULAR HGB CONC 32.5 g/dl (32.0-36.5); MEAN CORPUSCULAR VOLUME 96.9 fl (80.0-96.0); PLATELET COUNT, AUTOMATED 190 10^3/uL (150-450); RED BLOOD COUNT 3.18 10^6/uL (4.00-5.40); WHITE BLOOD COUNT 9.7 10^3/uL (4.0-10.0)
--- NOTE | 2021-04-20 15:46 | IPNPDOC ---
Text Note Date of Service The patient was seen on 04/20/21. NOTE Subjective: Patient seen and examined at bedside. No acute overnight events reported. Patient states her abdominal pain has resolved. Objective: General: NAD, lying comfortably in bed HEENT: NC/AT, EOMI Lungs: CTA B/L Heart: +S1S2, RRR Abd: Soft, NT, +BS Ext: no edema Neuro: no gross focal deficits Psych: AAOx3 A/P: 89-year-old female from assisted living with PMHx of afib on anticoagulation, HFrEF(35%) and HFpEF, HTN, COPD/chronic O2 dependent respiratory failure, SLE a nd multiple abdominal surgeries who is admitted for management of weakness possibly due to hypokalemia. 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 - stable Plan: resume Symbicort, Xopenex, and montelukast #SLE Plan: resume prednisone and Plaquenil #Chronic pain / Arthritis / Gout Plan: Resume tramadol and acetaminophen DVT Px: as above she is on DOAC for afib Disposition: pending additional PT VS,Blancae, I+O VS, Blancae, I+O Laboratory Tests 04/20/21 11:15 Vital Signs Date Time Temp Pulse Resp B/P (MAP) Pulse Ox O2 Delivery O2 Flow Rate FiO2 04/20/21 09:22 88 132/77 04/20/21 09:00 2.0 04/20/21 06:00 97.0 20 95 Nasal Cannula I&O- Last 24 Hours up to 6 AM 04/20/21 06:00 Intake Total 1470 ml Output Total 900 ml Balance 570 ml NAEL GOODWIN MD Apr 20, 2021 15:46
[2021-04-20] MEDS: ASPIRIN 81MG ENTERIC TABLET PO SCH (20:09)
[2021-04-20] MEDS: MONTELUKAST 10 MG TAB PO SCH (20:09)
[2021-04-20] MEDS: RAMELTEON 8 MG TAB (ROZEREM) PO PRN (21:05)
[2021-04-20 22:00] VITALS: BP 100/54
[2021-04-21] MEDS: CALCIUM CARBONATE 500 MG CHEW U/D PO PRN (01:24)
[2021-04-21] MEDS: traMADol 50 MG TAB PO PRN (01:25)
[2021-04-21 06:00] VITALS: BP 112/59
[2021-04-21] MEDS: SYMBICORT 80/4.5MCG INHALER 6GM INH SCH ×2 (07:36→19:26)
[2021-04-21] MEDS: PANTOPRAZOLE 40MG TAB (PROTONIX) PO SCH (10:31)
[2021-04-21] MEDS: TORSEMIDE 20 MG TAB PO SCH (10:31)
[2021-04-21] MEDS: HYDROXYCHLOROQUINE 200 MG TAB PO SCH (10:31)
[2021-04-21] MEDS: DOCUSATE SODIUM 100MG CAPSULE PO SCH ×2 (10:31→20:20)
[2021-04-21] MEDS: predniSONE 1 MG TAB PO SCH (10:32)
[2021-04-21] MEDS: APIXABAN 2.5 MG TAB (ELIQUIS) PO SCH ×2 (10:32→20:20)
[2021-04-21] MEDS: METOPROLOL SUCC (TopROL XL) 100MG *XL* TAB PO SCH (10:35)
[2021-04-21] MEDS: NYSTATIN 100,000 UNITS/GM TOPICAL PWD 15 GM TOP SCH ×2 (10:36→21:00)
[2021-04-21 19:05] VITALS: BP 126/70
[2021-04-21] MEDS: MONTELUKAST 10 MG TAB PO SCH (20:20)
[2021-04-21] MEDS: ASPIRIN 81MG ENTERIC TABLET PO SCH (20:20)
[2021-04-21] MEDS: SIMETHICONE 80MG CHEW TAB PO PRN (20:20)
[2021-04-21] MEDS: RAMELTEON 8 MG TAB (ROZEREM) PO PRN (20:20)
[2021-04-22 06:00] VITALS: BP 145/61
[2021-04-22] MEDS: ACETAMINOPHEN TAB 650MG DOSE (2X325MG) PO PRN ×2 (07:19→13:47)
[2021-04-22] MEDS: SYMBICORT 80/4.5MCG INHALER 6GM INH SCH ×2 (07:41→20:11)
[2021-04-22] MEDS: DOCUSATE SODIUM 100MG CAPSULE PO SCH ×2 (07:58→20:27)
[2021-04-22] MEDS: METOPROLOL SUCC (TopROL XL) 100MG *XL* TAB PO SCH (07:59)
[2021-04-22] MEDS: TORSEMIDE 20 MG TAB PO SCH (07:59)
[2021-04-22] MEDS: HYDROXYCHLOROQUINE 200 MG TAB PO SCH (07:59)
[2021-04-22] MEDS: APIXABAN 2.5 MG TAB (ELIQUIS) PO SCH ×2 (07:59→20:26)
[2021-04-22] MEDS: PANTOPRAZOLE 40MG TAB (PROTONIX) PO SCH (07:59)
[2021-04-22] MEDS: predniSONE 1 MG TAB PO SCH (07:59)
[2021-04-22] MEDS: NYSTATIN 100,000 UNITS/GM TOPICAL PWD 15 GM TOP SCH ×2 (08:00→21:00)
[2021-04-22] MEDS: ASPIRIN 81MG ENTERIC TABLET PO SCH (20:26)
[2021-04-22] MEDS: RAMELTEON 8 MG TAB (ROZEREM) PO PRN (20:26)
[2021-04-22] MEDS: MONTELUKAST 10 MG TAB PO SCH (20:26)
[2021-04-22] MEDS: SIMETHICONE 80MG CHEW TAB PO PRN (20:26)
[2021-04-22] MEDS: traMADol 50 MG TAB PO PRN (20:27)
[2021-04-23 06:00] VITALS: BP 120/86
[2021-04-23] MEDS: SYMBICORT 80/4.5MCG INHALER 6GM INH SCH ×2 (07:16→21:03)
[2021-04-23] MEDS: TORSEMIDE 20 MG TAB PO SCH (08:07)
[2021-04-23] MEDS: DOCUSATE SODIUM 100MG CAPSULE PO SCH ×2 (08:07→20:38)
[2021-04-23] MEDS: predniSONE 1 MG TAB PO SCH (08:07)
[2021-04-23] MEDS: metOLazone 5 MG TAB PO SCH (08:07)
[2021-04-23] MEDS: HYDROXYCHLOROQUINE 200 MG TAB PO SCH (08:08)
[2021-04-23] MEDS: METOPROLOL SUCC (TopROL XL) 100MG *XL* TAB PO SCH (08:08)
[2021-04-23] MEDS: PANTOPRAZOLE 40MG TAB (PROTONIX) PO SCH (08:08)
[2021-04-23] MEDS: APIXABAN 2.5 MG TAB (ELIQUIS) PO SCH ×2 (08:08→20:38)
[2021-04-23] MEDS: NYSTATIN 100,000 UNITS/GM TOPICAL PWD 15 GM TOP SCH ×2 (08:09→20:39)
[2021-04-23] MEDS: ACETAMINOPHEN TAB 650MG DOSE (2X325MG) PO PRN ×2 (11:35→17:44)
[2021-04-23] MEDS: SIMETHICONE 80MG CHEW TAB PO PRN (12:36)
[2021-04-23] MEDS: CALCIUM CARBONATE 500 MG CHEW U/D PO PRN (12:36)
[2021-04-23] MEDS: MONTELUKAST 10 MG TAB PO SCH (20:38)
[2021-04-23] MEDS: ASPIRIN 81MG ENTERIC TABLET PO SCH (20:38)
[2021-04-24 06:00] VITALS: BP 121/55
[2021-04-24] MEDS: SYMBICORT 80/4.5MCG INHALER 6GM INH SCH ×2 (07:39→20:06)
[2021-04-24] MEDS: HYDROXYCHLOROQUINE 200 MG TAB PO SCH (08:45)
[2021-04-24] MEDS: predniSONE 1 MG TAB PO SCH (08:45)
[2021-04-24] MEDS: TORSEMIDE 20 MG TAB PO SCH (08:45)
[2021-04-24] MEDS: METOPROLOL SUCC (TopROL XL) 100MG *XL* TAB PO SCH (08:46)
[2021-04-24] MEDS: DOCUSATE SODIUM 100MG CAPSULE PO SCH ×2 (08:46→20:05)
[2021-04-24] MEDS: PANTOPRAZOLE 40MG TAB (PROTONIX) PO SCH (08:46)
[2021-04-24] MEDS: NYSTATIN 100,000 UNITS/GM TOPICAL PWD 15 GM TOP SCH ×2 (08:46→20:05)
[2021-04-24] MEDS: APIXABAN 2.5 MG TAB (ELIQUIS) PO SCH ×2 (08:46→20:05)
--- NOTE | 2021-04-24 19:35 | IPNPDOC ---
Subjective Date Seen The patient was seen on 04/24/21. Subjective Chief Complaint/HPI Mrs. Gonzalez is an 89 year old female from assisted living with atrial fibrillation, SLE, and multiple abdominal surgeries who presents with weakness. This morning, she denies any chest pain or dyspnea. Pending placement. Objective Physical Examination General Exam: Positive: Cooperative Eye Exam: Negative: Sclera icteric Neck Exam: Positive: Supple Chest Exam: Positive: Clear to auscultation Heart Exam: Positive: Rate Normal, Regular Rhythm Abdomen Exam: Positive: Normal bowel sounds, Soft; Negative: Tenderness Extremity Exam: Negative: Edema Neuro Exam: Positive: Normal Speech Psych Exam: Positive: Mood NL Assessment /Plan Assessment Mrs. Gonzalez is an 89 year old female from assisted living with atrial fibrillation, SLE, and multiple abdominal surgeries who presents with weakness. Patient cleared physical therapy. Patient to return to [facility] Plan/VTE VTE Prophylaxis Ordered?: Yes Plan 1. Weakness -Patient cleared PT to return back to [facility] 2. hypokalemia -Resolved 3. Abdominal pain -Resolved 4. Longstanding persistent Atrial Fibrillation -Continue apixaban -Rate controlled 5. Chronic HFrEF(35%) with HFpEF -Clinically compensated -Continue metolazone, metoprolol, and torsemide 6. HTN -Continue metolazone, metoprolol, and torsemide 7. COPD -Not in exacerbation -Continue Symbicort, Xopenex, and montelukast 8. Chronic hypoxic respiratory failure -Continue 2L of oxygen 9. SLE -Continue prednisone and Plaquenil 10. DVT ppx -Continue apixaban Disposition: Patient to return to [facility]. Currently ALC VS, I&O, 24H, Fishbone Vital Signs/I&O Vital Signs Date Time Temp Pulse Resp B/P (MAP) Pulse Ox O2 Delivery O2 Flow Rate FiO2 04/24/21 08:50 2.0 04/24/21 08:46 74 124/56 04/24/21 06:00 97.0 18 91 Room Air I&O- Last 24 Hours up to 6 AM 04/24/21 06:00 Intake Total 900 ml Output Total 1500 ml Balance -600 ml KALI ISAACS DO Apr 24, 2021 19:35
[2021-04-24] MEDS: ASPIRIN 81MG ENTERIC TABLET PO SCH (20:05)
[2021-04-24] MEDS: MONTELUKAST 10 MG TAB PO SCH (20:05)
[2021-04-24] MEDS: RAMELTEON 8 MG TAB (ROZEREM) PO PRN (21:32)
[2021-04-24] MEDS: ACETAMINOPHEN TAB 650MG DOSE (2X325MG) PO PRN (22:45)
[2021-04-25 06:00] VITALS: BP 123/62
[2021-04-25] MEDS: SYMBICORT 80/4.5MCG INHALER 6GM INH SCH (07:16)
[2021-04-25] MEDS: metOLazone 5 MG TAB PO SCH (08:20)
[2021-04-25] MEDS: TORSEMIDE 20 MG TAB PO SCH (08:20)
[2021-04-25] MEDS: PANTOPRAZOLE 40MG TAB (PROTONIX) PO SCH (08:20)
[2021-04-25] MEDS: NYSTATIN 100,000 UNITS/GM TOPICAL PWD 15 GM TOP SCH (08:20)
[2021-04-25] MEDS: APIXABAN 2.5 MG TAB (ELIQUIS) PO SCH (08:20)
[2021-04-25] MEDS: DOCUSATE SODIUM 100MG CAPSULE PO SCH (08:20)
[2021-04-25] MEDS: HYDROXYCHLOROQUINE 200 MG TAB PO SCH (08:20)
[2021-04-25] MEDS: predniSONE 1 MG TAB PO SCH (08:20)
[2021-04-25 08:21] VITALS: BP 118/87
[2021-04-25] MEDS: METOPROLOL SUCC (TopROL XL) 100MG *XL* TAB PO SCH (08:21)
--- NOTE | 2021-04-25 18:47 | DS.PDOC ---
Discharge Summary General Date of Admission Apr 20, 2021 at 11:31 Date of Discharge Apr 25, 2021 Discharge Summary PROCEDURES PERFORMED DURING STAY: None ADMITTING DIAGNOSES: 1. Weakness 2/2 hypokalemia 2. Hypokalemia 2/2 poor oral intake 3. Abdominal pain 4. Longstanding persistent atrial fibrillation 5. Chronic HFrEF 6. Hypertension 7. COPD 8. Chronic hypoxic respiratory failure on 2L NC 9. SLE 10. Chronic pain DISCHARGE DIAGNOSES: 1. Weakness 2/2 hypokalemia 2. Hypokalemia 2/2 poor oral intake 3. Abdominal pain 4. Longstanding persistent atrial fibrillation 5. Chronic HFrEF 6. Hypertension 7. COPD 8. Chronic hypoxic respiratory failure on 2L NC 9. SLE 10. Chronic pain COMPLICATIONS/CHIEF COMPLAINT: General Weakness, Hypokalemia. HISTORY OF PRESENT ILLNESS: Copied from admitting attending's H&P " This 89-year-old female came to the hospital because residential staff sent her to the ER for evaluation of 4 out of 10 in severity mid cramping abdominal pain for about 3 or 4 days. She denies having fevers, chills, nausea vomiting or diarrhea but admits to eating less because of the pain. She denies feeling constipated and thinks her last BM was likely 1 day ago. She denies having dysuria. " HOSPITAL COURSE: Patient abdominal pain resolved the following day and hypokalemia was corrected. Patient worked with physical therapy and patient needed a few sessions to determine subacute rehab vs home with services. Patient was able to be cleared from PT. This morning, patient feels well and feels ready for home. Patient was discharged back to [facility]. DISCHARGE MEDICATIONS: Please see below. ALLERGIES: Please see below. PHYSICAL EXAMINATION ON DISCHARGE: VITAL SIGNS: Please see below. GENERAL: Comfortable, in no apparent distress. HEENT: Sclera clear. NECK: Supple. RESPIRATORY: Lungs clear to auscultation bilaterally, no rales, wheeze or rhonchi. CARDIOVASCULAR: Regular rate and rhythm. ABDOMEN: Soft, nontender, no guarding or rebound tenderness. Normal bowel sounds. MUSCLE SKELETAL: No pitting edema PSYCHOLOGICAL: Normal mood and affect LABORATORY DATA: Please see below. IMAGING: Radiologist interpretation CT abdomen pelvis with IV contrast only 1. Mild bibasilar interstitial coarsening with minimal fibro-atelectatic change and question of minimal infiltrates in the lower lobes. 2. 7 mm subpleural nodule in the posterior right lower lobe. For patients at low risk (minimal or absent history of smoking and of other known risk factors), recommend CT Chest at 6-12 months, then consider CT Chest at 18-24 months. For patients at high risk (history of smoking or of other known risk factors), recommend CT Chest at 6-12 months, then CT Chest at 18-24 months. (Reference: Khadra) 3. 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 4. Status post partial sigmoid resection with rectosigmoid anastomosis. 5. Status post hysterectomy. 6. Otherwise negative CT abdomen/pelvis. PROGNOSIS: Good ACTIVITY: As tolerated. DIET: 2 g sodium DISCHARGE PLAN: Return to [facility] assisted living DISPOSITION: [facility] D/T [facility] DISCHARGE INSTRUCTIONS: 1. Follow-up with PCP in 1 week ITEMS TO FOLLOWUP ON ON OUTPATIENT: 1. Consider CT chest in 6 to 12 months for 7 mm subpleural nodule in the posterior right lower lobe. DISCHARGE CONDITION: Stable. Total time spent on discharge planning, discharge summary, medication reconciliation: 45 minutes Vital Signs/I&Os Vital Signs Date Time Temp Pulse Resp B/P (MAP) Pulse Ox O2 Delivery O2 Flow Rate FiO2 04/25/21 09:45 2.0 04/25/21 08:21 86 118/87 04/25/21 06:00 97.2 18 92 Room Air I&O- Last 24 Hours up to 6 AM 04/25/21 06:00 Intake Total 1340 ml Output Total 1650 ml Balance -310 ml Laboratory Data Labs 24H Laboratory Tests 2 04/25/21 08:26: Coronavirus (COVID-19)(PCR) NEGATIVE Discharge Medications Scheduled Apixaban (Eliquis) 2.5 Mg Tablet, 2.5 MG PO BID, (Reported) Aspirin (Aspirin EC) 81 Mg Tab, 81 MG PO QHS, (Reported) Budesonide/Formoterol (Symbicort 80-4.5 Mcg Inhaler) 60 Puff/Inhaler Aers, 2 PUFF INH BID, (Reported) Carboxymethyl/Glycerin/Poly80 (Refresh Optive Advanced Drops) 1 Kassy Kassy, 1 DROP OU QID, (Reported) Docusate Sodium (Colace) 100 Mg Cap, 200 MG PO BID, (Reported) Famotidine (Famotidine) 20 Mg Tablet, 20 MG PO BID, (Reported) 0900, 1700 Hydroxychloroquine Sulfate (Hydroxychloroquine Sulfate) 200 Mg Tab, 200 MG PO DAILY, (Reported) L. Acidophilus/L.bulgaricus (Floranex Tablet) 1 Each Tablet, 1 TAB PO DAILY, (Reported) Metolazone (Metolazone) 5 Mg Tablet, 5 MG PO 3XW, (Reported) FRIDAY, FRIDAY AND FRIDAY Metoprolol Succinate (Metoprolol Succinate) 200 Mg Tab.er.24h, 200 MG PO DAILY, (Reported) Montelukast Sodium (Montelukast Sodium) 10 Mg Tablet, 10 MG PO QHS, (Reported) Nystatin (Nystatin Powder) 15 Gm Powder, 1 DOSE TOP BID, (Reported) APPLY TO ABDOMINAL FOLDS Prednisone (Prednisone) 1 Mg Tablet, 2 MG PO DAILY, (Reported) Torsemide (Torsemide) 20 Mg Tablet, 20 MG PO DAILY, (Reported) [Refresh Liquigel] , 1 DROP OU QHS, (Reported) Scheduled PRN Acetaminophen (Tylenol) 325 Mg Tablet, 650 MG PO Q4H PRN for PAIN LEVEL 1-5, (Reported) Fexofenadine/Pseudoephedrine (Sierra-D 12 Hour Tablet) 1 Tab Tab, 1 TAB PO BID PRN for CONGESTION, (Reported) Levalbuterol Hydrochloride (Xopenex Hfa) 45 Mcg/Act Aer, 1 PUFF INH Q4H PRN for SHORTNESS OF BREATH, (Reported) Loperamide HCl (Imodium A-D) 2 Mg Tablet, 2 MG PO QID PRN for LOOSE STOOLS, (Reported) Magnesium Hydroxide (Milk of Magnesia) 400 Mg/5 Ml Oral.susp, 30 ML PO DAILY PRN for CONSTIPATION, (Reported) Polyethylene Glycol 3350 (Miralax) 17 Gm Powd.pack, 17 GM PO DAILY PRN for CONSTIPATION, (Reported) Simethicone (Gas-X) 125 Mg Tab.chew, 125 MG PO QID PRN for GERD WITHOUT ESOPHAGITIS, (Reported) Suvorexant (Belsomra) 20 Mg Tablet, 20 MG PO QHS PRN for INSOMNIA, (Reported) Tramadol HCl (Tramadol HCl) 50 Mg Tablet, 50 MG PO TID PRN for PAIN LEVEL 6-10, (Reported) Allergies Coded Allergies: NSAIDS (Non-Steroidal Anti-Inflamma (Verified Allergy, Intermediate, CHEST PAIN, 03/16/20) TAKES ASPIRIN AT HOME Juqnjqm-Lma-Iyl Reductase Inhibitor (Verified Allergy, Intermediate, SWOLLEN JOINTS, 03/16/20) etodolac (Verified Allergy, Intermediate, HIVES, 03/16/20) Sulfa (Sulfonamide Antibiotics) (Verified Allergy, Mild, RASH, 03/16/20) lidocaine (Verified Allergy, Mild, RASH, 03/16/20) nickel (Verified Allergy, Mild, RASH, 03/16/20) ibuprofen (Verified Adverse Reaction, Intermediate, CHEST PAIN, 03/16/20) TAKES ASPIRIN AT HOME lactose (Verified Adverse Reaction, Unknown, lactose intolerant, 03/16/20) KALI ISAACS DO Apr 25, 2021 18:47
== END 2021-04-25 11:12 | DRG 641 ==
LOC: M ED 22:05 → M ED INP 22:06 → ENRESERV 04-18 05:06 → M MSPAV 04-18 09:03 → OBSVTOIN 04-20 11:31
PROVIDERS: ADMIT Internal Medicine; ATTEND Internal Medicine
DX: E87.6 Hypokalemia (principal); J96.10 Chronic respiratory failure, unspecified whether with hypoxia or hypercapnia; I48.11 Longstanding persistent atrial fibrillation; I50.32 Chronic diastolic (congestive) heart failure; R53.1 Weakness; I11.0 Hypertensive heart disease with heart failure; E11.9 Type 2 diabetes mellitus without complications; J44.9 Chronic obstructive pulmonary disease, unspecified; Z99.81 Dependence on supplemental oxygen; M10.9 Gout, unspecified; M19.90 Unspecified osteoarthritis, unspecified site; I27.20 Pulmonary hypertension, unspecified; Z96.652 Presence of left artificial knee joint; M32.9 Systemic lupus erythematosus, unspecified; R10.9 Unspecified abdominal pain; Z79.82 Long term (current) use of aspirin; Z79.01 Long term (current) use of anticoagulants; Z79.899 Other long term (current) drug therapy; Z88.2 Allergy status to sulfonamides; Z88.8 Allergy status to other drugs, medicaments and biological substances; Z91.011 Allergy to milk products; R91.8 Other nonspecific abnormal finding of lung field; Z87.891 Personal history of nicotine dependence; Z66 Do not resuscitate

== ENCOUNTER 2021-06-04 06:01 | Emergency (ER) | payer MEDICARE, MEDICAID ==
[~2021-06-04] VITALS: Ht 157.5 cm; Wt 78.6 kg
[~2021-06-04 06:01] MED LIST changes: +ACET-907 PO; +BELS1TAB4 PO; +FLORCHW2 PO; -LISI2.5T2 PO; +LISI2.5T9 PO; +METO200T28 PO; +MILKSUS3 PO; +MIRA1POW3 PO; +MONT10TA10 PO; +NYST1POW9 TOP; +REFRESH LIQUIGEL OU; +SIME125T PO
[2021-06-04] MEDS ORDERED: traMADol 50 MG TAB PO ONE (07:45)
[2021-06-04] MEDS ORDERED: PILL CUTTER 1 EACH XX ONE (08:04)
--- NOTE | 2021-06-04 08:43 | REP ---
INDICATION: trauma COMPARISON: None. TECHNIQUE: AP and lateral views right humerus. FINDINGS: Age-related degenerative changes noted at the shoulder and elbow. No obvious acute fracture or dislocation. No subcutaneous emphysema or foreign body. IMPRESSION: . No acute fracture or dislocation. <Electronically signed by Doyle Coronel > 06/04/21 [id number]
--- NOTE | 2021-06-04 08:43 | REP ---
INDICATION: trauma COMPARISON: None. TECHNIQUE: Internal rotation, external rotation, and Y view. FINDINGS: Age-related degenerative changes. No acute fracture or dislocation. No subcutaneous emphysema or foreign body. IMPRESSION: Age-related degenerative changes. No acute fracture or dislocation appreciated. <Electronically signed by Doyle Coronel > 06/04/21 [id number]
--- NOTE | 2021-06-04 09:04 | REP ---
INDICATION: trauma. COMPARISON: Frontal view of the chest 08/13/2020 TECHNIQUE: Four views of the right ribs with frontal view of the chest. FINDINGS: There is no change in appearance of the frontal view the chest compared to the portable exam. There is cardiomegaly and interstitial fibrotic change. Four views of the right ribs show no evidence of an acute fracture or destructive osseous lesion. IMPRESSION: 1. No acute rib abnormality. 2. Stable appearing chronic lung changes and cardiomegaly. <Electronically signed by Zain An > 06/04/21 [id number]
[2021-06-04 10:01] VITALS: BP 116/54
== END 2021-06-04 10:27 | disposition home or self-care (01) ==
LOC: M ED 06:01
DX: S40.011A Contusion of right shoulder, initial encounter (principal); W01.198A Fall on same level from slipping, tripping and stumbling with subsequent striking against other object, initial encounter; Y92.091 Bathroom in other non-institutional residence as the place of occurrence of the external cause; Y93.9 Activity, unspecified; Y99.9 Unspecified external cause status; I51.7 Cardiomegaly; R91.8 Other nonspecific abnormal finding of lung field; I48.91 Unspecified atrial fibrillation; I50.9 Heart failure, unspecified; E11.9 Type 2 diabetes mellitus without complications; J44.9 Chronic obstructive pulmonary disease, unspecified; Z79.82 Long term (current) use of aspirin; Z79.01 Long term (current) use of anticoagulants; Z79.899 Other long term (current) drug therapy; Z88.6 Allergy status to analgesic agent; Z88.8 Allergy status to other drugs, medicaments and biological substances; Z88.2 Allergy status to sulfonamides

== ENCOUNTER → 2021-07-04 | Outpatient (REF) | payer MEDICARE, MEDICAID ==
[2021-07-04 10:44] LABS: HEMATOCRIT 32.6 % (36.0-47.0); HEMOGLOBIN 10.1 g/dl (12.0-15.5); MEAN CORPUSCULAR HEMOGLOBIN 31.4 pg (27.0-33.0); MEAN CORPUSCULAR VOLUME 101.2 fl (80.0-96.0); PLATELET COUNT, AUTOMATED 177 10^3/uL (150-450); RED BLOOD COUNT 3.22 10^6/uL (4.00-5.40); WHITE BLOOD COUNT 6.8 10^3/uL (4.0-10.0)
[2021-07-04 11:19] LABS: ALBUMIN 3.1 GM/DL (3.2-5.2); BILIRUBIN,TOTAL 0.5 MG/DL (0.2-1.0); CALCIUM LEVEL 9.3 MG/DL (8.8-10.2); CREATININE FOR GFR 1.48 MG/DL (0.55-1.30); GLOMERULAR FILTRATION RATE 35.4 (>32); POTASSIUM SERUM 3.3 MEQ/L (3.5-5.1); TOTAL PROTEIN 6.6 GM/DL (6.4-8.2)
== END ==
PROVIDERS: ATTEND Internal Medicine Cardiovascular Disease
DX: I50.9 Heart failure, unspecified (principal)

== ENCOUNTER 2021-07-29 03:26 | Emergency (ER) | payer MEDICARE, MEDICAID ==
[~2021-07-29] VITALS: Ht 154.9 cm; Wt 78.6 kg
--- OUTSIDE RECORDS SUMMARY | 2021-07-29 03:31 | CCD ---
Author Author Nimesh Salazar MD [facility] Organization Nimesh Salazar MD [facility] Address [phone] [address] Phone Care Team Providers Care Nurse [facility] Name Role Phone Martin CISNEROS, Nimesh DUGGAN Unavailable [phone] Reason for Referral No Reason for Referral Recorded Problems Includes: Active, inactive, and resolved Problems All Visits Onset Date - Time Resolved Date - Time Provider Co ndition Status History of Nicotine Dependence 04/20/2018 - 12:00AM Nimesh Salazar MD, FACS Active Essential Hypertension 04/20/2018 - 12:00AM Nimesh Ramsey MD, FACS Active Macular Puckering Both Eyes 04/20/2018 - 12:00AM Nimesh Salazar MD, FACS Active Macular Degeneration Nonexudative Bilateral Early Dry Stage 08/18/2017 - 12:00AM Nimesh Salazar MD, FACS Active Posterior Capsule Opacification Eccentric Capsule Righ t Eye 08/18/2017 - 12:00AM Nimesh Salazar MD, FACS Active Pseudophakic - Both Eyes 08/18/2017 - 12:00AM Nimesh Salazar MD, FACS Active Ptosis of Right Upper Eyelid 05/02/2015 - 12:00AM Unknown - Unkn own Nimesh Salazar MD, FACS Resolved Note: Unchanged Posterior Capsule Opacification Right Eye 05/02/2014 - 12:00AM Nimesh Wood MD, FACS Active Note: Unchanged Macular Puckering Right Eye 05/02/2014 - 12:00AM Nimesh Salazar MD, FACS Inactive Note: Unchanged Macular Degeneration Nonexudative Dry 05/02/2014 - 12:00AM Nimesh Salazar MD, FACS Inactive Note: Unchanged - of both ey es Posterior Capsule Opacification Not Obscuring Vision 014 - 12:00AM 02/02/2021 - 1:27PM Nimesh Salazar MD, FACS Resolved Note: Unchanged Ptosis of Eyelid 05/02/2014 - 12:00AM Nimesh loaiza MD, FACS Inactive Note: Unchanged Skin Neoplasm Eyelid Left Upper 05/02/2014 - 12:00AM Unknown - U nknown Nimesh Salazar MD, FACS Resolved Note: Unchanged Dry Eye Syndrome Both Eyes 05/02/2014 - 12:00AM Nimesh Salazra MD, FACS Active Note: Unchanged Vitreous Floaters Both Eyes 05/02/2014 - 12:00AM Nimesh Salazar MD, FACS Active Note: Unchanged Cataract Senile Cortical Anterior 02/25/2013 - 12:00AM Unknown - Unknown Nimesh Salazar MD, FACS Resolved Note: Unchanged - removed by Dr. Polk III Cataract Senile Nuclear 02/25/2013 - 12:00AM Unknown - Unknown Galo Wood MD, FACS Resolved Note: Unchanged - removed by Dr. Polk III Dermatochalasis Both Eyelids 02/25/2013 - 12:00AM Nimesh Salazar MD, FACS Active Note: Unchanged - lower lids Drusen Both Eyes 02/25/2013 - 12:00AM Unknown - Unknown Nimesh Salazar MD, FACS Resolved Note: Unchanged Dry Eye Syndrome 02/25/2013 - 12:00AM Nimesh loaiza MD, FACS Inactive Note: Unchanged Retinopathy Hypertensive Both Eyes 02/25/2013 - 12:00AM Nimesh Salazar MD, FACS Active Note: Unchanged Macular Puckering Right Eye 02/25/2013 - 12:00AM Nimesh Salazar MD, FACS Inactive Note: Unchanged Plan of Treatment Future Appointments Date Time Location Provider 7 Month Follow-Up 08/16/2021 12:30PM [facility] Sourav Wood MD, FACS Assessments Includes: Assessments for all patient encounters Findings Encounter Date Early dry stage nonexudative macular degeneration of b oth eyes 1 Year Follow-Up & Testing with Nimesh Salazar MD, FACS 02/02/2021 Essential hypertension 1 Year Follow-Up & Testing w ith Nimesh Salazar MD, FACS 02/02/2021 History of nicotine dependence 1 Year Follow-Up & Test ing with Nimesh Wood MD, FACS 02/02/2021 Macular puckering of both eyes 1 Year Follow-Up & Test ing with Nimesh Wood MD, FACS 02/02/2021 Posterior capsule opacification of eccentric capsule i n the right eye 1 Year Follow-Up & Testing with Nimesh Salazar MD, FACS 02/02/2021 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 1 Year Follow-Up & Testing w ith Nimesh Salazar MD, FACS 02/02/2021 Early dry stage nonexudative macular degeneration of b oth eyes 1 Year Follow-Up with Nimesh Salazar MD, FACS 05/24/2019 Essential hypertension 1 Year Follow-Up with Nimesh Wood MD, FACS 05/24/2019 History of nicotine dependence 1 Year Follow-Up with Galo Salazar MD, FACS 05/24/2019 Macular puckering of the right eye 1 Year Follow-Up wi th Nimesh Salazar MD, FACS 05/24/2019 Posterior capsule opacification of eccentric capsule i n the right eye 1 Year Follow-Up with Nimesh Salazar MD, FACS 05/24/2019 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 1 Year Follow-Up with Nimesh Schmitz MD, FACS 05/24/2019 Early dry stage nonexudative macular degeneration of b oth eyes 8 Month Follow-Up and Testing with Nimesh Salazar MD, FACS 04/20/2018 Essential hypertension 8 Month Follow-Up and Testin g with Nimesh Salazar MD, FACS 04/20/2018 History of nicotine dependence 8 Month Follow-Up and T esting with Nimesh Salazar MD, FACS 04/20/2018 Macular puckering of both eyes 8 Month Follow-Up and T esting with Nimesh Salazar MD, FACS 04/20/2018 Posterior capsule opacification of eccentric capsule i n the right eye 8 Month Follow-Up and Testing with Nimesh Salazar MD, FACS 04/20/2018 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 8 Month Follow-Up and Testin g with Nimesh Salazar MD, FACS 04/20/2018 Early dry stage nonexudative macular degeneration of b oth eyes 8 Month Follow-Up with Nimesh Salazar MD, FACS 08/18/2017 Essential hypertension 8 Month Follow-Up with Nimesh Mares MD, FACS 08/18/2017 History of nicotine dependence 8 Month Follow-Up with Nimesh Salazar MD, FACS 08/18/2017 Hypertensive retinopathy of both eyes 8 Month Follow-U p with Nimesh Salazar MD, FACS 08/18/2017 Macular puckering of the right eye 8 Month Follow-Up w ith Nimesh Salazar MD, FACS 08/18/2017 Posterior capsule opacification of eccentric capsule i n the right eye 8 Month Follow-Up with Nimesh Salazar MD, FACS 08/18/2017 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 8 Month Follow-Up with Nimesh Issa MD, FACS 08/18/2017 Early dry stage nonexudative macular degeneration of b oth eyes 10 Month Follow- Up with Nimesh Salazar MD, FACS 12/30/2016 Essential hypertension 10 Month Follow-Up with Nimesh Merino MD, FACS 12/30/2016 History of nicotine dependence 10 Month Follow-Up with Nimesh Salazar MD, FACS 12/30/2016 Macular puckering of the right eye 10 Month Follow-Up with Nimesh Salazar MD, FACS 12/30/2016 Posterior capsule opacification of eccentric capsule i n the right eye 10 Month Follow-Up with Nimesh Salazar MD, FACS 12/30/2016 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 10 Month Follow-Up with Nimesh Ramsey MD, FACS 12/30/2016 Dry nonexudative macular degeneration 9 Month Follow-U p with Nimesh Salazar MD, FACS 03/01/2016 Essential hypertension 9 Month Follow-Up with Nimesh Mares MD, FACS 03/01/2016 History of nicotine dependence 9 Month Follow-Up with Nimesh Salazar MD, FACS 03/01/2016 Macular puckering of the right eye 9 Month Follow-Up w ith Nimesh Salazar MD, FACS 03/01/2016 Posterior capsule opacification of eccentric capsule i n the right eye 9 Month Follow-Up with Nimesh Salazar MD, FACS 03/01/2016 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 9 Month Follow-Up with Nimesh Issa MD, FACS 03/01/2016 Dermatochalasis of the right upper eyelid 1 Week Post OP with Nimesh Wood MD, FACS 05/02/2015 Ptosis of the right upper eyelid 1 Week Post OP with Galo Salazar MD, FACS 05/02/2015 Dermatochalasis of both upper eyelids 1 WK PREOP FOR S URGERY with Nimesh Salazar MD, FACS 04/18/2015 Ptosis of bilateral eyelids 1 WK PREOP FOR SURGERY wit h Nimesh Salazar MD, FACS 04/18/2015 Dermatochalasis of both eyes upper and lower lids 6 M onth Follow-Up with Visual Field with Nimesh Salazar MD, FACS 01/30/2015 Dry eye syndrome of both eyes 6 Month Follow-Up with V isual Field with Nimesh Salazar MD, FACS 01/30/2015 Dry nonexudative macular degeneration both eyes 6 Mon th Follow-Up with Visual Field with Nimesh Salazar MD, FACS 01/30/2015 Hypertensive retinopathy of both eyes 6 Month Follow-U p with Visual Field with Nimesh Salazar MD, FACS 01/30/2015 Macular puckering of the right eye 6 Month Follow-Up w ith Visual Field with Nimesh Salazar MD, FACS 01/30/2015 Posterior capsule opacification in the right eye 6 Mon th Follow-Up with Visual Field with Nimesh Salazar MD, FACS 01/30/2015 Posterior capsule opacification not obscuring vision 6 Month Follow-Up with Visual Field with Nimesh Salazar MD, FACS 01/30/2015 Ptosis of bilateral eyelids 6 Month Follow-Up with Vis ual Field with Nimesh Salazar MD, FACS 01/30/2015 Vitreous floaters in both eyes 6 Month Follow-Up with Visual Field with Nimesh Salazar MD, FACS 01/30/2015 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 IN OFFICE with Nimesh Salazar MD, FACS 05/24/2014 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 IN OFFICE with Nimesh Salazar MD, FACS 05/24/2014 Dermatochalasis of both eyes upper and lower 1 Year F ollow-Up with Nimesh Salazar MD, FACS 05/02/2014 Dry eye syndrome of both eyes 1 Year Follow-Up with Bashir Salazar MD, FACS 05/02/2014 Dry nonexudative macular degeneration both eyes 1 Yea r Follow-Up with Nimesh Salazar MD, FACS 05/02/2014 Hypertensive retinopathy of both eyes 1 Year Follow-Up with Nimesh Slaazar MD, FACS 05/02/2014 Macular puckering of the right eye 1 Year Follow-Up wi Nimesh Salazar MD, FACS 05/02/2014 Posterior capsule opacification in the right eye 1 Yea r Follow-Up with Nimesh Salazar MD, FACS 05/02/2014 Posterior capsule opacification not obscuring vision 1 Year Follow-Up with Nimesh Salazar MD, FACS 05/02/2014 Ptosis of eyelid both upper lids 1 Year Follow-Up wit h Nimesh Salazar MD, FACS 05/02/2014 Skin neoplasm of the left upper eyelid 1 Year Follow-U p with Nimesh Salazar MD, FACS 05/02/2014 Vitreous floaters in both eyes 1 Year Follow-Up with Galo Salazar MD, FACS 05/02/2014 Anterior cortical senile cataract 6 Month Follow-Up wi Nimesh Salazar MD, FACS 02/25/2013 Dermatochalasis of both eyes 6 Month Follow-Up with Bashir Salazar MD, FACS 02/25/2013 Drusen of both eyes 6 Month Follow-Up with Nimesh gill MD, FACS 02/25/2013 Dry eye syndrome 6 Month Follow-Up with Nimesh gill MD, FACS 02/25/2013 Dry eye syndrome of both eyes 6 Month Follow-Up with Galo Salazar MD, FACS 02/25/2013 Hypertensive retinopathy of both eyes 6 Month Follow-U p with Nimesh Salazar MD, FACS 02/25/2013 Macular puckering of the right eye 6 Month Follow-Up w [facility] Nimesh Salazar MD, FACS 02/25/2013 Nuclear senile cataract 6 Month Follow-Up with Nimesh Merino MD, FACS 02/25/2013 Vitreous floaters in both eyes 6 Month Follow-Up with Nimesh Salazar MD, FACS 02/25/2013 Instructions Instructions not supported for this document typeNo Instructions Recorded Medical Equipment - Implanted Devices Includes: Current and historical DevicesNo Medical Equipment Recorded Medications Includes: Current and historical Medications Current Medications (continue as prescribed) Refresh Optive Advanced 0.5-1-0.5% Ophthalmic Solution 10/19 Provider: Nimesh Salazar MD, FACS Diagnosis: Dry eye syndrome of bilateral lacrimal glands One drop four times a day in both eyes Refresh Liquigel 1% Ophthalmic Gel 10/19/2020 Provi karne: Nimesh Salazar MD, FACS Diagnosis: Dry eye syndrome of bilateral lacrimal glands One drop in each eye at night time before bed only Gabapentin 100MG Oral Capsule 05/24/2019 Provider: Diagnosis: Pantoprazole 40 MG Oral Tablet 05/24/2019 Provider: Diagnosis: PredniSONE 5MG Oral Tablet 04/20/2018 Provider: Diagnosis: Magnesium 400MG Oral Tablet 04/20/2018 Provider: Diagnosis: Symbicort 160-4.5MCG/ACT Inhalation Aerosol 04/20/2018 Provider: Diagnosis: Sierra Allergy 60MG Oral Tablet 04/20/2018 Provide r: Diagnosis: Plaquenil 200MG Oral Tablet 04/20/2018 Provider: Diagnosis: Oxybutynin Chloride ER 5 MG Tablet, extended-release 24 hour 04/18/2015 Provider: Diagnosis: CVS Saline Nose [place] 0.65 % Solution 01/30/2015 Pr ovider: Diagnosis: Refresh Plus 0.5 % Solution 01/30/2015 Provider: Diagnosis: Mometasone Furoate 0.1 % Solution 01/30/2015 Provid er: Diagnosis: in each ear ICaps AREDS Formula OR TABS 05/02/2014 Provider: Diagnosis: traMADol HCl 50 MG OR TABS 05/02/2014 Provider: Diagnosis: Fluticasone Propionate 50 MCG/ACT NA SUSP 02/25/2013 Provider: Diagnosis: MiraLax 17 GM OR PACK 02/25/2013 Provider: Diagnosis: Docusate Sodium 100 MG OR CAPS 02/25/2013 Provider: Diagnosis: Tylenol 325 MG OR TABS 02/25/2013 Provider: Diagnosis: Caltrate 600+D 600-400 MG-UNIT OR CHEW 02/25/2013 P rovider: Diagnosis: John Multivitamin for Women OR TABS 02/25/2013 Prov ider: Diagnosis: Aspirin 81 MG OR TABS 02/25/2013 Provider: Diagnosis: Lisinopril 10 MG OR TABS 02/25/2013 Provider: Diagnosis: Atenolol 50 MG OR TABS 02/25/2013 Provider: Diagnosis: Past Medications on file Ciloxan 0.3 % Ointment 04/27/2015 - 05/27/2015 Provider: Nimesh Salazar MD, FACS Diagnosis: Apply to incision & sutures 3 times a day Welchol 625 MG Tablet 01/30/2015 - 04/18/2015 Provider: Diagnosis: Lasix 40 MG Tablet 01/30/2015 - 05/24/2019 Provider: Diagnosis: Erythromycin 5 MG/GM OP OINT 05/24/2014 - 01/30/2015 Provide r: Nimesh Salazar MD, FACS Diagnosis: Bone/skin neoplasm N OS Apply to incision twice a day for 5 days Msfothrz-Hapzphhky-MJ [id number] OT SUSP 05/02/2014 - 01/30 Provider: Diagnosis: 4 drops a day to both ears Vytorin 10-40 MG OR TABS 02/25/2013 - 02/25/2013 Provider: Diagnosis: Aspirin 325 MG OR TABS 02/25/2013 - 02/25/2013 Provider: Diagnosis: Restasis 0.05% OP EMUL 02/25/2013 - 02/25/2013 Provider: Diagnosis: Propranolol HCl 20 MG OR TABS 02/25/2013 - 02/25/2013 Provid er: Diagnosis: Tribenzor 20-5-12.5 MG OR TABS 02/25/2013 - 02/25/2013 Provi karen: Diagnosis: Bumetanide 1 MG OR TABS 02/25/2013 - 02/25/2013 Provider: Diagnosis: Symbicort 80-4.5 MCG/ACT IN AERO 02/25/2013 - 02/25/2013 Pro vider: Diagnosis: Ventolin HFA 108 (90 Base) MCG/ACT IN AERS 02/25/2013 - 02/10 Provider: Diagnosis: hydroCHLOROthiazide 25 MG TABS 02/25/2013 - 01/30/2015 Provi karen: Diagnosis: NexIUM 40 MG OR PACK 02/25/2013 - 05/24/2019 Provider: Diagnosis: Glucosamine-Chondroitin 9850-5741 MG/30ML OR LIQD 02/25/2013 - 01/30/2015 Provider: Diagnosis: CVS Fish Oil 1200 MG OR CAPS 02/25/2013 - 04/18/2015 Provide r: Diagnosis: Medications Administered Includes: Administered Medications in patient's chartNo Administered Medications Recorded Vital Signs Includes: Vital Signs from 06/18/2020 through 06/18/2021No Vital Signs Recorded For Specified Dates Results Includes: Results from 06/18/2020 through 06/18/2021No Results Recorded For Specified Dates History of Present Illness History of Present Illness not supported for this document typeNo History of Present Illness Recorded Social History Description Last Updated Tobacco non-user 02/02/2021 No tobacco use 02/02/2021 Not using drugs 02/02/2021 Smoking status : Former smoker 02/02/2021 Wine consumption 05/16/2015 Alcohol 1-2 glasses a month 01/30/2015 Previous smoking history 06/21/2014 Alcohol use 02/25/2013 Procedures and Surgical History Includes: Procedures from 06/18/2020 through 06/18/2021 Procedures Code Diagnosis Performing Provider Service Location Service Date [facility], with interpretation and re port (WAIVER OF LIABILITY ON FILE (ABN)) [id number] Nexdtve age-related mclr deg n, bilateral, early dry stage, Essential (primary) hypertension, Personal history of nicotine dependence Nimesh Wood MD, OLGA LIDIA Salazar MD [facility] 02/02/2021 Comprehensive eye exam established patient (Signi/Sep Eval. & Man.) [id number] Nexdtve age-related mclr degn, bilateral, early dry stage, Essential (primary) hypertension, Personal history of nicotine dependence, Puckering of macula, bilateral Nimesh Salazar MD, OLGA LIDIA Salazar MD [facility] 2020 Surgical History Last Updated History of cataract surgery : PCIOL OU Dr. Polk III 0 02/02/2021 Surgical / procedural history : Tonsille ctomy, Hysterectomy, Colon Cancer- Resection, Left Knee Replacement 02/02/2021 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 Salazar April 2015 02/02/2021 History of repair of blepharoptosis by l evator resection and advancement of the left upper eyelid, internal approach with blepharoplasty 05/02/2015 Medical History Includes: Medical History in patient's chart Description Last Updated Reported medical history : History of [place] Cancer, GERD, Lactose Intolerant, COPD, Arthritis 02/02/2021 No recent change in medical history 05/31/2015 Currently wearing eyeglasses only uses for reading History of arthritis 02/25/2013 Tonsillectomy ~Hysterectomy ~Colon Cancer Resection 02/25/2013 History of hyperlipidemia 02/25/2013 History of hypertension 02/25/2013 Family History Includes: Family History in patient's chart Description Last Updated Daughter's history of arthritis 01/30/2015 Fraternal history of arthritis 01/30/2015 Maternal history of arthritis 01/30/2015 Maternal history of blindness 01/30/2015 Maternal history of cataract 01/30/2015 Maternal history of heart disease 01/30/2015 Maternal history of hypertension 01/30/2015 Maternal history of macular degeneration 01/30/2015 Maternal history of stroke/cerebrovascular accident Paternal history of arthritis 01/30/2015 Paternal history of heart disease 01/30/2015 Son's history of arthritis 01/30/2015 Son's history of diabetes mellitus 01/30/2015 Son's history of hypertension 01/30/2015 Sororal history of arthritis 01/30/2015 Review of Systems Review of Systems not supported for this document typeNo Review of Systems Recorded Mental Status Mental Status not supported for this document type Description Oriented to time, place, and person Difficulty reading fine print Functional Status Functional Status not supported for this document typeNo Functional Status Recorded Physical Exam Physical Exam not supported for this document typeNo Physical Exam Recorded Immunizations Includes: Immunizations in patient's chartNo Immunizations Recorded Allergies Includes: Active, inactive, and resolved Allergies Substance Type Reaction Onset Date - Time Resolved Date - Ti me Status Sulfa Antibiotics Allergy 02/25/2013 - 12:00AM Resolved Sulfa Antibiotics Allergy Skin Rashes, Hives 02/25/2013 - 12:00AM Active Lodine Allergy Skin Rashes, Hives 02/25/2013 - 12:00AM Active Lidocaine Allergy Skin Rashes, Hives 02/25/2013 - 12:00AM Active Ibuprofen Allergy Asthma, Shortness of Breath 02/25/2013 - 12:00A M Active Cozaar Allergy 02/25/2013 - 12:00AM Reso lved Amiodarone HCl Allergy 02/25/2013 - 12:00AM Resolved Encounters Includes: Encounters from 06/18/2020 through 06/18/2021 Encounter Provider Location Date Check-In Time Check-Out Time D iagnosis 1 Year Follow-Up & Testing Nimesh Salazar MD, FACS Keatonjerod Salazar MD [facility] 02/02/2021 12:21PM 1:34PM History of Nicot ine Dependence, Essential Hypertension, Pseudophakic - Both Eyes, Posterior Capsule Opacification Eccentric Capsule Right Eye, Macular Degeneration Nonexudative Bilateral Early Dry Stage, Macular Puckering Both Eyes Rx Refills/Changes Nimesh Salazar MD, FACS 10/19/2020 05/24/2019 12:20PM 05/24/2019 11:59PM Insurance Includes: Active Insurance Policies Plan Name Member ID Group # Subscriber Relationship Effective Da ilsa 1 - Medicare Part [facility] [id number] Andreea Gonzalez Self 2 - [facility] [id number] Wendy Gonzalez Self Advance Directives Includes: Current Advance DirectivesNo Advance Directives Recorded Health Concerns Includes: Active Health ConcernsNo Active Health Concerns Recorded Goals Includes: Active GoalsNo Active Goals Recorded Interventions Includes: Interventions for active GoalsNo Interventions Recorded Evaluations & Outcomes Includes: Evaluations & Outcomes for active GoalsNo Outcomes Recorded
--- OUTSIDE RECORDS SUMMARY | 2021-07-29 03:31 | CCD | Continuity of Care Document ---
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 Essential hypertension Luis Armando Gill MD Onset: 01/15/2019 Pure hypercholesterolemia Luis Armando Gill MD Onset: 019 Social History Type Date Description Comments Sex Unknown ETOH Use Drinks Alcoholic Beverages Occas ionally Tobacco Use Start: Unknown End: Unknown Patient is a former smoker Tobacco Use Start: Unknown Allergies, Adverse Reactions, Alerts Active Allergies Criticality Reaction | Severity Comments Date Lodine Unable to assess criticality 04/05/2015 sulfa drugs Unable to assess criticality 04/05/2015 Lidocaine Unable to assess criticality 04/05/2015 Ibuprofen Unable to assess criticality 04/05/2015 Lipitor Unable to assess criticality 04/05/2015 Statins Unable to assess criticality 01/15/2019 Lactose Unable to assess criticality 01/15/2019 Medications Active Medications SIG Qnty Indications Ordering Provide r Date Metformin HCL 500mg Tablets Brent Zhang, [employer] Xopenex HFA 45mcg/Act Aerosol Inhale Two Puffs By Mouth Four Times A Day as Needed For Shortness Of Breath Wheezing Or Increased Cough Unknown Cephalexin 500mg Capsules Unknown Fluticasone Propionate 0.005% Oint ment Apply To Ingunial Fold Sparningly Two Times A Day For 7 10 Days Unknown Tizanidine HCL 2mg Tablets Brent Zhang, [employer] Symbicort 80-4.5mcg/Act Aerosol Inhale Two Puffs By Mouth Twice A Day Unknown Esomeprazole Magnesium 40mg Capsul es DR Take One Capsule By Mouth Twice A Day Unknown Gabapentin 100mg Capsules Unknown Furosemide 40mg Tablets Brent Zhang, [facility] Hydroxychloroquine Sulfate 200mg T ablets Take One Tablet By Mouth Every Day Unknown Allopurinol 100mg Tablets Take Two Tablets By Mouth Every Day Unknown Torsemide 10mg Tablets Brent Zhang, [facility] Symbicort 80-4.5mcg/Act Aerosol Brent Zhang, [facility] Pantoprazole Sodium 20mg Tablets Brent Mcmahon, [facility] Atenolol 50mg Tablets 1 by mouth every day Unknown Sierra-D 12 Hour Allergy & Congestion 60-120mg Tablets ER 12HR 1 by mouth every day Unknown Multi Vitamin Daily Tablets every day Unknown refresh plus 0.5% Solution 1 drop both eyes 2 times a day Unknown Saline Nasal [place] 0.65% Solution as needed Unknown Tylenol Extra Strength 500mg Table ts as needed Unknown Docusate Sodium 100mg Capsules 1 by mouth twice a day Unknown Caltrate 600+D [id number] Tabl ets twice a day Unknown Aspir-[address] ever y day Unknown Mometasone Furate Uspo 0.1% Soluti on 2 drops day for 5 days as needed Unknown 0 Tramadol HCL 50mg Tablets 1 every 4-6 hours as needed pain Unknown Nexium 40mg Capsules DR 1 by mouth every day Unknown Lisinopril 20mg Tablets 1 by mouth every day Unknown Lasix 40mg Tablets 1 by mo wyh every day Unknown Immunizations Description No Information Available Vital Signs Date Vital Result Comment 12/27/2019 3:02pm Height 63 inches 5'3" Weight 187.00 lb BMI (Body Mass Index) 33.1 kg/m2 01/15/2019 3:00pm Body Temperature 98.7 F Height 62 inches 5'2" Weight 190.00 lb BMI (Body Mass Index) 34.7 kg/m2 Results Description No Information Available Procedures Date Code Description Status 06/21/2021 [id number] X-Ray Humerus Two Views Complete d Medical Devices Description No Information Available Encounters Description No Information Available Assessments Date Code Description Provider 06/21/2021 S40.021A Contusion of right upper arm, in itial encounter Ros Walker PA-C Plan of Treatment 06/21/2021 - Ros Walker PA-C* S40.021A Contusion of right upper arm, initial encounter* Follow up:* 2 week RUE recheck w/BMS Functional Status Description No Information Available Mental Status Description No Information Available Referrals Description No Information Available
--- OUTSIDE RECORDS SUMMARY | 2021-07-29 03:31 | CCD | Continuity of Care Document ---
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 Lactose Unable to assess criticality 01/15/2019 Nickel Unable to assess criticality 06/22/2021 Medications Active Medications SIG Qnty Indications Ordering Provide r Date Metformin HCL 500mg Tablets Brent Zhang FNP Xopenex HFA 45mcg/Act Aerosol Inhale Two Puffs By Mouth Four Times A Day as Needed For Shortness Of Breath Wheezing Or Increased Cough Unknown Cephalexin 500mg Capsules Unknown Fluticasone Propionate 0.005% Oint ment Apply To Ingunial Fold Sparningly Two Times A Day For 7 10 Days Unknown Tizanidine HCL 2mg Tablets Brent Zhang, [facility] Symbicort 80-4.5mcg/Act Aerosol Inhale Two Puffs By Mouth Twice A Day Unknown Esomeprazole Magnesium 40mg Capsul es DR Take One Capsule By Mouth Twice A Day Unknown Gabapentin 100mg Capsules Unknown Furosemide 40mg Tablets Brent Zhang, [facility] Hydroxychloroquine Sulfate 200mg T ablets Take One Tablet By Mouth Every Day Unknown Allopurinol 100mg Tablets Take Two Tablets By Mouth Every Day Unknown Torsemide 10mg Tablets Brent Zhang, [facility] Symbicort 80-4.5mcg/Act Aerosol Brent Zhang, [facility] Pantoprazole Sodium 20mg Tablets Brent Mcmahon, [facility] Atenolol 50mg Tablets 1 by mouth every day Unknown Sierra-D 12 Hour Allergy & Congestion 60-120mg Tablets ER 12HR 1 by mouth every day Unknown Multi Vitamin Daily Tablets every day Unknown refresh plus 0.5% Solution 1 drop both eyes 2 times a day Unknown Saline Nasal [place] 0.65% Solution as needed Unknown Tylenol Extra Strength 500mg Table ts as needed Unknown Docusate Sodium 100mg Capsules 1 by mouth twice a day Unknown Caltrate 600+D [id number] Tabl ets twice a day Unknown Aspir-81 [...] Unknown Lasix 40mg Tablets 1 [address] [facility] every day Unknown Immunizations Description No Information Available Vital Signs Date Vital Result Comment 12/27/2019 3:02pm Height 63 inches 5'3" Weight 187.00 lb BMI (Body Mass Index) 33.1 kg/m2 01/15/2019 3:00pm Body Temperature 98.7 F Height 62 inches 5'2" Weight 190.00 lb BMI (Body Mass Index) 34.7 kg/m2 Results Description No Information Available Procedures Date Code Description Status 06/21/2021 92306 Office/Outpatient Established Lo w MDM 20-29 Min Completed 06/21/2021 71291 X-Ray Humerus Two Views Complete d Medical Devices Description No Information Available Encounters Type Date Location Provider Dx Diagnosis Office Visit 06/21/2021 10:45a [place] Ros Walker PA-C S4 0.021A Contusion of right upper arm, initial encounter Assessments Date Code Description Provider 06/21/2021 S40.021A Contusion of right upper arm, in itial encounter Ros Walker PA-C Plan of Treatment Future Appointment(s):* 07/05/2021 3:00 pm - Ros Walker PA-C at [place] 06/21/2021 - Ros Walker PA-C* S40.021A Contusion of right upper arm, initial encounter* Follow up:* 2 week CHARMAINE rechzbigniew w/BMS Functional Status Description No Information Available Mental Status Description No Information Available Referrals Description No Information Available
--- OUTSIDE RECORDS SUMMARY | 2021-07-29 03:32 | CCD ---
Author Author [facility] Organization [facility] Address Unknown Phone Unavailable Care Team Providers Care Mortgage Manager Name Role Phone CAT FRASER MD Unavailable Unavailable CAT FRASER MD Unavailable Unavailable CAT FRASER MD Unavailable Unavailable CAT FRASER MD Unavailable Unavailable CAT FRASER MD Unavailable Unavailable CAT FRASER MD Unavailable Unavailable CAT FRASER MD Unavailable Unavailable CAT FRASER MD Unavailable Unavailable CAT FRASER MD Unavailable Unavailable CAT FRASER MD Unavailable Unavailable CAT FRASER MD Unavailable Unavailable CAT FRASER MD Unavailable Unavailable CAT FRASER MD Unavailable Unavailable BRIA, CAT CISNEROS Unavailable Unavailable BRIA, CAT CISNEROS Unavailable Unavailable BRIA, CAT CISNEROS Unavailable Unavailable BRIA, CAT CISNEROS Unavailable Unavailable BRIA, CAT CISNEROS Unavailable Unavailable BRIA, CAT CISNEROS Unavailable Unavailable BRIA, CAT CISNEROS Unavailable Unavailable BRIA, CAT CISNEROS Unavailable Unavailable BRIA, CAT CISNEROS Unavailable Unavailable BRIA, CAT CISNEROS Unavailable Unavailable BRIA, CAT CISNEROS Unavailable Unavailable BRIA, CAT CISNEROS Unavailable Unavailable BRIA, CAT CISNEROS Unavailable Unavailable BRIA, CAT CISNEROS Unavailable Unavailable BRIA, CAT CISNEROS Unavailable Unavailable BRIA, CAT CISNEROS Unavailable Unavailable BRIA, CAT CISNEROS Unavailable Unavailable BRIA, CAT CISNEROS Unavailable Unavailable BRIA, CAT CISNEROS Unavailable Unavailable BRIA, CAT CISNEROS Unavailable Unavailable BRIA, CAT CISNEROS Unavailable Unavailable BRIA, CAT CISNEROS Unavailable Unavailable BRIA, CAT CISNEROS Unavailable Unavailable BRIA, CAT CISNEROS Unavailable Unavailable BRIA, CAT CISNEROS Unavailable Unavailable BRIA, CAT CISNEROS Unavailable Unavailable BRIA, CAT CISNEROS Unavailable Unavailable BRIA, CAT CISNEROS Unavailable Unavailable BRIA, CAT CISNEROS Unavailable Unavailable BRIA, CAT CISNEROS Unavailable Unavailable BRIA, CAT CISNEROS Unavailable Unavailable BRIA, CAT CISNEROS Unavailable Unavailable BRIA, CAT CISNEROS Unavailable Unavailable BRIA, CAT CISNEROS Unavailable Unavailable BRIA, CAT CISNEROS Unavailable Unavailable BRIA, CAT CISNEROS Unavailable Unavailable BRIA, CAT CISNEROS Unavailable Unavailable BRIA, CAT CISNEROS Unavailable Unavailable BRIA, CAT CISNEROS Unavailable Unavailable BRIA, CAT CISNEROS Unavailable Unavailable BRIA, CAT CISNEROS Unavailable Unavailable BRIA, CAT CISNEROS Unavailable Unavailable Walker, M Barratt PA Unavailable Unavailable Walker, M Barratt PA Unavailable Unavailable Walker, M Barratt PA Unavailable Unavailable Walker, M Barratt PA Unavailable Unavailable Walker, M Barratt PA Unavailable Unavailable Walker, M Barratt PA Unavailable Unavailable Walker, M Barratt PA Unavailable Unavailable Walker, M Barratt PA Unavailable Unavailable Walker, M Barratt PA Unavailable Unavailable Walker, M Barratt PA Unavailable Unavailable Walker, M Barratt PA Unavailable Unavailable Walker, M Barratt PA Unavailable Unavailable Walker, M Barratt PA Unavailable Unavailable Walker, M Barratt PA Unavailable Unavailable Walker, M Barratt PA Unavailable Unavailable Walker, M Barratt PA Unavailable Unavailable Walker, M Barratt PA Unavailable Unavailable Walker, M Barratt PA Unavailable Unavailable Walker, M Barratt PA Unavailable Unavailable Walker, M Barratt PA Unavailable Unavailable Walker, M Barratt PA Unavailable Unavailable Walker, M Barratt PA Unavailable Unavailable Walker, M Barratt PA Unavailable Unavailable Walker, M Barratt PA Unavailable Unavailable Moe Walker Unavailable Unavailable Moe Walker Unavailable Unavailable Moe Walker Unavailable Unavailable Moe Walker Unavailable Unavailable Moe Walker Unavailable Unavailable TOM, P SOLIS MD Unavailable Unavailable TOM, P SOLIS MD Unavailable Unavailable TOM, P SOLIS MD Unavailable Unavailable TOM, P SOLIS MD Unavailable Unavailable TOM, P SOLIS MD Unavailable Unavailable TOM, P SOLIS MD Unavailable Unavailable TOM, P SOLIS MD Unavailable Unavailable TOM, P SOLIS MD Unavailable Unavailable TOM, P SOLIS MD Unavailable Unavailable TOM, P SOLIS MD Unavailable Unavailable TOM, P SOLIS MD Unavailable Unavailable TOM, P SOLIS MD Unavailable Unavailable TOM, P SOLIS MD Unavailable Unavailable TOM, P SOLIS MD Unavailable Unavailable TOM, P SOLIS MD Unavailable Unavailable TOM, P SOLIS MD Unavailable Unavailable TOM, P SOLIS MD Unavailable Unavailable TOM, P SOLIS MD Unavailable Unavailable TOM, P SOLIS MD Unavailable Unavailable TOM, P SOLIS MD Unavailable Unavailable TOM, P SOLIS MD Unavailable Unavailable TOM, P SOLIS MD Unavailable Unavailable TOM, P SOLIS MD Unavailable Unavailable TOM, P SOLIS MD Unavailable Unavailable TOM, P SOLIS MD Unavailable Unavailable TOM, P SOLIS MD Unavailable Unavailable TOM, P SOLIS MD Unavailable Unavailable TOM, P SOLIS MD Unavailable Unavailable TOM, P SOLIS MD Unavailable Unavailable TOM, P SOLIS MD Unavailable Unavailable TOM, P SOLIS MD Unavailable Unavailable TOM, P SOLIS MD Unavailable Unavailable TOM, P SOLIS MD Unavailable Unavailable TOM, P SOLIS MD Unavailable Unavailable TOM, P SOLIS MD Unavailable Unavailable TOM, P SOLIS MD Unavailable Unavailable TOM, P SOLIS MD Unavailable Unavailable TOM, P SOLIS MD Unavailable Unavailable TOM, P SOLIS MD Unavailable Unavailable TOM, P SOLIS MD Unavailable Unavailable TOM, P SOLIS MD Unavailable Unavailable TOM, P SOLIS MD Unavailable Unavailable TOM, P SOLIS MD Unavailable Unavailable TOM, P SOLIS MD Unavailable Unavailable TOM, P SOLIS MD Unavailable Unavailable TOM, P SOLIS MD Unavailable Unavailable TOM, P SOLIS MD Unavailable Unavailable TOM, P SOLIS MD Unavailable Unavailable TOM, P SOLIS MD Unavailable Unavailable TOM, P SOLIS MD Unavailable Unavailable TOM, P SOLIS MD Unavailable Unavailable TOM, P SOLIS MD Unavailable Unavailable TOM, P SOLIS MD Unavailable Unavailable TOM, P SOLIS MD Unavailable Unavailable TOM, P SOLIS MD Unavailable Unavailable TOM, P SOLIS MD Unavailable Unavailable TOM, P SOLIS MD Unavailable Unavailable TOM, P SOLIS MD Unavailable Unavailable TOM, P SOLIS MD Unavailable Unavailable TOM, P SOLIS MD Unavailable Unavailable TOM, P SOLIS MD Unavailable Unavailable TOM, P SOLIS MD Unavailable Unavailable TOM, P SOLIS MD Unavailable Unavailable TOM, P SOLIS MD Unavailable Unavailable TOM, P SOLIS MD Unavailable Unavailable TOM, P SOLIS MD Unavailable Unavailable TOM, P SOLIS MD Unavailable Unavailable TOM, P SOLIS MD Unavailable Unavailable TOM, P SOLIS MD Unavailable Unavailable TOM, P SOLIS MD Unavailable Unavailable TOM, P SOLIS MD Unavailable Unavailable TOM, P SOLIS MD Unavailable Unavailable TOM, P SOLIS MD Unavailable Unavailable TOM, P SOLIS MD Unavailable Unavailable TOM, P SOLIS MD Unavailable Unavailable TOM, P SOLIS MD Unavailable Unavailable TOM, P SOLIS MD Unavailable Unavailable TOM, P SOLIS MD Unavailable Unavailable TOM, P SOLIS MD Unavailable Unavailable TOM, P SOLIS MD Unavailable Unavailable TOM, P SOLIS MD Unavailable Unavailable TOM, P SOLIS MD Unavailable Unavailable TOM, P SOLIS MD Unavailable Unavailable TOM, P SOLIS MD Unavailable Unavailable TOM, P SOLIS MD Unavailable Unavailable TOM, P SOLIS MD Unavailable Unavailable TOM, P SOLIS MD Unavailable Unavailable TOM, P SOLIS MD Unavailable Unavailable TOM, P SOLIS MD Unavailable Unavailable TOM, P SOLIS MD Unavailable Unavailable TMO, P SOLIS MD Unavailable Unavailable TOM, P SOLIS MD Unavailable Unavailable TOM, P SOLIS MD Unavailable Unavailable Alex Sullivan MD, FACS Unavailable Unavailable Alex Sullivan MD, FACS Unavailable Unavailable Alex Sullivan MD, FACS Unavailable Unavailable Alex Sullivan MD, FACS Unavailable Unavailable Alex Sullivan MD, FACS Unavailable Unavailable Alex Sullivan MD, FACS Unavailable Unavailable Alex Sullivan MD, FACS Unavailable Unavailable Alex Sullivan MD, FACS Unavailable Unavailable Alex Sullivan MD, FACS Unavailable Unavailable Alex Sullivan MD, FACS Unavailable Unavailable Alex Sullivan MD, FACS Unavailable Unavailable Chaparro Wood, Alex Beavers MD, FACS Unavailable Unavailable Chaparro Wood, Alex Beavers MD, FACS Unavailable Unavailable Chaparro Wood, Alex Beavers MD, FACS Unavailable Unavailable Chaparro Wood, Alex Beavers MD, FACS Unavailable Unavailable Chaparro Wood, Alex Beavers MD, FACS Unavailable Unavailable Chaparro Wood, Alex Beavers MD, FACS Unavailable Unavailable Chaparro Wood, Alex Beavers MD, FACS Unavailable Unavailable Chaparro Wood, Alex Beavers MD, FACS Unavailable Unavailable Chaparro Wood, Alex Beavers MD, FACS Unavailable Unavailable Chaparro Wood, Alex Beavers MD, FACS Unavailable Unavailable Chaparro Wood, Alex Beavers MD, FACS Unavailable Unavailable Chaparro Wood, Alex Beavers MD, FACS Unavailable Unavailable Chaparro Wood, Alex Beavers MD, FACS Unavailable Unavailable Chaparro Wood, Alex Beavers MD, FACS Unavailable Unavailable Chaparro Wood, Alex Beavers MD, FACS Unavailable Unavailable Chaparro Wood, Alex Beavers MD, FACS Unavailable Unavailable Chaparro Wood, Alex Beavers MD, FACS Unavailable Unavailable Chaparro Wood, Alex Beavers MD, FACS Unavailable Unavailable Chaparro Wood, Alex Beavers MD, FACS Unavailable Unavailable Chaparro Wood, Alex Beavers MD, FACS Unavailable Unavailable Chaparro Wood, Alex Beavers MD, FACS Unavailable Unavailable Chaparro Wood, Alex Beavers MD, FACS Unavailable Unavailable Chaparro Wood, Alex Beavers MD, FACS Unavailable Unavailable Chaparro Wood, Alex Beavers MD, FACS Unavailable Unavailable Chaparro Wood, Alex Beavers MD, FACS Unavailable Unavailable Chaparro Wood, Alex Beavers MD, FACS Unavailable Unavailable Chaparro Wood, Alex Beavers MD, FACS Unavailable Unavailable Chaparro Wood, Alex Beavers MD, FACS Unavailable Unavailable SAYRA SALDIVAR MD Unavailable Unavailable SAYRA SALDIVAR MD Unavailable Unavailable SAYRA SALDIVAR MD Unavailable Unavailable SAYRA SALDIVAR MD Unavailable Unavailable SAYRA SALDIVAR MD Unavailable Unavailable SAYRA SALDIVAR MD Unavailable Unavailable SAYRA SALDIVAR MD Unavailable Unavailable SAYRA SALDIVAR MD Unavailable Unavailable SAYRA SALDIVAR MD Unavailable Unavailable SAYRA SALDIVAR MD Unavailable Unavailable SAYRA SALDIVAR MD Unavailable Unavailable SAYRA SALDIVAR MD Unavailable Unavailable SAYRA SALDIVAR MD Unavailable Unavailable SAYRA SALDIVAR MD Unavailable Unavailable SAYRA SALDIVAR MD Unavailable Unavailable SAYRA SALDIVAR MD Unavailable Unavailable SAYRA SALDIVAR MD Unavailable Unavailable SAYRA SALDIVAR MD Unavailable Unavailable SAYRA SALDIVAR MD Unavailable Unavailable SAYRA SALDIVAR MD Unavailable Unavailable SAYRA SALDIVAR MD Unavailable Unavailable KHAIRALLAH, RAMZI MD Unavailable Unavailable KHAIRALLAH, RAMZI MD Unavailable Unavailable KHAIRALLAH, RAMZI MD Unavailable Unavailable KHAIRALLAH, RAMZI MD Unavailable Unavailable KHAIRALLAH, RAMZI MD Unavailable Unavailable KHAIRALLAH, RAMZI MD Unavailable Unavailable KHAIRALLAH, RAMZI MD Unavailable Unavailable KHAIRALLAH, RAMZI MD Unavailable Unavailable KHAIRALLAH, RAMZI MD Unavailable Unavailable KHAIRALLAH, RAMZI MD Unavailable Unavailable KHAIRALLAH, RAMZI MD Unavailable Unavailable KHAIRALLAH, RAMZI MD Unavailable Unavailable KHAIRALLAH, RAMZI MD Unavailable Unavailable KHAIRALLAH, RAMZI MD Unavailable Unavailable KHAIRALLAH, RAMZI MD Unavailable Unavailable KHAIRALLAH, RAMZI MD Unavailable Unavailable KHAIRALLAH, RAMZI MD Unavailable Unavailable KHAIRALLAH, RAMZI MD Unavailable Unavailable KHAIRALLAH, RAMZI MD Unavailable Unavailable KHAIRALLAH, RAMZI MD Unavailable Unavailable KHAIRALLAH, RAMZI MD Unavailable Unavailable KHAIRALLAH, RAMZI MD Unavailable Unavailable KHAIRALLAH, RAMZI MD Unavailable Unavailable KHAIRALLAH, RAMZI MD Unavailable Unavailable KHAIRALLAH, RAMZI MD Unavailable Unavailable KHAIRALLAH, RAMZI MD Unavailable Unavailable KHAIRALLAH, RAMZI MD Unavailable Unavailable KHAIRALLAH, RAMZI MD Unavailable Unavailable KHAIRALLAH, RAMZI MD Unavailable Unavailable KHAIRALLAH, RAMZI MD Unavailable Unavailable KHAIRALLAH, RAMZI MD Unavailable Unavailable KHAIRALLAH, RAMZI MD Unavailable Unavailable KHAIRALLAH, RAMZI MD Unavailable Unavailable KHAIRALLAH, RAMZI MD Unavailable Unavailable KHAIRALLAH, RAMZI MD Unavailable Unavailable KHAIRALLAH, RAMZI MD Unavailable Unavailable KHAIRALLAH, RAMZI MD Unavailable Unavailable KHAIRALLAH, RAMZI MD Unavailable Unavailable KHAIRALLAH, RAMZI MD Unavailable Unavailable KHAIRALLAH, RAMZI MD Unavailable Unavailable KHAIRALLAH, RAMZI MD Unavailable Unavailable KHAIRALLAH, RAMZI MD Unavailable Unavailable KHAIRALLAH, RAMZI MD Unavailable Unavailable KHAIRALLAH, RAMZI MD Unavailable Unavailable KHAIRALLAH, RAMZI MD Unavailable Unavailable KHAIRALLAH, RAMZI MD Unavailable Unavailable KHAIRALLAH, RAMZI MD Unavailable Unavailable KHAIRALLAH, RAMZI MD Unavailable Unavailable KHAIRALLAH, RAMZI MD Unavailable Unavailable KHAIRALLAH, RAMZI MD Unavailable Unavailable KHAIRALLAH, RAMZI MD Unavailable Unavailable KHAIRALLAH, RAMZI MD Unavailable Unavailable KHAIRALLAH, RAMZI MD Unavailable Unavailable KHAIRALLAH, RAMZI MD Unavailable Unavailable KHAIRALLAH, RAMZI MD Unavailable Unavailable KHAIRALLAH, RAMZI MD Unavailable Unavailable KHAIRALLAH, RAMZI MD Unavailable Unavailable KHAIRALLAH, RAMZI MD Unavailable Unavailable KHAIRALLAH, RAMZI MD Unavailable Unavailable KHAIRALLAH, RAMZI MD Unavailable Unavailable KHAIRALLAH, RAMZI MD Unavailable Unavailable KHAIRALLAH, RAMZI MD Unavailable Unavailable KHAIRALLAH, RAMZI MD Unavailable Unavailable KHAIRALLAH, RAMZI MD Unavailable Unavailable KHAIRALLAH, RAMZI MD Unavailable Unavailable KHAIRALLAH, RAMZI MD Unavailable Unavailable KHAIRALLAH, RAMZI MD Unavailable Unavailable Re-disclosure Warning The records that you are about to access may contain information from federally-assisted alcohol or drug abuse programs. If such information is present, then the following federally mandated warning applies: This information has been disclosed to you from records protected by federal confidentiality rules (42 CFR part 2). The federal rules prohibit you from making any further disclosure of this information unless further disclosure is expressly permitted by the written consent of the person to whom it pertains or as otherwise permitted by 42 CFR part 2. A general authorization for the release of medical or other information is NOT sufficient for this purpose. The Federal rules restrict any use of the information to criminally investigate or prosecute any alcohol or drug abuse patient.The records that you are about to access may contain highly sensitive health information, the redisclosure of which is protected by Article 27-F of the [facility] Public Health law. If you continue you may have access to information: Regarding HIV / AIDS; Provided by facilities licensed or operated by the [facility] Office of Mental Health; or Provided by the [facility] Office for People With Developmental Disabilities. If such information is present, then the following [facility] mandated warning applies: This information has been disclosed to you from confidential records which are protected by state law. State law prohibits you from making any further disclosure of this information without the specific written consent of the person to whom it pertains, or as otherwise permitted by law. Any unauthorized further disclosure in violation of state law may result in a fine or care home sentence or both. A general authorization for the release of medical or other information is NOT sufficient authorization for further disc losure. Allergies and Adverse Reactions Type Description Substance Reaction Status Data Source(s ) Propensity to adverse reactions NICKEL nickel sulfate Active [facility] Family History Family Member Name Family Member Gender Family Member Status Date o f Status Description Data Source(s) Unknown Female Problem (finding) 10/21/2016 12:00:00 AM EST [facility] ([facility]) Unknown Female Problem (finding) 10/21/2016 12:00:00 AM EST [facility] ([facility]) Unknown Female Problem (finding) 10/21/2016 12:00:00 AM EST [facility] ([facility]) Unknown Male Problem [facility] ([facility] ) Unknown Unknown Problem [facility] ([facility], ) Unknown Unknown Problem [facility] ([facility], ) Unknown Unknown Problem [facility] ([facility], ) Unknown Unknown Problem [facility] ([facility] ) Encounters Encounter Providers Location Date Indications Data Source(s ) Outpatient Attender: CAT FRASER MD [email or web address] 03:14:39 PM EDT - 06/29/2021 04:31:34 PM EDT [facility] OFFICE OUTPATIENT VISIT 15 MINUTES Attender: Ros GRAY Physical Therapy 06/21/2021 10:45:00 AM EDT [facility] ([facility] ) Outpatient Attender: SOLIS SANTOS MD 02/13/2021 12:00:00 AM [facility] Outpatient<td ID="encounterTypeDescripti onID0">1 Year Follow-Up & Testing</td><td>Nimesh Salazar MD, FACS</td><td>[facility]</td><td>02/02/2021</td><td>12:21PM</td><td>1:34PM</td><td><content ID="encounterDiagnosisID0-0">History of Nicotine Dependence</content>, <content ID="encounterDiagnosisID0-1">Essential Hypertension</content>, <content ID="encounterDiagnosisID0-2">Pseudophakic - Both Eyes</content>, <content ID="encounterDiagnosisID0-3">Posterior Capsule Opacification Eccentric Capsule Right Eye</content>, <content ID="encounterDiagnosisID0-4">Macular Degeneration Nonexudative Bilateral Early Dry Stage</content>, <content ID="encounterDiagnosisID0-5">Macular Puckering Both Eyes</content></td> Attender: Nimesh Wood MD, FACS Nimesh Salazar MD [facility] 02/02/2021 12:21:0 0 PM EDT - 02/02/2021 01:34:00 PM EDT Macular Puckering Both EyesEssential HypertensionHistory of Nicotine DependenceMacular Degeneration Nonexudative Bilateral Early Dry StagePosterior Capsule Opacification Eccentric Capsule Right EyePseudophakic - Both Eyes CAROL (Nimesh Wood MD [facility]) Macular Puckering Both Eyes Essential Hypertension History of Nicotine Dependence Macular Degeneration Nonexudative Bilate ral Early Dry Stage Posterior Capsule Opacification Eccentri c Capsule Right Eye Pseudophakic - Both Eyes Outpatient Attender: CAT FRASER MDReferrer: CAT HUGGINSMARILYNN 11/29/2020 12:48:19 PM EST - 11/29/2020 03:05:16 PM EST [facility] Outpatient Attender: CAT FRASER MDReferrer: CAT JACOMESJEthelMARILYNN 11/29/2020 12:00:00 AM EST - 11/29/2020 03:05:00 PM EST [facility] Outpatient Attender: SOLIS SANTOS MD 11/06/2020 12:00:00 AM [facility] Attender: SAYRA SALDIVAR MD [facility] 10/24/2020 07:06:00 PM EST - 10/24/2020 07:06:00 PM EST [facility] ( [facility]) Outpatient Attender: CAT CORMIERMARILYNN 0 12:00:00 AM EST - 08/30/2020 10:46:14 AM EST [facility] Outpatient Attender: CAT JAMESSJEthelMARILYNN 0 12:00:00 AM EDT - 06/28/2020 09:46:01 AM EDT [facility] Outpatient Attender: SOLIS SANTOS MD 06/20/2020 12:00:00 AM EDT [facility] Immunizations Vaccine Date Status Description Data Source(s) COVID-19 VACCINE Pfizer 11/27/2020 12:00:00 AM EST completed [facility] Vaccine Series Complete: YESThis Data wa s Submitted to [facility] Via [employer]. COVID-19 VACCINE Pfizer 11/06/2020 12:00:00 AM EST completed [facility] Vaccine Series Complete: NOThis Data was Submitted to [facility] Via [employer]. INFLUENZA VIRUS VACCINE QUADRIVAL SPLIT 2019-(65 YR UP)/PF 07/27/2020 12:00:00 AM EDT completed [facility] Medications Medication Brand Name Start Date Product Form Dose Route Admi nistrative Instructions Pharmacy Instructions Status Indications Reaction Description Data Source(s) Hydroxychloroquine Sulfate 200 MG Oral T ablet hydroxychloroquine (Plaquenil) 200 MG tablet hydroxychloroquine (Plaquenil) 200 MG tablet 12:00:00 AM EDT 200 mg Oral active Take 1 tablet (20 0 mg total) by mouth daily [facility] apixaban 2.5 MG Oral Tablet apixaban (Eliquis) 2.5 MG TABS tablet apixaban (Eliquis) 2.5 MG TABS tablet 06/29/2021 12:00:00 AM EDT 2.5 mg Oral active Take 1 tablet (2.5 mg total) by mouth 2 (two) times a day [facility] torsemide 20 MG Oral Tablet torsemide (DEMADEX) 20 MG tablet torsemide (DEMADEX) 20 MG tablet 06/29/2021 12:00:00 AM EDT 20 mg Oral activ e Take 1 tablet (20 mg total) by mouth daily [facility] Metoprolol Succinate 200 MG CS24 [id number] 06/29/2021 12:00:00 AM ED T 200 mg Oral active Take 200 mg by mouth daily [facility] Suvorexant 10 MG Oral Tablet [Belsomra] BELSOMRA 10 MG TABS BELSOMRA 10 MG TABS 11/27/2020 12:00:00 AM EST 1 {tbl} active 1 tablet as needed [facility] Refresh Liquigel 1% Ophthalmic Gel Refresh Liquigel 1% Ophth almic Gel 10/19/2020 12:00:00 AM EST 1 active Refresh Liquigel CAROL (Nimesh Wood MD [facility]) Carboxymethylcellulose Sodium 5 MG/ML / Glycerin 10 MG/ML / Polysorbate 80 5 MG/ML Ophthalmic Solution Refresh Optive Advanced 0.5-1-0.5% Ophthalmic Solution Refresh Optive Advanced 0.5-1-0.5% Ophthalmic Solution 10/19/2020 12:00:00 AM EST active carboxym ethylcellulose sodium 5 MG/ML / glycerin 10 MG/ML / polysorbate 80 5 MG/ML Ophthalmic Solution CAROL (Nimesh Wood MD [facility]) 200 ACTUAT Levalbuterol 0.045 MG/ACTUAT Metered Dose Inhaler [Xopenex] XOPENEX HFA 45 MCG/ACT inhaler XOPENEX HFA 45 MCG/ACT inhaler 10/09/2020 12:00:00 AM EST active [facility] 15 mg 08/27/2020 12:00:00 AM EST tablet 1 TAKE ONE TABLET BY MOUTH EVERY DAY AT BEDTIME TAKE ONE TABLET BY MOUTH EVERY DAY AT BEDTIME SOLD: 08/27/2020 [facility] carvedilol 6.25 MG Oral Tablet carvedilol (COREG) 6.25 MG tablet carvedilol (COREG) 6.25 MG tablet 07/19/2020 12:00:00 AM EDT 6.25 mg Oral aborted Take 1 tablet (6.25 mg total) by mouth 2 (two) times a day [facility] tramadol hydrochloride 50 MG Oral Tablet traMADol (ULT AUBRIE) 50 MG tablet traMADol (ULTRAM) 50 MG tablet 06/05/2020 12:00:00 AM EDT active [facility] torsemide 20 MG Oral Tablet torsemide (DEMADEX) 20 MG tablet torsemide (DEMADEX) 20 MG tablet 03/31/2020 12:00:00 AM EDT 20 mg Oral abor froilan Take 20 mg by mouth daily [facility] Lisinopril 2.5 MG Oral Tablet lisinopril (PRINIVIL,ZES TRIL) 2.5 MG tablet lisinopril (PRINIVIL,ZESTRIL) 2.5 MG tablet 03/21/2020 12:00:00 AM EDT 2.5 mg Oral aborted Take 2.5 mg by mouth daily [facility] Metoprolol Succinate 200 MG CS24 [id number] Oral aborted Take by mouth daily [facility] apixaban 2.5 MG Oral Tablet apixaban (ELIQUIS) 2.5 MG TABS tablet apixaban (ELIQUIS) 2.5 MG TABS tablet Oral aborted Take by mouth 2 (two) times a day [facility] Hydroxychloroquine Sulfate 200 MG Oral T ablet hydroxychloroquine (PLAQUENIL) 200 MG tablet hydroxychloroquine (PLAQUENIL) 200 MG tablet 200 mg Oral aborted Take 200 mg by mouth daily [facility] Allopurinol 100 MG Oral Tablet allopurinol (ZYLOPRIM) 100 MG tablet allopurinol (ZYLOPRIM) 100 MG tablet 100 mg Oral aborted Take 100 mg by mouth 2 (two) times a day [facility] Insurance Providers Payer name Policy type / Coverage type Policy ID Covered democrat ID Covered democrat's relationship to moss Policy [place] Plan Information MEDICARE [id number] SP [id number] MEDICARE A [id number] Self [id number] P60 MEDICARE [id number] SP [id number] A MEDICARE [id number] xxxxxxxxxxx [id number] MEDICARE [id number] SP [id number] P60 Medicare [place] Medicare Primary .[id number] Self MEDICARE [id number] Veda [id number] P60 MEDICARE A [id number] Self [id number] A Medicare Dme Supplies Medigap Part B [id number] Self [id number] [place] Med[place]ap Part B [id number] Self [id number] [facility] Options Medigap Part B [id number] Self [id number] [employer] Options Medigap Part B [id number] Self [id number] Medicare Dme Supplies Medigap Part B [id number] Self [id number] Medicare [place] Medigap Part B [id number] Self [id number] [employer] Options Medigap Part B [id number] Self [id number] [employer] Medigap Part B [id number] Self [id number] Medicare [place] Medicare Primary [id number] Self [id number] [employer] [facility] Medigap Part B [id number] Self [id number] Medicare [place] Medicare Primary [id number] Self [id number] [employer] Medigap Part B [id number] Self [id number] AARP U [id number] Self [id number] AARP U [id number] Self [id number] [employer] [facility] OPTIONS [id number] SP [id number] [facility] [facility] OPTIONS [id number] SP [id number] [facility] [id number] [facility] [id number] [facility] [id number] xxxxxxxxxxx [id number] [facility] Other 0 [id number] Self 0 [place] [id number] SP [id number] TODAYS OPTIONSDO NOT USE [id number] SP [id number] SELF PAY MEDICARE C [id number] S [id number] AARP O [id number] S [id number] [employer] Options/[employer] Medigap Part B [id number] Self [id number] MEDICARE C [id number] S [id number] A MEDICARE [id number] SP [id number] A [facility] HEALTH CARE OPTIONS [id number] SP [id number] [facility] HEALTH CARE OPTIONS [id number] SP [id number] [facility] Medigap Part B [id number] Self N MEDICARE - [place] MCR [id number] S [id number] MEDICARE INPATIENT M [id number] S [id number] [facility] O [id number] S [id number] MEDICARE M [id number] S [id number] A TODAY'S OPTION [place] PROG -O/P UNAVAILABLE UNAVAILABLE AARP O [id number] S [id number] MEDICARE OUTPATIENT M [id number] S [id number] AARP O [id number] S [id number] A [facility] MEDICAID [id number] SP [id number] Problems, Conditions, and Diagnoses Code Display Name Description Problem Type Effective Dates Data Source(s) I10 Essential (primary) hypertension Essential (primary) h ypertension Diagnosis 06/29/2021 04:06:01 PM EDT [facility] 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 Chronic combined systolic (congestive) a Diagnosis 06/29/2021 04:06:01 PM EDT [facility] I48.91 Unspecified atrial fibrillation Unspecified atri al fibrillation Diagnosis 11/29/2020 12:48:19 PM [facility] 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, unspecified Systemic involvement of connective tissu Diagnosis 06/28/2020 08:15:17 AM EDT [facility] Z79.52 nursing home (current) use of systemic ster oids nursing home (current) use of systemic ster Diagnosis 06/28/2020 08:15:17 AM EDT [facility] E11.9 Type 2 diabetes mellitus without complic ations Type 2 diabetes mellitus without complic Diagnosis 06/28/2020 08:15:17 AM EDT [facility] N18.9 Chronic kidney disease, unspecified Chronic kidn ey disease, unspecified Diagnosis 06/28/2020 08:15:17 AM EDT [facility] M19.90 Unspecified osteoarthritis, unspecified site Unspecified osteoarthritis, unspecified Diagnosis 06/28/2020 08:15:17 AM EDT [facility] E78.5 Hyperlipidemia, unspecified Hyperlipidemia, unspecifie d Diagnosis 06/28/2020 08:15:17 AM EDT [facility] J44.9 COPD (chronic obstructive pulmonary dise ase) COPD (chronic obstructive pulmonary disease) [id number] 06/29/2021 12:00:00 AM EDT [facility] I48.91 Atrial fibrillation Atrial fibrillation [id number] 10/30/2019 12:00:00 AM [facility] 366.52 Posterior Capsule Opacification Not Obsc uring Vision Posterior Capsule Opacification Not Obscuring Vision Problem 05/02/2014 12:00:00 AM EDT - 02/02/2021 12:00:00 AM EDT [facility] (Nimesh Wood MD [facility]) Surgeries/Procedures Procedure Description Date Indications Data Source(s) X-Ray Humerus Two Views 06/21/2021 12:00:00 AM EDT [facility] ([facility] ) OFFICE OUTPATIENT VISIT 15 MINUTES 06/21/2021 12:00:00 AM EDT [facility] ([facility] ) 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 Salazar April 2015 02/02/2021 12:00:00 AM EDT [facility] (Galo Wood MD [facility]) Surgical / procedural history : Tonsille ctomy, Hysterectomy, Colon Cancer- Resection, Left Knee Replacement Surgical / procedural history : [place]onsille ctomy, Hysterectomy, Colon Cancer- Resection, Left Knee Replacement 02/02/2021 12:00:00 AM EDT [facility] (Nimesh Wood MD [facility]) Cataract surgery (procedure) History of cataract surge ry : PCIOL OU Dr. Polk III 02/02/2021 12:00:00 AM EDT [facility] (Hossein Wood MD [facility]) Comprehensive eye exam established patient (Signi/Sep Eval. & Man.) Comprehensive eye exam established patient (Signi/Sep Eval. & Man.) 02/02/2021 12:00:00 AM EDT [facility] (Nimesh Wood MD [facility]) Scodi Retina, with interpretation and re port (WAIVER OF LIABILITY ON FILE (ABN)) Scodi Retina, with interpretation and re port (WAIVER OF LIABILITY ON FILE (ABN)) 02/02/2021 12:00:00 AM EDT [facility] (Hossein Wood MD [facility]) ECG ROUTINE ECG W/LEAST 12 LDS W/I&R <td>POCT AMB EKG</td><td>Routine</td><td>08/30/2020 11:17 PM EST</td><td> Chronic combined systolic and diastolic congestive heart failure Essential hypertension Atrial fibrillation, unspecified type</td><td> </td> 08/31/2020 04:17:00 AM EST Atrial fibrillation, unspecified typeEss ential hypertensionChronic combined systolic and diastolic congestive heart failure [facility] Atrial fibrillation, unspecified type Essential hypertension Chronic combined systolic and diastolic congestive heart failure BLOOD COUNT COMPLETE AUTO&AUTO DIFRNTL WBC COUNT <td>C BC AND DIFFERENTIAL</td><td>Routine</td><td>08/28/2020</td><td></td><td> </td> 08/28/2020 12:00:00 AM EST [facility] BASIC METABOLIC PANEL CALCIUM TOTAL <td>BASIC METABOLI C PANEL</td><td>Routine</td><td>08/28/2020</td><td></td><td> </td> 08/28/2020 12:00:00 AM EST [facility] Results ID Date Data Source [id number] 04/25/2021 08:26:00 AM EDT [facility] Name Value Range Interpretation Code Description Data Roz rce(s) Supporting Document(s) SARS coronavirus 2 RNA [Presence] in Res piratory specimen by SERGIO with probe detection NEGATIVE [facility] This lab was ordered by [facility] a nd reported by [facility]. ID Date Data Source [id number] 04/18/2021 04:56:00 AM EDT [facility] Name Value Range Interpretation Code Description Data Roz rce(s) Supporting Document(s) SARS coronavirus 2 RNA [Presence] in Res piratory specimen by SERGIO with probe detection NEGATIVE [facility] This lab was ordered by [facility] a nd reported by [facility]. ID Date Data Source [id number] 12/04/2020 09:00:00 AM EST [facility] Name Value Range Interpretation Code Description Data Roz rce(s) Supporting Document(s) SARS coronavirus 2 RNA Not Detected [facility] This lab was ordered by [facility] and reported by [facility]. ID Date Data Source [id number] 12/03/2020 12:19:14 AM EST [facility] Name Value Range Interpretation Code Description Data Roz rce(s) Supporting Document(s) &PDF [facility] MNJBVs8bJmLHIbMl12/ATTxhVPFlg5MnOHknZWf5WQqyLGUcK2RukKtsDOTBSVgKXKMbVAoOHfQKZESZ 0b3 WjHWJzWqNEyYN4HZ6sLNKqvbSqzjX5eG7pWZ2WSSI+Vf1OEJ2gy4KfCXd2IEYgu7OnPOlaJAd1R4TnoU MmgoNjYjjtrXMGKPXiIIWxI6wjztz0xJYnBWebXo9BKuZhk2QzUHQwEHjSfk1eY95mAxT+X2n/Q0nRah 5pYW7bpx3gxiyQg5LwR2u8P7iCBzWVMMEFOHb46u/f unK9U5IC3hfvcpE3FKbhju4kd7/gZ37M6Q//Rmse1BvsCa3a/gtgxxd2P4/5x3hPXsklEXt/ikGzv+e4 avCBfPbDnFok0vjdgtm0Y8u6KJqmMm/eKB1r6a2/Nfr3+Nf2VW/ZT07htt1w/UGCEAV9hFA1IJq4h3v7 99e923FZQhy2nP+RZkvCXOZKylAG6HZgUxHaCtknps NXYgRkJQrrQEWvWq52KDRbyqpH3Dz+aueY9fXfHxgh+MCftebBn9PIRT2DaIeijsCpeXXuXASjO1++Qv AXxuK/Gax6YKuOhla84VQQYVTXQZWIpDEyko7eobYPe5kpjB3bTSNe1b74cu08ebYvL9v4lfFJ6AlS0J d3w7v3cnsSav48q43EySRjcRoGaMWP2viFX+q7yKHd nbm3pFXb8j6u0eqatxr7CA6Cd8JoIUVHFZJZ3MKSzF4VrqvWy8aFz+s6g1qCfzSeYt/JuHc3ywNUfV5Z cxBKKMQSWb7OVJxGSuguJKes9fGpYLTrMhnHVvAyszAS66GxIuhqy22nJdn9ic5FjAlcnGXqkkqHqaUR RXGLJt4idhzAkW/DCOVKkwgrSqGY3gflslz48Pqfso 0TSCNPRUGe+VaK+c4ypkkJGATp02V8lSSmqm3kVXgon1KTG9/8mIKJr2jkGIQRHZDZ7Pu01krPBNkC1A iGjqxBA/ZLL8DvCTDsPBNAJ2fBztgp2HY6tCsdkAfsM87767m9dS3tLazqFsTM8BauLuK2aQcP38glWw OW28B3/dloK07AV/3cxI2RweoxYgHVW9TTu8nwAKab mKKI4qea3yVATh6FM8V7OiLRyGBG9On07IFx0tXQQOeqcqnePZ2Wbt68UlqeUYew0ZIGZLralPzq5nBG 39gtcQKv4bQn5UYf4EwDcmo1co2cfF/zoKCmO2nAgX8SRaqhoydrTG88DgzD943Ue8lpJJKAuF8BMHHw N+tfjEfqeDxRm1/7Kh2BN7OSU7DlQeerNGP0kfrV33 +rm2j11b62wKt0wDLjgD+wSXIUqxiHZcn38WBRI7UjcAflqpBHSYrVmqplyRq5BERMYfOjhcZBKI7UmD shEi8QbozKYThO1UoFAxMfacOJBHn8V5ZEXRhiRQ9lh1VaO5l8bb+t6Z8byiVTpNBsEnGx+yzSwv0cDl MzYncNqHUebOwTaBD5G2/W9JMnceaJRBNMJKQ7YuzU UaYJyNgMF4JbXOCpL4KzV/TSMBWuVBivCmbDApbXkG5hgrBKmIQIQrcOjLdxXf47A65leAdz8gZwuFM7 yRj5LzibzpbCw6EPEfqESVNVS6ahSDAqG+9RhwQi6jYohQqgvhnZFFkYFODUkpGPujSK6yb9SWMrue0A u1MJRhMt+DelsZnmiWQQyebs27XnLqvaSVK+dJhvV/ Ibc873fer5Lj9nmj4P8dD1/muIV26pS1URiAsdfh9+39w2iaXF1r3gQMrUaXhFh0cM3pklDXKY8eWOz5 mmlnRPAG85ohm16euNkvK7B368wZ2fTwr2+BQSGADmB2x32/j8gWdzKOZWmPsV86s6ZOnjqeQnb91XZ/ JCOL/KBITD9AJ7PYIvT7IITVPeLMBCdaxwFHjyiPXq [file] 0v0oBMRBDIHWLDIPYVFJUILHnbATz9MZ3hYvgEPZMf cvagxO8J3ebUiBZudnS+J2fuK9ampcsfUb/xu0RVtA+mvBUDaCNE4dvwwaL+k6x30Ieb6HaBjEGlTPUF xzq7dmX6MuxJi8JaSrmbQCokSs5LqF9NCbhVAlq4y7pEVohpw3qOpnBZ06CUiBxeCIvE54C/WP9V/D8D UPGUmPpoxb6a/VHdUAuAe1OyrddMTQHLZSCNSPALOJ LVSMABQDQMPDLHVTGZZINBNZPXYFIXSDOIAQlF0TQPEQ7ljpRAXYSqE0Sy90k4evBnJzy6X7LI22VasU OWGViBQTZI6qnoNGzTX5PYl/V6/T6E9FXf36/Dt/ue4U9hgc5xfZ36f/ymx8m6dS9RVCMUbJoFhDk95H zakIV+K2EoCrExtnsbHwjoXmx8pJOxwaJYhfYjj/33 z0achvXrQgqR2+XnR3I+prPcDfNi/9L+7wnJJA/Bv7+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/t+gHP49akiegzxCJEIT0qgmp+BTuHoq9Gg [file] PoreMZBp2TMw+aF82fyngh4Eb0M6afjuyepl0BIlge3sF0j2/Jz/building and construction manager+ORnADQtRN8r6cBy8HSfuayReU [file] ICAgICAgICAgICAgICAgICAgICAgICAgICAgICAgICAgICAgICAgICAgICAgICAgICAgICAgICAgICAg ICAgICAgICAgICAgICAgICAgICAgICAgICANCiAgICAgICAgICAgICAgICAgICAgICAgICAgICAgICAg ICAgICAgICAgICAgICAgICAgICAgICAgICAgICAgIC AgICAgICAgICAgICAgICAgICAgICAgICAgICAgICAgICAgICANCiAgICAgICAgICAgICAgICAgICAgIC AgICAgICAgICAgICAgICAgICAgICAgICAgICAgICAgICAgICAgICAgICAgICAgICAgICAgICAgICAgIC AgICAgICAgICAgICAgICAgICANCiAgICAgICAgICAg ICAgICAgICAgICAgICAgICAgICAgICAgICAgICAgICAgICAgICAgICAgICAgICAgICAgICAgICAgICAg ICAgICAgICAgICAgICAgICAgICAgICAgICAgICANCiAgICAgICAgICAgICAgICAgICAgICAgICAgICAg ICAgICAgICAgICAgICAgICAgICAgICAgICAgICAgIC AgICAgICAgICAgICAgICAgICAgICAgICAgICAgICAgICAgICAgICANCiAgICAgICAgICAgICAgICAgIC AgICAgICAgICAgICAgICAgICAgICAgICAgICAgICAgICAgICAgICAgICAgICAgICAgICAgICAgICAgIC AgICAgICAgICAgICAgICAgICAgICANCiAgICAgICAg ICAgICAgICAgICAgICAgICAgICAgICAgICAgICAgICAgICAgICAgICAgICAgICAgICAgICAgICAgICAg ICAgICAgICAgICAgICAgICAgICAgICAgICAgICAgICANCiAgICAgICAgICAgICAgICAgICAgICAgICAg ICAgICAgICAgICAgICAgICAgICAgICAgICAgICAgIC AgICAgICAgICAgICAgICAgICAgICAgICAgICAgICAgICAgICAgICAgICANCiAgICAgICAgICAgICAgIC AgICAgICAgICAgICAgICAgICAgICAgICAgICAgICAgICAgICAgICAgICAgICAgICAgICAgICAgICAgIC AgICAgICAgICAgICAgICAgICAgICAgICANCiAgICAg ICAgICAgICAgICAgICAgICAgICAgICAgICAgICAgICAgICAgICAgICAgICAgICAgICAgICAgICAgICAg ICAgICAgICAgICAgICAgICAgICAgICAgICAgICAgICAgICANCjw/nKOmH7sheUQgfwM6K0ajIf7NIm6W MT5td3RkOZMbMMvtfiXbEgdEHzIqXRRcLngOQkn3UL mqWL3GrZUiI3NrB0CwBJuxDB5RDORfWUSxsAJdQSOaNZQoObE3PCReOWjsJI6MxJXxZArnKSJjKMGaRg BsRBTpEJMmHMIsYT4DGRBxF708inYlXq8FHi3MMjOuOM9hax6XQUApSKCnMzhIRog8CWddVL4OqDDnA4 ZdhUFll6mKIfBkV0FEMYGuHMHbVv0EHBXpYiUpASUj VUlzEC8sKWJkCBZXtAhbpzD2ON5JZS7nxwJbTQ9XFwNjIy3kQz8YRzAlU2QpH4AnSCCxBYFGWEzpBB3K VNIhANY3TZU4RJBeHCHJAaTiN85jPY7OO6Avu32dRcL4IHXwXqMwGGixNB19uUwwxhJaaSHmjVlvTP6M Cj4+DQplbmRvYmoNCnhyZWYNCjAgNDMNCjAwMDAwMD ZsQTEdUoG2UeWzGh3VOUZhQKAlMOUcGsBrTAWcABPcONcrMIMeNSjjMEDoBDYwQSIhTP6BUxVoXIDqFv T2GWBxHLFxZCEtdd6SXDCsGJReLFH0WMMuOIDoNCQiEVluITIqYOGbAZV0LNNzKDItAB7HEaFrXEWhBU S3AldlFGQvFBYscq0BCKThPYRvExA3VhIdIDPwSWTl TWbvWJSkNYM7HXm9ARFlHWSnLA8DImLoFAXzGOiaNFYbWOItFCUafb4KOOYcJFPlVkXwLVIiVBFdNXOx SAmpMRYlUWJ8SHjuMLOfPQIaMY0STzXqUXLnMAj6JstlSTDoQFZnwh8AZLZfYUPeFPu9WAGmWHPdBDIg PHavEEAxTRT1PON0WYSbKLNyBN3CQwWrEQDiPNZxDG JwWRBqQPLmkt6TEUZgFBDwCYR4OPNtPJGzGWNfQZwsPPNyABH1UWV5XLAcNHLmMQ8HIvXpJZDlSNSdEw MoWQPeEVLqgs2JWXNuUHElMGX6SDJdLPVxQGYoUFquFDUyJYH0XYM8GWEqGZPvAR2YHpKmKWVkXVG4Zt LtPGDoGKStej6APRYhWPJpWerqZgQyRYOdUEAvVLek DFIjABG7VSi0JRLpATZnVT5UZcZdIZQjGJzcToZoAEAvZXRdjs6GUMSyDROrAgk0LZXoZOVtMBAlCNyb AMMwFOD6CQszJJGkAMLaRY9LAoEsHXHdEpaqZVLoOKZpEMTcxg4VRSAfTIMmHCz1EiOnVPHmTXYmVNme UVFhPUYhITw2LHScUAMsBR2CBhMgUZHvLdFfYqHdUT MhKOGeoa3ZHCVrAYXsTLKwQZEzEPKaXXBuQSjhLWBrLREqGbhaUMZbSHKkGI7ENxNeGCIgJMS4DznvBA VrFSZzdy1BYZIbNZU4PQfuMhIdVQUbCQPrEAofNFOyFEZtVFvlYWZcAIDdST6ENpIqQQUbMGf1BYjcMH ZlOUTxye4AHTJiDFV1GSU6GSYuRVOmJXIsEXonRJWo BFN9LfK6RAJnDYKvRT2VSoWmRVHeKef0NOBbUIDzOKBrsv5KBDElSQB0QeJ3KLFyJJJgCJRhHRdjNVHm FCl5HmV5ESBlRZZzUS3DBzTwWFWuYyR1DVXyVENmLHYztb0FlBYfnDrwyr6YRBcHSh7XoHulLDBoVFzc Re8fzPS8OuRwXUMZJa6DivXpPWZwPUCUSBruUEYmGN OiBja9DsR1S1DlKoM4ZJDqMQU1RlJ3EMhfCvBpVFK1AvY6GBTcFSWlUQx7LXXoDqLvKmD6Olk0Xtv3LO NiYWFkNjU+SY9zJYz+Zx2Np3LnzhQ3stCoBVr7VJj9Ik1PDPQNA5EKKo== ID Date Data Source [id number] 11/27/2020 10:00:00 AM EST [facility] Name Value Range Interpretation Code Description Data Roz rce(s) Supporting Document(s) SARS coronavirus 2 RNA Not Detected [facility] This lab was ordered by [facility] and reported by [facility]. ID Date Data Source [id number] 11/20/2020 06:30:00 AM EST [facility] Name Value Range Interpretation Code Description Data Roz rce(s) Supporting Document(s) SARS coronavirus 2 RNA Not Detected [facility] This lab was ordered by [facility] and reported by [facility]. ID Date Data Source [id number] 11/13/2020 08:00:00 AM EST [facility] Name Value Range Interpretation Code Description Data Roz rce(s) Supporting Document(s) SARS coronavirus 2 RNA Not Detected [facility] This lab was ordered by [facility] and reported by [facility]. ID Date Data Source [id number] 11/06/2020 08:00:00 AM EST [facility] Name Value Range Interpretation Code Description Data Roz rce(s) Supporting Document(s) SARS coronavirus 2 RNA Not Detected [facility] This lab was ordered by [facility] and reported by [facility]. ID Date Data Source [id number] 10/30/2020 12:00:00 PM EST [facility] Name Value Range Interpretation Code Description Data Roz rce(s) Supporting Document(s) SARS coronavirus 2 RNA Not Detected [facility] This lab was ordered by [facility] and reported by [facility]. ID Date Data Source [id number] 10/23/2020 06:00:00 AM EST [facility] Name Value Range Interpretation Code Description Data Roz rce(s) Supporting Document(s) SARS coronavirus 2 RNA Not Detected [facility] This lab was ordered by [facility] and reported by [facility]. ID Date Data Source [id number] 10/16/2020 07:30:00 AM EST [facility] Name Value Range Interpretation Code Description Data Roz rce(s) Supporting Document(s) SARS coronavirus 2 RNA [facility] This lab was ordered by [facility] and reported by [facility]. ID Date Data Source [id number] 10/09/2020 08:05:00 AM EST [facility] Name Value Range Interpretation Code Description Data Roz rce(s) Supporting Document(s) SARS coronavirus 2 RNA [facility] This lab was ordered by [facility] and reported by [facility]. ID Date Data Source [id number] 10/02/2020 09:00:00 AM EST [facility] Name Value Range Interpretation Code Description Data Roz rce(s) Supporting Document(s) SARS coronavirus 2 RNA [facility] This lab was ordered by [facility] and reported by [facility]. ID Date Data Source [id number] 10/02/2020 12:00:00 AM EST [facility] Name Value Range Interpretation Code Description Data Roz rce(s) Supporting Document(s) SARS-CoV2 Rapid Antigen [facility] This lab was ordered by [facility] and reported by [facility]. ID Date Data Source [id number] 09/27/2020 12:38:00 PM EST [facility] Name Value Range Interpretation Code Description Data Roz rce(s) Supporting Document(s) SARS coronavirus 2 RNA [facility] This lab was ordered by [facility] and reported by [facility]. ID Date Data Source [id number] 09/22/2020 02:48:00 PM EST [facility] Name Value Range Interpretation Code Description Data Roz rce(s) Supporting Document(s) SARS coronavirus 2 RNA [facility] This lab was ordered by [facility] and reported by [facility]. ID Date Data Source [id number] 09/15/2020 01:00:00 PM EST [facility] Name Value Range Interpretation Code Description Data Roz rce(s) Supporting Document(s) SARS coronavirus 2 RNA [Presence] in Res piratory specimen by SERGIO with probe detection [facility] This lab was ordered by [facility] a nd reported by [facility]. ID Date Data Source [id number] 09/06/2020 12:00:00 PM EST [facility] Name Value Range Interpretation Code Description Data Roz rce(s) Supporting Document(s) SARS coronavirus 2 RNA [facility] This lab was ordered by [facility] and reported by [facility]. ID Date Data Source [id number] 08/31/2020 09:00:00 AM EST [facility] Name Value Range Interpretation Code Description Data Roz rce(s) Supporting Document(s) SARS coronavirus 2 RNA [facility] This lab was ordered by [facility] and reported by [facility]. ID Date Data Source [id number] 08/24/2020 12:25:00 PM EST [facility] Name Value Range Interpretation Code Description Data Roz rce(s) Supporting Document(s) SARS coronavirus 2 RNA [facility] This lab was ordered by [facility] and reported by [facility]. ID Date Data Source [id number] 06/28/2020 02:55:00 PM EDT [facility] ([facility] ) Name Value Range Interpretation Code Description Data Roz rce(s) Supporting Document(s) PDFReport Laboratory test result [facility] ([facility], ) FVC-Pred 2.01 L [facility] ([facility], ) FVC-Pre 1.14 L [facility] ([facility], ) FVC-%Pred-Pre 56 L [facility] ([facility] ) FVC-LLN 1.35 L [facility] ([facility]) Fev1-Pre 0.80 L [facility] ([facility]) Fev1-Pred 1.46 L [facility] ([facility]) Fev1-%Pred-Pre 54 L [facility] ([facility]) Fev6-Pred 1.87 L [facility] ([facility]) Fev1-LLN 0.91 L [facility] ([facility]) Fev6-Pre 1.14 L [facility] ([facility]) Fev6-%Pred-Pre 60 L [facility] ([facility]) Fev6-LLN 1.23 L [facility] ([facility]) Eeh2vha-Uonr 72 % [facility] ([facility]) Spm3gbk-Isj 71 % [facility] ([facility]) Guh4iov-%Pred-Pre 98 % [facility] ([facility]) Huf1vkj-VZZ 62 % [facility] ([facility]) Vad0rgh-Hxda 93 % [facility] ([facility]) Dzg8qbb-Vjo 100 % [facility] ([facility]) Gqx0iyg-%Pred-Pre 107 % [facility] ([facility]) FEFMax-Pred 3.66 L/E/sec [facility] ([facility]) FEFMax-Pre 3.01 L/E/sec [facility] ([facility]) FEFMax-%Pred-Pre 82 L/E/sec [facility] ([facility]) FEFMax-LLN 2.05 L/E/sec [facility] ([facility]) Iyb1264-Ypiu 0.87 L/E/sec [facility] ([facility]) Wur6431-Qzl 0.48 L/E/sec [facility] ([facility]) Nru9300-%Pred-Pre 55 L/E/sec [facility] ([facility]) Qgm2939-BXJ -0.29 L/E/sec [facility] ([facility]) ExpTime-Pre 5.10 sec [facility] ([facility]) Bex0dpa9-Ugbo 76 % [facility] ([facility]) Dzx0rnu9-Unq 71 % [facility] ([facility]) Prp2hci8-%Pred-Pre 92 % [facility] ([facility]) Hmc7ofv4-LCC 68 % [facility] ([facility]) Procedure Social History Code Duration Value Status Description Data Source(s ) Alcohol intake 06/29/2021 12:00:00 AM EDT Ex-drinker (finding) comp leted Ex- drinker (finding) [facility] Smoking 06/18/2021 04:38:18 PM EDT Ex-smoker (finding) complet ed Ex-smoker (finding) [facility] (Nimesh Wood MD [facility]) Alcohol intake 08/30/2020 12:00:00 AM EST Not Currently completed [facility] Smoking 08/30/2020 12:00:00 AM EST Former smoker completed Former smoker [facility] Vital Signs ID Date Data Source UNK Name Value Range Interpretation Code Description Data Source(s) Systolic blood pressure 124 mm[Hg] 124 mm[Hg] [facility] Diastolic blood pressure 70 mm[Hg] 70 mm[Hg] [facility] Heart rate 66 /min 66 /min [facility] Respiratory rate 18 /min 18 /min [facility] Body height 154.9 cm 154.9 cm [facility] Body weight 78.472 kg 78.472 kg [facility] Body mass index (BMI) [Ratio] 32.69 kg/m2 32.69 kg/m2 [facility] Oxygen saturation in Arterial blood by Pulse oximetry 94 % 94 % [facility] Systolic blood pressure 124 mm[Hg] 124 mm[Hg] [facility] Diastolic blood pressure 70 mm[Hg] 70 mm[Hg] [facility] Heart rate 95 /min 95 /min [facility] Body height 154.9 cm 154.9 cm [facility] Body weight 77.565 kg 77.565 kg [facility] Body mass index (BMI) [Ratio] 32.31 kg/m2 32.31 kg/m2 [facility] Oxygen saturation in Arterial blood by Pulse oximetry 93 % 93 % [facility] Systolic blood pressure 122 mm[Hg] 122 mm[Hg] [facility] Diastolic blood pressure 64 mm[Hg] 64 mm[Hg] [facility] Heart rate 80 /min 80 /min [facility] Body height 154.9 cm 154.9 cm [facility] Body weight 79.833 kg 79.833 kg [facility] Body mass index (BMI) [Ratio] 33.25 kg/m2 33.25 kg/m2 [facility] Oxygen saturation in Arterial blood by Pulse oximetry 98 % 98 % [facility] Systolic blood pressure 132 mm[Hg] 132 mm[Hg] M [facility] ([facility] ) Diastolic blood pressure 84 mm[Hg] 84 mm[Hg] [facility] ([facility] ) Heart rate 103 /min 103 /min [facility] Oxygen saturation in Arterial blood by Pulse oximetry 932 % 932 % [facility] ([facility], ) Body temperature 97.8 [degF] 97.8 [degF] [facility] Body height 62 [in_i] 62 [in_i] [facility] ([facility]) 5'2" Body weight 178.00 [lb_av] 178.00 [lb_av] MEDEN T ([facility]) Body mass index (BMI) [Ratio] 32.6 kg/m2 32.6 k g/m2 [facility] ([facility]) Body weight 80.741 kg 80.741 kg [facility] ([facility]) Patient Treatment Plan of Care Planned Activity Planned Date Details Description Data Source (s) torsemide 20 MG Oral Tablet 06/29/2021 12:00:00 AM EDT [facility] Metoprolol Succinate 200 MG CS24 06/29/2021 12:00:00 AM EDT [facility] Hydroxychloroquine Sulfate 200 MG Oral Tablet 06/29/2021 12:00:00 A M EDT [facility] apixaban 2.5 MG Oral Tablet 06/29/2021 12:00:00 AM EDT [facility] Suvorexant 10 MG Oral Tablet [Belsomra] 11/27/2020 12:00:00 AM EST [facility] Refresh Liquigel 1% Ophthalmic Gel 10/19/2020 12:00:00 AM [facility] (Nimesh Wood MD [facility]) Carboxymethylcellulose Sodium 5 MG/ML / Glycerin 10 MG/ML / Polysorbate 80 5 MG/ML Ophthalmic Solution 10/19/2020 12:00:00 AM [facility] (Nimesh Wood MD [facility]) 200 ACTUAT Levalbuterol 0.045 MG/ACTUAT Metered Dose I nhaler [Xopenex] 10/09/2020 12:00:00 AM EST [facility] carvedilol 6.25 MG Oral Tablet 07/19/2020 12:00:00 AM EDT [facility] tramadol hydrochloride 50 MG Oral Tablet 06/05/2020 12:00:00 AM EDT [facility] torsemide 20 MG Oral Tablet 03/31/2020 12:00:00 AM EDT [facility] Lisinopril 2.5 MG Oral Tablet 03/21/2020 12:00:00 AM EDT [facility] Metoprolol Succinate 200 MG CS24 [facility] apixaban 2.5 MG Oral Tablet [facility] Hydroxychloroquine Sulfate 200 MG Oral Tablet [facility] Allopurinol 100 MG Oral Tablet [facility]
--- NOTE | 2021-07-29 04:50 | REPVR ---
PROCEDURE INFORMATION: Exam: CT Head Without Contrast Exam date and time: 07/29/2021 3:37 AM Age: 89 years old Clinical indication: Injury or trauma; Fall; Blunt trauma (contusions or hematomas); Additional info: Fall from chair on blood thinners TECHNIQUE: Imaging protocol: Computed tomography of the head without contrast. Radiation optimization: All CT scans at this facility use at least one of these dose optimization techniques: automated exposure control; mA and/or kV adjustment per patient size (includes targeted exams where dose is matched to clinical indication); or iterative reconstruction. COMPARISON: No relevant prior studies available. FINDINGS: Images through the base of the brain and posterior fossa, including the brainstem are slightly degraded by beam hardening artifacts from the adjacent calvarium. There is no evidence of acute intracranial hemorrhage, extra axial fluid collection or hematoma. There is global parenchymal volume loss, appropriate for age related involutional change. There is slight prominence of the lateral ventricles, however commensurate with degree of parenchymal volume loss. There is no midline shift or herniation. No evidence of pneumocephalus. There is intracranial atherosclerosis. Scattered periventricular and deep white matter regions of hypoattenuation noted, consistent with microvascular ischemic change and or white matter disease of indeterminate acuity. No CT findings are seen at the current time to suggest changes of acute territorial vascular infarction. Note is made however, that CT changes, may lag clinical findings in acute CVA. If clinically indicated, consideration could be given to MRI with diffusion weighted imaging, due to its greater sensitivity, for early detection of acute ischemic change. Incidental intracranial calcifications are noted. There is a 6 cm left frontal scalp subgaleal soft tissue hemorrhage/hematoma. Ocular postoperative changes are noted. No acute cranial vault fracture is seen. No fluid is seen within the visualized paranasal sinuses or mastoid air cells. The visualized middle ear cavities are not opacified. IMPRESSION: Left frontal scalp subgaleal soft tissue hemorrhage/hematoma. No acute intracranial hemorrhage or acute calvarial fracture. Other incidental findings discussed above. Electronically signed by: Barrera Solis On 07/29/2021 04:49:49 AM
--- NOTE | 2021-07-29 05:03 | REPVR ---
PROCEDURE INFORMATION: Exam: CT Cervical Spine Without Contrast Exam date and time: 07/29/2021 3:37 AM Age: 89 years old Clinical indication: Injury or trauma; Fall; Blunt trauma; Additional info: Fall from chair on blood thinners TECHNIQUE: Imaging protocol: Computed tomography images of the cervical spine without contrast. Radiation optimization: All CT scans at this facility use at least one of these dose optimization techniques: automated exposure control; mA and/or kV adjustment per patient size (includes targeted exams where dose is matched to clinical indication); or iterative reconstruction. COMPARISON: None FINDINGS: The bones appear slightly demineralized. Clinical follow-up for osteoporosis. 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 Cervical vertebral body heights and prevertebral soft tissues are within normal limits. There is slight rotation of C2 with respect to C1 which could be positional related to slight rotation and tilt of the patient's head. The facet joints are otherwise not subluxed or dislocated. There is minimal anterolisthesis of C3 upon C4, 3 mm of anterolisthesis of C4 upon C5, minimal retrolisthesis of C5 upon C6 and minimal anterolisthesis of C7 upon T1. These could be on a degenerative basis, however if there is clinical suspicion for posttraumatic instability, further evaluation is advised. Consider supervised lateral flexion and extension radiographs or MRI. No acute fracture of the cervical spine is seen. Degenerative changes of the cervical spine are noted with disc space loss, bony sclerosis, anterior osteophytes, posterior bony ridging, uncovertebral bony hypertrophy and facet arthropathy. Varying degrees of central canal and foraminal compromise is suspected. If there are neurologic symptoms, consider further evaluation by MRI. Interstitial thickening and ground-glass opacities seen at the visualized lung apices could be correlated for interstitial edema or interstitial pneumonitis. Vascular calcifications noted. Heterogeneity of the thyroid noted. There is a 2 cm right thyroid nodule. Nonemergent evaluation by ultrasound is advised. IMPRESSION: No acute fracture of the cervical spine. Cervical malalignments are noted as discussed above. Clinical correlation is advised. Interstitial and ground-glass pulmonary opacities to be correlated for interstitial edema or interstitial pneumonitis. Thyroid nodule. Nonemergent evaluation by ultrasound is advised. Other incidental findings discussed above. Electronically signed by: Barrera Solis On 07/29/2021 05:03:08 AM
--- NOTE | 2021-07-29 05:50 | REPVR ---
PROCEDURE INFORMATION: Exam: XR Right Shoulder Exam date and time: 07/29/2021 4:28 AM Age: 89 years old Clinical indication: Other: Fall from chair TECHNIQUE: Imaging protocol: XR Right shoulder. Views: 2 or more views. COMPARISON: CR Shoulder, complete 06/04/2021 8:01 AM FINDINGS: Bones/joints: Osteopenia. No acute bony injury or malalignment in the visualized right shoulder. Degenerative change. Soft tissues: Unremarkable. IMPRESSION: No acute bony injury or malalignment in the visualized right shoulder. Electronically signed by: Jostin Kee On 07/29/2021 05:50:25 AM
[2021-07-29 06:15] VITALS: BP 140/73
== END 2021-07-29 09:27 | disposition home or self-care (01) ==
LOC: M ED 03:26
DX: Z04.89 Encounter for examination and observation for other specified reasons (principal); I50.9 Heart failure, unspecified; I48.91 Unspecified atrial fibrillation; Z79.899 Other long term (current) drug therapy; Z79.01 Long term (current) use of anticoagulants; Z88.1 Allergy status to other antibiotic agents; Z88.2 Allergy status to sulfonamides; Z88.4 Allergy status to anesthetic agent; Z88.8 Allergy status to other drugs, medicaments and biological substances; Z91.048 Other nonmedicinal substance allergy status

== ENCOUNTER 2021-07-31 11:14 | Inpatient (IN) | payer MEDICARE, MEDICAID ==
[~2021-07-31] VITALS: Ht 157.5 cm; Wt 77.8 kg
--- OUTSIDE RECORDS SUMMARY | 2021-07-31 11:22 | CCD ---
Author Author [facility] Organization [facility] Address Unknown Phone Unavailable Care Team Providers Care Feather Boner Name Role Phone CAT FRASER MD Unavailable [...] BRIA, CAT CISNEROS Unavailable Unavailable BRIA, CAT CISNEORS Unavailable Unavailable BRIA, CAT CISNEROS Unavailable Unavailable [...] Unavailable Alex Sullivan MD, FACS Unavailable Unavailable Aelx Sullivan MD, FACS Unavailable Unavailable Alex Sullivan MD, FACS Unavailable Unavailable Chaparro Wood, Alex Beavers MD, FACS Unavailable Unavailable Chaparro Wood, Alex Beavers MD, FACS Unavailable Unavailable Chaparro Wood, Alex Beavers MD, FACS Unavailable Unavailable Chaparro Wodo, Alex Beavers MD, FACS Unavailable Unavailable Chaparro [...] is protected by Article 27-F of the [facility] Public Health law. If you continue you may have access to information: Regarding HIV / AIDS; Provided by facilities licensed or operated by the [facility] Office of Mental Health; or Provided by the [facility] Office for People With Developmental Disabilities. If such information is present, then the following [facility] mandated warning applies: This information has been [...] law may result in a fine or snf sentence or both. A general authorization for the release of medical or other information is NOT sufficient authorization for further disc losure. Allergies and Adverse Reactions Type Description Substance Reaction Status Data Source(s ) Propensity to adverse reactions NICKEL nickel sulfate Active [facility] Family History Family Member Name Family Member Gender Family Member Status Date o f Status Description Data Source(s) Unknown Female Problem (finding) 10/21/2016 12:00:00 AM EST [facility] ([facility]) Unknown Female Problem (finding) 10/21/2016 12:00:00 AM EST [facility] ([facility]) Unknown Female Problem (finding) 10/21/2016 12:00:00 AM EST [facility] ([facility]) Unknown Male Problem [facility] ([facility] ) Unknown Unknown Problem [facility] ([facility] ) Unknown Unknown Problem [facility] ([facility] ) Unknown Unknown Problem [facility] ([facility] ) Unknown Unknown Problem [facility] ([facility] ) Encounters Encounter Providers Location Date Indications Data Source(s ) Outpatient Attender: CAT FRASER MD SJP.[email or web address] 03:14:39 PM EDT - 06/29/2021 04:31:34 PM EDT [facility] OFFICE OUTPATIENT VISIT 15 MINUTES Attender: Ros GRAY Physical Therapy 06/21/2021 10:45:00 AM EDT [facility] ([facility] ) Outpatient Attender: SOLIS SANTOS MD 02/13/2021 12:00:00 AM [facility] <td ID="encounterTypeDescriptionID0">1 Y ear Follow-Up & Testing</td><td>Nimesh Salazar MD, FACS</td><td>[facility]</td><td>02/02/2021</td><td>12:21PM</td><td>1:34PM</td><td><content ID="encounterDiagnosisID0-0">History of Nicotine Dependence</content>, <content ID="encounterDiagnosisID0-1">Essential Hypertension</content>, <content ID="encounterDiagnosisID0-2">Pseudophakic - Both Eyes</content>, <content ID="encounterDiagnosisID0-3">Posterior Capsule Opacification Eccentric Capsule Right Eye</content>, <content ID="encounterDiagnosisID0-4">Macular Degeneration Nonexudative Bilateral Early Dry Stage</content>, <content ID="encounterDiagnosisID0-5">Macular Puckering Both Eyes</content></td>Outpatient Attender: Nimesh Wood MD, FACS Nimesh Wood MD [facility] 02/02/2021 12:21:00 PM EDT - 02/02/2021 01:34:00 PM ED T Macular Puckering Both EyesEssential HypertensionHistory of Nicotine DependenceMacular Degeneration Nonexudative Bilateral Early Dry StagePosterior Capsule Opacification Eccentric Capsule Right EyePseudophakic - Both Eyes [facility] (Nimesh Wood MD [facility]) Macular Puckering Both Eyes Essential Hypertension History of Nicotine Dependence Macular Degeneration Nonexudative Bilate ral Early Dry Stage Posterior Capsule Opacification Eccentri c Capsule Right Eye Pseudophakic - Both Eyes Outpatient Attender: CAT FRASER MDReferrer: CAT JACOMESJEthelMARILYNN 11/29/2020 12:48:19 PM EST - 11/29/2020 03:05:16 PM EST [facility] Outpatient Attender: CAT FRASER MDReferrer: CAT JACOMESJEthelMARILYNN 11/29/2020 12:00:00 AM EST - 11/29/2020 03:05:00 PM EST [facility] Outpatient Attender: SOLIS SANTOS MD 11/06/2020 12:00:[address] [facility] Attender: SAYRA SALDIVAR MD [facility] 10/24/2020 07:06:00 PM EST - 10/24/2020 07:06:00 PM EST [facility] ( [facility]) Outpatient Attender: CAT JAMESSJEthelMARILYNN 0 12:00:00 AM EST - 08/30/2020 10:46:14 AM EST [facility] Outpatient Attender: CAT JAMESSJEthelMARILYNN 0 12:00:00 AM EDT - 06/28/2020 09:46:01 AM EDT [facility] Outpatient Attender: SOLIS SANTOS MD 06/20/2020 12:00:00 AM EDT [facility] Immunizations Vaccine Date Status Description Data Source(s) COVID-19 VACCINE Pfizer 11/27/2020 12:00:00 AM EST completed [facility] Vaccine Series Complete: YESThis Data wa s Submitted to [facility] Via [employer]. COVID-19 VACCINE Pfizer 11/06/2020 12:00:00 AM EST completed [facility] Vaccine Series Complete: NOThis Data was Submitted to [facility] [employer]. INFLUENZA VIRUS VACCINE QUADRIVAL SPLIT 2019-(65 YR UP)/PF 07/27/2020 12:00:00 AM EDT completed [facility] Medications Medication Brand Name Start Date Product Form Dose Route Admi nistrative Instructions Pharmacy Instructions Status Indications Reaction Description Data Source(s) Hydroxychloroquine Sulfate 200 MG Oral T ablet hydroxychloroquine (Plaquenil) 200 MG tablet hydroxychloroquine (Plaquenil) 200 MG tablet 12:00:00 AM EDT 200 mg Oral active Take 1 tablet (20 0 mg total) by mouth daily [facility] apixaban 2.5 MG Oral Tablet apixaban (Eliquis) 2.5 MG TABS tablet apixaban (Eliquis) 2.5 MG TABS tablet 06/29/2021 12:00:00 AM EDT 2.5 mg Oral active Take 1 tablet (2.5 mg total) by mouth 2 (two) times a day [facility] torsemide 20 MG Oral Tablet torsemide (DEMADEX) 20 MG tablet torsemide (DEMADEX) 20 MG tablet 06/29/2021 12:00:00 AM EDT 20 mg Oral activ e Take 1 tablet (20 mg total) by mouth daily [facility] Metoprolol Succinate 200 MG CS24 [id number] 06/29/2021 12:00:00 AM ED T 200 mg Oral active Take 200 mg by mouth daily [facility] Suvorexant 10 MG Oral Tablet [Belsomra] BELSOMRA 10 MG TABS BELSOMRA 10 MG TABS 11/27/2020 12:00:00 AM EST 1 {tbl} active 1 tablet as needed [facility] Refresh Liquigel 1% Ophthalmic Gel Refresh Liquigel 1% Ophth almic Gel 10/19/2020 12:00:00 AM EST 1 active Refresh Liquigel [facility] (Nimesh Wood MD [facility]) Carboxymethylcellulose Sodium 5 MG/ML / Glycerin 10 MG/ML / Polysorbate 80 5 MG/ML Ophthalmic Solution Refresh Optive Advanced 0.5-1-0.5% Ophthalmic Solution Refresh Optive Advanced 0.5-1-0.5% Ophthalmic Solution 10/19/2020 12:00:00 AM EST active carboxym ethylcellulose sodium 5 MG/ML / glycerin 10 MG/ML / polysorbate 80 5 MG/ML Ophthalmic Solution [facility] (Nimesh Wood MD [facility]) 200 ACTUAT Levalbuterol 0.045 MG/ACTUAT Metered Dose Inhaler [Xopenex] XOPENEX HFA 45 MCG/ACT inhaler XOPENEX HFA 45 MCG/ACT inhaler 10/09/2020 12:00:00 AM EST active [facility] 15 mg 08/27/2020 12:00:00 AM EST [...] by mouth 2 (two) times a day [facility] tramadol hydrochloride 50 MG Oral Tablet traMADol (ULT AUBRIE) 50 MG tablet traMADol (ULTRAM) 50 MG tablet 06/05/2020 12:00:00 AM EDT active [facility] torsemide 20 MG Oral Tablet torsemide (DEMADEX) 20 MG tablet torsemide (DEMADEX) 20 MG tablet 03/31/2020 12:00:00 AM EDT 20 mg Oral abor froilan Take 20 mg by mouth daily [facility] Lisinopril 2.5 MG Oral Tablet lisinopril (PRINIVIL,ZES TRIL) 2.5 MG tablet lisinopril (PRINIVIL,ZESTRIL) 2.5 MG tablet 03/21/2020 12:00:00 AM EDT 2.5 mg Oral aborted Take 2.5 mg by mouth daily [facility] Metoprolol Succinate 200 MG CS24 [id number] Oral aborted Take by mouth daily [facility] apixaban 2.5 MG Oral Tablet apixaban (ELIQUIS) 2.5 MG TABS tablet apixaban (ELIQUIS) 2.5 MG TABS tablet Oral aborted Take by mouth 2 (two) times a day [facility] Hydroxychloroquine Sulfate 200 MG Oral T ablet hydroxychloroquine (PLAQUENIL) 200 MG tablet hydroxychloroquine (PLAQUENIL) 200 MG tablet 200 mg Oral aborted Take 200 mg by mouth daily [facility] Allopurinol 100 MG Oral Tablet allopurinol (ZYLOPRIM) 100 MG tablet allopurinol (ZYLOPRIM) 100 MG tablet 100 mg Oral aborted Take 100 mg by mouth 2 (two) times a day [facility] Insurance Providers Payer name Policy type / Coverage type Policy ID Covered green party ID Covered green party's relationship to moss Policy Moss Plan Information MEDICARE [id number] SP [id number] P60 MEDICARE A [id number] Self [id number] P60 MEDICARE [id number] SP [id number] A MEDICARE [id number] xxxxxxxxxxx [id number] MEDICARE [id number] SP [id number] P60 [place] Medicare Primary [id number] Self MEDICARE [id number] Veda [id number] P60 MEDICARE A [id number] Self [id number] A Medicare Dme Supplies Medigap Part B [id number] Self [id number] [place] Med[place]ap Part B [id number] Self [id number] [facility] Medigap Part B [id number] Self [id number] [facility] Medigap Part B [id number] Self [id number] Medicare Dme Supplies Medigap Part B [id number] Self [id number] [place] Med[place]ap Part B [id number] Self [id number] [employer] Medigap Part B [id number] Self [id number] [employer] Medigap Part B [id number] Self [id number] Medicare [place] Primary [id number] Self [id number] [facility] Medigap Part B [id number] Self [id number] Medicare [place] Medicare Primary [id number] Self [id number] [facility] Medigap Part B [id number] Self [id number] AARP U [id number] Self [id number] AARP U [id number] Self [id number] [facility] [facility] [facility] OPTIONS [id number] SP [id number] [facility]IONS [id number] SP [id number] [facility] [id number] [facility] [id number] [facility] [id number] xxxxxxxxxxx [id number] Medicare Part B [facility] Other 0 [id number] Self 0 [place] [id number] SP [id number] TODAYS OPTIONSDO NOT USE [id number] SP [id number] SELF PAY MEDICARE C [id number] S [id number] P60 AARP O [id number] [employer] Options/[employer] Medigap Part B [id number] Self [id number] MEDICARE C [id number] S [id number] A MEDICARE [id number] SP [id number] A [facility] OPTIONS [id number] SP [id number] [facility] OPTIONS [id number] SP [id number] [facility] Medigap Part B [id number] Self N MEDICARE - [place] MCR [id number] S [id number] MEDICARE INPATIENT M [id number] S [id number] [facility] O [id number] S [id number] MEDICARE M [id number] S [id number] A TODAY'S OPTION [place] PROG -O/P UNAVAILABLE UNAVAILABLE AARP O [id number] S [id number] MEDICARE OUTPATIENT M [id number] S [id number] AARP O [id number] S [id number] [id number] A [facility] MEDICAID [id number] SP [id number] Y Problems, Conditions, and Diagnoses Code Display Name Description Problem Type Effective Dates Data Source(s) I10 Essential (primary) hypertension Essential (primary) h ypertension Diagnosis 06/29/2021 04:06:01 PM EDT [facility] 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 Chronic combined systolic (congestive) a Diagnosis 06/29/2021 04:06:01 PM EDT [facility] I48.91 Unspecified atrial fibrillation Unspecified atri al fibrillation Diagnosis 11/29/2020 12:48:19 PM [facility] 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90 Unspecified osteoarthritis, unspecified site Unspecified osteoarthritis, unspecified Diagnosis 06/28/2020 08:15:17 AM EDT [facility] E78.5 Hyperlipidemia, unspecified Hyperlipidemia, unspecifie d Diagnosis 06/28/2020 08:15:17 AM EDT [facility] J44.9 COPD (chronic obstructive pulmonary dise ase) COPD (chronic obstructive pulmonary disease) [id number] 06/29/2021 12:00:00 AM EDT [facility] I48.91 Atrial fibrillation Atrial fibrillation [id number] 1 10/30/2019 12:00:00 AM [facility] 366.52 Posterior Capsule Opacification Not Obsc uring Vision Posterior Capsule Opacification Not Obscuring Vision Problem 05/02/2014 12:00:00 AM EDT - 02/02/2021 12:00:00 AM EDT [facility] (Nimesh Wood MD [facility]) Surgeries/Procedures Procedure Description Date Indications Data Source(s) X-Ray Humerus Two Views 06/21/2021 12:00:00 AM EDT [facility] ([facility] ) OFFICE OUTPATIENT VISIT 15 MINUTES 06/21/2021 12:00:00 AM [facility]T [facility] ) 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 Salazar April 2015 02/02/2021 12:00:00 AM EDT [facility] (Galo Wood MD [facility]) Surgical / procedural history : Tonsille ctomy, Hysterectomy, Colon Cancer- Resection, Left Knee Replacement Surgical / procedural history : Tonsille ctomy, Hysterectomy, Colon Cancer- Resection, Left Knee Replacement 02/02/2021 12:00:00 AM EDT [facility] (Nimesh Wood MD [facility]) Cataract surgery (procedure) History of cataract surge ry : PCIOL OU Dr. Polk III 02/02/2021 12:00:00 AM EDT [facility] (Hossein Wood MD [facility]) Comprehensive eye exam established patient (Signi/Sep Eval. & Man.) Comprehensive eye exam established patient (Signi/Sep Eval. & Man.) 02/02/2021 12:00:00 AM EDT [facility] (Nimesh Wood MD [facility]) Scodi Retina, with interpretation and re port (WAIVER OF LIABILITY ON FILE (ABN)) Scodi Retina, with interpretation and re port (WAIVER OF LIABILITY ON FILE (ABN)) 02/02/2021 12:00:00 AM EDT [facility] (Hossein Wood MD [facility]) ECG ROUTINE ECG W/LEAST 12 LDS W/I&R <td>POCT AMB EKG</td><td>Routine</td><td>08/30/2020 11:17 PM EST</td><td> Chronic combined systolic and diastolic congestive heart failure Essential hypertension Atrial fibrillation, unspecified type</td><td> </td> 08/31/2020 04:17:00 AM EST Atrial fibrillation, unspecified typeEss ential hypertensionChronic combined systolic and diastolic congestive heart failure [facility] Atrial fibrillation, unspecified type Essential hypertension Chronic combined systolic and diastolic congestive heart failure BLOOD COUNT COMPLETE AUTO&AUTO DIFRNTL WBC COUNT <td>C BC AND DIFFERENTIAL</td><td>Routine</td><td>08/28/2020</td><td></td><td> </td> 08/28/2020 12:00:00 AM EST [facility] BASIC METABOLIC PANEL CALCIUM TOTAL <td>BASIC METABOLI C PANEL</td><td>Routine</td><td>08/28/2020</td><td></td><td> </td> 08/28/2020 12:00:00 AM EST [facility] Results ID Date Data Source [id number] 04/25/2021 08:26:00 AM EDT [facility] Name Value Range Interpretation Code Description Data Roz rce(s) Supporting Document(s) SARS coronavirus 2 RNA [Presence] in Res piratory specimen by SERGIO with probe detection NEGATIVE [facility] This lab was ordered by [facility] a nd reported by [facility]. ID Date Data Source [id number] 04/18/2021 04:56:00 AM EDT [facility] Name Value Range Interpretation Code Description Data Roz rce(s) Supporting Document(s) SARS coronavirus 2 RNA [Presence] in Res piratory specimen by SERGIO with probe detection NEGATIVE [facility] This lab was ordered by [facility] a nd reported by [facility]. ID Date Data Source [id number] 12/04/2020 09:00:00 AM EST [facility] Name Value Range Interpretation Code Description Data Roz rce(s) Supporting Document(s) SARS coronavirus 2 RNA Not Detected [facility] This lab was ordered by [facility] and reported by [facility]. ID Date Data Source [id number] 12/03/2020 12:19:14 AM EST [facility] Name Value Range Interpretation Code Description Data Roz rce(s) Supporting Document(s) &PDF [facility] GDCOTe8qTjLAKhBv24/NPEdbLIBcv5JsKPphJPn4WMsnWOChY8AwlZyaJSIBTKtRNQQhFUpATnIKYRQH 0b3 MlNMJdFvMFqNG0UP8wWOXxezPficP4xY4eIY9ZQIZ+Di4KEV4is8CvQTv8YYRbf3RcADnyQAn9E5InoA WtewWrRqliiKQUCDNzVXVaS9urofp7nPRcGFieAs9WEbXyd7AcQEQdUCiMyz1hR42zNmY+X2n/Q0nRah 0oAM0rqq8ixfpOw1DrU3t8O1zQArMYYKEQZSl89k/f seH4T5FZ4zjaetV0XRepyn5jq1/iY13E9J//Gddm8QmfNv8b/bjsqkb9P2/1c5uEVbteOEl/ikGzv+e4 abODfBpDeMbg9oqyrlh0E5v2GWnaWz/iJR4v0q6/Nfr3+Nf2VW/HB57wfj4b/EHFGZN5bHR0NVa0x4j9 06x536WSIqc2xL+JPkyTWDYGusXS3DUtQiUdLoghka KZHgUnQHhfAGDgUt41BWRubnkO5Rl+evkE1tTkEvpt+BNxcgsLx0FLWS4KzBqvxwTpnZOhYUOlT4++Qv AXxuK/Wqx2DNjThar80CBYIMIALLOFjDSyfb2wciWDk9ygqO6zMIUn2o98nh87eiGbW2x5cnCL2MxD0I n4q2j6iylHux00r67IzTLybUeAxVPK3ttUO+q7yKHd bzu4pFYf4g1o3thlsdk8DW1Mg8PyLSLCUBCD8BZJxN1SpkrZr8nWa+i0y2aKhrOlKs/OmQp1jsGXhU3Q ibBGKTGARv5EPPoTAbxsBOuh4zMjGBIaPjtSMjBjomXI85BeKzeqe28bHui8hx8QgTsvmHZiavxDxkWA TCGEOh3xuoeLvM/PWMZFovltQmOG1szkvsk15Ccqlp 0TSCNPRUGe+VaK+a1vnupSTRHl09M7aAJljt3lKNnpl3NGW2/9iHBMq0dxWSKIZXXK3Xc15vsNDUsL0T iGjqxBA/MSS1IgKZFqLELAY2dKuxcu4QH6gMejbNetL19972o9aK2mGxwmYpIP8CbzAtV3uMeF19zxJo OW28B3/elrU92YW/2uoD9AlkxiCkAYJ2PNd2duESdt kNHT8xky9hUOAh4VK5W0JhNVaHWD6Hu58EVc5fEVSEybmmrhAZ6Hci84DwmsVDrn2UQMJKtvbXzo3uNS 51rlzOJq4yHf5HAr1EgVyaj1ci2dsE/itPJdD0qChN2TZkkzortpZG40QjuR740Dm3enHJBOeR8NJWNb N+tfjEfqeDxRm1/6Ng3RR4IIM6WjMneoYRI5jhdV93 +ah9i56b24zDj1lXEqeC+bBCYGgazZUrr36RDSP4ZysPykfeUTDXuKrdqygJz4JCSYRmBpjqTQHF8QvR kuVm6YqpjOGSgZ2ZnCLcNgpyWGZBq7I9SYCVrcDL4xr5OnS2z0sz+f4L7tasZZkIWoZjOh+uaZbd3iMo WdCqeUrOPdtQsIjYJ0I6/O0PSqvueIMHTBEMQ6JqcF DkSTiXqYN6IeKOYsR6TgV/ZFPFOjWZalTssYRrcFbV3xlgZOeJTQJcuKxQhhBj96P60dgRtb1lNpgVR6 sNh4GcvxleyQg1RPDumENQLEV8keBBZzD+0CydZz3hUefXzdikeGWSmDMITGtyBLtoHT0mj7TXJnfk5S p5LLUjRl+EastQlpdWLJtjfk50TjPefeEXQ+dJhvV/ Kia648klp0Xc0amu7Z6jT2/pkHE97xK9XKnSxhgn2+89y0trBN6l0jELqLsOfHh4zS2ipgIFYL2zUHl6 drbcOICP59bxz26bbWglN3H123jQ6jBvt3+LDHIHZmZ0f16/c1sWmkUWKNdMiL03t9NCzkxfSjf02MI/ JCOL/CNHAZ8AW9XKLvP2TRWGQcJGWAfcubHThabTCq [file] 2y6jYHFIJAYBHYXZSAQBXOVTvvHCd4XH0tGbtNTXGn sipjjA4G0juJrFCfeaC+C9unZ6ethjkqCz/lf8URbQ+gnTOCzPQL2axiqiW+o6q88Pax8BtIcWBcFJDB axg2ldQ2KcnKf1DoCzaxUKxbLk9ZeQ9YDegQYyh6a0rNZrovk8kKorSF75ROcFgtVFaA16Y/WP9V/D8D WTHAzPoqki0u/MBhZFpKn6KbdlaETGZOWKLANUYECT LPUVHAYLOFYIGJERHKHJWEJUTPYFBPBSQPEOpS6NGYEH3mylKQXPBzB4Sy25q6tuUfAvu7T4UD09QbxU FJOAmSOWXZ9vrkAErPF8FIe/V6/H4D2OOv22/Dt/js4O7nwp9ziN96m/owa5s9lN8XBPPRbBiYwYp13S zakIV+H2IrPuHkjwcmUofwRnd9nMDhwrWVxeBjw/33 a1ftztShKtzV5+XnR3I+prPcDfNi/9L+7wnJJA/Bv7+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/t+sXM46aynnmqmOGRAY9pexe+MLcXtm7Wf [file] CbzqFZYw3ODa+eZ06bqdrp7Xv5X4meyctidr6PDisj8mV3j9/Jz/psychiatric arnp+NZwUXMrMV0i3wMk1HJluleHnH [file] ICAgICAgICAgICAgICAgICAgICAgICAgICAgICAgICAgICAgICAgICAgICAgICAgICAgICAgICAgICAg ICAgICAgICAgICAgICAgICAgICAgICAgICANCiAgICAgICAgICAgICAgICAgICAgICAgICAgICAgICAg ICAgICAgICAgICAgICAgICAgICAgICAgICAgICAgIC AgICAgICAgICAgICAgICAgICAgICAgICAgICAgICAgICAgICANCiAgICAgICAgICAgICAgICAgICAgIC AgICAgICAgICAgICAgICAgICAgICAgICAgICAgICAgICAgICAgICAgICAgICAgICAgICAgICAgICAgIC AgICAgICAgICAgICAgICAgICANCiAgICAgICAgICAg ICAgICAgICAgICAgICAgICAgICAgICAgICAgICAgICAgICAgICAgICAgICAgICAgICAgICAgICAgICAg ICAgICAgICAgICAgICAgICAgICAgICAgICAgICANCiAgICAgICAgICAgICAgICAgICAgICAgICAgICAg ICAgICAgICAgICAgICAgICAgICAgICAgICAgICAgIC AgICAgICAgICAgICAgICAgICAgICAgICAgICAgICAgICAgICAgICANCiAgICAgICAgICAgICAgICAgIC AgICAgICAgICAgICAgICAgICAgICAgICAgICAgICAgICAgICAgICAgICAgICAgICAgICAgICAgICAgIC AgICAgICAgICAgICAgICAgICAgICANCiAgICAgICAg ICAgICAgICAgICAgICAgICAgICAgICAgICAgICAgICAgICAgICAgICAgICAgICAgICAgICAgICAgICAg ICAgICAgICAgICAgICAgICAgICAgICAgICAgICAgICANCiAgICAgICAgICAgICAgICAgICAgICAgICAg ICAgICAgICAgICAgICAgICAgICAgICAgICAgICAgIC AgICAgICAgICAgICAgICAgICAgICAgICAgICAgICAgICAgICAgICAgICANCiAgICAgICAgICAgICAgIC AgICAgICAgICAgICAgICAgICAgICAgICAgICAgICAgICAgICAgICAgICAgICAgICAgICAgICAgICAgIC AgICAgICAgICAgICAgICAgICAgICAgICANCiAgICAg ICAgICAgICAgICAgICAgICAgICAgICAgICAgICAgICAgICAgICAgICAgICAgICAgICAgICAgICAgICAg ICAgICAgICAgICAgICAgICAgICAgICAgICAgICAgICAgICANCjw/kYYtK9bokEElmvO9E2flNk3XEn1C RV3xu7UpYFDvVUbkzeRrBgwNGfZaVUWkZddOCjn0FV bjND5OmQMyZ9CgL3OdAGmyNR0RZGHkTJYhqUCfZDQdHVUiOnB6ZYJdSHwjTT8BcDQwKOecPJLcMQUfEd ItGULtMQTmNQVpDP1RDOXiD554owUhPf0UIr2MImCcSF7lid3JXFDtKMWtUzgVEey3CVddTP6TkHFyB4 UcnJXei2qGQnLjF2QXVMUtETFgBy0OFVYaVxVkIILb JTdwIO2lUMOeXSSCnCiyuxN0LR5EFZ7npmQvVO1NTjVbHk7fFx4QFjYvD8PlT8MxAWXaVSEOHLxhRR1V ZMCjHPY9TGD3HMHlZNKADqNfI39kOU9DP6Isi96wCzM0IVRhYfYrIKrxSG75dAgxlrCyeYCgqEdcUW8W Cj4+DQplbmRvYmoNCnhyZWYNCjAgNDMNCjAwMDAwMD PqMSSzYaA4EqPrZe7BOWXrLYOyLLCoXaEnEFRjXEBzYDbrFXRpRBbwAZSiOXLeLQSiPY2VFcTyNWGqKe D2SYTjPNRlZVAyds6GGVWeLHYxELN9VEJeYZTjDHFpNUngPCKtYZYlWZJ4EJOyCIZeSH5QOeVsEUVtIC S1UxkgLNDqXGTfym2UMWLjFUFcJwK0NnKlINPsHLVz KAypNXLhSRV6GWz6BVEoFDAjTM1VUdDxLKLpGXrzMGJyHPPwDVXueh7YHNWvMFCkXgHqZEBmUVXaOMZf AWftIAPeZTE9OZduRIOhTNTnDO6CBfDtLHHgLNa9SmihVQOqVESwri7QOSYbVRGzOBk7YKJcEGDlKTPp NEnsXNDbQZD3QVO1LQFlSRLrTO2LGvPfRSWqMQQgRK DbPBJoJQCyky1OOWKyELNlCRX7YSQpVLZxHEDcCHlzCQQpRTM5VFU8OCZbFJTiPP0ORqZcDSCcRFAsKx FvOTIwNRPafj2LNIJwLICuQJJ5UGEqWXKhVUYdDJcnRQYkIWT9CFO1GQPrGGJnON7VUxVsXVJlDRC2Rp SsCYSpKSDopr4QYZHtMZEwCpkhDnImYKFjQZAaCMaw QPRuTRE0WBi6AQFgYNLjIM6FRgQwQZKhFUroTfItWVWxHLHarn0GVYBnCDVkDpm0PSGnZHYnJGXpYPhk EGSmHWQ2PJepSWAnUIRtJE6JFoDeOYFfHkwbLOZxKZIeJWVast5ADSGuEEIeCQi9LdIqJVCjYSTvTMoo PIFfJRYgYNk9ZQCiFGBeHF0GBlKhXNIkFsZrZgLwZV MoRLHgdg4TVDHgSHNvPYGvMVEmAPPsLVEzCLtzUAJjRNChMapbZSWlJDUrPL6WToTpVMKqUDW8YsgmWR JxNEZvxb7XBEWeZYN8NLldXzKhTSUaEFZeOUmfHFWbGLJrFXyeBXGtWLWlHX6ZQbGzPWGcYRn8BDymAZ ChCTWdvs3JDZBgJDB8FAP3AZLnXHZqJKEzIZudYCHc HZU7ZkG4BYSyJWTuTW6QDqIyTCCsPwz2WTJtHYDaBHUgpa8NCIPlCYG6FrU3OFMcOUWmYTGrEYexBEVj FAj0DjH2XROmGZQtMV1LHiImDBRoOsD5AQFwXGGuOSWwok7IyKBqmYmttu6MNLfFTg2KzFfkBONrULkk Sy8jxDS7ZlIgEPYDBq6RnaFdMKHlPUDDQTodEUHyXI RwDmv2TaX1D9OdVnT2FEZdWYY6UvD9MPiyNkMmSKA8PyG3TVHrKVTpXXo6OKAyBiYbJeW4Non8Oqh3EC NiYWFkNjU+LT3cIZa+Ct4Uw9YxeyI4iuOhLAn1XAd7Gr6UDBLEW1RPUh== ID Date Data Source [id number] 11/27/2020 10:00:00 AM EST [facility] Name Value Range Interpretation Code Description Data Roz rce(s) Supporting Document(s) SARS coronavirus 2 RNA Not Detected [facility] [place] This lab was ordered by [facility] and reported by [facility]. ID Date Data Source [id number] 11/20/2020 06:30:00 AM EST [facility] Name Value Range Interpretation Code Description Data Roz rce(s) Supporting Document(s) SARS coronavirus 2 RNA Not Detected [facility] This lab was ordered by [facility] and reported by [facility]. ID Date Data Source [id number] 11/13/2020 08:00:00 AM EST [facility] Name Value Range Interpretation Code Description Data Roz rce(s) Supporting Document(s) SARS coronavirus 2 RNA Not Detected [facility] [place] This lab was ordered by [facility] and reported by [facility]. ID Date Data Source [id number] 11/06/2020 08:00:00 AM EST [facility] Name Value Range Interpretation Code Description Data Roz rce(s) Supporting Document(s) SARS coronavirus 2 RNA Not Detected [facility] This lab was ordered by [facility] and reported by [facility]. ID Date Data Source [id number] 10/30/2020 12:00:00 PM EST [facility] Name Value Range Interpretation Code Description Data Roz rce(s) Supporting Document(s) SARS coronavirus 2 RNA Not Detected [facility] This lab was ordered by [facility] and reported by [facility]. ID Date Data Source [id number] 10/23/2020 06:00:00 AM EST [facility] Name Value Range Interpretation Code Description Data Roz rce(s) Supporting Document(s) SARS coronavirus 2 RNA Not Detected [facility] [place] This lab was ordered by [facility] and reported by [facility]. ID Date Data Source [id number] 10/16/2020 07:30:00 AM EST [facility] Name Value Range Interpretation Code Description Data Roz rce(s) Supporting Document(s) SARS coronavirus 2 RNA [facility] This lab was ordered by [facility] and reported by [facility]. ID Date Data Source [id number] 10/09/2020 08:05:00 AM EST [facility] Name Value Range Interpretation Code Description Data Roz rce(s) Supporting Document(s) SARS coronavirus 2 RNA [facility] This lab was ordered by [facility] and reported by [facility]. ID Date Data Source [id number] 10/02/2020 09:00:00 AM EST [facility] Name Value Range Interpretation Code Description Data Roz rce(s) Supporting Document(s) SARS coronavirus 2 RNA [facility] This lab was ordered by [facility] and reported by [facility]. ID Date Data Source [id number] 10/02/2020 12:00:00 AM EST [facility] Name Value Range Interpretation Code Description Data Roz rce(s) Supporting Document(s) SARS-CoV2 Rapid Antigen [facility] This lab was ordered by [facility] and reported by [facility]. ID Date Data Source [id number] 09/27/2020 12:38:00 PM EST [facility] Name Value Range Interpretation Code Description Data Roz rce(s) Supporting Document(s) SARS coronavirus 2 RNA [facility] This lab was ordered by [facility] and reported by [facility]. ID Date Data Source [id number] 09/22/2020 02:48:00 PM EST [facility] Name Value Range Interpretation Code Description Data Roz rce(s) Supporting Document(s) SARS coronavirus 2 RNA [facility] This lab was ordered by [facility] and reported by [facility]. ID Date Data Source [id number] 09/15/2020 01:00:00 PM EST [facility] Name Value Range Interpretation Code Description Data Roz rce(s) Supporting Document(s) SARS coronavirus 2 RNA [Presence] in Res piratory specimen by SERGIO with probe detection [facility] This lab was ordered by [facility] a nd reported by [facility]. ID Date Data Source [id number] 09/06/2020 12:00:00 PM EST [facility] Name Value Range Interpretation Code Description Data Roz rce(s) Supporting Document(s) SARS coronavirus 2 RNA [facility] This lab was ordered by [facility] and reported by [facility]. ID Date Data Source [id number] 08/31/2020 09:00:00 AM EST [facility] Name Value Range Interpretation Code Description Data Roz rce(s) Supporting Document(s) SARS coronavirus 2 RNA [facility] This lab was ordered by [facility] and reported by [facility]. ID Date Data Source [id number] 08/24/2020 12:25:00 PM EST [facility] Name Value Range Interpretation Code Description Data Roz rce(s) Supporting Document(s) SARS coronavirus 2 RNA [facility] This lab was ordered by [facility] and reported by [facility]. ID Date Data Source [id number] 06/28/2020 02:55:00 PM EDT [facility] ([facility], ) Name Value Range Interpretation Code Description Data Roz rce(s) Supporting Document(s) PDFReport Laboratory test result [facility] ([facility], ) FVC-Pred 2.01 L [facility] ([facility], ) FVC-Pre 1.14 L [facility] ([facility], ) FVC-%Pred-Pre 56 L [facility] ([facility], ) FVC-LLN 1.35 L [facility] ([facility]) Fev1-Pre 0.80 L [facility] ([facility]) Fev1-Pred 1.46 L [facility] ([facility]) Fev1-%Pred-Pre 54 L [facility] ([facility]) Fev6-Pred 1.87 L [facility] ([facility]) Fev1-LLN 0.91 L [facility] ([facility]) Fev6-Pre 1.14 L [facility] ([facility]) Fev6-%Pred-Pre 60 L [facility] ([facility]) Fev6-LLN 1.23 L [facility] ([facility]) Fgv3qch-Ecdd 72 % [facility] ([facility]) Iws1mpu-Bub 71 % [facility] ([facility]) Txq5llp-%Pred-Pre 98 % [facility] ([facility]) Cxr0qcg-VZF 62 % [facility] ([facility]) Kyz2bhb-Atps 93 % [facility] ([facility]) Vwx6mpl-Skc 100 % [facility] ([facility]) Nzl2xvr-%Pred-Pre 107 % [facility] ([facility]) FEFMax-Pred 3.66 L/E/sec [facility] ([facility]) FEFMax-Pre 3.01 L/E/sec [facility] ([facility]) FEFMax-%Pred-Pre 82 L/E/sec [facility] ([facility], ) FEFMax-LLN 2.05 L/E/sec [facility] ([facility]) [id number]-Rkix 0.87 L/E/sec [facility] ([facility]) Xbc3086-Tlo 0.48 L/E/sec [facility] ([facility]) Fkk3943-%Pred-Pre 55 L/E/sec [facility] ([facility]) [id number]-EZZ -0.29 L/E/sec [facility] ([facility]) ExpTime-Pre 5.10 sec [facility] ([facility]) Qnm7puv2-Wnuc 76 % [facility] ([facility]) Dwt9iez9-Iyc 71 % [facility] ([facility]) Vvq0bnc3-%Pred-Pre 92 % [facility] ([facility]) Dmu0str5-TKI 68 % [facility] ([facility]) Procedure Social History Code Duration Value Status Description Data Source(s ) Alcohol intake 06/29/2021 12:00:00 AM EDT Ex-drinker (finding) comp leted Ex- drinker (finding) [facility] Smoking 06/18/2021 04:38:18 PM EDT Ex-smoker (finding) complet ed Ex-smoker (finding) [facility] (Nimesh Wood MD [facility]) Alcohol intake 08/30/2020 12:00:00 AM EST Not Currently completed [facility] Smoking 08/30/2020 12:00:00 AM EST Former smoker completed Former smoker [facility] Vital Signs ID Date Data Source UNK Name Value Range Interpretation Code Description Data Source(s) Systolic blood pressure 124 mm[Hg] 124 mm[Hg] [facility] Diastolic blood pressure 70 mm[Hg] 70 mm[Hg] [facility] Heart rate 66 /min 66 /min [facility] Respiratory rate 18 /min 18 /min [facility] Body height 154.9 cm 154.9 cm [facility] Body weight 78.472 kg 78.472 kg [facility] Body mass index (BMI) [Ratio] 32.69 kg/m2 32.69 kg/m2 [facility] Oxygen saturation in Arterial blood by Pulse oximetry 94 % 94 % [facility] Heart rate 95 /min 95 /min [facility] Body height 154.9 cm 154.9 cm [facility] Body weight 77.565 kg 77.565 kg [facility] Body mass index (BMI) [Ratio] 32.31 kg/m2 32.31 kg/m2 [facility] Oxygen saturation in Arterial blood by Pulse oximetry 93 % 93 % [facility] Systolic blood pressure 124 mm[Hg] 124 mm[Hg] [facility] Diastolic blood pressure 70 mm[Hg] 70 mm[Hg] [facility] Systolic blood pressure 122 mm[Hg] 122 mm[Hg] [facility] Diastolic blood pressure 64 mm[Hg] 64 mm[Hg] [facility] Heart rate 80 /min 80 /min [facility] Body height 154.9 cm 154.9 cm [facility] Body weight 79.833 kg 79.833 kg [facility] Body mass index (BMI) [Ratio] 33.25 kg/m2 33.25 kg/m2 [facility] Oxygen saturation in Arterial blood by Pulse oximetry 98 % 98 % [facility] Systolic blood pressure 132 mm[Hg] 132 mm[Hg] [facility] ([facility], ) Diastolic blood pressure 84 mm[Hg] 84 mm[Hg] [facility] ([facility], ) Heart rate 103 /min 103 /min [facility] Oxygen saturation in Arterial blood by Pulse oximetry 932 % 932 % [facility] ([facility], ) Body temperature 97.8 [degF] 97.8 [degF] [facility] ([facility], ) Body height 62 [in_i] 62 [in_i] [facility] ([facility]) 5'2" Body weight 178.00 [lb_av] 178.00 [lb_av] [facility] ([facility], ) Body mass index (BMI) [Ratio] 32.6 kg/m2 32.6 k g/m2 [place] ([facility]) Body weight 80.741 kg 80.741 kg [place] ([facility]) Patient Treatment Plan of Care Planned Activity Planned Date Details Description Data Source (s) torsemide 20 MG Oral Tablet 06/29/2021 12:00:00 AM EDT [facility] Metoprolol Succinate 200 MG CS24 06/29/2021 12:00:00 AM EDT [facility] Hydroxychloroquine Sulfate 200 MG Oral Tablet 06/29/2021 12:00:00 A M EDT [facility] apixaban 2.5 MG Oral Tablet 06/29/2021 12:00:00 AM EDT [facility] Suvorexant 10 MG Oral Tablet [Belsomra] 11/27/2020 12:00:00 AM EST [facility] Refresh Liquigel 1% Ophthalmic Gel 10/19/2020 12:00:[address] [facility] (Nimesh Wood MD [facility]) Carboxymethylcellulose Sodium 5 MG/ML / Glycerin 10 MG/ML / Polysorbate 80 5 MG/ML Ophthalmic Solution 10/19/2020 12:00:00 AM [facility] (Nimesh Wood MD [facility]) 200 ACTUAT Levalbuterol 0.045 MG/ACTUAT Metered Dose I nhaler [Xopenex] 10/09/2020 12:00:00 AM EST [facility] carvedilol 6.25 MG Oral Tablet 07/19/2020 12:00:00 AM EDT [facility] tramadol hydrochloride 50 MG Oral Tablet 06/05/2020 12:00:00 AM EDT [facility] torsemide 20 MG Oral Tablet 03/31/2020 12:00:00 AM EDT [facility] Lisinopril 2.5 MG Oral Tablet 03/21/2020 12:00:00 AM EDT [facility] Metoprolol Succinate 200 MG CS24 [facility] apixaban 2.5 MG Oral Tablet [facility] Hydroxychloroquine Sulfate 200 MG Oral Tablet [facility] Allopurinol 100 MG Oral Tablet [facility]
--- NOTE | 2021-07-31 12:07 | REPVR ---
PROCEDURE INFORMATION: Exam: CT Head Without Contrast Exam date and time: 07/31/2021 11:44 AM Age: 89 years old Clinical indication: Pain; Headache; Additional info: Trauma TECHNIQUE: Imaging protocol: Computed tomography of the head without contrast. Radiation optimization: All CT scans at this facility use at least one of these dose optimization techniques: automated exposure control; mA and/or kV adjustment per patient size (includes targeted exams where dose is matched to clinical indication); or iterative reconstruction. COMPARISON: CT Head without contrast 07/29/2021 3:36 AM FINDINGS: Brain: There is no acute intracranial abnormality. Moderate small vessel ischemic changes are seen. There is no mass, midline shift, or mass effect. Mejia-white matter differentiation is preserved. There is no evidence of hemorrhage. There is no extra-axial fluid collection. Basal cisterns are patent. 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 Cerebral ventricles: Moderate prominence of ventricles and sulci representing volume loss. Paranasal sinuses: Visualized sinuses are unremarkable. No fluid levels. Mastoid air cells: Visualized mastoid air cells are well aerated. Bones/joints: Unremarkable. No acute fracture. Soft tissues: Moderate left frontal soft tissue swelling and small hematoma formation. IMPRESSION: 1. Moderate volume loss and small vessel ischemic changes. 2. No acute intracranial abnormality. 3. Moderate left frontal soft tissue swelling and small hematoma formation. Electronically signed by: Neelima Benavides On 07/31/2021 12:06:28 PM
--- NOTE | 2021-07-31 12:09 | REPVR ---
PROCEDURE INFORMATION: Exam: CT Maxillofacial Without Contrast Exam date and time: 07/31/2021 11:44 AM Age: 89 years old Clinical indication: Pain; Other: Facial; Additional info: Trauma TECHNIQUE: Imaging protocol: Computed tomography images of the face without contrast. Radiation optimization: All CT scans at this facility use at least one of these dose optimization techniques: automated exposure control; mA and/or kV adjustment per patient size (includes targeted exams where dose is matched to clinical indication); or iterative reconstruction. COMPARISON: CT Head without contrast 07/29/2021 3:36 AM FINDINGS: Orbital cavity: Orbits are normal. Globes are unremarkable. Bones/joints: No acute fracture. Paranasal sinuses: Normal. No air-fluid levels. Soft tissues: Mild right pre maxillary soft tissue swelling. IMPRESSION: No acute fracture or dislocation. Electronically signed by: Neelima Benavides On 07/31/2021 12:08:36 PM
[2021-07-31] MEDS ORDERED: traMADol 50 MG TAB PO ONE (12:15)
--- OUTSIDE RECORDS SUMMARY | 2021-07-31 12:34 | CCD ---
Author Author [facility] Organization [facility] Address Unknown Phone Unavailable Care Team Providers Care Signal Maintenance Technician Name Role Phone CAT FRASER MD Unavailable Unavailable CAT FRASER MD Unavailable Unavailable CAT FRASER MD Unavailable Unavailable CAT FRASER MD Unavailable Unavailable CAT FRASER MD Unavailable Unavailable CAT FRASER MD Unavailable Unavailable CTA FRASER MD Unavailable Unavailable CAT FRASER MD [...] Unavailable Unavailable BRIA, CAT CISNEROS Unavailable Unavailable BIRA, CAT CISNEROS Unavailable Unavailable BRIA, CAT CISNEROS [...] Unavailable Walker, M Barratt PA Unavailable Unavailable Wlaker, M Barratt PA Unavailable Unavailable Walker, M [...] Unavailable Walker, M Barratt PA Unavailable Unavailable Walkre, M Barratt PA Unavailable Unavailable Walker, M [...] P SOLIS MD Unavailable Unavailable TOM, P SLOIS MD Unavailable Unavailable TOM, P SOLIS MD [...] P SOLIS MD Unavailable Unavailable TOM, P SOILS MD Unavailable Unavailable TOM, P SOLIS MD [...] Unavailable Alex Sullivan MD, FACS Unavailable Unavailable lAex Sullivan MD, FACS Unavailable Unavailable Alex Sullivan [...] is protected by Article 27-F of the [facility] Public Health law. If you continue you may have access to information: Regarding HIV / AIDS; Provided by facilities licensed or operated by the [facility] Office of Mental Health; or Provided by the [facility] Office for People With Developmental Disabilities. If such information is present, then the following [facility] mandated warning applies: This information has [...] law may result in a fine or long-term sentence or both. A general authorization for the release of medical or other information is NOT sufficient authorization for further disc losure. Allergies and Adverse Reactions Type Description Substance Reaction Status Data Source(s ) Propensity to adverse reactions NICKEL nickel sulfate Active [facility] Family History Family Member Name Family Member Gender Family Member Status Date o f Status Description Data Source(s) Unknown Female Problem (finding) 10/21/2016 12:00:00 AM EST [facility] ([facility]) Unknown Female Problem (finding) 10/21/2016 12:00:00 AM EST [facility] ([facility]) Unknown Female Problem (finding) 10/21/2016 12:00:00 AM EST [facility] ([facility]) Unknown Male Problem [facility] ([facility] ) Unknown Unknown Problem [facility] ([facility], ) Unknown Unknown Problem [facility] ([facility], ) Unknown Unknown Problem [facility] ([facility] ) Unknown Unknown Problem [facility] ([facility] ) Encounters Encounter Providers Location Date Indications Data Source(s ) Outpatient Attender: CAT FRASER MD SJP.[email or web address] 03:14:39 PM EDT - 06/29/2021 04:31:34 PM EDT [facility] OFFICE OUTPATIENT VISIT 15 MINUTES Attender: Ros GRAY Physical Therapy 06/21/2021 10:45:00 AM EDT [facility] ([facility] ) Outpatient Attender: SOLIS SANTOS MD 02/13/2021 12:00:00 AM [facility] Outpatient<td ID="encounterTypeDescripti onID0">1 Year Follow-Up & Testing</td><td>Nimesh Salazar MD, FACS</td><td>[facility]</td><td>02/02/2021</td><td>12:21PM</td><td>1:34PM</td><td><content ID="encounterDiagnosisID0-0">History of Nicotine Dependence</content>, <content ID="encounterDiagnosisID0-1">Essential Hypertension</content>, <content ID="encounterDiagnosisID0-2">Pseudophakic - Both Eyes</content>, <content ID="encounterDiagnosisID0-3">Posterior Capsule Opacification Eccentric Capsule Right Eye</content>, <content ID="encounterDiagnosisID0-4">Macular Degeneration Nonexudative Bilateral Early Dry Stage</content>, <content ID="encounterDiagnosisID0-5">Macular Puckering Both Eyes</content></td> Attender: Nimesh Wood MD, FACS Nimesh Salazar MD [facility] 02/02/2021 12:21:0 0 PM EDT - 02/02/2021 01:34:00 PM EDT Macular Puckering Both EyesEssential HypertensionHistory of Nicotine DependenceMacular Degeneration Nonexudative Bilateral Early Dry StagePosterior Capsule Opacification Eccentric Capsule Right EyePseudophakic - Both Eyes [facility] (Nimesh Wood MD [facility]) Macular Puckering Both Eyes Essential Hypertension History of Nicotine Dependence Macular Degeneration Nonexudative Bilate ral Early Dry Stage Posterior Capsule Opacification Eccentri c Capsule Right Eye Pseudophakic - Both Eyes Outpatient Attender: CAT FRASER MDReferrer: CAT HUGGINSMARILYNN 11/29/2020 12:48:19 PM EST - 11/29/2020 03:05:16 PM EST [facility] Outpatient Attender: CAT FRASER MDReferrer: CAT JACOMESJEthelMARILYNN 11/29/2020 12:00:00 AM EST - 11/29/2020 03:05:00 PM EST [facility] Outpatient Attender: SOLIS SANTOS MD 11/06/2020 12:00:00 AM [facility] Attender: SAYRA SALDIVAR MD [facility] 10/24/2020 07:06:00 PM EST - 10/24/2020 07:06:00 PM EST [facility] ( [facility]) Outpatient Attender: CAT CORMIERMARILYNN 0 12:00:00 AM EST - 08/30/2020 10:46:14 AM EST [facility] Outpatient Attender: CAT JAMESSJEthelMARILYNN 0 12:00:00 AM EDT - 06/28/2020 09:46:01 AM EDT [facility] Outpatient Attender: SOLIS SANTOS MD 06/20/2020 12:00:00 AM EDT [facility] Immunizations Vaccine Date Status Description Data Source(s) COVID-19 VACCINE Pfizer 11/27/2020 12:00:00 AM EST completed [facility] Vaccine Series Complete: YESThis Data wa s Submitted to [facility]. COVID-19 VACCINE Pfizer 11/06/2020 12:00:00 AM EST completed [facility] Vaccine Series Complete: NOThis Data was Submitted to [facility]. INFLUENZA VIRUS VACCINE QUADRIVAL SPLIT 2019-(65 YR UP)/PF 07/27/2020 12:00:00 AM EDT completed [facility] Medications Medication Brand Name Start Date Product Form Dose Route Admi nistrative Instructions Pharmacy Instructions Status Indications Reaction Description Data Source(s) Hydroxychloroquine Sulfate 200 MG Oral T ablet hydroxychloroquine (Plaquenil) 200 MG tablet hydroxychloroquine (Plaquenil) 200 MG tablet 12:00:00 AM EDT 200 mg Oral active Take 1 tablet (20 0 mg total) by mouth daily [facility] apixaban 2.5 MG Oral Tablet apixaban (Eliquis) 2.5 MG TABS tablet apixaban (Eliquis) 2.5 MG TABS tablet 06/29/2021 12:00:00 AM EDT 2.5 mg Oral active Take 1 tablet (2.5 mg total) by mouth 2 (two) times a day [facility] torsemide 20 MG Oral Tablet torsemide (DEMADEX) 20 MG tablet torsemide (DEMADEX) 20 MG tablet 06/29/2021 12:00:00 AM EDT 20 mg Oral activ e Take 1 tablet (20 mg total) by mouth daily [facility] Metoprolol Succinate 200 MG CS24 [id number] 06/29/2021 12:00:00 AM ED T 200 mg Oral active Take 200 mg by mouth daily [facility] Suvorexant 10 MG Oral Tablet [Belsomra] BELSOMRA 10 MG TABS BELSOMRA 10 MG TABS 11/27/2020 12:00:00 AM EST 1 {tbl} active 1 tablet as needed [facility] Refresh Liquigel 1% Ophthalmic Gel Refresh Liquigel 1% Ophth almic Gel 10/19/2020 12:00:00 AM EST 1 active Refresh Liquigel [facility] (Nimesh Wood MD [facility]) Carboxymethylcellulose Sodium 5 MG/ML / Glycerin 10 MG/ML / Polysorbate 80 5 MG/ML Ophthalmic Solution Refresh Optive Advanced 0.5-1-0.5% Ophthalmic Solution Refresh Optive Advanced 0.5-1-0.5% Ophthalmic Solution 10/19/2020 12:00:00 AM EST active carboxym ethylcellulose sodium 5 MG/ML / glycerin 10 MG/ML / polysorbate 80 5 MG/ML Ophthalmic Solution [facility] (Nimesh Wood MD [facility]) 200 ACTUAT Levalbuterol 0.045 MG/ACTUAT Metered Dose Inhaler [Xopenex] XOPENEX HFA 45 MCG/ACT inhaler XOPENEX HFA 45 MCG/ACT inhaler 10/09/2020 12:00:00 AM EST active [facility] 15 mg 08/27/2020 12:00:00 AM EST [...] by mouth 2 (two) times a day [facility] tramadol hydrochloride 50 MG Oral Tablet traMADol (ULT AUBRIE) 50 MG tablet traMADol (ULTRAM) 50 MG tablet 06/05/2020 12:00:00 AM EDT active [facility] torsemide 20 MG Oral Tablet torsemide (DEMADEX) 20 MG tablet torsemide (DEMADEX) 20 MG tablet 03/31/2020 12:00:00 AM EDT 20 mg Oral abor froilan Take 20 mg by mouth daily [facility] Lisinopril 2.5 MG Oral Tablet lisinopril (PRINIVIL,ZES TRIL) 2.5 MG tablet lisinopril (PRINIVIL,ZESTRIL) 2.5 MG tablet 03/21/2020 12:00:00 AM EDT 2.5 mg Oral aborted Take 2.5 mg by mouth daily [facility] Metoprolol Succinate 200 MG CS24 [id number] Oral aborted Take by mouth daily [facility] apixaban 2.5 MG Oral Tablet apixaban (ELIQUIS) 2.5 MG TABS tablet apixaban (ELIQUIS) 2.5 MG TABS tablet Oral aborted Take by mouth 2 (two) times a day [facility] Hydroxychloroquine Sulfate 200 MG Oral T ablet hydroxychloroquine (PLAQUENIL) 200 MG tablet hydroxychloroquine (PLAQUENIL) 200 MG tablet 200 mg Oral aborted Take 200 mg by mouth daily [facility] Allopurinol 100 MG Oral Tablet allopurinol (ZYLOPRIM) 100 MG tablet allopurinol (ZYLOPRIM) 100 MG tablet 100 mg Oral aborted Take 100 mg by mouth 2 (two) times a day [facility] Insurance Providers Payer name Policy type / Coverage type Policy ID Covered alliance party ID Covered alliance party's relationship to moss Policy Moss Plan Information MEDICARE [id number] SP [id number] MEDICARE A [id number] Self [id number] P60 MEDICARE [id number] SP [id number] A MEDICARE [id number] xxxxxxxxxxx [id number] MEDICARE [id number] SP [id number] P60 Medicare [place] Medicare Primary [id number] Self MEDICARE [id number] Veda [id number] P60 MEDICARE A [id number] Self [id number] A Medicare Dme Supplies Medigap Part B [id number] Self [id number] [place] Medigap Part B [id number] Self [id number] [facility] Options Medigap Part B [id number] Self [id number] [facility] Medigap Part B [id number] Self [id number] Medicare Dme Supplies Medigap Part B [id number] Self [id number] [place] Med[place]ap Part B [id number] Self [id number] [employer] Medigap Part B [id number] Self [id number] [employer] Medigap Part B [id number] Self [id number] Medicare [place] Medicare Primary [id number] Self [id number] [facility] Medigap Part B [id number] Self [id number] [place] Primary [id number] Self [id number] [facility] Medigap Part B [id number] Self [id number] AARP U [id number] Self [id number] AARP U [id number] Self [id number] [employer] OPTIONS [id number] SP [id number] [employer] OPTIONS [id number] SP [id number] [facility] [id number] [facility] [id number] [facility] [id number] xxxxxxxxxxx [id number] Medicare Part B [facility] Other 0 [id number] Self 0 EMEDNY [id number] SP [id number] TODAYS OPTIONSDO NOT USE [id number] SP [id number] SELF PAY MEDICARE C [id number] S [id number] [id number] AARP O [id number] S [id number] [employer] Options/[employer] Medigap Part B [id number] Self [id number] MEDICARE C [id number] S [id number] A MEDICARE [id number] SP [id number] A [facility] OPTIONS [id number] SP [id number] [facility] OPTIONS [id number] SP [id number] [facility] Medigap Part B [id number] Self N MEDICARE - [place] MCR [id number] S [id number] MEDICARE INPATIENT M [id number] S [id number] [facility] O [id number] S [id number] MEDICARE M [id number] S [id number] A TODAY'S OPTION [place] PROG -O/P UNAVAILABLE UNAVAILABLE AARP O [id number] S [id number] MEDICARE OUTPATIENT M [id number] S [id number] AARP O [id number] S [id number] A [facility] MEDICAID [id number] SP [id number] Y Problems, Conditions, and Diagnoses Code Display Name Description Problem Type Effective Dates Data Source(s) I10 Essential (primary) hypertension Essential (primary) h ypertension Diagnosis 06/29/2021 04:06:01 PM EDT [facility] 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 Chronic combined systolic (congestive) a Diagnosis 06/29/2021 04:06:01 PM EDT [facility] I48.91 Unspecified atrial fibrillation Unspecified atri al fibrillation Diagnosis 11/29/2020 12:48:19 PM [facility] 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, unspecified Systemic involvement of connective tissu Diagnosis 06/28/2020 08:15:17 AM EDT [facility] Z79.52 shelter (current) use of systemic ster oids shelter (current) use of systemic ster Diagnosis 06/28/2020 08:15:17 AM EDT [facility] E11.9 Type 2 diabetes mellitus without complic ations Type 2 diabetes mellitus without complic Diagnosis 06/28/2020 08:15:17 AM EDT [facility] N18.9 Chronic kidney disease, unspecified Chronic kidn ey disease, unspecified Diagnosis 06/28/2020 08:15:17 AM EDT [facility] M19.90 Unspecified osteoarthritis, unspecified site Unspecified osteoarthritis, unspecified Diagnosis 06/28/2020 08:15:17 AM EDT [facility] E78.5 Hyperlipidemia, unspecified Hyperlipidemia, unspecifie d Diagnosis 06/28/2020 08:15:17 AM EDT [facility] J44.9 COPD (chronic obstructive pulmonary dise ase) COPD (chronic obstructive pulmonary disease) [id number] 06/29/2021 12:00:00 AM EDT [facility] I48.91 Atrial fibrillation Atrial fibrillation [id number] 1 10/30/2019 12:00:00 AM [facility] 366.52 Posterior Capsule Opacification Not Obsc uring Vision Posterior Capsule Opacification Not Obscuring Vision Problem 05/02/2014 12:00:00 AM EDT - 02/02/2021 12:00:00 AM EDT [facility] (Nimesh Wood MD [facility]) Surgeries/Procedures Procedure Description Date Indications Data Source(s) X-Ray Humerus Two Views 06/21/2021 12:00:00 AM EDT [facility] ([facility] ) OFFICE OUTPATIENT VISIT 15 MINUTES 06/21/2021 12:00:00 AM EDT [facility] ([facility] ) 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 Salazar April 2015 02/02/2021 12:00:00 AM EDT [facility] (Galo Wood MD [facility]) Surgical / procedural history : Tonsille ctomy, Hysterectomy, Colon Cancer- Resection, Left Knee Replacement Surgical / procedural history : Tonsille ctomy, Hysterectomy, Colon Cancer- Resection, Left Knee Replacement 02/02/2021 12:00:00 AM EDT [facility] (Nimesh Wood MD [facility]) Cataract surgery (procedure) History of cataract surge ry : PCIOL OU Dr. Polk III 02/02/2021 12:00:00 AM EDT [facility] (Hossein Wood MD [facility]) Comprehensive eye exam established patient (Signi/Sep Eval. & Man.) Comprehensive eye exam established patient (Signi/Sep Eval. & Man.) 02/02/2021 12:00:00 AM EDT [facility] (Nimesh Wood MD [facility]) Scodi Retina, with interpretation and re port (WAIVER OF LIABILITY ON FILE (ABN)) Scodi Retina, with interpretation and re port (WAIVER OF LIABILITY ON FILE (ABN)) 02/02/2021 12:00:00 AM EDT [facility] (Hossein Wood MD [facility]) ECG ROUTINE ECG W/LEAST 12 LDS W/I&R <td>POCT AMB EKG</td><td>Routine</td><td>08/30/2020 11:17 PM EST</td><td> Chronic combined systolic and diastolic congestive heart failure Essential hypertension Atrial fibrillation, unspecified type</td><td> </td> 08/31/2020 04:17:00 AM EST Atrial fibrillation, unspecified typeEss ential hypertensionChronic combined systolic and diastolic congestive heart failure [facility] Atrial fibrillation, unspecified type Essential hypertension Chronic combined systolic and diastolic congestive heart failure BLOOD COUNT COMPLETE AUTO&AUTO DIFRNTL WBC COUNT <td>C BC AND DIFFERENTIAL</td><td>Routine</td><td>08/28/2020</td><td></td><td> </td> 08/28/2020 12:00:00 AM EST [facility] BASIC METABOLIC PANEL CALCIUM TOTAL <td>BASIC METABOLI C PANEL</td><td>Routine</td><td>08/28/2020</td><td></td><td> </td> 08/28/2020 12:00:00 AM EST [facility] Results ID Date Data Source [id number] 04/25/2021 08:26:00 AM EDT [facility] Name Value Range Interpretation Code Description Data Roz rce(s) Supporting Document(s) SARS coronavirus 2 RNA [Presence] in Res piratory specimen by SERGIO with probe detection NEGATIVE [facility] This lab was ordered by [facility] a nd reported by [facility]. ID Date Data Source [id number] 04/18/2021 04:56:00 AM EDT [facility] Name Value Range Interpretation Code Description Data Roz rce(s) Supporting Document(s) SARS coronavirus 2 RNA [Presence] in Res piratory specimen by SERGIO with probe detection NEGATIVE [facility] This lab was ordered by [facility] a nd reported by [facility]. ID Date Data Source [id number] 12/04/2020 09:00:00 AM EST [facility] Name Value Range Interpretation Code Description Data Roz rce(s) Supporting Document(s) SARS coronavirus 2 RNA Not Detected [facility] This lab was ordered by [facility] and reported by [facility]. ID Date Data Source [id number] 12/03/2020 12:19:14 AM EST [facility] Name Value Range Interpretation Code Description Data Roz rce(s) Supporting Document(s) &PDF [facility] EJHVGa1pJmOLQmXe74/YKJyxJQFtb1FrHEvoNGo5HBecZALxM1VzhJtsEJJTQZkHQXZgPVsXWiWMHAJV 0b3 UjASXiEeFAdMO7TR0jIWCwedJkmgJ4nV8dZC2FUOE+Ip6YJZ7pe4LmIRd6TAUvy4DhCEdrDXf8B6WilU NxdvCgJjtrcXKPJXNpNWAeH5zuvec9rWLdAFhwJr5HFuXxo8MgUEEhHWrZni9iA51aAiP+X2n/Q0nRah 3yMC3kgq1lzkfTp4ZeM1b9S1aBUaOMYVNQSBf44k/f ymH1T2JJ7bwuxjV7CZczne5tp5/eD27B3L//Agnc3LupKs2i/scmqqc6T6/7t6dQEuisDGu/ikGzv+e4 pjNRdQiLzRdp1dvjnyu2V1s0TMouTb/xOU0c7l5/Nfr3+Nf2VW/RE42tww0s/EZSUQV7hNQ1KRm9w6u4 49k494DZKzd3xW+KTtwGZQRUfnTU7VObPrZpUafjju BLLzYzOYqaJTCgLb76VCRrpycX8Rd+janH5aByUeva+GJnbxxEg2CGWZ7VdOmhaeSwfREpEJQuT5++Qv AXxuK/Fqa4YLdPbjl53NSGWWOEWKKXmFWnpa5iifPZc0hmhF5rALQf8w63jv78saAuJ6t6odFA3HsN5O v3d2v7iejPkg98e39VeCJrzHfIvUQB7dxQF+q7yKHd ojx2yHIf4m3e6wznnxp4JF5Sj5DfZTBSYYAS3FFVpK5FpmoHm8xVa+p3p8gFplEoCm/RvHn9azGAwG1N dsSQJLZRRb3ERUaTGxseNAcc2bIdGAWaWkqOCzIpxsUI79LeVkbjy97qOde6zs7SzFrgdNFswihIqxJY GQGNLz0goicVsZ/YUOMDsiiaDnQO6owiayu58Zksoj 0TSCNPRUGe+VaK+o5zikkFMZMf21H3uPVube0hZJhad9HYJ3/5dWGNn9plTOZCSFJU5Qd59knJGZtJ9P iGjqxBA/FGQ4EbSOJyHQBEC3iFkmzy8RM8kBtwsCmjB24071h1kL2pPiqbCgKI1SkgWvB6dLbM44ifZd OW28B3/pbgH68QM/3zgF4RmjgdIfABL1GXc0hlVLln gGIR2wlv1jPDZm6VK7D8YeBPlEJB6Zl60QWb8nYKVEbqqnueVY7Tsg27NxxbFTsu7TXXIUzjnIld0cXY 96xqaEWq3bRd2LLo3NiRhmw5bs2moE/nhLUlO1zDhI8DHldwifzsDH68WinO305Za0wqPQOEdU6MDCIp N+tfjEfqeDxRm1/0Vj0AQ2UPZ2BlPvywAER8bhpS92 +cd2a08g94xQt5uPKxgQ+eODBMnyiCCec42MFTS6TlhKodibQBWAlGewkibUs7NJIIWyRoeuUCUS3WdU acKj4EceeOVFeQ8YmDZtJavmJITXv2Y5ZHRBjmEX6cw8OmD0n0yc+x1F0wwuVKmHCbQsUo+wxTij6nFe KiGdnAvLPovBnGuBM5S6/E3CCmlhaJZODYMHN2DbnX AdTRgPpRW5IyQTAxQ6CvA/VAIFWqJIbpCzmKTllKpZ0yfjQKoXWVRceTyXbsAg20A55mzLid9iNiqDR4 wUg7RrkposkNc6GMUpbAMXOWH6miNEAfW+4HrfUc3aBwyXyqyvvASMuRHFRLneZQavJW4fq4MMQeig6M o6AAPgAa+ZdabFdzgQHDlqfj26ErJiuxNPJ+dJhvV/ Dcg101htx3Zx7ime6Q2fV1/wlID32qC5KNhAcrkh6+74w0lnJV1z7rQHqNnXhRz4tH6hfjXOGJ0dAVj1 mfhwMJJV22jwh53wuRvdX6U312iN8nHke2+WNMWRPnW8s11/y4yYkkZKGOxOjQ59g1EWrwnuTuc79MJ/ JCOL/WSWYD2FE8KJQuQ2MEUZNjNWNUgheyGZbduMLs [file] CvofVMQm2GHt+cI57hxalq2Zp2C3gbyuvnqp9BBcuo8gO1r3/Jz/fusing machine operator+OZrHXJzZV8s8iOo7IVzyrlPgR [file] ICAgICAgICAgICAgICAgICAgICAgICAgICAgICAgICAgICAgICAgICAgICAgICAgICAgICAgICAgICAg ICAgICAgICAgICAgICAgICAgICAgICAgICANCiAgICAgICAgICAgICAgICAgICAgICAgICAgICAgICAg ICAgICAgICAgICAgICAgICAgICAgICAgICAgICAgIC AgICAgICAgICAgICAgICAgICAgICAgICAgICAgICAgICAgICANCiAgICAgICAgICAgICAgICAgICAgIC AgICAgICAgICAgICAgICAgICAgICAgICAgICAgICAgICAgICAgICAgICAgICAgICAgICAgICAgICAgIC AgICAgICAgICAgICAgICAgICANCiAgICAgICAgICAg ICAgICAgICAgICAgICAgICAgICAgICAgICAgICAgICAgICAgICAgICAgICAgICAgICAgICAgICAgICAg ICAgICAgICAgICAgICAgICAgICAgICAgICAgICANCiAgICAgICAgICAgICAgICAgICAgICAgICAgICAg ICAgICAgICAgICAgICAgICAgICAgICAgICAgICAgIC AgICAgICAgICAgICAgICAgICAgICAgICAgICAgICAgICAgICAgICANCiAgICAgICAgICAgICAgICAgIC AgICAgICAgICAgICAgICAgICAgICAgICAgICAgICAgICAgICAgICAgICAgICAgICAgICAgICAgICAgIC AgICAgICAgICAgICAgICAgICAgICANCiAgICAgICAg ICAgICAgICAgICAgICAgICAgICAgICAgICAgICAgICAgICAgICAgICAgICAgICAgICAgICAgICAgICAg ICAgICAgICAgICAgICAgICAgICAgICAgICAgICAgICANCiAgICAgICAgICAgICAgICAgICAgICAgICAg ICAgICAgICAgICAgICAgICAgICAgICAgICAgICAgIC AgICAgICAgICAgICAgICAgICAgICAgICAgICAgICAgICAgICAgICAgICANCiAgICAgICAgICAgICAgIC AgICAgICAgICAgICAgICAgICAgICAgICAgICAgICAgICAgICAgICAgICAgICAgICAgICAgICAgICAgIC AgICAgICAgICAgICAgICAgICAgICAgICANCiAgICAg ICAgICAgICAgICAgICAgICAgICAgICAgICAgICAgICAgICAgICAgICAgICAgICAgICAgICAgICAgICAg ICAgICAgICAgICAgICAgICAgICAgICAgICAgICAgICAgICANCjw/eTTgM6pphSCufmO7T1soAr6SHt2S QM5vy5DbADJcTAfsinVaBwxDLnDwDZVpTxsVWlh8YK muDY9NdEVsI1QoW1PdOUwhGT2DNBQwYEUyxDOgCBRwMAEkUaH5CJDcAYecMK5BiECtINutXVXyAXMqKa QiCEWpXEGmDCDoZU8RDVIkS837kcQgZi2HEx0SMrMzOB1jmc8BFREfNAFzVhqRXbj8TYuuWU3HwLXqZ1 CmzNLop2xXInFkY7HYXACePWBzNu3DPHSyOhVnOTZm MDkxXX8lSBZrKOWBuSlwpwS3MZ2OTF9nouKlIW9EKbQtYs3sXl3AGeGuZ8CiY4OkGMCdZYIEBBijXU2Z CELqYPQ0FGM7YBNxTJQIIiRlB50rWA5ZQ6Igk61mLmS0IBUdQqMaWFwkUG44tAisllOuoTAfcVpaCA7B Cj4+DQplbmRvYmoNCnhyZWYNCjAgNDMNCjAwMDAwMD RbBIEvUmL3OiRkPc0GMJAkTVLlLFUuPuLbVWIsQHNdPJbzCQQvBAukRMSiAADtZEAeVT4WUkMoYPSzBb G9GKZkMMNkKHHwub2EYNWeZJMmEIX1DVNiRYLiXVIlFTigQUBtVOUqUUI7KUWfHPMiBB0RDgIeWXXiHQ D4RfjiQGVlYMBumj3DLJEcHDJtGiZ3PaAoALAaFEQl BCwyGPSpNPK9RWl3XEIiMPGmGK7OYfDgQMAzZJihNZJhAEXdNCMkbc2PHZXvPSRyNvGlZUOwPEQtOHEt IOcrTJNoMNZ5BLzyFZNjQJLqEA4LNiWvMLCnNIw7BwuoGLPlTZDask7HIWYuNAToEZp4PZSpEHUlTBRv SXbpFLNoAYC0ZKP5CHIsBPRxXM3HLqAbFPQaMGXaIF PpTLTbNSCtll3APBToBWMfPQD2GHOsNAVoMIPoMFmmTHTaLFZ3VOY7HMUjHWNtXL4IZnSfYTWgOZAeHt NtRROxKDDkxr7TDAVmLWAyDTT2SGBqDJYkWQKcXZleBLDuHXB4IPF8RQGsOHTuPB1LYrToGDXeVOE3Qm SxTQFlNZRsop9OQOLeZMBrWtcuLlOeIRTkHFRrZCpz XOKmTEF6GGi9FOEzDLLuVT5VBvVoHBJjIBmmTjLfWEObELCncw3OAHFkGSLiYcr2TNMnMMXdWZLfHTqs KLPeVYP4JGffESGsUHPnAR4RAmAdUCNpSugcZOAhKCNnASTgar7SIFXfIYNuADh6VqMiUHHsJJLzYArp LGUtTXUcDIu8IAJnFKFgOR8PTjOyPYGwZzLgTwAjGT KqDMGuih5LZWKbNTIhEWSgAFZcRYGoPVEdRLjqSTOxSXRpTikpGBVrBBKwHV2JUzNnQIGcXML1HmnaZM MuAFVzmc4XQANoBSE2RShsKmTkROVpOUWhUKryQWZcILOnVBrgYRGsOGNeKL2WNcOxIVMqDOh7GXkrSQ EvEOEkuz7HZHGrSKR4ALJ9ZGDzGYSxPSZqOJmyKPQt DQZ8CkX2RKJmTSPfJC4TTdLaXNMqBql4QWUrYGFiUFFmcx1MUAGvPXE0KwG0GYUwFALgVOYcRInqPKGn GVx0OaH6LEEkHOLtXS0POgRwSKQcIgX8AUWwWOAoWJVlbr2DzRYigDgbfp1ESYfCJe0YuYevUSGoRVml If3rvEK3WcAtMVCFAc5FxtHqQLGrHAUPPOqaBRFyAG FfNki7KbR4R1EhSyB6LGAjGWV9WiD0AWgsKfYnHRV1ZgG4SSQxGBPuWFo6IGUlJxXeYyP3Sus5Jab8YS NiYWFkNjU+VN5nLPf+Yw2Qt8RrxgN3ipNaMSp2GTl3Fq7DVCXTD8PMZi== ID Date Data Source [id number] 11/27/2020 10:00:00 AM EST [facility] Name Value Range Interpretation Code Description Data Roz rce(s) Supporting Document(s) SARS coronavirus 2 RNA Not Detected [facility] This lab was ordered by [facility] and reported by [facility]. ID Date Data Source [id number] 11/20/2020 06:30:00 AM EST [facility] Name Value Range Interpretation Code Description Data Roz rce(s) Supporting Document(s) SARS coronavirus 2 RNA Not Detected [facility] This lab was ordered by [facility] and reported by [facility]. ID Date Data Source [id number] 11/13/2020 08:00:00 AM EST [facility] Name Value Range Interpretation Code Description Data Roz rce(s) Supporting Document(s) SARS coronavirus 2 RNA Not Detected [facility] [place] This lab was ordered by [facility] and reported by [facility]. ID Date Data Source [id number] 11/06/2020 08:00:00 AM EST [facility] Name Value Range Interpretation Code Description Data Roz rce(s) Supporting Document(s) SARS coronavirus 2 RNA Not Detected [facility] [place] This lab was ordered by [facility] and reported by [facility]. ID Date Data Source [id number] 10/30/2020 12:00:00 PM EST [facility] Name Value Range Interpretation Code Description Data Roz rce(s) Supporting Document(s) SARS coronavirus 2 RNA Not Detected [facility] This lab was ordered by [facility] and reported by [facility]. ID Date Data Source [id number] 10/23/2020 06:00:00 AM EST [facility] Name Value Range Interpretation Code Description Data Roz rce(s) Supporting Document(s) SARS coronavirus 2 RNA Not Detected [facility] This lab was ordered by [facility] and reported by [facility]. ID Date Data Source [id number] 10/16/2020 07:30:00 AM EST [facility] Name Value Range Interpretation Code Description Data Roz rce(s) Supporting Document(s) SARS coronavirus 2 RNA [facility] This lab was ordered by [facility] and reported by [facility]. ID Date Data Source [id number] 10/09/2020 08:05:00 AM EST [facility] Name Value Range Interpretation Code Description Data Roz rce(s) Supporting Document(s) SARS coronavirus 2 RNA [facility] This lab was ordered by [facility] and reported by [facility]. ID Date Data Source [id number] 10/02/2020 09:00:00 AM EST [facility] Name Value Range Interpretation Code Description Data Roz rce(s) Supporting Document(s) SARS coronavirus 2 RNA [facility] This lab was ordered by [facility] and reported by [facility]. ID Date Data Source [id number] 10/02/2020 12:00:00 AM EST [facility] Name Value Range Interpretation Code Description Data Roz rce(s) Supporting Document(s) SARS-CoV2 Rapid Antigen [facility] This lab was ordered by [facility] and reported by [facility]. ID Date Data Source [id number] 09/27/2020 12:38:00 PM EST [facility] Name Value Range Interpretation Code Description Data Roz rce(s) Supporting Document(s) SARS coronavirus 2 RNA [facility] This lab was ordered by [facility] and reported by [facility]. ID Date Data Source [id number] 09/22/2020 02:48:00 PM EST [facility] Name Value Range Interpretation Code Description Data Roz rce(s) Supporting Document(s) SARS coronavirus 2 RNA [facility] This lab was ordered by [facility] and reported by [facility]. ID Date Data Source [id number] 09/15/2020 01:00:00 PM EST [facility] Name Value Range Interpretation Code Description Data Roz rce(s) Supporting Document(s) SARS coronavirus 2 RNA [Presence] in Res piratory specimen by SERGIO with probe detection [facility] This lab was ordered by [facility] a nd reported by [facility]. ID Date Data Source [id number] 09/06/2020 12:00:00 PM EST [facility] Name Value Range Interpretation Code Description Data Roz rce(s) Supporting Document(s) SARS coronavirus 2 RNA [facility] This lab was ordered by [facility] and reported by [facility]. ID Date Data Source [id number] 08/31/2020 09:00:00 AM EST [facility] Name Value Range Interpretation Code Description Data Roz rce(s) Supporting Document(s) SARS coronavirus 2 RNA [facility] This lab was ordered by [facility] and reported by [facility]. ID Date Data Source [id number] 08/24/2020 12:25:00 PM EST [facility] Name Value Range Interpretation Code Description Data Roz rce(s) Supporting Document(s) SARS coronavirus 2 RNA [facility] This lab was ordered by [facility] and reported by [facility]. ID Date Data Source [id number] 06/28/2020 02:55:00 PM EDT [facility] ([facility], ) Name Value Range Interpretation Code Description Data Roz rce(s) Supporting Document(s) PDFReport Laboratory test result [facility] ([facility], ) FVC-Pred 2.01 L [facility] ([facility], ) FVC-Pre 1.14 L [facility] ([facility], ) FVC-%Pred-Pre 56 L [facility] ([facility], ) FVC-LLN 1.35 L [facility] ([facility]) Fev1-Pre 0.80 L [facility] ([facility]) Fev1-Pred 1.46 L [facility] ([facility]) Fev1-%Pred-Pre 54 L [facility] ([facility]) Fev6-Pred 1.87 L [facility] ([facility]) Fev1-LLN 0.91 L [facility] ([facility]) Fev6-Pre 1.14 L [facility] ([facility]) Fev6-%Pred-Pre 60 L [facility] ([facility]) Fev6-LLN 1.23 L [facility] ([facility]) Miy9myp-Hdcq 72 % [facility] ([facility]) Njd0ola-Lxi 71 % [facility] ([facility]) Npe5fwk-%Pred-Pre 98 % [facility] ([facility]) Xlu2qvd-TKJ 62 % [facility] ([facility]) Bgc8lqn-Tzuq 93 % [facility] ([facility]) Izk8xeg-Hxy 100 % [facility] ([facility]) Afn4bio-%Pred-Pre 107 % [facility] ([facility]) FEFMax-Pred 3.66 L/E/sec [facility] ([facility]) FEFMax-Pre 3.01 L/E/sec [facility] ([facility]) FEFMax-%Pred-Pre 82 L/E/sec [facility] ([facility]) FEFMax-LLN 2.05 L/E/sec [facility] ([facility]) [id number]-[id number] 0.87 L/E/sec [facility] ([facility]) [id number]-Fud 0.48 L/E/sec [facility] ([facility]) Bnv2020-%Pred-Pre 55 L/E/sec [facility] ([facility]) [id number]-UUS -0.29 L/E/sec [facility] ([facility]) ExpTime-Pre 5.10 sec [facility] ([facility]) Fen9fkk8-Bpqy 76 % [facility] ([facility]) Djw3gxl0-Bor 71 % [facility] ([facility]) Qqn8krk9-%Pred-Pre 92 % [facility] ([facility]) Hkj4jgt3-FSJ 68 % [facility] ([facility]) Procedure Social History Code Duration Value Status Description Data Source(s ) Alcohol intake 06/29/2021 12:00:00 AM EDT Ex-drinker (finding) comp leted Ex- drinker (finding) [facility] Smoking 06/18/2021 04:38:18 PM EDT Ex-smoker (finding) complet ed Ex-smoker (finding) [facility] (Nimesh Wood MD [facility]) Alcohol intake 08/30/2020 12:00:00 AM EST Not Currently completed [facility] Smoking 08/30/2020 12:00:00 AM EST Former smoker completed Former smoker [facility] Vital Signs ID Date Data Source UNK Name Value Range Interpretation Code Description Data Source(s) Systolic blood pressure 124 mm[Hg] 124 mm[Hg] [facility] Diastolic blood pressure 70 mm[Hg] 70 mm[Hg] [facility] Heart rate 66 /min 66 /min [facility] Respiratory rate 18 /min 18 /min [facility] Body height 154.9 cm 154.9 cm [facility] Body weight 78.472 kg 78.472 kg [facility] Body mass index (BMI) [Ratio] 32.69 kg/m2 32.69 kg/m2 [facility] Oxygen saturation in Arterial blood by Pulse oximetry 94 % 94 % [facility] Systolic blood pressure 124 mm[Hg] 124 mm[Hg] [facility] Diastolic blood pressure 70 mm[Hg] 70 mm[Hg] [facility] Heart rate 95 /min 95 /min [facility] Body height 154.9 cm 154.9 cm [facility] Body weight 77.565 kg 77.565 kg [facility] Body mass index (BMI) [Ratio] 32.31 kg/m2 32.31 kg/m2 [facility] Oxygen saturation in Arterial blood by Pulse oximetry 93 % 93 % [facility] Systolic blood pressure 122 mm[Hg] 122 mm[Hg] [facility] Diastolic blood pressure 64 mm[Hg] 64 mm[Hg] [facility] Heart rate 80 /min 80 /min [facility] Body height 154.9 cm 154.9 cm [facility] Body weight 79.833 kg 79.833 kg [facility] Body mass index (BMI) [Ratio] 33.25 kg/m2 33.25 kg/m2 [facility] Oxygen saturation in Arterial blood by Pulse oximetry 98 % 98 % [facility] Systolic blood pressure 132 mm[Hg] 132 mm[Hg] [facility] ([facility], ) Diastolic blood pressure 84 mm[Hg] 84 mm[Hg] [facility] ([facility], ) Heart rate 103 /min 103 /min [facility], [facility] Oxygen saturation in Arterial blood by Pulse oximetry 932 % 932 % [facility] ([facility], ) Body temperature 97.8 [degF] 97.8 [degF] [facility] Body height 62 [in_i] 62 [in_i] [facility] ([facility]) 5'2" Body weight 178.00 [lb_av] 178.00 [lb_av] [facility] ([facility]) Body mass index (BMI) [Ratio] 32.6 kg/m2 32.6 k g/m2 [facility] ([facility]) Body weight 80.741 kg 80.741 kg [facility] ([facility]) Patient Treatment Plan of Care Planned Activity Planned Date Details Description Data Source (s) torsemide 20 MG Oral Tablet 06/29/2021 12:00:00 AM EDT [facility] Metoprolol Succinate 200 MG CS24 06/29/2021 12:00:00 AM EDT [facility] Hydroxychloroquine Sulfate 200 MG Oral Tablet 06/29/2021 12:00:00 A M EDT [facility] apixaban 2.5 MG Oral Tablet 06/29/2021 12:00:00 AM EDT [facility] Suvorexant 10 MG Oral Tablet [Belsomra] 11/27/2020 12:00:00 AM EST [facility] Refresh Liquigel 1% Ophthalmic Gel 10/19/2020 12:00:00 AM [facility] (Nimesh Wood MD [facility]) Carboxymethylcellulose Sodium 5 MG/ML / Glycerin 10 MG/ML / Polysorbate 80 5 MG/ML Ophthalmic Solution 10/19/2020 12:00:[address] [facility] (Nimesh Wood MD [facility]) 200 ACTUAT Levalbuterol 0.045 MG/ACTUAT Metered Dose I nhaler [Xopenex] 10/09/2020 12:00:00 AM EST [facility] carvedilol 6.25 MG Oral Tablet 07/19/2020 12:00:00 AM EDT [facility] tramadol hydrochloride 50 MG Oral Tablet 06/05/2020 12:00:00 AM EDT [facility] torsemide 20 MG Oral Tablet 03/31/2020 12:00:00 AM EDT [facility] Lisinopril 2.5 MG Oral Tablet 03/21/2020 12:00:00 AM EDT [facility] Metoprolol Succinate 200 MG CS24 [facility] apixaban 2.5 MG Oral Tablet [facility] Hydroxychloroquine Sulfate 200 MG Oral Tablet [facility] Allopurinol 100 MG Oral Tablet [facility]
--- NOTE | 2021-07-31 13:17 | REP ---
INDICATION: truama. COMPARISON: 04/27/2008 TECHNIQUE: AP pelvis two views left hip FINDINGS: There is moderate asymmetric bilateral hip joint space narrowing. This has increased bilaterally compared to the prior exam. There is no acute fracture, dislocation, or subluxation. Bilateral transpedicular screws are seen L3 through L5. IMPRESSION: Chronic changes as described above. <Electronically signed by Zain An > 07/31/21 [id number]
--- NOTE | 2021-07-31 13:19 | REP ---
INDICATION: trauma. COMPARISON: 04/21/2020 TECHNIQUE: Four views FINDINGS: Transpedicular screws L3 through L5 bilaterally status quo. Vertebral body height and alignment is unchanged. Retrolisthesis of L2 on L3 status quo. Anterolisthesis of L4 and L5 status quo. Bones are demineralized. Discogenic fusion L3-4, L4-5, and L5-S1 status quo. T11 compression fracture again noted and appears unchanged. IMPRESSION: No significant change from the prior exam. <Electronically signed by Zain An > 07/31/21 [id number]
[2021-07-31] MEDS ORDERED: ACETAMINOPHEN TAB 650MG DOSE (2X325MG) PO PRN ×2 (14:10→15:45)
[2021-07-31] MEDS ORDERED: CARB10DR5 OP (14:11)
[2021-07-31] MEDS ORDERED: HOME MED LIST COMPLETE! XX SCH (14:15)
--- NOTE | 2021-07-31 14:20 | HPEPDOC ---
[facility] Medical History & Physical Date of Admission Jul 31, 2021 Date of Service: Jul 31, 2021 Attending Physician: Susi Rosales MD History and Physical CHIEF COMPLAINT: left hip, back pain HISTORY OF PRESENT ILLNESS: Patient is an 89-year-old female with past nuchal history of atrial fibrillation on anticoagulation, chronic HFrEF(35%), hypertension, COPD with chronic O2 2 L, SLE, pulmonary hypertension who presented to [facility] emergency room today with increasing left hip and back pain. According to the patient she had a fall on 07/29/2021 and came to our ER for evaluation that day. She was evaluated and not found to have any acute fracture or break. Over the past several days the patient complains of increasing left pain. She states that she had this pain in her left hip and back prior to her fall and says that it started during physical therapy that she receives at her assisted living facility. She denies having increased pain after her fall several days ago. Her pain she states is beginning in the left hip but can radiate to the lower back in the lumbar region. Pain is 5/10, intermittent, sharp, worsened with activity and improved with the medication. Today the patient came to the emergency room because she states she was having difficulty ambulating. On presentation to the emergency room, vital signs were stable. The patient had frontal scalp and bilateral eye bruising. The patient complained of left hip pain on palpation; however range of motion was not limited. Point tenderness in the lower lumbar area without bruising. X-ray lumbar spine showed old compression fracture; however, x-ray of the hip was negative. The patient was attempted to be ambulated; however, she was unsteady on her feet. The ER called me to admit for further evaluation by physical therapy as the patient is currently a fall risk, lives in assisted living and will need to be near baseline prior to returning. Note: Patient denies chest pain, shortness of breath, blurry vision, nausea, vomiting, diarrhea, fevers, chills. 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 Lives alone. Uses walker, cane to help ambulate FAMILY HISTORY:Parkinsons disease ALLERGIES: Please see below. HOME MEDICATIONS: Please see below. PHYSICAL EXAMINATION: VS: Stable, see below CONSTITUTIONAL: No acute distress, resting comfortably, AAO x 3 EYES: PERRLA, EOM intact, bruising around both eyes-appear to be healing. T enderness of anterior scalp HENT, MOUTH: Normocephalic, atraumatic, moist mucous membranes NECK: SUPPLE, no JVD, no lymphadenopathy, no carotid bruit CV: Regular rate and rhythm, S1S2 normal, no murmurs/rubs/gallops RESPIRATORY: Clear to auscultation bilaterally, no rales/rhonchi/wheezes GI: BS positive in 4 quadrants, soft, nontender, nondistended, no rebound or guarding, no organomegaly : Deferred MUSCULOSKELETAL:Point tenderness of lower lumbar spine, left hip but no obvious bruisng here. Normal ROM. No cyanosis, clubbing, swelling, joint deformity, extremity edema INTEGUMENTARY: redness with signs of excoriation beneath anterior pannus. Otherwise Intact, no rashes NEUROLOGIC: Cranial Nerves II-XII are intact, no focal deficits PSYCHIATRIC: Mood and affect are normal LABORATORY DATA: Please see below MICRO: See below IMAGING: Lumbar Spine XR 07/31/21: Transpedicular screws L3 through L5 bilaterally status quo. Vertebral body height and alignment is unchanged. Retrolisthesis of L2 on L3 status quo. Anterolisthesis of L4 and L5 status quo. Bones are demineralized. Discogenic fusion L3-4, L4-5, and L5-S1 status quo. T11 compression fracture again noted and appears unchanged. CT Maxillofacial 07/31/21: No acute fracture or dislocation. CT head 07/31/21: 1. Moderate volume loss and small vessel ischemic changes. 2. No acute intracranial abnormality. 3. Moderate left frontal soft tissue swelling and small hematoma formation. Hip/pelvis XR 07/31/21: There is moderate asymmetric bilateral hip joint space narrowing. This has increased bilaterally compared to the prior exam. There is no acute fracture, dislocation, or subluxation. Bilateral transpedicular screws are seen L3 through L5. Shoulder XR 07/29/21: No acute bony injury or malalignment in the visualized right shoulder Cervical c-spine 07/29/21: No acute fracture of the cervical spine. Cervical malalignments are noted as discussed above. Clinical correlation is advised. Interstitial and ground-glass pulmonary opacities to be correlated for interstitial edema or interstitial pneumonitis. Thyroid nodule. Nonemergent evaluation by ultrasound is advised. ASSESSMENT: PLAN: Left hip and lumbar back pain s/p PT as o/p -Hx of T11 compression fracture again noted and appears unchanged on current XR -Imaging above -Will order PT/OT here. As she lives in assisted living, will need to be near baseline to return. -Tramadol PRN. -Consider ortho consult if back pain persists Scalp hematoma s/p fall -Landed on head on 07/29/21 -CT above -Expanding bruising, stable H/H -Holding eliquis and ASA (patient was taking at home) Yeast infection of under anterior pannus -Nystatin Thyroid nodule -F/u o/p Longstanding persistent Atrial Fibrillation -Stable and rate controlled -F/u TSH o/p -Holding eliquis, c/w BB with holding parameter Chronic HFrEF(35%) with HFpEF -Stable and not in exacerbation -C/w home medications -Follows with Dr. 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 Bazan o/p SLE -Stable, c/w home meds Chronic pain / Arthritis -XR above -C/w home meds Gout -C/w home meds Mild pulmonary HTN -C/w home meds DVT px -SCDs teds. Holding eliquis DISPOSITION: Admitted as acute inpatient. Plan for discharge will be determined after PT/OT assessment. Vital Signs Vital Signs Date Time Temp Pulse Resp B/P (MAP) Pulse Ox O2 Delivery O2 Flow Rate FiO2 07/31/21 12:28 18 07/31/21 12:16 90 160/64 (96) 99 07/31/21 11:34 97.4 Nasal Cannula 2.0 Home Medications Scheduled Apixaban (Eliquis) 2.5 Mg Tablet, 2.5 MG PO BID Budesonide/Formoterol (Symbicort 80-4.5 Mcg Inhaler) 60 Puff/Inhaler Aers, 2 PUFF INH BID Carboxymethyl/Glycerin/Poly80 (Refresh Optive Advanced Drops) 1 Kassy Kassy, 1 DROP OU QID Carboxymethyl/Glycerin/Poly80 (Refresh Digital Eye Drops) 0.5 %-1 %-0.5 % Drops, 1 DROP OP QHS Docusate Sodium (Colace) 100 Mg Cap, 200 MG PO BID Famotidine (Famotidine) 20 Mg Tablet, 20 MG PO BID 0900, 1700 Hydroxychloroquine Sulfate (Hydroxychloroquine Sulfate) 200 Mg Tab, 200 MG PO DAILY L. Acidophilus/L.bulgaricus (Floranex Tablet) 1 Each Tablet, 1 TAB PO DAILY Metolazone (Metolazone) 5 Mg Tablet, 5 MG PO 3XW FRIDAY, FRIDAY AND FRIDAY Metoprolol Succinate (Metoprolol Succinate) 200 Mg Tab.er.24h, 200 MG PO DAILY Montelukast Sodium (Montelukast Sodium) 10 Mg Tablet, 10 MG PO QHS Nystatin (Nystatin Powder) 15 Gm Powder, 1 DOSE TOP BID APPLY TO ABDOMINAL FOLDS Prednisone (Prednisone) 1 Mg Tablet, 2 MG PO DAILY Torsemide (Torsemide) 20 Mg Tablet, 20 MG PO DAILY Scheduled PRN Acetaminophen (Tylenol) 325 Mg Tablet, 650 MG PO Q4H PRN for PAIN LEVEL 1-5 Fexofenadine/Pseudoephedrine (Sierra-D 12 Hour Tablet) 1 Tab Tab, 1 TAB PO BID PRN for CONGESTION Levalbuterol Hydrochloride (Xopenex Hfa) 45 Mcg/Act Aer, 1 PUFF INH Q4H PRN for SHORTNESS OF BREATH Loperamide HCl (Imodium A-D) 2 Mg Tablet, 2 MG PO QID PRN for LOOSE STOOLS Magnesium Hydroxide (Milk of Magnesia) 400 Mg/5 Ml Oral.susp, 30 ML PO DAILY PRN for CONSTIPATION Polyethylene Glycol 3350 (Miralax) 17 Gm Powd.pack, 17 GM PO DAILY PRN for CONSTIPATION Simethicone (Gas-X) 125 Mg Tab.chew, 125 MG PO TID PRN for GERD WITHOUT ESOPHAGITIS 0800,1300,1800 Suvorexant (Belsomra) 20 Mg Tablet, 20 MG PO QHS PRN for INSOMNIA Tramadol HCl (Tramadol HCl) 50 Mg Tablet, 50 MG PO TID PRN for PAIN LEVEL 6-10 Allergies Coded Allergies: NSAIDS (Non-Steroidal Anti-Inflamma (Verified Allergy, Intermediate, CHEST PAIN, 03/16/20) TAKES ASPIRIN AT HOME Mcttonk-Kvc-Pfj Reductase Inhibitor (Verified Allergy, Intermediate, SWOL JOSH JOINTS, 03/16/20) etodolac (Verified Allergy, Intermediate, HIVES, 03/16/20) Sulfa (Sulfonamide Antibiotics) (Verified Allergy, Mild, RASH, 03/16/20) lidocaine (Verified Allergy, Mild, RASH, 03/16/20) nickel (Verified Allergy, Mild, RASH, 03/16/20) ibuprofen (Verified Adverse Reaction, Intermediate, CHEST PAIN, 03/16/20) TAKES ASPIRIN AT HOME lactose (Verified Adverse Reaction, Unknown, lactose intolerant, 03/16/20) A-FIB/CHADSVASC A-FIB History Current/History of A-Fib/PAF?: Yes Current PO Anticoag Therapy: Yes Age/Risk Factor Scoring CHADSVASC: CHADSVASC Response (Comments) Value Age Risk Factor Age >/= 75 years old 2 Gender Risk Factor Female 1 Hx of CHF Yes 1 Hx of HTN Yes 1 Hx of Stroke/TIA/or VTE No 0 Hx of Diabetes No 0 Hx of Vascular Disease No 0 Total 5 Treatment Treatment ordered: Apixaban Susi Rosales MD Jul 31, 2021 14:20
--- OUTSIDE RECORDS SUMMARY | 2021-07-31 14:25 | CCD ---
Author Author [facility] Organization [facility] Address Unknown Phone Unavailable Care Team Providers Care Wound Care Specialist Name Role Phone CAT FRASER MD Unavailable [...] Unavailable BRIA, CAT CISNEROS Unavailable Unavailable BRIA, ACT CISNEROS Unavailable Unavailable BRIA, CAT CISNEROS Unavailable [...] Unavailable Unavailable BRIA, CAT CISNEROS Unavailable Unavailable BRAI, CAT CISNEROS Unavailable Unavailable BRIA, CAT CISNEROS [...] Unavailable TOM, P SOLIS MD Unavailable Unavailable OTM, P SOLIS MD Unavailable Unavailable TOM, P [...] is protected by Article 27-F of the [facility] Public Health law. If you continue you may have access to information: Regarding HIV / AIDS; Provided by facilities licensed or operated by the [facility] Office of Mental Health; or Provided by the [facility] Office for People With Developmental Disabilities. If such information is present, then the following [facility] mandated warning applies: This information has been [...] law may result in a fine or skilled nursing sentence or both. A general authorization for the release of medical or other information is NOT sufficient authorization for further disc losure. Allergies and Adverse Reactions Type Description Substance Reaction Status Data Source(s ) Propensity to adverse reactions NICKEL nickel sulfate Active [facility] Family History Family Member Name Family Member Gender Family Member Status Date o f Status Description Data Source(s) Unknown Female Problem (finding) 10/21/2016 12:00:00 AM EST [facility] ([facility]) Unknown Female Problem (finding) 10/21/2016 12:00:00 AM EST [facility] ([facility]) Unknown Female Problem (finding) 10/21/2016 12:00:00 AM EST [facility] ([facility]) Unknown Male Problem [facility] ([facility] ) Unknown Unknown Problem [facility] ([facility] ) Unknown Unknown Problem [facility] ([facility] ) Unknown Unknown Problem [facility] ([facility] ) Unknown Unknown Problem [facility] ([facility] ) Encounters Encounter Providers Location Date Indications Data Source(s ) Outpatient Attender: CAT FRASER MD SJP.[email or web address] 03:14:39 PM EDT - 06/29/2021 04:31:34 PM EDT [facility] OFFICE OUTPATIENT VISIT 15 MINUTES Attender: Ros GRAY Physical Therapy 06/21/2021 10:45:00 AM EDT [facility] (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</content>, <content ID="encounterDiagnosisID0-4">Macular Degeneration Nonexudative Bilateral Early Dry Stage</content>, <content ID="encounterDiagnosisID0-5">Macular Puckering Both Eyes</content></td> Attender: Nimesh Wood MD, FACS Nimesh Salazar MD [facility] 02/02/2021 12:21:0 0 PM EDT - [...] PM EST - 11/29/2020 03:05:16 PM EST [facility] Outpatient Attender: CAT FRASER MDReferrer: CAT JACOMESJEthelMARILYNN 11/29/2020 12:00:00 AM EST - 11/29/2020 03:05:00 PM EST [facility] Outpatient Attender: SOLIS SANTOS MD 11/06/2020 12:00:00 AM [facility] Attender: SAYRA SALDIVAR MD [facility] 10/24/2020 07:06:00 PM EST - 10/24/2020 07:06:00 PM EST [facility] ( [facility]) Outpatient Attender: CAT CORMIERMARILYNN 0 12:00:00 AM EST - 08/30/2020 10:46:14 AM EST [facility] Outpatient Attender: CAT JAMESSJEthelMARILYNN 0 12:00:00 AM EDT - 06/28/2020 09:46:01 AM EDT [facility] Outpatient Attender: SOLIS SANTOS MD 06/20/2020 12:00:00 AM EDT [facility] Immunizations Vaccine Date Status Description Data Source(s) COVID-19 VACCINE Pfizer 11/27/2020 12:00:00 AM EST completed [facility] Vaccine Series Complete: YESThis Data wa s Submitted to [facility] Via fflap. COVID-19 VACCINE Pfizer 11/06/2020 12:00:00 AM EST completed [facility] Vaccine Series Complete: NOThis Data was Submitted to [facility] Via fflap. INFLUENZA VIRUS VACCINE QUADRIVAL SPLIT 2019-(65 YR UP)/PF 07/27/2020 12:00:00 AM EDT completed [facility] Medications Medication Brand Name Start Date Product Form Dose Route Admi nistrative Instructions Pharmacy Instructions Status Indications Reaction Description Data Source(s) Hydroxychloroquine Sulfate 200 MG Oral T ablet hydroxychloroquine (Plaquenil) 200 MG tablet hydroxychloroquine (Plaquenil) 200 MG tablet 12:00:00 AM EDT 200 mg Oral active Take 1 tablet (20 0 mg total) by mouth daily [facility] apixaban 2.5 MG Oral Tablet apixaban (Eliquis) 2.5 MG TABS tablet apixaban (Eliquis) 2.5 MG TABS tablet 06/29/2021 12:00:00 AM EDT 2.5 mg Oral active Take 1 tablet (2.5 mg total) by mouth 2 (two) times a day [facility] torsemide 20 MG Oral Tablet torsemide (DEMADEX) 20 MG tablet torsemide (DEMADEX) 20 MG tablet 06/29/2021 12:00:00 AM EDT 20 mg Oral activ e Take 1 tablet (20 mg total) by mouth daily [facility] Metoprolol Succinate 200 MG CS24 [id number] 06/29/2021 12:00:00 AM ED T 200 mg Oral active Take 200 mg by mouth daily [facility] Suvorexant 10 MG Oral Tablet [Belsomra] BELSOMRA 10 MG TABS BELSOMRA 10 MG TABS 11/27/2020 12:00:00 AM EST 1 {tbl} active 1 tablet as needed [facility] Refresh Liquigel 1% Ophthalmic Gel Refresh Liquigel [...] MCG/ACT inhaler 10/09/2020 12:00:00 AM EST active [facility] 15 mg 08/27/2020 12:00:00 AM EST [...] by mouth 2 (two) times a day [facility] tramadol hydrochloride 50 MG Oral Tablet traMADol (ULT AUBRIE) 50 MG tablet traMADol (ULTRAM) 50 MG tablet 06/05/2020 12:00:00 AM EDT active [facility] torsemide 20 MG Oral Tablet torsemide (DEMADEX) 20 MG tablet torsemide (DEMADEX) 20 MG tablet 03/31/2020 12:00:00 AM EDT 20 mg Oral abor froilan Take 20 mg by mouth daily [facility] Lisinopril 2.5 MG Oral Tablet lisinopril (PRINIVIL,ZES TRIL) 2.5 MG tablet lisinopril (PRINIVIL,ZESTRIL) 2.5 MG tablet 03/21/2020 12:00:00 AM EDT 2.5 mg Oral aborted Take 2.5 mg by mouth daily [facility] Metoprolol Succinate 200 MG CS24 [id number] Oral aborted Take by mouth daily [facility] apixaban 2.5 MG Oral Tablet apixaban (ELIQUIS) 2.5 MG TABS tablet apixaban (ELIQUIS) 2.5 MG TABS tablet Oral aborted Take by mouth 2 (two) times a day [facility] Hydroxychloroquine Sulfate 200 MG Oral T ablet hydroxychloroquine (PLAQUENIL) 200 MG tablet hydroxychloroquine (PLAQUENIL) 200 MG tablet 200 mg Oral aborted Take 200 mg by mouth daily [facility] Allopurinol 100 MG Oral Tablet allopurinol (ZYLOPRIM) 100 MG tablet allopurinol (ZYLOPRIM) 100 MG tablet 100 mg Oral aborted Take 100 mg by mouth 2 (two) times a day [facility] Insurance Providers Payer name Policy type / Coverage type Policy ID Covered constitution party ID Covered constitution party's relationship to moss Policy Moss Plan Information MEDICARE [id number] SP [id number] MEDICARE A [id number] Self [id number] P60 MEDICARE [id number] SP [id number] A MEDICARE [id number] xxxxxxxxxxx [id number] MEDICARE [id number] SP [id number] P60 Medicare [place] Medicare Primary [id number] Self MEDICARE [id number] Veda [id number] P60 MEDICARE A [id number] Self [id number] A Medicare Dme Supplies Medigap Part B [id number] Self [id number] Medicare [place] Medigap Part B [id number] Self [id number] [facility] Medigap Part B [id number] Self [id number] [facility] Medigap Part B [id number] Self [id number] Medicare Dme Supplies Medigap Part B [id number] Self [id number] [place] Medigap Part B [id number] Self [id number] [employer] Medigap Part B [id number] Self [id number] [employer] Medigap Part B [id number] Self [id number] Medicare [place] Medicare Primary [id number] Self [id number] [facility] Medigap Part B [id number] Self [id number] Medicare [place] Medicare Primary [id number] Self [id number] [facility] Medigap Part B [id number] Self [id number] AARP U [id number] Self [id number] AARP U [id number] Self [id number] [facility] [facility] [facility] OPTIONS [id number] SP [id number] [facility] [facility] OPTIONS [id number] SP [id number] [facility] [id number] [facility] [id number] [facility] [id number] xxxxxxxxxxx [id number] Medicare Part B [facility] Other 0 [id number] Self 0 EMEDNY [id number] SP [id number] TODAYS OPTIONSDO NOT USE [id number] SP [id number] SELF PAY MEDICARE C [id number] S [id number] P60 AARP O [id number] S [id number] [employer] Medigap Part B [id number] Self [id number] MEDICARE C [id number] S [id number] A MEDICARE [id number] SP [id number] A [facility] HE[facility] CARE OPTIONS [id number] SP [id number] [facility] HE[facility] CARE OPTIONS [id number] SP [id number] [facility] Medigap Part B [id number] Self N MEDICARE - [place] MCR [id number] S [id number] MEDICARE INPATIENT M [id number] S [id number] [facility] O [id number] S [id number] MEDICARE M [id number] S [id number] A TODAY'S OPTION [place] PROG -O/P UNAVAILABLE UNAVAILABLE AARP O [id number] S [id number] MEDICARE OUTPATIENT M [id number] S [id number] AARP O [id number] S [id number] A [facility] MEDICAID [id number] SP [id number] Y Problems, Conditions, and Diagnoses Code Display Name Description Problem Type Effective Dates Data Source(s) I10 Essential (primary) hypertension Essential (primary) h ypertension Diagnosis 06/29/2021 04:06:01 PM EDT [facility] 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 Chronic combined systolic (congestive) a Diagnosis 06/29/2021 04:06:01 PM EDT [facility] I48.91 Unspecified atrial fibrillation Unspecified atri al fibrillation Diagnosis 11/29/2020 12:48:19 PM [facility] 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, unspecified Systemic involvement of connective tissu Diagnosis 06/28/2020 08:15:17 AM EDT [facility] Z79.52 prison (current) use of systemic ster oids prison (current) use of systemic ster Diagnosis 06/28/2020 08:15:17 AM EDT [facility] E11.9 Type 2 diabetes mellitus without complic ations Type 2 diabetes mellitus without complic Diagnosis 06/28/2020 08:15:17 AM EDT [facility] N18.9 Chronic kidney disease, unspecified Chronic kidn ey disease, unspecified Diagnosis 06/28/2020 08:15:17 AM EDT [facility] M19.90 Unspecified osteoarthritis, unspecified site Unspecified osteoarthritis, unspecified Diagnosis 06/28/2020 08:15:17 AM EDT [facility] E78.5 Hyperlipidemia, unspecified Hyperlipidemia, unspecifie d Diagnosis 06/28/2020 08:15:17 AM EDT [facility] J44.9 COPD (chronic obstructive pulmonary dise ase) COPD (chronic obstructive pulmonary disease) [id number] 06/29/2021 12:00:00 AM EDT [facility] I48.91 Atrial fibrillation Atrial fibrillation [id number] 1 10/30/2019 12:00:00 AM [facility] 366.52 Posterior Capsule Opacification Not Obsc uring Vision Posterior Capsule Opacification Not Obscuring Vision Problem 05/02/2014 12:00:00 AM EDT - 02/02/2021 12:00:00 AM EDT CAROL (Nimesh Wood MD [facility]) Surgeries/Procedures Procedure Description Date Indications Data Source(s) X-Ray Humerus Two Views 06/21/2021 12:00:00 AM EDT NOHELIA ([facility] ) OFFICE OUTPATIENT VISIT 15 MINUTES 06/21/2021 12:00[facility] Repair of blepharoptosis by [...] combined systolic and diastolic congestive heart failure [facility] Atrial fibrillation, unspecified type Essential hypertension Chronic combined systolic and diastolic congestive heart failure BLOOD COUNT COMPLETE AUTO&AUTO DIFRNTL WBC COUNT <td>C BC AND DIFFERENTIAL</td><td>Routine</td><td>08/28/2020</td><td></td><td> </td> 08/28/2020 12:00:00 AM EST [facility] BASIC METABOLIC PANEL CALCIUM TOTAL <td>BASIC METABOLI C PANEL</td><td>Routine</td><td>08/28/2020</td><td></td><td> </td> 08/28/2020 12:00:00 AM EST [facility] Results ID Date Data Source [id number] 04/25/2021 08:26:00 AM EDT [facility] Name Value Range Interpretation Code Description Data Roz rce(s) Supporting Document(s) SARS coronavirus 2 RNA [Presence] in Res piratory specimen by SERGIO with probe detection NEGATIVE [facility] This lab was ordered by [facility] a nd reported by [facility]. ID Date Data Source [id number] 04/18/2021 04:56:00 AM EDT [facility] Name Value Range Interpretation Code Description Data Roz rce(s) Supporting Document(s) SARS coronavirus 2 RNA [Presence] in Res piratory specimen by SERGIO with probe detection NEGATIVE [facility] This lab was ordered by [facility] a nd reported by [facility]. ID Date Data Source [id number] 12/04/2020 09:00:00 AM EST [facility] Name Value Range Interpretation Code Description Data Roz rce(s) Supporting Document(s) SARS coronavirus 2 RNA Not Detected [facility] This lab was ordered by [facility] and reported by [facility]. ID Date Data Source [id number] 12/03/2020 12:19:14 AM EST [facility] Name Value Range Interpretation Code Description Data Roz rce(s) Supporting Document(s) &PDF [facility] QZSAIb6yWwJDGaLz47/JPLyeUDLmq0RzARdcMHp9TQbbBNIoS3GzwFacKFPKNJtZIGBeZSeUEiFBKQHE 0b3 AqKMCzSfVUlRN3VB8mFFRotsXfzjC6dT2qEU2SABA+Qt1TED1ur8KjKWh7UKKov0XeLUmdQLi9U7IhkF FhtfXaFmsrvOQSMZKgYTRpV5ocrrw3bANzNGsnBz2HRvIkh5FaUGDgGKwJob7gN99oQiS+X2n/Q0nRah 9fUA7vdc2hdaeHu4VoK1y4F9iCImLYWKMGYWd01n/f thX8V2RD2jbxgbG0IPtfcs7kt7/nS24Q6X//Njrq7SatOw1y/yaxhme4I4/1v4cDYdpuXGu/ikGzv+e4 rfWXaTwTkNvy2xcyhfk6W4p6JDwpOx/mUO9v1e6/Nfr3+Nf2VW/ZP35ecu3q/DWEEPM1rQL9IWl4a6x7 19j697EMPvk0xC+ZGclFLITIsaRH2ZVyLwEhMbjcrm NDGeAnJXvpWMVmJa62PKOulyjH2Gf+pqfU4cVtBvkq+IYskqwYd3NYEN5QkFgzcsQmpOLoHMBxC8++Qv AXxuK/Rpr1XBaYmgd20LVPXWOXJEXMjRZnyz2idkYEg2cdmZ6gBIPz1g79by93coMkD1m6bdXT1QaD0Q m7i2c1pyaOaz07r68HpYBgwUuEnPIB6swEL+q7yKHd bfe2hHBv6z4j0fglsnw2LV3Vq3SyTBXMIDBH2GNMlT1EeyxDd5sKh+z5q0nXltNqBh/YiXq0yxHNsW5X jiTNNBKJIr9VUKpLXegsRJac2tPpGPBlAfrPStRlrcKF78AwQrlrl44qKao6kp3XmThaaJWsnnsWaaIF KRGAYb5uxzhLjF/YHKVUnskePpEQ5bxzcar50Eppcr 0TSCNPRUGe+VaK+h3jaqqZIHBd37X5vLBmfd7rNQlns8GEH5/9iOUXa5gsOHBNBINR3Fw60enYXKsB0R iGjqxBA/BFH6LoFWTlTFBRB2iVgeos3WU6nQdpgTfyJ30898j9wO9vFnjfYiCX8DzfQpY5zVpE56toJv OW28B3/indZ70JU/4lsZ0HpndvMiMXF1AHt2npJMgd sUVG8mou9wPGBd8JI3K9RmEUtPKE6Hq53XJg7vXPXShxbpadCJ6Yjf95HqrxIRbd2JMDCCoguQwu4qMX 12sceALs0vQh5ZCb9MmHyen9vg2gaM/pdSZhE3gZsE1DRzfwlmesTL56CqfE777Aa3ugXEXMkC1LWEMs N+tfjEfqeDxRm1/8Ji1NB1RMX9JvQwlcGYY9byaU08 +ov5i47q53bEo6cVZtgC+dIICUpxiYOxm75SRXH6GfhIjiarEJUBvGambfvEm5GOZCJaRyyaCFTQ4PrN fiKb9KknvJIXsF6VhDMzFcbaTJVPe8Z3YJQUdjNE3po8PmP8g4aj+e0P1mpiQKqCEkNqKk+hlLac6kFh PeVjrXqQZghJoYdUG5X0/O0AQdfplRKWNQXCR0VtmC VaMHdRyGQ9TbJPXcY8KaL/IPLKPlIPbsEjxTCkuAyN8mtdVGtEOXPmoMjLukAz17L78haUeb9wUawPG6 wCo2RdevrhdPr5SQFpbSLWIRG5wzNCYkF+1EuqXw2bTliZweubgZGJvPAQHCafPYdeZH0xf6GHSbgd1N g3RYTjDr+ZnsqUsjnGPKdedz43CyImgmLMS+dJhvV/ Zod271nnw9Ef4isf8V4zK4/shYU91oG5LRrKgkuo9+83l1urLA6x9bZNaEmUlSf8fP8dcwUVYP1kPSs4 rzkuGEPP70dlo00pkGisQ2S524eX9vRfw7+XIOUAWcZ6k52/o1hNjtKNYDiXmM98b8BBreelFtn02QJ/ JCOL/LQQZY1QY4ISFlP2YJXSQvPJRRjapuMKdvtLYf [file] FkspVOAv4RMh+aT96hbvlw0Vb8K1ylqwlyen7JVrvy0yP1y5/Jz/data input clerk+YWzZTVgOZ9q7uSp4VZnrndAbC [file] ICAgICAgICAgICAgICAgICAgICAgICAgICAgICAgICAgICAgICAgICAgICAgICAgICAgICAgICAgICAg ICAgICAgICAgICAgICAgICAgICAgICAgICANCiAgICAgICAgICAgICAgICAgICAgICAgICAgICAgICAg ICAgICAgICAgICAgICAgICAgICAgICAgICAgICAgIC AgICAgICAgICAgICAgICAgICAgICAgICAgICAgICAgICAgICANCiAgICAgICAgICAgICAgICAgICAgIC AgICAgICAgICAgICAgICAgICAgICAgICAgICAgICAgICAgICAgICAgICAgICAgICAgICAgICAgICAgIC AgICAgICAgICAgICAgICAgICANCiAgICAgICAgICAg ICAgICAgICAgICAgICAgICAgICAgICAgICAgICAgICAgICAgICAgICAgICAgICAgICAgICAgICAgICAg ICAgICAgICAgICAgICAgICAgICAgICAgICAgICANCiAgICAgICAgICAgICAgICAgICAgICAgICAgICAg ICAgICAgICAgICAgICAgICAgICAgICAgICAgICAgIC AgICAgICAgICAgICAgICAgICAgICAgICAgICAgICAgICAgICAgICANCiAgICAgICAgICAgICAgICAgIC AgICAgICAgICAgICAgICAgICAgICAgICAgICAgICAgICAgICAgICAgICAgICAgICAgICAgICAgICAgIC AgICAgICAgICAgICAgICAgICAgICANCiAgICAgICAg ICAgICAgICAgICAgICAgICAgICAgICAgICAgICAgICAgICAgICAgICAgICAgICAgICAgICAgICAgICAg ICAgICAgICAgICAgICAgICAgICAgICAgICAgICAgICANCiAgICAgICAgICAgICAgICAgICAgICAgICAg ICAgICAgICAgICAgICAgICAgICAgICAgICAgICAgIC AgICAgICAgICAgICAgICAgICAgICAgICAgICAgICAgICAgICAgICAgICANCiAgICAgICAgICAgICAgIC AgICAgICAgICAgICAgICAgICAgICAgICAgICAgICAgICAgICAgICAgICAgICAgICAgICAgICAgICAgIC AgICAgICAgICAgICAgICAgICAgICAgICANCiAgICAg ICAgICAgICAgICAgICAgICAgICAgICAgICAgICAgICAgICAgICAgICAgICAgICAgICAgICAgICAgICAg ICAgICAgICAgICAgICAgICAgICAgICAgICAgICAgICAgICANCjw/wXAaP3drhOQtafH5W9jzYg9YLr8P KS5uf5VdKAPmUWgwiySfSlqLVqEsPLFhNzkKHdn3BK epEC5XkKUlI6HhY3UiIVqsOU3AMVPjLGHocLHfVEOdPQEgDqX8UYGkNVjbFH7TgZTlCFliQPXxHFXhHb DcZVDrRSYuWAKhFP3KYEDxU866jvPrGq0RSl8EMqBvPJ7tvn8SINMaTLRnBsfGWpy5GEycPE2VxECmN0 VueRIxv9xPDaJpJ2NDYHXbFCDpAr7KQWJmRuAgFAId PJixDR6bTKBfYJEJfErodfE4WN7DCL1tnqCpYD9NKwFyBu7jHc7QLoUwE9EcV5RqJVEiDADWQEisDP0D TWPkKBH8KUD1XXLoYXEWIdHkV44wLA7QS4Zxc77nBmF0EAWbUuDjGHmcXW42cVrxaaVpxGZggRvbUE7M Cj4+DQplbmRvYmoNCnhyZWYNCjAgNDMNCjAwMDAwMD DyAZOhJkW5YgAaCv4WDXFnFGTbJIEjFsDrZLPaJGWrJAuyXGWlDKdkQDDdTOBtGVSwNW2XCaTlWKGqNd Y7JKZaBHKtWFKfwz1ZSFMfFOWxSNY5OYMxGJCtIWQlCUdbWTHeVFNcSLD0MGGjTPFjOG7PDsZuRWEvLI P8SgtlKKVpJFXkkd9MFRHnZAXqJyC3XgXgBUHdEARn LNkuUVZiEND9BDo6UIBqABFiVF8PUdGgOLWfKBbwSQOlITGnLZKxix6GSGFeNQXrJqRaJLCsTNCeEVWk AYocWBFmOEL4DDcpBULyWPPtYD0FXvApLIQmXTe2QankKRYgNBUmvs5DABQuMZEfSVi8LYQeNWYhYIRc QUbbCYUaBVQ7TUI6LIJgRFQbSX9WFfCeKEQsWCQgYA AyCDDoDELhvy1BKZQiTJFdEKB1VGMhAADyQUQjGZuaXGYrNCU9CLT2YZBvHPPcDK0MTfHkCIGgKPUlZa XeMPJxKTEunf0KTQYiAUSzOUS1RBQqMINzWTAwRRlaLYNsROF9XZA9UJElKJXjLP0QRiTjIAPjWVB6Uc YvNUXfJFIusr1PKFMuFDBzRqucUcLyKVFjFTNyCOfa ZNEfROM6OQy2NITdPSEwEY5MQsKfTRHzRXrpUjMaZXOzPCLoqq3XYHBlYWTgCyh6TNRgTEUoDPHfIAwn XNRzYZN3GGttRCQaBHWhOF7FByWeTHWnDvwhZRMjUDWwNTBeip5MPBEfWLZwDWx6VqXmIVJuSAKqLYyx WYZxNAPfWYs8YFItTTAuXQ9OCaNuIHDjByPnZnJiDS BdLSKckt4ISQPvXQGcWVJhGVRyCRXbHYJnHTteJKKdTCHeGalqHLXyASPmQJ0QOfNeWVPrJCG3KcifGA HbSAGeao4YMNHeLER4USmsBdHyIZAuGSQiAJujNEApODElUOmuFFPwIZNyXQ4YCqOjRAGiMGf4PUezCE WaNXBhuv1SMRKaZIT8DMX0RLEhTXHhKVFmDZzfWOQu AYI3YfI8DGPgGVKiDN2IYnLxQFLxLma8YFWlQUBgRJByfp2DBKNdKMH4IpQ7CNQsQLVuAZCmUQjtXJXs UKb7QrW2FFLaSUKmIX3WSnEvJZPyJiN3FCJvSLFhSIMeom7FrLBskXbzxi0QJGmXIe9SfYakPFXeIZqo Nl6jnPD4VkCeRQEBJb8CngQnACJjDYTVIQvfDQMzLW HiPji8PjM4U3ZdSyL6HYUhKZH1ZkZ1HQosCqXdUCY9WbI4CTSgZIStFWs4LLXpQhHkFuU3Zva1Ycx5RX NiYWFkNjU+LR0zOLc+Xl3Ah5CurhD2voIpZQl5YGi3Zs5RFDXDI1GJBu== ID Date Data Source [id number] 11/27/2020 10:00:00 AM EST [facility] Name Value Range Interpretation Code Description Data Roz rce(s) Supporting Document(s) SARS coronavirus 2 RNA Not Detected [facility] This lab was ordered by [facility] and reported by [facility]. ID Date Data Source [id number] 11/20/2020 06:30:00 AM EST [facility] Name Value Range Interpretation Code Description Data Roz rce(s) Supporting Document(s) SARS coronavirus 2 RNA Not Detected [facility] This lab was ordered by [facility] and reported by [facility]. ID Date Data Source [id number] 11/13/2020 08:00:00 AM EST [facility] Name Value Range Interpretation Code Description Data Roz rce(s) Supporting Document(s) SARS coronavirus 2 RNA Not Detected [facility] This lab was ordered by [facility] and reported by [facility]. ID Date Data Source [id number] 11/06/2020 08:00:00 AM EST [facility] Name Value Range Interpretation Code Description Data Roz rce(s) Supporting Document(s) SARS coronavirus 2 RNA Not Detected [facility] This lab was ordered by [facility] and reported by [facility]. ID Date Data Source [id number] 10/30/2020 12:00:00 PM EST [facility] Name Value Range Interpretation Code Description Data Roz rce(s) Supporting Document(s) SARS coronavirus 2 RNA Not Detected [facility] This lab was ordered by [facility] and reported by [facility]. ID Date Data Source [id number] 10/23/2020 06:00:00 AM EST [facility] Name Value Range Interpretation Code Description Data Roz rce(s) Supporting Document(s) SARS coronavirus 2 RNA Not Detected [facility] This lab was ordered by [facility] and reported by [facility]. ID Date Data Source [id number] 10/16/2020 07:30:00 AM EST [facility] Name Value Range Interpretation Code Description Data Roz rce(s) Supporting Document(s) SARS coronavirus 2 RNA [facility] This lab was ordered by [facility] and reported by [facility]. ID Date Data Source [id number] 10/09/2020 08:05:00 AM EST [facility] Name Value Range Interpretation Code Description Data Roz rce(s) Supporting Document(s) SARS coronavirus 2 RNA [facility] This lab was ordered by [facility] and reported by [facility]. ID Date Data Source [id number] 10/02/2020 09:00:00 AM EST [facility] Name Value Range Interpretation Code Description Data Roz rce(s) Supporting Document(s) SARS coronavirus 2 RNA [facility] This lab was ordered by [facility] and reported by [facility]. ID Date Data Source [id number] 10/02/2020 12:00:00 AM EST [facility] Name Value Range Interpretation Code Description Data Roz rce(s) Supporting Document(s) SARS-CoV2 Rapid Antigen [facility] This lab was ordered by [facility] and reported by [facility]. ID Date Data Source [id number] 09/27/2020 12:38:00 PM EST [facility] Name Value Range Interpretation Code Description Data Roz rce(s) Supporting Document(s) SARS coronavirus 2 RNA [facility] This lab was ordered by [facility] and reported by [facility]. ID Date Data Source [id number] 09/22/2020 02:48:00 PM EST [facility] Name Value Range Interpretation Code Description Data Roz rce(s) Supporting Document(s) SARS coronavirus 2 RNA [facility] This lab was ordered by [facility] and reported by [facility]. ID Date Data Source [id number] 09/15/2020 01:00:00 PM EST [facility] Name Value Range Interpretation Code Description Data Roz rce(s) Supporting Document(s) SARS coronavirus 2 RNA [Presence] in Res piratory specimen by [facility]GIO with probe detection [facility] This lab was ordered by [facility] a nd reported by [facility]. ID Date Data Source [id number] 09/06/2020 12:00:00 PM EST [facility] Name Value Range Interpretation Code Description Data Roz rce(s) Supporting Document(s) SARS coronavirus 2 RNA [facility] This lab was ordered by [facility] and reported by [facility]. ID Date Data Source [id number] 08/31/2020 09:00:00 AM EST [facility] Name Value Range Interpretation Code Description Data Roz rce(s) Supporting Document(s) SARS coronavirus 2 RNA [facility] This lab was ordered by [facility] and reported by [facility]. ID Date Data Source [id number] 08/24/2020 12:25:00 PM EST [facility] Name Value Range Interpretation Code Description Data Roz rce(s) Supporting Document(s) SARS coronavirus 2 RNA [facility] This lab was ordered by [facility] and reported by [facility]. ID Date Data Source [id number] 06/28/2020 02:55:00 PM EDT [facility] ([facility], ) Name Value Range Interpretation Code Description Data Roz rce(s) Supporting Document(s) PDFReport Laboratory test result [facility] ([facility], ) FVC-Pred 2.01 L [facility] ([facility], ) FVC-Pre 1.14 L [facility] ([facility], ) FVC-%Pred-Pre 56 L [facility] ([facility], ) FVC-LLN 1.35 L [facility] ([facility]) Fev1-Pre 0.80 L [facility] ([facility]) Fev1-Pred 1.46 L [facility] ([facility]) Fev1-%Pred-Pre 54 L [facility] ([facility]) Fev6-Pred 1.87 L [facility] ([facility]) Fev1-LLN 0.91 L [facility] ([facility]) Fev6-Pre 1.14 L [facility] ([facility]) Fev6-%Pred-Pre 60 L [facility] ([facility]) Fev6-LLN 1.23 L [facility] ([facility]) Hhp6hgw-Pauz 72 % [facility] ([facility]) Gcq4lyz-Vmb 71 % [facility] ([facility]) Uxz7yxy-%Pred-Pre 98 % [facility] ([facility]) Hjj5rdl-LEO 62 % [facility] ([facility]) Sxp2cty-Ltyf 93 % [facility] ([facility]) Ndt5ied-Mng 100 % [facility] ([facility]) Fqp6zlv-%Pred-Pre 107 % [facility] ([facility]) FEFMax-Pred 3.66 L/E/sec [facility] ([facility]) FEFMax-Pre 3.01 L/E/sec [facility] ([facility]) FEFMax-%Pred-Pre 82 L/E/sec [facility] ([facility]) FEFMax-LLN 2.05 L/E/sec [facility] ([facility]) [id number]-Pqeh 0.87 L/E/sec [facility] ([facility]) Fsz4522-Xck 0.48 L/E/sec [facility] ([facility]) Bfi8689-%Pred-Pre 55 L/E/sec [facility] ([facility]) [id number] -0.29 L/E/sec [facility] ([facility]) ExpTime-Pre 5.10 sec [facility] ([facility]) Uqj4gjj5-Jeho 76 % [facility] ([facility]) Unc3upz5-Vfj 71 % [facility] ([facility]) Tlp4zqy8-%Pred-Pre 92 % [facility] ([facility]) Tru7jmv9-OTB 68 % [facility] ([facility]) Procedure Social History Code Duration Value Status Description Data Source(s ) Alcohol intake 06/29/2021 12:00:00 AM EDT Ex-drinker (finding) comp leted Ex- drinker (finding) [facility] Smoking 06/18/2021 04:38:18 PM EDT Ex-smoker (finding) complet ed Ex-smoker (finding) [facility] (Nimesh Wood MD [facility]) Alcohol intake 08/30/2020 12:00:00 AM EST Not Currently completed [facility] Smoking 08/30/2020 12:00:00 AM EST Former smoker completed Former smoker [facility] Vital Signs ID Date Data Source UNK Name Value Range Interpretation Code Description Data Source(s) Systolic blood pressure 124 mm[Hg] 124 mm[Hg] [facility] Diastolic blood pressure 70 mm[Hg] 70 mm[Hg] [facility] Heart rate 66 /min 66 /min [facility] Respiratory rate 18 /min 18 /min [facility] Body height 154.9 cm 154.9 cm [facility] Body weight 78.472 kg 78.472 kg [facility] Body mass index (BMI) [Ratio] 32.69 kg/m2 32.69 kg/m2 [facility] Oxygen saturation in Arterial blood by Pulse oximetry 94 % 94 % [facility] Systolic blood pressure 124 mm[Hg] 124 mm[Hg] [facility] Diastolic blood pressure 70 mm[Hg] 70 mm[Hg] [facility] Heart rate 95 /min 95 /min [facility] Body height 154.9 cm 154.9 cm [facility] Body weight 77.565 kg 77.565 kg [facility] Body mass index (BMI) [Ratio] 32.31 kg/m2 32.31 kg/m2 [facility] Oxygen saturation in Arterial blood by Pulse oximetry 93 % 93 % [facility] Systolic blood pressure 122 mm[Hg] 122 mm[Hg] [facility] Diastolic blood pressure 64 mm[Hg] 64 mm[Hg] [facility] Heart rate 80 /min 80 /min [facility] Body height 154.9 cm 154.9 cm [facility] Body weight 79.833 kg 79.833 kg [facility] Body mass index (BMI) [Ratio] 33.25 kg/m2 33.25 kg/m2 [facility] Oxygen saturation in Arterial blood by Pulse oximetry 98 % 98 % [facility] Systolic blood pressure 132 mm[Hg] 132 mm[Hg] M [facility] ([facility], ) Diastolic blood pressure 84 mm[Hg] 84 mm[Hg] [facility] ([facility], ) [facility] 103 /min 103 /[facility] Oxygen saturation in Arterial blood by Pulse oximetry 932 % 932 % [facility] ([facility], ) Body temperature 97.8 [degF] 97.8 [degF] [facility] Body height 62 [in_i] 62 [in_i] [facility] ([facility]) 5'2" Body weight 178.00 [lb_av] 178.00 [lb_av] MEDEN T ([facility]) Body mass index (BMI) [Ratio] 32.6 kg/m2 32.6 k g/m2 [facility] ([facility]) Body weight 80.741 kg 80.741 kg [facility] ([facility]) Patient Treatment Plan of Care Planned Activity Planned Date Details Description Data Source (s) torsemide 20 MG Oral Tablet 06/29/2021 12:00:00 AM EDT [facility] Metoprolol Succinate 200 MG CS24 06/29/2021 12:00:00 AM EDT [facility] Hydroxychloroquine Sulfate 200 MG Oral Tablet 06/29/2021 12:00:00 A M EDT [facility] apixaban 2.5 MG Oral Tablet 06/29/2021 12:00:00 AM EDT [facility] Suvorexant 10 MG Oral Tablet [Belsomra] 11/27/2020 12:00:00 AM EST [facility] Refresh Liquigel 1% Ophthalmic Gel 10/19/2020 12:00:00 AM [facility] (Nimesh Wood MD [facility]) Carboxymethylcellulose Sodium 5 MG/ML / Glycerin 10 MG/ML / Polysorbate 80 5 MG/ML Ophthalmic Solution 10/19/2020 12:00:00 AM [facility] (Nimesh Wood MD [facility]) 200 ACTUAT Levalbuterol 0.045 MG/ACTUAT Metered Dose I nhaler [Xopenex] 10/09/2020 12:00:00 AM EST [facility] carvedilol 6.25 MG Oral Tablet 07/19/2020 12:00:00 AM EDT [facility] tramadol hydrochloride 50 MG Oral Tablet 06/05/2020 12:00:00 AM EDT [facility] torsemide 20 MG Oral Tablet 03/31/2020 12:00:00 AM EDT [facility] Lisinopril 2.5 MG Oral Tablet 03/21/2020 12:00:00 AM EDT [facility] Metoprolol Succinate 200 MG CS24 [facility] apixaban 2.5 MG Oral Tablet [facility] Hydroxychloroquine Sulfate 200 MG Oral Tablet [facility] Allopurinol 100 MG Oral Tablet [facility]
[2021-07-31 15:40] LABS: BASO % 0.4 % (0.0-1.0); EOS # 0.1 10^3/uL (0.0-0.5); EOS % 1.7 % (0.0-3.0); HEMATOCRIT 35.9 % (36.0-47.0); HEMOGLOBIN 11.3 g/dl (12.0-15.5); LYMPH # 0.7 10^3/uL (1.5-5.0); LYMPH % 9.1 % (24.0-44.0); MEAN CORPUSCULAR HEMOGLOBIN 31.8 pg (27.0-33.0); MEAN CORPUSCULAR HGB CONC 31.5 g/dl (32.0-36.5); MEAN CORPUSCULAR VOLUME 101.1 fl (80.0-96.0); MONO # 0.7 10^3/uL (0.0-0.8); MONO % 9.5 % (2.0-8.0); NEUTROPHILS # 5.9 10^3/uL (1.5-8.5); NEUTROPHILS % 78.8 % (36.0-66.0); PLATELET COUNT, AUTOMATED 143 10^3/uL (150-450); RED BLOOD COUNT 3.55 10^6/uL (4.00-5.40); WHITE BLOOD COUNT 7.5 10^3/uL (4.0-10.0)
[2021-07-31 15:43] LABS: RSV AMPLIFICATION NEGATIVE (NEGATIVE)
[2021-07-31] MEDS ORDERED: LEVALBUTEROL HFA 45MCG/ACT 15 GM INHALER INH PRN (15:45)
[2021-07-31] MEDS ORDERED: MIRALAX *UNIT DOSE* 17GM PACKET PO PRN (15:45)
[2021-07-31] MEDS ORDERED: LOPERAMIDE 2 MG CAPLET PO PRN (15:45)
[2021-07-31] MEDS ORDERED: MOM 30ML SUSPENSION UDC PO PRN (15:45)
[2021-07-31 15:53] LABS: INR 1.16; PARTIAL THROMBOPLASTIN TIME 30.6 SECONDS (25.9-37.0); PROTHROMBIN TIME 15.2 SECONDS (12.7-14.5)
[2021-07-31 16:03] LABS: CALCIUM LEVEL 9.6 MG/DL (8.8-10.2); CREATININE FOR GFR 1.37 MG/DL (0.55-1.30); GLOMERULAR FILTRATION RATE 38.6 (>32); POTASSIUM SERUM 3.5 MEQ/L (3.5-5.1)
[2021-07-31 17:45] VITALS: BP 122/71
[2021-07-31] MEDS: FAMOTIDINE 20 MG TAB PO SCH (18:29)
[2021-07-31] MEDS: LACTOBACILLUS ACIDOPHILUS CAP (BACID) PO SCH (18:29)
[2021-07-31] MEDS: SYMBICORT 80/4.5MCG INHALER 6GM INH SCH (20:31)
[2021-07-31] MEDS: MONTELUKAST 10 MG TAB PO SCH (20:38)
[2021-07-31] MEDS: DOCUSATE SODIUM 100MG CAPSULE PO SCH (20:38)
[2021-07-31] MEDS: NYSTATIN 100,000 UNITS/GM TOPICAL PWD 15 GM TOP SCH (20:43)
[2021-07-31] MEDS: POLYVINYL ALCOHOL OPHTH SOLN 15 ML(LIQUITEARS) OU SCH (20:43)
[2021-07-31] MEDS: traMADol 50 MG TAB PO PRN (20:43)
[2021-07-31] MEDS ORDERED: POLYVINYL ALCOHOL OPHTH SOLN 15 ML(LIQUITEARS) OU SCH (21:00)
[2021-07-31 22:00] VITALS: BP 115/59
[2021-08-01 06:00] VITALS: BP 117/58
[2021-08-01 06:36] LABS: HEMATOCRIT 35.6 % (36.0-47.0); HEMOGLOBIN 11.1 g/dl (12.0-15.5); MEAN CORPUSCULAR HEMOGLOBIN 31.8 pg (27.0-33.0); MEAN CORPUSCULAR HGB CONC 31.2 g/dl (32.0-36.5); PLATELET COUNT, AUTOMATED 160 10^3/uL (150-450); RED BLOOD COUNT 3.49 10^6/uL (4.00-5.40); WHITE BLOOD COUNT 8.3 10^3/uL (4.0-10.0)
[2021-08-01] MEDS: POLYVINYL ALCOHOL OPHTH SOLN 15 ML(LIQUITEARS) OU SCH ×5 (06:45→22:22)
[2021-08-01 07:02] LABS: CREATININE FOR GFR 1.34 MG/DL (0.55-1.30); GLOMERULAR FILTRATION RATE 39.6 (>32); POTASSIUM SERUM 3.5 MEQ/L (3.5-5.1)
[2021-08-01 07:03] LABS: CALCIUM LEVEL 9.5 MG/DL (8.8-10.2)
[2021-08-01] MEDS ORDERED: FLUBLOK(EGG FREE)(QUAD)INFLUENZA VACC 0.5ML SYRINGE 18YRS & OLDER IM ONE (09:00)
[2021-08-01] MEDS: SYMBICORT 80/4.5MCG INHALER 6GM INH SCH ×2 (09:27→20:42)
[2021-08-01] MEDS: DOCUSATE SODIUM 100MG CAPSULE PO SCH ×2 (10:02→22:22)
[2021-08-01] MEDS: FAMOTIDINE 20 MG TAB PO SCH ×2 (10:02→18:26)
[2021-08-01] MEDS: metOLazone 5 MG TAB PO SCH (10:02)
[2021-08-01] MEDS: LACTOBACILLUS ACIDOPHILUS CAP (BACID) PO SCH ×2 (10:02→18:26)
[2021-08-01] MEDS: HYDROXYCHLOROQUINE 200 MG TAB PO SCH (10:02)
[2021-08-01] MEDS: NYSTATIN 100,000 UNITS/GM TOPICAL PWD 15 GM TOP SCH ×2 (10:02→22:22)
[2021-08-01] MEDS: TORSEMIDE 20 MG TAB PO SCH (10:03)
[2021-08-01] MEDS: predniSONE 1 MG TAB PO SCH (10:03)
[2021-08-01] MEDS: METOPROLOL SUCC (TopROL XL) 100MG *XL* TAB PO SCH (10:05)
[2021-08-01] MEDS ORDERED: FUROSEMIDE 20MG/2ML VIAL (J1940) IV ONE (12:10)
--- NOTE | 2021-08-01 18:38 | IPNPDOC ---
Date Seen The patient was seen on 08/01/21. Progress Note SUBJECTIVE: No events overnight. Increased bruising in the face; however, slight and not dramatically increased. Remains off of anticoagulation and antiplatelets for now. Denies chest pain, shortness of breath, fevers, chills. OBJECTIVE: PHYSICAL EXAMINATION: VS: Stable, see below CONSTITUTIONAL: No acute distress, resting comfortably, AAO x 3 EYES: PERRLA, EOM intact, bruising around both eyes-appear to be healing. Tenderness of anterior scalp HENT, MOUTH: Normocephalic, atraumatic, moist mucous membranes NECK: SUPPLE, no JVD, no lymphadenopathy, no carotid bruit CV: Regular rate and rhythm, S1S2 normal, no murmurs/rubs/gallops RESPIRATORY: Clear to auscultation bilaterally, no rales/rhonchi/wheezes GI: BS positive in 4 quadrants, soft, nontender, nondistended, no rebound or guarding, no organomegaly : Deferred MUSCULOSKELETAL:Point tenderness of lower lumbar spine, left hip but no obvious bruisng here. Normal ROM. No cyanosis, clubbing, swelling, joint deformity, ex tremity edema INTEGUMENTARY: redness with signs of excoriation beneath anterior pannus. Otherwise Intact, no rashes NEUROLOGIC: Cranial Nerves II-XII are intact, no focal deficits PSYCHIATRIC: Mood and affect are normal LABORATORY DATA: Please see below MICRO: See below IMAGING: Lumbar Spine XR 07/31/21: Transpedicular screws L3 through L5 bilaterally status quo. Vertebral body height and alignment is unchanged. Retrolisthesis of L2 on L3 status quo. Anterolisthesis of L4 and L5 status quo. Bones are demineralized. Discogenic fusion L3-4, L4-5, and L5-S1 status quo. T11 compression fracture again noted and appears unchanged. CT Maxillofacial 07/31/21: No acute fracture or dislocation. CT head 07/31/21: 1. Moderate volume loss and small vessel ischemic changes. 2. No acute intracranial abnormality. 3. Moderate left frontal soft tissue swelling and small hematoma formation. Hip/pelvis XR 07/31/21: There is moderate asymmetric bilateral hip joint space narrowing. This has increased bilaterally compared to the prior exam. There is no acute fracture, dislocation, or subluxation. Bilateral transpedicular screws are seen L3 through L5. Shoulder XR 07/29/21: No acute bony injury or malalignment in the visualized right shoulder Cervical c-spine 07/29/21: No acute fracture of the cervical spine. Cervical malalignments are noted as discussed above. Clinical correlation is advised. Interstitial and ground-glass pulmonary opacities to be correlated for interstitial edema or interstitial pneumonitis. Thyroid nodule. Nonemergent evaluation by ultrasound is advised. ASSESSMENT: PLAN: Left hip and lumbar back pain s/p PT as o/p, possible strain of hip or back -Hx of T11 compression fracture again noted and appears unchanged on current XR -Imaging above -PT: Pt does become more unsteady as she fatigues and has low activity tolerance. Pt appears to be functioning below her baseline level of mobility. Pt will most likely require continued rehab prior to returning to [place]. -Tramadol PRN. 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 Bazan o/p SLE -Stable, c/w home meds Chronic pain / Arthritis -XR above -C/w home meds Gout -C/w home meds Mild pulmonary HTN -C/w home meds DVT px -SCDs teds. Holding eliquis DISPOSITION: Admitted as acute inpatient. To d/w team about continued rehab prior to returning to [place] VS, I&O, 24H, Fishbone Vital Signs/I&O Vital Signs Date Time Temp Pulse Resp B/P (MAP) Pulse Ox O2 Delivery O2 Flow Rate FiO2 08/01/21 10:05 85 132/72 08/01/21 06:00 97.6 18 95 Nasal Cannula 2.0 Laboratory Data 24H LABS Laboratory Tests 2 08/01/21 06:20: Nucleated Red Blood Cells % (auto) 0.0, Anion Gap 4L, Glomerular Filtration Rate 39.6, Calcium Level 9.5 CBC/BMP Laboratory Tests 08/01/21 06:20 Susi Rosales MD Aug 01, 2021 18:38
[2021-08-01 22:00] VITALS: BP 127/72
[2021-08-01] MEDS: MONTELUKAST 10 MG TAB PO SCH (22:22)
[2021-08-01] MEDS: traMADol 50 MG TAB PO PRN (22:27)
[2021-08-02] MEDS: POLYVINYL ALCOHOL OPHTH SOLN 15 ML(LIQUITEARS) OU SCH ×5 (05:54→23:15)
[2021-08-02 06:00] VITALS: BP 116/63
[2021-08-02 07:21] LABS: HEMATOCRIT 34.2 % (36.0-47.0); HEMOGLOBIN 10.9 g/dl (12.0-15.5); MEAN CORPUSCULAR HEMOGLOBIN 31.6 pg (27.0-33.0); MEAN CORPUSCULAR HGB CONC 31.9 g/dl (32.0-36.5); MEAN CORPUSCULAR VOLUME 99.1 fl (80.0-96.0); PLATELET COUNT, AUTOMATED 152 10^3/uL (150-450); RED BLOOD COUNT 3.45 10^6/uL (4.00-5.40); WHITE BLOOD COUNT 7.6 10^3/uL (4.0-10.0)
[2021-08-02 07:43] LABS: CREATININE FOR GFR 1.41 MG/DL (0.55-1.30); GLOMERULAR FILTRATION RATE 37.4 (>32); POTASSIUM SERUM 2.9 MEQ/L (3.5-5.1)
[2021-08-02 07:44] LABS: CALCIUM LEVEL 9.3 MG/DL (8.8-10.2)
[2021-08-02] MEDS ORDERED: SIMETHICONE 80MG CHEW TAB PO SCH (08:00)
[2021-08-02] MEDS: SYMBICORT 80/4.5MCG INHALER 6GM INH SCH ×2 (08:10→20:05)
[2021-08-02] MEDS: LACTOBACILLUS ACIDOPHILUS CAP (BACID) PO SCH ×2 (08:41→16:10)
[2021-08-02] MEDS: HYDROXYCHLOROQUINE 200 MG TAB PO SCH (08:41)
[2021-08-02] MEDS: FAMOTIDINE 20 MG TAB PO SCH ×2 (08:41→16:10)
[2021-08-02] MEDS: DOCUSATE SODIUM 100MG CAPSULE PO SCH ×2 (08:42→23:14)
[2021-08-02] MEDS: METOPROLOL SUCC (TopROL XL) 100MG *XL* TAB PO SCH (08:42)
[2021-08-02] MEDS: predniSONE 1 MG TAB PO SCH (08:42)
[2021-08-02] MEDS: TORSEMIDE 20 MG TAB PO SCH (08:42)
[2021-08-02] MEDS: traMADol 50 MG TAB PO PRN ×2 (08:43→23:15)
[2021-08-02] MEDS: POTASSIUM CHLORIDE 10MEQ SR TABLET PO SCH ×2 (08:43→23:14)
[2021-08-02] MEDS: NYSTATIN 100,000 UNITS/GM TOPICAL PWD 15 GM TOP SCH ×2 (08:43→23:15)
[2021-08-02] MEDS ORDERED: PILL CUTTER 1 EACH XX PRN (09:10)
--- NOTE | 2021-08-02 10:58 | REPVR ---
PROCEDURE INFORMATION: Exam: CT Head Without Contrast Exam date and time: 08/02/2021 10:09 AM Age: 89 years old Clinical indication: Altered mental status/memory loss; Additional info: Change in mental status, recent head trauma TECHNIQUE: Imaging protocol: Computed tomography of the head without contrast. Radiation optimization: All CT scans at this facility use at least one of these dose optimization techniques: automated exposure control; mA and/or kV adjustment per patient size (includes targeted exams where dose is matched to clinical indication); or iterative reconstruction. COMPARISON: CT Head without contrast 07/31/2021 11:40 AM FINDINGS: Brain: As before, there are moderate diffuse involutional changes with mild to moderate white matter hypodensities for age suggestive of small vessel disease. No acute intracranial hemorrhage or acute territorial infarct. Vascular calcifications at the [id number] as before. Cerebral ventricles: No ventriculomegaly. Paranasal sinuses: Visualized sinuses are unremarkable. No fluid levels. Mastoid air cells: Visualized mastoid air cells are well aerated. Bones/joints: Unremarkable. No acute fracture. Soft tissues: Diminished conspicuity of the left frontal scalp hematoma. IMPRESSION: No acute intracranial abnormality. Electronically signed by: Bryce Catalan On 08/02/2021 10:57:26 AM
[2021-08-02] MEDS: cefTRIAXone SOD 1 GM in D5W MINI-BAG PLUS 50 ML IV SCH (13:40)
[2021-08-02 14:00] VITALS: BP 103/54
[2021-08-02] MEDS: SIMETHICONE 80MG CHEW TAB PO PRN (14:48)
[2021-08-02] MEDS: NYSTATIN 500,000 U/5 ML SUSP UDC SS SCH ×2 (16:10→23:17)
--- NOTE | 2021-08-02 19:25 | IPNPDOC ---
Date Seen The patient was seen on 08/02/21. Progress Note SUBJECTIVE: Confused noted in evening by nursing. CT head neg, + UTI, started on abx today. AAOx3 this AM. Denies chest pain, shortness of breath, fevers, chills. OBJECTIVE: PHYSICAL EXAMINATION: VS: Stable, see below CONSTITUTIONAL: No acute distress, resting comfortably, AAO x 3 EYES: PERRLA, EOM intact, bruising around both eyes/left forehead . Tenderness of anterior scalp HENT, MOUTH: Normocephalic, atraumatic, moist mucous membranes NECK: SUPPLE, no JVD, no lymphadenopathy, no carotid bruit CV: Regular rate and rhythm, S1S2 normal, no murmurs/rubs/gallops RESPIRATORY: Clear to auscultation bilaterally, no rales/rhonchi/wheezes GI: BS positive in 4 quadrants, soft, nontender, nondistended, no rebound or guarding, no organomegaly : Deferred MUSCULOSKELETAL:Point tenderness of lower lumbar spine, left hip but no obvious bruisng here. Normal ROM. No cyanosis, clubbing, swelling, joint deformity, extremity edema INTEGUMENTARY: redness with signs of excoriation beneath anterior pannus. Otherwise Intact, no rashes NEUROLOGIC: Cranial Nerves II-XII are intact, no focal deficits PSYCHIATRIC: Mood and affect are normal LABORATORY DATA: Please see below MICRO: See below IMAGING: Lumbar Spine XR 07/31/21: Transpedicular screws L3 through L5 bilaterally status quo. Vertebral body height and alignment is unchanged. Retrolisthesis of L2 on L3 status quo. Anterolisthesis of L4 and L5 status quo. Bones are demineralized. Discogenic fusion L3-4, L4-5, and L5-S1 status quo. T11 compression fracture again noted and appears unchanged. CT Maxillofacial 07/31/21: No acute fracture or dislocation. CT head 07/31/21: 1. Moderate volume loss and small vessel ischemic changes. 2. No acute intracranial abnormality. 3. Moderate left frontal soft tissue swelling and small hematoma formation. Hip/pelvis XR 07/31/21: There is moderate asymmetric bilateral hip joint space narrowing. This has increased bilaterally compared to the prior exam. There is no acute fracture, dislocation, or subluxation. Bilateral transpedicular screws are seen L3 through L5. Shoulder XR 07/29/21: No acute bony injury or malalignment in the visualized right shoulder Cervical c-spine 07/29/21: No acute fracture of the cervical spine. Cervical malalignments are noted as discussed above. Clinical correlation is advised. Interstitial and ground-glass pulmonary opacities to be correlated for interstitial edema or interstitial pneumonitis. Thyroid nodule. Nonemergent evaluation by ultrasound is advised. ASSESSMENT: PLAN: Altered mental status (intermittent) likely 2/2 to UTI -Increased frequency of urination -UA +, UCx pending -CT head neg for any change -AAOx3 currently -Ceftriaxone IV -Daily CBC Hypokalemia likely 2/2 to lasix -K 2.9 -S/p 60 mEq today -F/u labs in AM Left hip and lumbar back pain s/p PT as o/p, possible strain of hip or back -Hx of T11 compression fracture again noted and appears unchanged on current XR -Imaging above -PT: Pt does become more unsteady as she fatigues and has low activity tolerance. Pt appears to be functioning below her baseline level of mobility. Pt will most likely require continued rehab prior to returning to [place]. -Tramadol PRN. 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 Bazan o/p SLE -Stable, c/w home meds Chronic pain / Arthritis -XR above -C/w home meds Gout -C/w home meds Mild pulmonary HTN -C/w home meds DVT px -SCDs teds. Holding eliquis DISPOSITION: Admitted as acute inpatient. SW currently put search out for available rehab programs. VS, I&O, 24H, Fishbone Vital Signs/I&O Vital Signs Date Time Temp Pulse Resp B/P (MAP) Pulse Ox O2 Delivery O2 Flow Rate FiO2 08/02/21 14:00 99.2 102 18 103/54 (70) 99 Nasal Cannula 2.0 I&O- Last 24 Hours up to 6 AM 08/02/21 06:00 Intake Total 650 ml Output Total 900 ml Balance -250 ml Laboratory Data 24H LABS Laboratory Tests 2 08/02/21 07:08: Nucleated Red Blood Cells % (auto) 0.0, Anion Gap 5L, Glomerular Filtration Rate 37.4, Calcium Level 9.3 08/02/21 10:22: Urine Color YELLOW, Urine Appearance CLEAR, Urine pH 5.0, Urine Specific Jackson 1.010, Urine Protein NEGATIVE, Urine Glucose (UA) NEGATIVE, Urine Ketones NEGATIVE, Urine Blood NEGATIVE, Urine Nitrite NEGATIVE, Urine Bilirubin NEGATIVE, Urine Urobilinogen 0.2, Urine Leukocyte Esterase 2+H, Urine WBC (Auto) 26H, Urine RBC (Auto) 1, Urine Hyaline Casts (Auto) 7, Urine Bacteria (Auto) NEGATIVE, Urine Squamous Epithelial Cells 1, Urine Mucus (Auto) SMALL, Urine Sperm (Auto) CBC/BMP Laboratory Tests 08/02/21 07:08 Microbiology Microbiology 08/02/21 Urine Culture, Received Pending Susi Rosales MD Aug 02, 2021 19:25
[2021-08-02 22:00] VITALS: BP 107/55
[2021-08-02] MEDS: MONTELUKAST 10 MG TAB PO SCH (23:13)
[2021-08-03] MEDS ORDERED: PROCHLORPERAZINE 10MG/2ML VIAL (J0780 PER 1) IV PRN (00:55)
[2021-08-03] MEDS: POLYVINYL ALCOHOL OPHTH SOLN 15 ML(LIQUITEARS) OU SCH ×5 (05:30→20:59)
[2021-08-03 06:00] VITALS: BP 124/83
[2021-08-03] MEDS: SYMBICORT 80/4.5MCG INHALER 6GM INH SCH ×2 (07:47→19:40)
[2021-08-03] MEDS: predniSONE 1 MG TAB PO SCH (09:26)
[2021-08-03] MEDS: TORSEMIDE 20 MG TAB PO SCH (09:26)
[2021-08-03] MEDS: DOCUSATE SODIUM 100MG CAPSULE PO SCH ×2 (09:26→20:58)
[2021-08-03] MEDS: metOLazone 5 MG TAB PO SCH (09:26)
[2021-08-03] MEDS: FAMOTIDINE 20 MG TAB PO SCH ×2 (09:26→17:31)
[2021-08-03] MEDS: NYSTATIN 500,000 U/5 ML SUSP UDC SS SCH ×3 (09:26→20:59)
[2021-08-03] MEDS: HYDROXYCHLOROQUINE 200 MG TAB PO SCH (09:26)
[2021-08-03] MEDS: LACTOBACILLUS ACIDOPHILUS CAP (BACID) PO SCH ×2 (09:26→17:31)
[2021-08-03] MEDS: NYSTATIN 100,000 UNITS/GM TOPICAL PWD 15 GM TOP SCH ×2 (09:27→20:59)
[2021-08-03] MEDS: METOPROLOL SUCC (TopROL XL) 100MG *XL* TAB PO SCH (09:29)
[2021-08-03 09:31] LABS: HEMATOCRIT 38.1 % (36.0-47.0); HEMOGLOBIN 11.9 g/dl (12.0-15.5); MEAN CORPUSCULAR HEMOGLOBIN 31.6 pg (27.0-33.0); MEAN CORPUSCULAR HGB CONC 31.2 g/dl (32.0-36.5); MEAN CORPUSCULAR VOLUME 101.1 fl (80.0-96.0); PLATELET COUNT, AUTOMATED 162 10^3/uL (150-450); RED BLOOD COUNT 3.77 10^6/uL (4.00-5.40); WHITE BLOOD COUNT 10.5 10^3/uL (4.0-10.0)
[2021-08-03 10:05] LABS: CALCIUM LEVEL 9.1 MG/DL (8.8-10.2); CREATININE FOR GFR 1.74 MG/DL (0.55-1.30); GLOMERULAR FILTRATION RATE 29.3 (>32); MAGNESIUM LEVEL 1.8 MG/DL (1.8-2.4); POTASSIUM SERUM 3.7 MEQ/L (3.5-5.1)
[2021-08-03] MEDS: cefTRIAXone SOD 1 GM in D5W MINI-BAG PLUS 50 ML IV SCH (13:00)
[2021-08-03 14:00] VITALS: BP 104/58
--- NOTE | 2021-08-03 19:24 | IPNPDOC ---
Date Seen The patient was seen on 08/03/21. Progress Note SUBJECTIVE: No acute events overnight. AAOx3. Denies chest pain, shortness of breath, fevers, chills. OBJECTIVE: PHYSICAL EXAMINATION: VS: Stable, see below CONSTITUTIONAL: No acute distress, resting comfortably, AAO x 3 EYES: PERRLA, EOM intact, bruising around both eyes/left forehead . Tenderness of anterior scalp HENT, MOUTH: Normocephalic, atraumatic, moist mucous membranes NECK: SUPPLE, no JVD, no lymphadenopathy, no carotid bruit CV: Regular rate and rhythm, S1S2 normal, no murmurs/rubs/gallops RESPIRATORY: Clear to auscultation bilaterally, no rales/rhonchi/wheezes GI: BS positive in 4 quadrants, soft, nontender, nondistended, no rebound or guarding, no organomegaly : Deferred MUSCULOSKELETAL:Point tenderness of lower lumbar spine, left hip but no obvious bruisng here. Normal ROM. No cyanosis, clubbing, swelling, joint deformity, extremity edema INTEGUMENTARY: redness with signs of excoriation beneath anterior pannus. Otherwise Intact, no rashes NEUROLOGIC: Cranial Nerves II-XII are intact, no focal deficits PSYCHIATRIC: Mood and affect are normal LABORATORY DATA: Please see below MICRO: See below IMAGING: Lumbar Spine XR 07/31/21: Transpedicular screws L3 through L5 bilaterally status quo. Vertebral body height and alignment is unchanged. Retrolisthesis of L2 on L3 status quo. Anterolisthesis of L4 and L5 status quo. Bones are demineralized. Discogenic fusion L3-4, L4-5, and L5-S1 status quo. T11 compression fracture again noted and appears unchanged. CT Maxillofacial 07/31/21: No acute fracture or dislocation. CT head 07/31/21: 1. Moderate volume loss and small vessel ischemic changes. 2. No acute intracranial abnormality. 3. Moderate left frontal soft tissue swelling and small hematoma formation. Hip/pelvis XR 07/31/21: There is moderate asymmetric bilateral hip joint space narrowing. This has increased bilaterally compared to the prior exam. There is no acute fracture, dislocation, or subluxation. Bilateral transpedicular screws are seen L3 through L5. Shoulder XR 07/29/21: No acute bony injury or malalignment in the visualized right shoulder Cervical c-spine 07/29/21: No acute fracture of the cervical spine. Cervical malalignments are noted as discussed above. Clinical correlation is advised. Interstitial and ground-glass pulmonary opacities to be correlated for interstitial edema or interstitial pneumonitis. Thyroid nodule. Nonemergent evaluation by ultrasound is advised. ASSESSMENT: PLAN: Altered mental status (intermittent) likely 2/2 to UTI-improving -UA +, UCx pending -CT head neg for any change -AAOx3 currently -Ceftriaxone IV -Daily CBC CKD Stage III -Baseline Cr 1.3-1.4 , increased Cr overnight to 1.7 -Stopped metolazone three times weekly, torsemide for now -Watch Cr UTI -UCx pending -See above Hypokalemia likely 2/2 to lasix -K wnl -S/p 60 mEq yesterday -F/u labs in AM Left hip and lumbar back pain s/p PT as o/p, possible strain of hip or back -Hx of T11 compression fracture again noted and appears unchanged on current XR -Imaging above -PT: Pt does become more unsteady as she fatigues and has low activity tolerance. Pt appears to be functioning below her baseline level of mobility. Pt will most likely require continued rehab prior to returning to [place]. -Tramadol PRN. 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 Bazan o/p SLE -Stable, c/w home meds Chronic pain / Arthritis -XR above -C/w home meds Gout -C/w home meds Mild pulmonary HTN -C/w home meds DVT px -SCDs teds. Holding eliquis DISPOSITION: Admitted as acute inpatient. To be discharged 08/04/21 to [facility] in [place], [place] VS, I&O, 24H, Nataliia Vital Signs/I&O Vital Signs Date Time Temp Pulse Resp B/P (MAP) Pulse Ox O2 Delivery O2 Flow Rate FiO2 08/03/21 14:00 99.4 104 19 104/58 (73) 96 Nasal Cannula 2.0 I&O- Last 24 Hours up to 6 AM 08/03/21 06:00 Intake Total 610 ml Output Total 400 ml Balance 210 ml Laboratory Data 24H LABS Laboratory Tests 2 08/03/21 09:18: Nucleated Red Blood Cells % (auto) 0.0, Anion Gap 7L, Glomerular Filtration Rate 29.3L, Calcium Level 9.1, Magnesium Level 1.8 CBC/BMP Laboratory Tests 08/03/21 09:18 Microbiology Microbiology 08/02/21 Urine Culture, Received Pending Susi Rosales MD Aug 03, 2021 19:24
[2021-08-03 19:57] VITALS: BP 102/59
--- NOTE | 2021-08-03 20:58 | DS.PDOC ---
Discharge Summary General Date of Admission Jul 31, 2021 at 14:09 Date of Discharge 08/04/21 Attending Physician: Susi Rosales MD Discharge Summary HISTORY OF PRESENT ILLNESS: Patient is an 89-year-old female with PMH of atrial fibrillation on anticoagulation, chronic HFrEF(35%), hypertension, COPD with chronic O2 2 L, SLE, pulmonary hypertension who presented to [facility] emergency room 07/31/21 with increasing left hip and back pain. According to the patient she had a fall on 07/29/2021 and came to our ER for evaluation that day. She was evaluated and not found to have any acute fracture or break. Over the past several days the patient complains of increasing left pain. She states that she had this pain in her left hip and back prior to her fall and says that it started during physical therapy that she receives at her assisted living facility. She denies having increased pain after her fall several days ago. Her pain she states is beginning in the left hip but can radiate to the lower back in the lumbar region. Pain is 5/10, intermittent, sharp, worsened with activity and improved with the medication. Today the patient came to the emergency room because she states she was having difficulty ambulating. On presentation to the emergency room, vital signs were stable. The patient had frontal scalp and bilateral eye bruising. The patient complained of left hip pain on palpation; however range of motion was not limited. Point tenderness in the lower lumbar area without bruising. X-ray lumbar spine showed old compression fracture; however, x-ray of the hip was negative. The patient was attempted to be ambulated; however, she was unsteady on her feet. The ER called me to admit for further evaluation by physical therapy as the patient is currently a fall risk, lives in assisted living and will need to be near baseline prior to returning. HOSPITAL COURSE: The patient was evaluated by physical therapy who worked with her for several days. Ultimately the patient was found to require continued rehabilitation due to her deconditioned status. She had some confusion on certain days during her hospital course, UA was positive. UTI was found to be secondary to Streptococcus sanguinous, levofloxacin was started. Her creatinine baseline is 1.31.6. She t akes metolazone and torsemide for home medications, torsemide was held. She did not ever jumped high enough to be categorized as acute kidney injury and states that her kidney numbers have been elevated for some time. There was talk of her being referred to nephrology but that did not happen by her primary care. On 08/04/2021 the patient was discharged to [facility] for continued rehab. Eliquis was restarted. At the time of discharge the patient denied chest pain, shortness of breath, fevers, chills, nausea, vomiting, abdominal pain, left hip pain. 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 Lives alone. Uses walker, cane to help ambulate FAMILY HISTORY:Parkinsons disease ALLERGIES: Please see below. DISCHARGE MEDS: Please see below PHYSICAL EXAMINATION: VS: Stable, see below CONSTITUTIONAL: No acute distress, resting comfortably, AAO x 3 EYES: PERRLA, EOM intact, bruising around both eyes/left forehead . Tenderness of anterior scalp HENT, MOUTH: Normocephalic, atraumatic, moist mucous membranes NECK: SUPPLE, no JVD, no lymphadenopathy, no carotid bruit CV: Regular rate and rhythm, S1S2 normal, no murmurs/rubs/gallops RESPIRATORY: Clear to auscultation bilaterally, no rales/rhonchi/wheezes GI: BS positive in 4 quadrants, soft, nontender, nondistended, no rebound or guarding, no organomegaly : Deferred MUSCULOSKELETAL:Point tenderness of lower lumbar spine, left hip but no obvious bruisng here. Normal ROM. No cyanosis, clubbing, swelling, joint deformity, extremity edema INTEGUMENTARY: redness with signs of excoriation beneath anterior pannus. Otherwise Intact, no rashes NEUROLOGIC: Cranial Nerves II-XII are intact, no focal deficits PSYCHIATRIC: Mood and affect are normal LABORATORY DATA: Please see below MICRO: BCx NG UCx: Strep Sanguinous IMAGING: Lumbar Spine XR 07/31/21: Transpedicular screws L3 through L5 bilaterally status quo. Vertebral body height and alignment is unchanged. Retrolisthesis of L2 on L3 status quo. Anterolisthesis of L4 and L5 status quo. Bones are demineralized. Discogenic fusion L3-4, L4-5, and L5-S1 status quo. T11 compression fracture again noted and appears unchanged. CT Maxillofacial 07/31/21: No acute fracture or dislocation. CT head 07/31/21: 1. Moderate volume loss and small vessel ischemic changes. 2. No acute intracranial abnormality. 3. Moderate left frontal soft tissue swelling and small hematoma formation. Hip/pelvis XR 07/31/21: There is moderate asymmetric bilateral hip joint space narrowing. This has increased bilaterally compared to the prior exam. There is no acute fracture, dislocation, or subluxation. Bilateral transpedicular screws are seen L3 through L5. Shoulder XR 07/29/21: No acute bony injury or malalignment in the visualized right shoulder Cervical c-spine 07/29/21: No acute fracture of the cervical spine. Cervical malalignments are noted as discussed above. Clinical correlation is advised. Interstitial and ground-glass pulmonary opacities to be correlated for interstitial edema or interstitial pneumonitis. Thyroid nodule. Nonemergent evaluation by ultrasound is advised. ASSESSMENT: 89 y/o F with PMH of atrial fibrillation on anticoagulation, chronic HFrEF(35%), hypertension, COPD with chronic O2 2 L, SLE, pulmonary hypertension admitted for ambulatory dysfunction s/p fall. PLAN: Altered mental status (intermittent) likely 2/2 to UTI-improved -UA +, UCx above -CT head neg for any change -AAOx3 currently -Ceftriaxone IV initially started but later switched to levofloxacin when sensitivities returned. Continue until completion. CKD Stage III -Baseline Cr 1.3-1.6 , Cr 1.6 at discharge. -Stopped torsemide at discharge and continued metolazone. Would recommend repeat BMP to check Cr prior to reinstituting torsemide at home dose. -Suggest referral to by PCP to nephrology after rehab Streptococcus Sanguinous UTI -UCx above -Levofloxacin x 4 additional days to complete today of 7 days Chronic HFrEF(35%) with HFpEF -Stable and not in exacerbation -C/w home medications -Follows with Dr. Kerr o/p Hypokalemia likely 2/2 to diuretics -K supplemented PRN -F/u labs Left hip and lumbar back pain s/p PT as o/p, possible strain of hip or back -Hx of T11 compression fracture again noted and appears unchanged on current XR -Imaging above -PT: Pt does become more unsteady as she fatigues and has low activity tolerance. Pt appears to be functioning below her baseline level of mobility. Pt will most likely require continued rehab prior to returning to [place]. -C/w PT/OT -Tramadol PRN. 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 Bazan o/p SLE -Stable, c/w home meds Chronic pain / Arthritis -XR above -C/w home meds Gout -C/w home meds Mild pulmonary HTN -C/w home meds DISPOSITION: D/c to [facility] in [place], [place] TIME SPENT ON DISCHARGE: 35 minutes. Vital Signs/I&Os Vital Signs Date Time Temp Pulse Resp B/P (MAP) Pulse Ox O2 Delivery O2 Flow Rate FiO2 08/03/21 19:57 98.8 89 18 102/59 (73) 98 2.0 08/03/21 14:00 Nasal Cannula I&O- Last 24 Hours up to 6 AM 08/03/21 06:00 Intake Total 610 ml Output Total 400 ml Balance 210 ml Laboratory Data Labs 24H Laboratory Tests 2 08/03/21 09:18: Nucleated Red Blood Cells % (auto) 0.0, Anion Gap 7L, Glomerular Filtration Rate 29.3L, Calcium Level 9.1, Magnesium Level 1.8 CBC/BMP Laboratory Tests 08/03/21 09:18 Microbiology Microbiology 08/02/21 Urine Culture, Received Pending Discharge Medications Scheduled Apixaban (Eliquis) 2.5 Mg Tablet, 2.5 MG PO BID, (Reported) Budesonide/Formoterol (Symbicort 80-4.5 Mcg Inhaler) 60 Puff/Inhaler Aers, 2 PUFF INH BID, (Reported) Carboxymethyl/Glycerin/Poly80 (Refresh Optive Advanced Drops) 1 Kassy Kassy, 1 DROP OU QID, (Reported) Carboxymethyl/Glycerin/Poly80 (Refresh Digital Eye Drops) 0.5 %-1 %-0.5 % Drops, 1 DROP OP QHS, (Reported) Docusate Sodium (Colace) 100 Mg Cap, 200 MG PO BID, (Reported) Famotidine (Famotidine) 20 Mg Tablet, 20 MG PO BID, (Reported) 0900, 1700 Hydroxychloroquine Sulfate (Hydroxychloroquine Sulfate) 200 Mg Tab, 200 MG PO DAILY, (Reported) L. Acidophilus/L.bulgaricus (Floranex Tablet) 1 Each Tablet, 1 TAB PO DAILY, (Reported) Levofloxacin (Levofloxacin) 250 Mg Tablet, 250 MG PO DAILY Metolazone (Metolazone) 5 Mg Tablet, 5 MG PO 3XW, (Reported) FRIDAY, FRIDAY AND FRIDAY Metoprolol Succinate (Metoprolol Succinate) 200 Mg Tab.er.24h, 200 MG PO DAILY, (Reported) Montelukast Sodium (Montelukast Sodium) 10 Mg Tablet, 10 MG PO QHS, (Reported) Nystatin (Nystatin Powder) 15 Gm Powder, 1 DOSE TOP BID, (Reported) APPLY TO ABDOMINAL FOLDS Prednisone (Prednisone) 1 Mg Tablet, 2 MG PO DAILY, (Reported) Scheduled PRN Acetaminophen (Tylenol) 325 Mg Tablet, 650 MG PO Q4H PRN for PAIN LEVEL 1-5, (Reported) Fexofenadine/Pseudoephedrine (Sierra-D 12 Hour Tablet) 1 Tab Tab, 1 TAB PO BID PRN for CONGESTION, (Reported) Levalbuterol Hydrochloride (Xopenex Hfa) 45 Mcg/Act Aer, 1 PUFF INH Q4H PRN for SHORTNESS OF BREATH, (Reported) Loperamide HCl (Imodium A-D) 2 Mg Tablet, 2 MG PO QID PRN for LOOSE STOOLS, (Reported) Magnesium Hydroxide (Milk of Magnesia) 400 Mg/5 Ml Oral.susp, 30 ML PO DAILY PRN for CONSTIPATION, (Reported) Polyethylene Glycol 3350 (Miralax) 17 Gm Powd.pack, 17 GM PO DAILY PRN for CONSTIPATION, (Reported) Simethicone (Gas-X) 125 Mg Tab.chew, 125 MG PO TID PRN for GERD WITHOUT ESOPHAGITIS, (Reported) 0800,1300,1800 Suvorexant (Belsomra) 20 Mg Tablet, 20 MG PO QHS PRN for INSOMNIA, (Reported) Tramadol HCl (Tramadol HCl) 50 Mg Tablet, 50 MG PO TID PRN for PAIN LEVEL 6-10, (Reported) Allergies Coded Allergies: NSAIDS (Non-Steroidal Anti-Inflamma (Verified Allergy, Intermediate, CHEST PAIN, 03/16/20) TAKES ASPIRIN AT HOME Aqlhbol-Hez-Gub Reductase Inhibitor (Verified Allergy, Intermediate, SWOLLEN JOINTS, 03/16/20) etodolac (Verified Allergy, Intermediate, HIVES, 03/16/20) Sulfa (Sulfonamide Antibiotics) (Verified Allergy, Mild, RASH, 03/16/20) lidocaine (Verified Allergy, Mild, RASH, 03/16/20) nickel (Verified Allergy, Mild, RASH, 03/16/20) ibuprofen (Verified Adverse Reaction, Intermediate, CHEST PAIN, 03/16/20) TAKES ASPIRIN AT HOME lactose (Verified Adverse Reaction, Unknown, lactose intolerant, 03/16/20) Susi Rosales MD Aug 03, 2021 20:58
[2021-08-03] MEDS: traMADol 50 MG TAB PO PRN (20:59)
[2021-08-03] MEDS: MONTELUKAST 10 MG TAB PO SCH (20:59)
[2021-08-04] MEDS: POLYVINYL ALCOHOL OPHTH SOLN 15 ML(LIQUITEARS) OU SCH ×2 (05:02→09:02)
[2021-08-04] MEDS: traMADol 50 MG TAB PO PRN (05:57)
[2021-08-04 06:00] VITALS: BP 115/72
[2021-08-04 06:30] LABS: HEMATOCRIT 34.5 % (36.0-47.0); HEMOGLOBIN 10.8 g/dl (12.0-15.5); MEAN CORPUSCULAR HEMOGLOBIN 31.3 pg (27.0-33.0); MEAN CORPUSCULAR HGB CONC 31.3 g/dl (32.0-36.5); PLATELET COUNT, AUTOMATED 167 10^3/uL (150-450); RED BLOOD COUNT 3.45 10^6/uL (4.00-5.40); WHITE BLOOD COUNT 9.8 10^3/uL (4.0-10.0)
[2021-08-04 06:47] LABS: CREATININE FOR GFR 1.63 MG/DL (0.55-1.30); GLOMERULAR FILTRATION RATE 31.6 (>32); POTASSIUM SERUM 3.3 MEQ/L (3.5-5.1)
[2021-08-04] MEDS: SYMBICORT 80/4.5MCG INHALER 6GM INH SCH (08:02)
[2021-08-04] MEDS ORDERED: LevoFLOXacin 250 MG TABLET PO SCH (08:55)
[2021-08-04] MEDS ORDERED: LEVO250T12 PO (08:55)
[2021-08-04] MEDS: FAMOTIDINE 20 MG TAB PO SCH (09:01)
[2021-08-04 09:02] VITALS: BP 111/72
[2021-08-04] MEDS: NYSTATIN 500,000 U/5 ML SUSP UDC SS SCH (09:02)
[2021-08-04] MEDS: LACTOBACILLUS ACIDOPHILUS CAP (BACID) PO SCH (09:02)
[2021-08-04] MEDS: DOCUSATE SODIUM 100MG CAPSULE PO SCH (09:02)
[2021-08-04] MEDS: METOPROLOL SUCC (TopROL XL) 100MG *XL* TAB PO SCH (09:02)
[2021-08-04] MEDS: HYDROXYCHLOROQUINE 200 MG TAB PO SCH (09:02)
[2021-08-04] MEDS: predniSONE 1 MG TAB PO SCH (09:02)
[2021-08-04] MEDS: NYSTATIN 100,000 UNITS/GM TOPICAL PWD 15 GM TOP SCH (09:03)
[2021-08-04] MEDS: SIMETHICONE 80MG CHEW TAB PO PRN (09:23)
[2021-08-05] MEDS ORDERED: LevoFLOXacin 250 MG TABLET PO SCH (06:00)
== END 2021-08-04 12:29 | DRG 556 ==
LOC: M ED 11:14 → M ED INP 14:09 → ENRESERV 16:47 → M MSPAV 17:40
PROVIDERS: ADMIT Internal Medicine; ATTEND Internal Medicine
DX: M25.552 Pain in left hip (principal); I48.11 Longstanding persistent atrial fibrillation; I50.32 Chronic diastolic (congestive) heart failure; J96.10 Chronic respiratory failure, unspecified whether with hypoxia or hypercapnia; N39.0 Urinary tract infection, site not specified; I13.0 Hypertensive heart and chronic kidney disease with heart failure and stage 1 through stage 4 chronic kidney disease, or unspecified chronic kidney disease; E04.1 Nontoxic single thyroid nodule; B37.2 Candidiasis of skin and nail; S00.03XA Contusion of scalp, initial encounter; R73.03 Prediabetes; J44.9 Chronic obstructive pulmonary disease, unspecified; M32.9 Systemic lupus erythematosus, unspecified; Z66 Do not resuscitate; G89.29 Other chronic pain; N18.30 Chronic kidney disease, stage 3 unspecified; R41.82 Altered mental status, unspecified; M48.54XD Collapsed vertebra, not elsewhere classified, thoracic region, subsequent encounter for fracture with routine healing; W18.30XA Fall on same level, unspecified, initial encounter; E73.9 Lactose intolerance, unspecified; E87.6 Hypokalemia; I27.20 Pulmonary hypertension, unspecified; Z79.01 Long term (current) use of anticoagulants; Z79.899 Other long term (current) drug therapy; Z79.52 Long term (current) use of systemic steroids; Z88.6 Allergy status to analgesic agent; Z88.2 Allergy status to sulfonamides; Z88.4 Allergy status to anesthetic agent; Z88.8 Allergy status to other drugs, medicaments and biological substances; Z91.048 Other nonmedicinal substance allergy status; Z99.81 Dependence on supplemental oxygen; Y99.8 Other external cause status; Y93.9 Activity, unspecified; Y92.199 Unspecified place in other specified residential institution as the place of occurrence of the external cause

== ENCOUNTER → 2021-09-17 | Outpatient (REF) | payer MEDICARE, MEDICAID ==
[~2021-09-17] MED LIST changes: +CARB10DR5 OP; +LEVO250T12 PO
[2021-09-17 11:03] LABS: HEMATOCRIT 36.1 % (36.0-47.0); MEAN CORPUSCULAR HEMOGLOBIN 31.5 pg (27.0-33.0); MEAN CORPUSCULAR HGB CONC 30.5 g/dl (32.0-36.5); MEAN CORPUSCULAR VOLUME 103.4 fl (80.0-96.0); PLATELET COUNT, AUTOMATED 148 10^3/uL (150-450); RED BLOOD COUNT 3.49 10^6/uL (4.00-5.40); WHITE BLOOD COUNT 5.4 10^3/uL (4.0-10.0)
[2021-09-17 12:00] LABS: CALCIUM LEVEL 8.9 MG/DL (8.8-10.2); CREATININE FOR GFR 0.99 MG/DL (0.55-1.30); GLOMERULAR FILTRATION RATE 56.2 (>32); POTASSIUM SERUM 3.9 MEQ/L (3.5-5.1)
== END ==
PROVIDERS: ATTEND Physician Assistant
DX: R60.9 Edema, unspecified (principal)

== ENCOUNTER → 2021-09-18 | Outpatient (CLI) | payer MEDICARE, MEDICAID ==
[~2021-09-18] MED LIST changes: -FLUC150T PO; +FLUC150T9 PO; -LEVO250T12 PO; +LEVO250T3 PO; -MONT10TA10 PO; +MONT10TA97 PO
== END ==
PROVIDERS: ATTEND Internal Medicine
DX: J90 Pleural effusion, not elsewhere classified (principal); J98.11 Atelectasis

== ENCOUNTER → 2021-09-19 | Outpatient (REF) | payer MEDICAID, MEDICARE ==
[2021-09-19 12:27] LABS: HEMATOCRIT 37.9 % (36.0-47.0); HEMOGLOBIN 11.6 g/dl (12.0-15.5); MEAN CORPUSCULAR HEMOGLOBIN 31.7 pg (27.0-33.0); MEAN CORPUSCULAR HGB CONC 30.6 g/dl (32.0-36.5); MEAN CORPUSCULAR VOLUME 103.6 fl (80.0-96.0); PLATELET COUNT, AUTOMATED 167 10^3/uL (150-450); RED BLOOD COUNT 3.66 10^6/uL (4.00-5.40); WHITE BLOOD COUNT 6.7 10^3/uL (4.0-10.0)
[2021-09-19 13:01] LABS: CALCIUM LEVEL 9.1 MG/DL (8.8-10.2); CREATININE FOR GFR 0.96 MG/DL (0.55-1.30); GLOMERULAR FILTRATION RATE 58.3 (>32)
== END ==
PROVIDERS: ATTEND Internal Medicine
DX: R53.83 Other fatigue (principal)

== ENCOUNTER → 2021-09-20 | Outpatient (CLI) | payer MEDICARE, MEDICAID ==
[~2021-09-20] MED LIST changes: +FLUC150T PO; -FLUC150T9 PO; +LEVO250T12 PO; -LEVO250T3 PO; +MONT10TA10 PO; -MONT10TA97 PO
--- NOTE | 2021-09-20 16:27 | REP ---
INDICATION: L RIB PAIN. COMPARISON: Chest 09/18/2021. TECHNIQUE: Four views left ribs. FINDINGS: There is no evidence of left rib fracture or bone lesion. There is a left pleural effusion with mild adjacent atelectasis/infiltrate. IMPRESSION: No left rib fracture. There is a left pleural effusion with mild adjacent atelectasis/infiltrate. <Electronically signed by Tomas Mejia > 09/20/21 0020
== END ==
LOC: M LAB 15:38
PROVIDERS: ATTEND Internal Medicine
DX: R07.81 Pleurodynia (principal)

== ENCOUNTER → 2021-09-21 | Outpatient (REF) | payer MEDICARE, MEDICAID ==
[~2021-09-21] MED LIST changes: -FLUC150T PO; +FLUC150T9 PO; -LEVO250T12 PO; +LEVO250T3 PO; -MONT10TA10 PO; +MONT10TA97 PO
[2021-09-21 11:44] LABS: HEMOGLOBIN 11.7 g/dl (12.0-15.5); MEAN CORPUSCULAR HEMOGLOBIN 31.5 pg (27.0-33.0); MEAN CORPUSCULAR HGB CONC 31.6 g/dl (32.0-36.5); MEAN CORPUSCULAR VOLUME 99.5 fl (80.0-96.0); PLATELET COUNT, AUTOMATED 168 10^3/uL (150-450); RED BLOOD COUNT 3.72 10^6/uL (4.00-5.40); WHITE BLOOD COUNT 7.2 10^3/uL (4.0-10.0)
[2021-09-21 12:56] LABS: CALCIUM LEVEL 9.5 MG/DL (8.8-10.2); CREATININE FOR GFR 0.99 MG/DL (0.55-1.30); GLOMERULAR FILTRATION RATE 56.2 (>32); POTASSIUM SERUM 3.9 MEQ/L (3.5-5.1)
== END ==
PROVIDERS: ATTEND Internal Medicine
DX: I50.9 Heart failure, unspecified (principal)

== ENCOUNTER → 2021-09-21 | Outpatient (REF) | payer MEDICARE, MEDICAID ==
[~2021-09-21] MED LIST changes: +FLUC150T PO; -FLUC150T9 PO; +LEVO250T12 PO; -LEVO250T3 PO; +MONT10TA10 PO; -MONT10TA97 PO
== END ==
PROVIDERS: ATTEND Internal Medicine
DX: I50.9 Heart failure, unspecified (principal); Z53.9 Procedure and treatment not carried out, unspecified reason

== ENCOUNTER → 2021-09-24 | Outpatient (REF) | payer MEDICAID, MEDICARE ==
[~2021-09-24] MED LIST changes: -FLUC150T PO; +FLUC150T9 PO; -LEVO250T12 PO; +LEVO250T3 PO; -MONT10TA10 PO; +MONT10TA97 PO
[2021-09-24 10:49] LABS: HEMATOCRIT 35.5 % (36.0-47.0); MEAN CORPUSCULAR HEMOGLOBIN 31.6 pg (27.0-33.0); PLATELET COUNT, AUTOMATED 189 10^3/uL (150-450); RED BLOOD COUNT 3.48 10^6/uL (4.00-5.40); WHITE BLOOD COUNT 6.7 10^3/uL (4.0-10.0)
[2021-09-24 11:18] LABS: CALCIUM LEVEL 8.7 MG/DL (8.8-10.2); CREATININE FOR GFR 1.31 MG/DL (0.55-1.30); GLOMERULAR FILTRATION RATE 40.7 (>32); POTASSIUM SERUM 3.4 MEQ/L (3.5-5.1)
== END ==
PROVIDERS: ATTEND Physician Assistant
DX: I50.9 Heart failure, unspecified (principal); J90 Pleural effusion, not elsewhere classified

== ENCOUNTER → 2021-09-24 | Outpatient (CLI) | payer MEDICARE, MEDICAID ==
[~2021-09-24] MED LIST changes: +FLUC150T PO; -FLUC150T9 PO; +LEVO250T12 PO; -LEVO250T3 PO; +MONT10TA10 PO; -MONT10TA97 PO
--- NOTE | 2021-09-24 15:58 | REP ---
INDICATION: SOB COMPARISON: 09/18/2021 TECHNIQUE: Portable AP view of the chest FINDINGS: Cardiomegaly with diffuse increased interstitial markings, pulmonary vascular prominence, cephalization, subtle diffuse airspace disease, left lower lobe consolidation and suspected moderate left effusion. Findings are most compatible with CHF. No pneumothorax. Skeletal structures are intact. IMPRESSION: Findings most compatible with cardiomegaly and CHF. <Electronically signed by Doyle Coronel > 09/24/21 1914
== END ==
PROVIDERS: ATTEND Internal Medicine
DX: J90 Pleural effusion, not elsewhere classified (principal)

== ENCOUNTER → 2021-09-26 | Outpatient (REF) ==
[2021-09-26 10:58] LABS: HEMATOCRIT 35.6 % (36.0-47.0); HEMOGLOBIN 11.1 g/dl (12.0-15.5); MEAN CORPUSCULAR HEMOGLOBIN 31.6 pg (27.0-33.0); MEAN CORPUSCULAR HGB CONC 31.2 g/dl (32.0-36.5); MEAN CORPUSCULAR VOLUME 101.4 fl (80.0-96.0); PLATELET COUNT, AUTOMATED 196 10^3/uL (150-450); RED BLOOD COUNT 3.51 10^6/uL (4.00-5.40)
[2021-09-26 11:36] LABS: CREATININE FOR GFR 1.17 MG/DL (0.55-1.30); GLOMERULAR FILTRATION RATE 46.4 (>32); POTASSIUM SERUM 3.1 MEQ/L (3.5-5.1)
== END ==
PROVIDERS: ATTEND Physician Assistant
DX: R06.02 Shortness of breath (principal)

== ENCOUNTER → 2021-09-28 | Outpatient (REF) | payer MEDICARE, MEDICAID ==
[~2021-09-28] MED LIST changes: -FLUC150T PO; +FLUC150T9 PO; -LEVO250T12 PO; +LEVO250T3 PO; -MONT10TA10 PO; +MONT10TA97 PO
[2021-09-28 11:41] LABS: CREATININE FOR GFR 1.22 MG/DL (0.55-1.30); GLOMERULAR FILTRATION RATE 44.2 (>32); POTASSIUM SERUM 3.4 MEQ/L (3.5-5.1)
== END ==
PROVIDERS: ATTEND Physician Assistant
DX: I50.9 Heart failure, unspecified (principal)

== ENCOUNTER → 2021-10-23 | Outpatient (REF) | payer MEDICARE, MEDICAID ==
[~2021-10-23] MED LIST changes: +FLUC150T PO; -FLUC150T9 PO
== END ==
PROVIDERS: ATTEND Physician Assistant
DX: I50.9 Heart failure, unspecified (principal); Z53.9 Procedure and treatment not carried out, unspecified reason

== ENCOUNTER → 2021-10-24 | Outpatient (REF) | payer MEDICARE, MEDICAID ==
[2021-10-24 10:52] LABS: HEMATOCRIT 32.8 % (36.0-47.0); HEMOGLOBIN 9.9 g/dl (12.0-15.5); MEAN CORPUSCULAR HEMOGLOBIN 31.5 pg (27.0-33.0); MEAN CORPUSCULAR HGB CONC 30.2 g/dl (32.0-36.5); MEAN CORPUSCULAR VOLUME 104.5 fl (80.0-96.0); PLATELET COUNT, AUTOMATED 175 10^3/uL (150-450); RED BLOOD COUNT 3.14 10^6/uL (4.00-5.40); WHITE BLOOD COUNT 8.2 10^3/uL (4.0-10.0)
[2021-10-24 12:05] LABS: CALCIUM LEVEL 9.6 MG/DL (8.8-10.2); CREATININE FOR GFR 1.2 MG/DL (0.55-1.30); MAGNESIUM LEVEL 2.1 MG/DL (1.8-2.4); POTASSIUM SERUM 3.8 MEQ/L (3.5-5.1)
== END ==
PROVIDERS: ATTEND Internal Medicine
DX: I50.9 Heart failure, unspecified (principal)

== ENCOUNTER → 2021-10-31 | Outpatient (CLI) | payer MEDICARE, MEDICAID | LOC: M RAD 13:40 | PROVIDERS: ATTEND Internal Medicine | DX: E04.1 Nontoxic single thyroid nodule (principal) ==

== ENCOUNTER → 2021-11-05 | Outpatient (REF) | payer MEDICARE, MEDICAID ==
[2021-11-05 10:27] LABS: HEMATOCRIT 34.2 % (36.0-47.0); HEMOGLOBIN 10.6 g/dl (12.0-15.5); MEAN CORPUSCULAR HEMOGLOBIN 31.6 pg (27.0-33.0); MEAN CORPUSCULAR VOLUME 102.1 fl (80.0-96.0); PLATELET COUNT, AUTOMATED 171 10^3/uL (150-450); RED BLOOD COUNT 3.35 10^6/uL (4.00-5.40)
[2021-11-05 11:35] LABS: CALCIUM LEVEL 9.4 MG/DL (8.8-10.2); CREATININE FOR GFR 1.38 MG/DL (0.55-1.30); GLOMERULAR FILTRATION RATE 38.3 (>32); MAGNESIUM LEVEL 2.2 MG/DL (1.8-2.4); POTASSIUM SERUM 3.5 MEQ/L (3.5-5.1); THYROID STIMULATING HORMONE 1.83 uIU/ML (0.358-3.740); THYROXINE (T4) 8.8 UG/DL (4.5-12.0)
[2021-11-05 13:15] LABS: FREE T3 2.5 PG/ML (2.2-4.0)
== END ==
PROVIDERS: ATTEND Internal Medicine
DX: E04.1 Nontoxic single thyroid nodule (principal)

== ENCOUNTER → 2021-11-12 | Outpatient (REF) | payer MEDICARE, MEDICAID ==
[~2021-11-12] MED LIST changes: -FLUC150T PO; +FLUC150T9 PO
== END ==
PROVIDERS: ATTEND Internal Medicine
DX: J06.9 Acute upper respiratory infection, unspecified (principal)

== ENCOUNTER → 2021-11-19 | Outpatient (REF) | payer MEDICARE, MEDICAID ==
[2021-11-19 11:24] LABS: CALCIUM LEVEL 9.1 MG/DL (8.8-10.2); CREATININE FOR GFR 1.61 MG/DL (0.55-1.30); GLOMERULAR FILTRATION RATE 32.1 (>32); POTASSIUM SERUM 3.6 MEQ/L (3.5-5.1)
[2021-11-20 08:34] LABS: MAGNESIUM LEVEL 1.9 MG/DL (1.7-2.2)
== END ==
PROVIDERS: ATTEND Internal Medicine
DX: I50.9 Heart failure, unspecified (principal); I11.0 Hypertensive heart disease with heart failure

== ENCOUNTER → 2021-11-28 | Outpatient (REF) | payer MEDICARE, MEDICAID ==
[2021-11-28 12:06] LABS: CALCIUM LEVEL 9.4 MG/DL (8.8-10.2); CREATININE FOR GFR 1.45 MG/DL (0.55-1.30); GLOMERULAR FILTRATION RATE 36.2 (>32); POTASSIUM SERUM 4.3 MEQ/L (3.5-5.1)
== END ==
PROVIDERS: ATTEND Internal Medicine
DX: I50.9 Heart failure, unspecified (principal)

== ENCOUNTER → 2021-12-03 | Outpatient (REF) | payer MEDICARE, MEDICAID ==
[2021-12-03 11:04] LABS: HEMATOCRIT 31.8 % (36.0-47.0); HEMOGLOBIN 9.6 g/dl (12.0-15.5); MEAN CORPUSCULAR HEMOGLOBIN 32.3 pg (27.0-33.0); MEAN CORPUSCULAR HGB CONC 30.2 g/dl (32.0-36.5); MEAN CORPUSCULAR VOLUME 107.1 fl (80.0-96.0); PLATELET COUNT, AUTOMATED 150 10^3/uL (150-450); RED BLOOD COUNT 2.97 10^6/uL (4.00-5.40)
[2021-12-03 11:39] LABS: CALCIUM LEVEL 9.2 MG/DL (8.8-10.2); CREATININE FOR GFR 1.49 MG/DL (0.55-1.30); GLOMERULAR FILTRATION RATE 35.1 (>32); POTASSIUM SERUM 4.7 MEQ/L (3.5-5.1)
== END ==
PROVIDERS: ATTEND Internal Medicine
DX: I10 Essential (primary) hypertension (principal)

== ENCOUNTER → 2021-12-04 | Outpatient (REF) | payer MEDICARE, MEDICAID | PROVIDERS: ATTEND Internal Medicine | DX: J02.9 Acute pharyngitis, unspecified (principal) ==

== ENCOUNTER → 2021-12-07 | Outpatient (REF) | payer MEDICARE, MEDICAID ==
[2021-12-07 19:05] LABS: CALCIUM LEVEL 8.9 MG/DL (8.8-10.2); CREATININE FOR GFR 1.84 MG/DL (0.55-1.30); GLOMERULAR FILTRATION RATE 27.5 (>32); POTASSIUM SERUM 4.2 MEQ/L (3.5-5.1)
== END ==
PROVIDERS: ATTEND Internal Medicine
DX: R06.02 Shortness of breath (principal)

== ENCOUNTER → 2021-12-24 | Outpatient (REF) | payer MEDICARE, MEDICAID ==
[2021-12-24 11:44] LABS: HEMATOCRIT 31.6 % (36.0-47.0); HEMOGLOBIN 9.8 g/dl (12.0-15.5); MEAN CORPUSCULAR HEMOGLOBIN 32.5 pg (27.0-33.0); MEAN CORPUSCULAR VOLUME 104.6 fl (80.0-96.0); PLATELET COUNT, AUTOMATED 137 10^3/uL (150-450); RED BLOOD COUNT 3.02 10^6/uL (4.00-5.40); WHITE BLOOD COUNT 6.2 10^3/uL (4.0-10.0)
[2021-12-24 12:38] LABS: CALCIUM LEVEL 8.7 MG/DL (8.8-10.2); CREATININE FOR GFR 1.83 MG/DL (0.55-1.30); GLOMERULAR FILTRATION RATE 27.7 (>32); HEMOGLOBIN A1c 5.8 %; POTASSIUM SERUM 3.5 MEQ/L (3.5-5.1); URIC ACID 12.3 MG/DL (2.6-6.0)
== END ==
PROVIDERS: ATTEND Internal Medicine
DX: N18.9 Chronic kidney disease, unspecified (principal); I13.0 Hypertensive heart and chronic kidney disease with heart failure and stage 1 through stage 4 chronic kidney disease, or unspecified chronic kidney disease; I50.9 Heart failure, unspecified; Z79.899 Other long term (current) drug therapy

== ENCOUNTER → 2021-12-24 | Outpatient (REF) | payer MEDICARE, MEDICAID ==
[2021-12-24 16:49] LABS: APPEARANCE, URINE CLEAR (CLEAR); BACTERIA, URINE AUTO NEGATIVE (NEGATIVE); BILIRUBIN, URINE AUTO NEGATIVE (NEGATIVE); BLOOD, URINE BLOOD NEGATIVE (NEGATIVE); COLOR, URINE STRAW (YELLOW); GLUCOSE, URINE (UA) AUTO NEGATIVE (NEGATIVE); KETONE, URINE AUTO NEGATIVE (NEGATIVE); LEUKOCYTE ESTERASE, URINE AUTO TRACE (NEGATIVE); MUCUS, URINE SMALL (NEGATIVE); NITRITE, URINE AUTO NEGATIVE (NEGATIVE); PROTEIN, URINE AUTO NEGATIVE (NEGATIVE); RBC, URINE AUTO 1 /HPF (0-3); SPECIFIC GRAVITY URINE AUTO 1.009 (1.002-1.035); SQUAMOUS EPITHELIAL CELL UR AU 0 /HPF (0-6); UROBILINOGEN, URINE AUTO 0.2 mg/dL (0.0-2.0); WBC, URINE AUTO 3 /HPF (0-3)
[2021-12-24 16:56] LABS: CREATININE,RANDOM URINE 24.1 MG/DL; TOTAL PROTEIN,RANDOM URINE 10.2 MG/DL (0.0-12.0)
== END ==
LOC: M SFHCRHEU 15:59
PROVIDERS: ATTEND Internal Medicine
DX: R76.8 Other specified abnormal immunological findings in serum (principal)

== ENCOUNTER → 2022-01-02 | Outpatient (REF) | payer MEDICARE, MEDICAID | PROVIDERS: ATTEND Internal Medicine | DX: I10 Essential (primary) hypertension (principal); Z53.9 Procedure and treatment not carried out, unspecified reason ==

== ENCOUNTER → 2022-01-30 | Outpatient (CLI) | payer MEDICARE, MEDICAID | LOC: M RAD 14:29 | PROVIDERS: ATTEND Nurse Practitioner Adult Health | DX: R29.6 Repeated falls (principal) ==

== ENCOUNTER → 2022-01-30 | Outpatient (REF) | payer MEDICARE, MEDICAID ==
[2022-01-30 12:01] LABS: HEMATOCRIT 33.4 % (36.0-47.0); HEMOGLOBIN 10.2 g/dl (12.0-15.5); MEAN CORPUSCULAR HEMOGLOBIN 32.2 pg (27.0-33.0); MEAN CORPUSCULAR HGB CONC 30.5 g/dl (32.0-36.5); MEAN CORPUSCULAR VOLUME 105.4 fl (80.0-96.0); PLATELET COUNT, AUTOMATED 137 10^3/uL (150-450); RED BLOOD COUNT 3.17 10^6/uL (4.00-5.40); WHITE BLOOD COUNT 6.4 10^3/uL (4.0-10.0)
[2022-01-30 12:31] LABS: CALCIUM LEVEL 9.1 MG/DL (8.8-10.2); CREATININE FOR GFR 1.52 MG/DL (0.55-1.30); GLOMERULAR FILTRATION RATE 34.3 (>32); POTASSIUM SERUM 3.9 MEQ/L (3.5-5.1)
== END ==
PROVIDERS: ATTEND Internal Medicine
DX: R13.10 Dysphagia, unspecified (principal); Z79.899 Other long term (current) drug therapy

== ENCOUNTER → 2022-02-04 | Outpatient (REF) | payer MEDICARE, MEDICAID ==
[2022-02-04 12:07] LABS: HEMATOCRIT 34.5 % (36.0-47.0); HEMOGLOBIN 10.7 g/dl (12.0-15.5); MEAN CORPUSCULAR HEMOGLOBIN 32.1 pg (27.0-33.0); MEAN CORPUSCULAR VOLUME 103.6 fl (80.0-96.0); PLATELET COUNT, AUTOMATED 143 10^3/uL (150-450); RED BLOOD COUNT 3.33 10^6/uL (4.00-5.40); WHITE BLOOD COUNT 5.7 10^3/uL (4.0-10.0)
[2022-02-04 12:29] LABS: CALCIUM LEVEL 10.1 MG/DL (8.8-10.2); CREATININE FOR GFR 1.87 MG/DL (0.55-1.30); POTASSIUM SERUM 3.5 MEQ/L (3.5-5.1)
== END ==
PROVIDERS: ATTEND Internal Medicine
DX: N39.0 Urinary tract infection, site not specified (principal)

== ENCOUNTER → 2022-02-04 | Outpatient (CLI) | payer MEDICARE, MEDICAID | LOC: M RAD 14:10 | PROVIDERS: ATTEND Nurse Practitioner Family | DX: J84.10 Pulmonary fibrosis, unspecified (principal) ==

== ENCOUNTER → 2022-02-11 | Outpatient (REF) | payer MEDICARE, MEDICAID ==
[2022-02-12 11:26] LABS: APPEARANCE, URINE CLEAR (CLEAR); BACTERIA, URINE AUTO NEGATIVE (NEGATIVE); BILIRUBIN, URINE AUTO NEGATIVE (NEGATIVE); BLOOD, URINE BLOOD NEGATIVE (NEGATIVE); COLOR, URINE YELLOW (YELLOW); GLUCOSE, URINE (UA) AUTO NEGATIVE (NEGATIVE); KETONE, URINE AUTO NEGATIVE (NEGATIVE); LEUKOCYTE ESTERASE, URINE AUTO NEGATIVE (NEGATIVE); NITRITE, URINE AUTO NEGATIVE (NEGATIVE); PROTEIN, URINE AUTO NEGATIVE (NEGATIVE); RBC, URINE AUTO 0 /HPF (0-3); SQUAMOUS EPITHELIAL CELL UR AU 2 /HPF (0-6); UROBILINOGEN, URINE AUTO 0.2 mg/dL (0.0-2.0); WBC, URINE AUTO 0 /HPF (0-3)
== END ==
PROVIDERS: ATTEND Internal Medicine
DX: R30.0 Dysuria (principal)

== ENCOUNTER → 2022-02-13 | Outpatient (REF) | payer MEDICARE, MEDICAID ==
[2022-02-13 13:10] LABS: HEMATOCRIT 34.6 % (36.0-47.0); HEMOGLOBIN 10.7 g/dl (12.0-15.5); MEAN CORPUSCULAR HEMOGLOBIN 31.9 pg (27.0-33.0); MEAN CORPUSCULAR HGB CONC 30.9 g/dl (32.0-36.5); MEAN CORPUSCULAR VOLUME 103.3 fl (80.0-96.0); PLATELET COUNT, AUTOMATED 137 10^3/uL (150-450); RED BLOOD COUNT 3.35 10^6/uL (4.00-5.40); WHITE BLOOD COUNT 6.3 10^3/uL (4.0-10.0)
[2022-02-13 17:18] LABS: CALCIUM LEVEL 9.6 MG/DL (8.8-10.2); CREATININE FOR GFR 1.85 MG/DL (0.55-1.30); GLOMERULAR FILTRATION RATE 27.3 (>32); MAGNESIUM LEVEL 2.3 MG/DL (1.8-2.4); PHOSPHORUS LEVEL 3.6 MG/DL (2.5-4.9); POTASSIUM SERUM 3.6 MEQ/L (3.5-5.1); TOTAL 25(OH) VITAMIN D 24.2 NG/ML (30.0-100.0)
[2022-02-14 12:05] LABS: DRVV SCREEN 72.4 SEC
[2022-02-14 12:15] LABS: PTT LUPUS TYPE ANTICOAG SCREEN 1.9 (0-1.2)
[2022-02-14 12:24] LABS: DRVV CONFIRM 64.5 SEC; LUPUS CONFIRM RATIO 1.7
[2022-02-14 12:30] LABS: NORMALIZED RATIO 1.12 (0.00-1.20)
[2022-02-14 15:08] LABS: COMPLEMENT TOTAL (CH50) > 60 U/mL (>41)
== END ==
PROVIDERS: ATTEND Internal Medicine
DX: M32.9 Systemic lupus erythematosus, unspecified (principal); N18.32 Chronic kidney disease, stage 3b

== ENCOUNTER → 2022-02-17 | Outpatient (REF) ==
[2022-02-17 18:32] LABS: BASO % 0.3 % (0.0-1.0); EOS # 0.2 10^3/uL (0.0-0.5); EOS % 2.2 % (0.0-3.0); HEMATOCRIT 33.7 % (36.0-47.0); HEMOGLOBIN 10.5 g/dl (12.0-15.5); LYMPH % 12.4 % (24.0-44.0); MEAN CORPUSCULAR HEMOGLOBIN 32.7 pg (27.0-33.0); MEAN CORPUSCULAR HGB CONC 31.2 g/dl (32.0-36.5); MONO # 0.6 10^3/uL (0.0-0.8); MONO % 7.9 % (2.0-8.0); NEUTROPHILS % 76.6 % (36.0-66.0); PLATELET COUNT, AUTOMATED 138 10^3/uL (150-450); RED BLOOD COUNT 3.21 10^6/uL (4.00-5.40); WHITE BLOOD COUNT 7.8 10^3/uL (4.0-10.0)
[2022-02-17 18:47] LABS: ALBUMIN 3.3 GM/DL (3.2-5.2); BILIRUBIN,TOTAL 0.3 MG/DL (0.2-1.0); CREATININE FOR GFR 1.61 MG/DL (0.55-1.30); GLOMERULAR FILTRATION RATE 32.1 (>32); POTASSIUM SERUM 3.6 MEQ/L (3.5-5.1); TOTAL PROTEIN 6.8 GM/DL (6.4-8.2)
== END ==
PROVIDERS: ATTEND Internal Medicine
DX: R82.998 Other abnormal findings in urine (principal)

== ENCOUNTER → 2022-02-25 | Outpatient (REF) | payer MEDICARE, MEDICAID ==
[2022-02-25 16:55] LABS: HEMATOCRIT 31.4 % (36.0-47.0); HEMOGLOBIN 9.9 g/dl (12.0-15.5); MEAN CORPUSCULAR HGB CONC 31.5 g/dl (32.0-36.5); MEAN CORPUSCULAR VOLUME 104.7 fl (80.0-96.0); PLATELET COUNT, AUTOMATED 131 10^3/uL (150-450); WHITE BLOOD COUNT 6.4 10^3/uL (4.0-10.0)
[2022-02-25 17:30] LABS: CALCIUM LEVEL 8.8 MG/DL (8.8-10.2); CREATININE FOR GFR 2.12 MG/DL (0.55-1.30); GLOMERULAR FILTRATION RATE 23.4 (>32); POTASSIUM SERUM 3.9 MEQ/L (3.5-5.1)
== END ==
PROVIDERS: ATTEND Internal Medicine
DX: I50.9 Heart failure, unspecified (principal)

== ENCOUNTER → 2022-02-26 | Outpatient (REF) | payer MEDICARE, MEDICAID ==
[2022-02-26 15:56] LABS: CALCIUM LEVEL 9.4 MG/DL (8.8-10.2); CREATININE FOR GFR 2.04 MG/DL (0.55-1.30); GLOMERULAR FILTRATION RATE 24.4 (>32); POTASSIUM SERUM 3.6 MEQ/L (3.5-5.1)
== END ==
PROVIDERS: ATTEND Internal Medicine
DX: I50.9 Heart failure, unspecified (principal)

== ENCOUNTER → 2022-02-26 | Outpatient (CLI) | payer MEDICARE, MEDICAID | PROVIDERS: ATTEND Internal Medicine | DX: I50.9 Heart failure, unspecified (principal) ==

== ENCOUNTER → 2022-02-27 | Outpatient (REF) | payer MEDICARE, MEDICAID ==
[2022-02-27 13:06] LABS: CALCIUM LEVEL 9.4 MG/DL (8.8-10.2); CREATININE FOR GFR 2.04 MG/DL (0.55-1.30); GLOMERULAR FILTRATION RATE 24.4 (>32)
== END ==
PROVIDERS: ATTEND Internal Medicine
DX: I50.9 Heart failure, unspecified (principal)

== ENCOUNTER → 2022-02-28 | Outpatient (REF) | payer MEDICARE, MEDICAID ==
[2022-02-28 10:31] LABS: CALCIUM LEVEL 9.9 MG/DL (8.8-10.2); CREATININE FOR GFR 1.76 MG/DL (0.55-1.30); GLOMERULAR FILTRATION RATE 28.9 (>32); POTASSIUM SERUM 4.3 MEQ/L (3.5-5.1)
== END ==
PROVIDERS: ATTEND Internal Medicine
DX: I50.9 Heart failure, unspecified (principal)

== ENCOUNTER → 2022-03-01 | Outpatient (REF) | payer MEDICAID, MEDICARE ==
[2022-03-01 15:48] LABS: CALCIUM LEVEL 9.7 MG/DL (8.8-10.2); CREATININE FOR GFR 1.46 MG/DL (0.55-1.30); GLOMERULAR FILTRATION RATE 35.9 (>32); POTASSIUM SERUM 5.1 MEQ/L (3.5-5.1)
== END ==
PROVIDERS: ATTEND Internal Medicine
DX: I50.9 Heart failure, unspecified (principal)